=== PATIENT | female | born 1940 | race Caucasian/White ===

== ENCOUNTER → 2016-07-20 14:18 | Outpatient (CLI) | payer MEDICARE, OTHER ==
[2016-06-19 12:40] VITALS: BMI 34.1
[~2016-07-20 14:18] MED LIST: CARDIZEM CD360 MG PO; COUMADIN5 MG PO; CYMBALTA60 MG PO; EFFIENT10 MG PO; HCTZ25 MG PO; LEVAQUIN750 MG PO; METOPROLOL TART50 MG PO; SINGULAIR10 MG PO; ULTRACET TABLET1 TAB PO; ZETIA10 MG PO
[2016-07-20 14:53] LABS: BASOPHILS 0.3 % (0.0-2.0); EOSINOPHILS 5.3 % (0-7); HEMATOCRIT 40.5 % (36.0-48.0); HEMOGLOBIN 13.2 g/dL (12-16); IMMATURE GRANULOCYTES 0.4 % (0-5); LYMPHOCYTES 14.6 % (15-50); MCH 30.1 pg (26.0-34.0); MCHC 32.6 g/dL (31.0-37.0); MCV 92.5 fL (80.0-100.0); MEAN PLATELET VOLUME 9.7 fL (7.4-10.4); MONOCYTES 6.7 % (2-11); NEUTROPHILS 72.7 % (40-80); PLATELET COUNT 240 10x3/uL (130-400); RBC 4.38 10x6/uL (4.00-5.40); RDW 14.4 % (11.5-14.5); WBC 11.5 10x3/uL (4.8-10.8)
[2016-07-20 15:19] LABS: C-REACTIVE PROTEIN 0.8 mg/dL (0.0-0.9); CREATININE - SERUM 1.1 mg/dL (0.6-1.3)
[2016-07-20 15:56] LABS: ERYTHROCYTE SEDIMENTATION RATE 74 mm/hr (0-30)
== END | disposition home or self-care (01) ==
LOC: D.LABREF 14:18
PROVIDERS: Student in an Organized Health Care Education/Training Program
DX: I70.25 Atherosclerosis of native arteries of other extremities with ulceration (principal)

== ENCOUNTER → 2016-07-27 17:12 | Outpatient (CLI) | payer MEDICARE, OTHER ==
[2016-06-19 12:40] VITALS: BMI 34.1
[2016-07-27 17:59] LABS: CREATININE - SERUM 1.5 mg/dL (0.6-1.3)
[2016-07-27 18:10] LABS: BASOPHILS 0.3 % (0.0-2.0); EOSINOPHILS 3.2 % (0-7); HEMOGLOBIN 11.9 g/dL (12-16); IMMATURE GRANULOCYTES 0.4 % (0-5); LYMPHOCYTES 18.8 % (15-50); MCH 29.8 pg (26.0-34.0); MCHC 32.2 g/dL (31.0-37.0); MCV 92.7 fL (80.0-100.0); MEAN PLATELET VOLUME 10.1 fL (7.4-10.4); MONOCYTES 7.6 % (2-11); NEUTROPHILS 69.7 % (40-80); PLATELET COUNT 270 10x3/uL (130-400); RBC 3.99 10x6/uL (4.00-5.40); RDW 14.7 % (11.5-14.5); WBC 11.8 10x3/uL (4.8-10.8)
[2016-07-27 19:03] LABS: ERYTHROCYTE SEDIMENTATION RATE 55 mm/hr (0-30)
== END | disposition home or self-care (01) ==
LOC: D.LABREF 17:12
PROVIDERS: Family Medicine
DX: I70.25 Atherosclerosis of native arteries of other extremities with ulceration (principal); A49.02 Methicillin resistant Staphylococcus aureus infection, unspecified site; L97.519 Non-pressure chronic ulcer of other part of right foot with unspecified severity

== ENCOUNTER → 2016-10-13 08:03 | Outpatient (CLI) | payer MEDICARE, OTHER ==
[2016-06-19 12:40] VITALS: BMI 34.1
== END ==
LOC: D.MRI 08:00
DX: M47.896 Other spondylosis, lumbar region (principal)

== ENCOUNTER → 2016-12-21 13:53 | Outpatient (CLI) | payer MEDICARE, OTHER ==
[2016-06-19 12:40] VITALS: BMI 34.1
== END | disposition home or self-care (01) ==
LOC: D.US 13:53
DX: I65.23 Occlusion and stenosis of bilateral carotid arteries (principal)

== ENCOUNTER 2017-01-11 10:25 | Day surgery (SDC) | payer MEDICARE, OTHER ==
[~2017-01-11] VITALS: Ht 160 cm; Wt 86.2 kg
--- NOTE | ~2017-01-11 | HP ---
PATIENT: MIRANDA FOWLER [place] MEDICAL RECORD: [id number] ACCOUNT: [id number] LOCATION:[facility] : 42 ADMISSION DATE: 01/11/17 HISTORY AND PHYSICAL EXAMINATION HISTORY OF PRESENT ILLNESS: Miranda is 76 years old. She has a large mass completely occluding her right ear canal and biopsy showed benign adnexal tumor. She is being admitted for wide local excision of the mass occluding her ear canal with possible flap or skin graft closure. PAST SURGICAL HISTORY: Includes melanoma and hypertension. ALLERGIES: NIACIN. CURRENT MEDICATIONS: Include diltiazem, ondansetron, Advair, tramadol, Singulair, Zetia, duloxetine, metoprolol, hydrochlorothiazide and Effient. PHYSICAL EXAMINATION: GENERAL: She is healthy-appearing. FACE: Normal, symmetric, no lesions. EYES: Sclerae and conjunctivae are normal. EARS: Left ear is normal. 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 ORAL CAVITY AND OROPHARYNX: Normal palate. Tongue protrudes in midline. NECK: No masses, adenopathy. CHEST: Clear. CARDIOVASCULAR: Regular rate and rhythm, no murmur. EXTREMITIES: Normal. IMPRESSION: Mass including the right ear canal. PLAN: Excision of the mass and a flap or skin graft closure. TRANSINT:[id number] Voice Confirmation ID: [id number] DOCUMENT ID: [id number] MARISABEL BAIRES MD CC: [id number] DICTATION DATE: 01/08/17 1451 INFORMATICS PHYSICIAN LIAISON: 01/08/17 1725 PRE [facility] [address] [id number]
--- NOTE | ~2017-01-11 | OP ---
PATIENT NAME: MIRANDA FOWLER MEDICAL RECORD: [id number] :42 LOCATION:[facility] ADMISSION DATE: SURGEON: PETER SOSA MD DATE OF OPERATION: 01/11/2017 PREOPERATIVE DIAGNOSIS: Tumor in the right ear canal. POSTOPERATIVE DIAGNOSIS: Tumor in the right ear canal. PROCEDURE: Wide local excision, right ear canal and conchal bowl with pedicle flap reconstruction. SURGEON: Peter Sosa MD ANESTHESIA: General LMA. BLOOD LOSS: Less than 5 cc. SPECIMENS: Excision of right ear canal and conchal bowl excision with lesion. COMPLICATIONS: None. DISPOSITION: Recovery stable. DESCRIPTION OF PROCEDURE: She was brought to the operating room and placed in supine position, sedated and intubated by anesthesia. The eyes were taped. The head was turned to the left. She was positioned, prepped and draped for surgery on the right ear. The conchal bowl, ear canal, postauricular area were injected with a total of less than 1 cc of 1% lidocaine with 1:100,000 epinephrine. A 15 blade was used to make an incision through normal skin leaving a several millimeters margin normal tissue circumferentially around the lesion. Initially, the ear canal deep margin could not be visualized at all because the mass was filling the entire ear canal, but once all the incisions were made out laterally in the conchal bowl pretty much all the way to the helix, this incision was taken down all the way through the cartilage both to assist with reconstruction and make sure all the margins were negative. Once that was lifted up then with retraction, the deeper margins could be visualized and were taken down with small scissors. The mass was completely excised. The edges, however, trimmed up, some more cartilage edges were removed to create a nice smooth wound to reconstruct. The ear canal was cleaned out and debrided as it was totally impacted. The postauricular area was then addressed. Basically, a semicircular incision was made on the postauricular area skin behind the lesion. This was taken through and through to rotate that skin flap into the ear canal. This was then sutured and placed in the ear canal and the medial portion of the conchal bowl. Then, an incision was made just through the skin in the postauricular area to remove that skin up and so to the helix and the lateral conchal bowl leaving a pedicled island flap. The rest of the circumference of the skin flaps were sutured into place with 5-0 Vicryl and then the postauricular incision was just closed directly with interrupted subcutaneous 5-0 Vicryl diminishing the postauricular crease somewhat. Once that was accomplished, the flap looked really good, nice contour, doing well vascularly. Then, the mupirocin ointment was applied and the ear canal was packed with mupirocin soaked cotton ball. She was awakened, extubated, and transported to recovery in good condition. No complications. OPERATIVE REPORT [id number] MIRANDA FOWLER TRANSINT:[id number] Voice Confirmation ID: [id number] DOCUMENT ID: [id number] PETER SOSA MD CC: [id number] DICTATION DATE: 01/11/171746 [facility] EXCHANGE SERVICE ADVISOR: 01/12/17 0046 [facility] 01/11/17 [facility] [address] [place] [address]
[~2017-01-11 10:25] MED LIST changes: +TRAMADOL HCL E100 M1 PO; -ULTRACET TABLET1 TAB PO
[2017-01-11 11:02] LABS: HEMATOCRIT 46.7 % (36.0-48.0); HEMOGLOBIN 15.4 g/dL (12-16); MCH 30.4 pg (26.0-34.0); MCV 92.1 fL (80.0-100.0); MEAN PLATELET VOLUME 10.3 fL (7.4-10.4); RBC 5.07 10x6/uL (4.00-5.40)
[2017-01-11 11:34] LABS: ANION GAP 12.7 mmol/L (8-16); CARBON DIOXIDE 30.4 mmol/L (21.0-32.0); CREATININE - SERUM 1.2 mg/dL (0.6-1.3); POTASSIUM - SERUM 3.1 mmol/L (3.5-5.1)
[2017-01-11] MEDS ORDERED: CELEBREX200 MG PO (12:09)
[2017-01-11 12:22] VITALS: BP 131/71; Ht 160 cm; Wt 86.2 kg
[2017-01-11] MEDS ORDERED: KEFLEX500 MG PO (17:53)
--- NOTE | 2017-01-11 18:25 | NUR ---
ASSISTED PATIENT TO WALK TO BATHROOM AND VOID LARGE AMOUNT IN TOILET. RIGHT FOREARM PIV DC'D WITH TIP INTACT. PATIENT DRESSING IN PERSONAL CLOTHING WITH DAUGHTER'S ASSISTANCE
--- NOTE | 2017-01-11 18:45 | NUR ---
DISCHARGE INSTRUCTIONS REVIEWED WITH PATIENT AND DAUGHTER. DISCHARGED HOME VIA WHEELCHAIR TO PRIVATE VEHICLE WITH DAUGHTER AND BROTHER
== END 2017-01-11 18:45 | disposition home or self-care (01) ==
LOC: D.OPS 10:25 → D.PAN 12:45 → D.OPS 13:00 → D.PAN 13:00 → D.OPS 18:45
PROVIDERS: Anesthesiology
DX: D23.21 Other benign neoplasm of skin of right ear and external auricular canal (principal); J45.909 Unspecified asthma, uncomplicated; I10 Essential (primary) hypertension; K21.9 Gastro-esophageal reflux disease without esophagitis; Z01.812 Encounter for preprocedural laboratory examination

== ENCOUNTER → 2017-01-15 08:25 | Outpatient (CLI) | payer MEDICARE, OTHER ==
[2017-01-11 12:22] VITALS: BMI 33.7
[~2017-01-15 08:25] MED LIST changes: +CELEBREX200 MG PO; +KEFLEX500 MG PO
== END | disposition home or self-care (01) ==
LOC: D.RAD 01-11 09:00 → D.CT 08:00
DX: M48.06 Spinal stenosis, lumbar region (principal)

== ENCOUNTER 2017-02-03 05:15 | Inpatient (IN) | payer MEDICARE, OTHER ==
[2017-02-02 16:25] LABS: BASOPHILS 0.2 % (0-2); EOSINOPHILS 1.3 % (0-7); HEMATOCRIT 44.8 % (36.0-48.0); HEMOGLOBIN 14.8 g/dL (12-16); IMMATURE GRANULOCYTES 0.3 % (0-5); MCH 30.9 pg (26.0-34.0); MCV 93.5 fL (80.0-100.0); MEAN PLATELET VOLUME 10.1 fL (7.4-10.4); MONOCYTES 7.9 % (2-11); NEUTROPHILS 73.3 % (40-80); PLATELET COUNT 242 10x3/uL (130-400); RBC 4.79 10x6/uL (4.00-5.40); RDW 13.2 % (11.5-14.5); WBC 13.4 10x3/uL (4.8-10.8)
[2017-02-02 16:34] LABS: INR 0.99 (0.85-1.17); PROTIME 12.9 SECONDS (11.6-15.0)
[2017-02-02 16:38] LABS: ANION GAP 14.8 mmol/L (8-16); CALCIUM 9.3 mg/dL (8.5-10.1); CARBON DIOXIDE 26.8 mmol/L (21.0-32.0); CREATININE - SERUM 0.8 mg/dL (0.6-1.3); POTASSIUM - SERUM 3.6 mmol/L (3.5-5.1)
[2017-02-02 16:43] LABS: APPEARANCE CLEAR (CLEAR); BILIRUBIN NEGATIVE (NEGATIVE); COLOR YELLOW (YELLOW); GLUCOSE NEGATIVE (NEGATIVE); KETONE NEGATIVE (NEGATIVE); LEUKOCYTE ESTERASE NEGATIVE (NEGATIVE); NITRITE NEGATIVE (NEGATIVE); PROTEIN TRACE mg/dL (NEGATIVE); SPECIFIC GRAVITY 1.025 (1.005-1.020); UROBILINOGEN NORMAL (NORMAL)
[~2017-02-03] VITALS: Ht 160 cm; Wt 81.8 kg
--- NOTE | ~2017-02-03 | OP ---
PATIENT NAME: MIRANDA FOWLER MEDICAL RECORD: [id number] :42 LOCATION:[facility] [id number] ADMISSION DATE:02/03/17 SURGEON: JUAN BENAVIDES MD OPERATION DATE: 02/03/17 PREOPERATIVE DIAGNOSES: 1. Right L5 radiculopathy. 2. Severe degenerative disc space disease at L4-5 and L5-S1. 3. Grade 1 spondylolisthesis at L4-5. POSTOPERATIVE DIAGNOSES: 1. Right L5 radiculopathy. 2. Severe degenerative disc space disease at L4-5 and L5-S1. 3. Grade 1 spondylolisthesis at L4-5. PROCEDURE PERFORMED: 1. Application of intravertebral biomechanical device via right sided approach at L4-5. 2. Posterior interbody arthrodesis at L4-5 with endplate preparation with curettes using autograft. 3. Posterolateral arthrodesis on the right side at L5-S1 facet complex. 4. Posterior pedicle screw instrumentation via percutaneous approach from L4 to S1 bilaterally. 5. L4-5 discectomy and medial facetectomy with no overt decompression. IMPLANTS: 1. NuVasive MAS-PLIF cage 8 x 9 x 23 millimeter 12 degree lordosis at L4-5. 2. Screws, 5.5 x 15 millimeter, bilaterally at L4, 6.5 x 50 millimeter screws bilaterally at L5, and 7.5 x 45 millimeter screws bilaterally at S1. ESTIMATED BLOOD LOSS: 150 milliliters. COMPLICATIONS: None. FINDINGS: Durotomy noted during decompression; continuous electromyography monitoring did not reveal any nerve root responses at greater than 40 milliamps during screw placement or during final stimulation. HISTORY: The patient is a pleasant 76-year-old female who presented as an outpatient with severe and progressive right lower extremity pain consistent with L5 radiculopathy as well as severe low back pain, imaging consistent with right L5 foraminal stenosis, and severe degenerative changes from L4 to S1 including L4-5 spondylolisthesis. I had an extensive discussion with her regarding her imaging, her presentation, and risk, benefits, and options of continued conservative therapy versus operative intervention in the form of L4-S1 fixation. She ultimately chose to undergo the operative intervention, and the risks and benefits were discussed with her in detail preoperatively. PROCEDURE IN DETAIL: The patient with identified by the anesthesia team, transported to the operative theater where general endotracheal anesthesia commenced, and all appropriate lines and tubes were placed. She was gently transferred over into the prone position on the operative bed with her arms placed in a Superman position. All of her pressure points were padded, and eyes were accounted for by the anesthesia team. The area was prepped and draped in the usual sterile fashion in the lumbar spine. Timeout was performed and agreed to by those OPERATIVE REPORT [id number] MIRANDA FOWLER present prior to start of the procedure. The patient did receive IV antibiotics prior to the start of the procedure. Using biplanar fluoroscopy, planned entries for L4, L5, and S1 pedicle screws bilaterally were identified and marked. Two paramedial longitudinal incisions were ultimately marked and infiltrated with 1% Lidocaine with epinephrine. A 10-blade was used to make the initial skin incisions, and Bovie electrocautery was used to perform dissection through the subcutaneous fat. Pérez elevators were used to sweep away the subcutaneous fat and expose the lumbodorsal fascia. Bovie electrocautery was used to make a longitudinal incision in the fascia. This was repeated for the other side as well. Starting with the right side, K-wires were placed. Using Jamshidi needles under continuous electromyography neurostimulation and again biplanar fluoroscopy ultimately at L4-5 and L5-S1 bilaterally. The 5.5 millimeter x 15 millimeter screw with the blade attachment was inserted to the appropriate depth. The 6.5 x 50 millimeter screw at the right side at L5 was then inserted to the appropriate depth, and the retractor system was engaged. A small amount of muscle soft tissue was removed over the right L4 lamina and L4-5 facet junction. Using a combination of high speed and matchstick drill, osteotomes and Kerrison rongeurs, a right L4 laminotomy and medial facetectomy was performed. The bone was harvested for autograft. During the decompression, small durotomy on the dorsolateral aspect of the thecal sac on the right side at L4-5 was noted. There was no extrusion of nerve roots from the durotomy defect. Small coco was used to cover the durotomy site. The thecal sac was gently retracted medially uncovering the L4-5 disc. Judicious bipolar electrocautery was used to achieve hemostasis of the epidural veins in this location. A 15-blade was used to make the square cut in the disc space, and a combination of pituitary rongeurs, sebastien, endplate rasps, and ringed curettes were used to perform the discectomy and endplate preparation. An 8 millimeter height shaver was found to be appropriate size, and the 8 millimeter cage as loaded and packed with autograft. The bone funnel was also loaded with autograft, and autograft was delivered into the L4-5 disc space for arthrodesis. The cage was then inserted under lateral fluoroscopy to the appropriate depth and removed without difficulty. Copious irrigation was then used, and a small amount of Surgiflo hemostatic matrix was then applied to the discectomy site to achieve hemostasis. There was no significant hemorrhage thereafter. The small coco overlying the durotomy was then removed. Copious amount of irrigation was then used, and DuraSeal dural sealant was then placed over the durotomy site without difficulty. The right S1 screw measuring 7.5 x 45 millimeters was inserted with the blade attachment, and the retractor system was then engaged. The right L5-S1 facet joint was identified, decorticated with a high speed matchstick drill, and the synovial tissue was curetted away with small angled curette. Combination of autograft and DBX allograft was then packed into this posterolateral facet joint for arthrodesis. The retractor blade was removed on the right side, and the screw towers were then placed. All screw heads were found to be locked on and tight with manual interrogation when applied. The left L4 screw was placed 5.5 x 50 millimeter screws under lateral fluoroscopy over the K-wire. Process repeated at L5 and S1. Again, all these screw placements occurred under continuous electromyography stimulation. The rods were measured with a gordo measuring caliper admitted ultimately passed. The set screws were delivered and final tightened without incident on both sides. The screw towers were removed, and final x-rays were taken. Copious amount of irrigation was used on both incisions. A total of 1 gram of vancomycin powder was sprinkled between the subfascial spaces and suprafascial spaces on both incisions. The right lumbodorsal fascial closure was achieved with interrupted 0-Vicryl sutures in a watertight fashion. The lidocaine side was closed with interrupted Vicryl sutures as well. subdermal region was closed with inverted interrupted 2-0 Vicryl sutures, and the skin was closed with eladio. There were no apparent complications. She tolerated the procedure well. All sponge and needle counts were correct times two at the end OPERATIVE REPORT [id number] MIRANDA FOWLER of the case. I updated the family immediately postoperative regarding the course of the procedure including the durotomy. JUAN BENAVIDES MD CC: [id number] DICTATION DATE: 02/03/17 1600 DIABETES TERRITORY MANAGER: DM 02/05/17 1543 [id number] [place] [address]
[2017-02-03 06:14] VITALS: BP 136/70; BMI 31.9
[2017-02-03 12:05] VITALS: BP 131/62
[2017-02-03 12:17] VITALS: BP 140/75
--- NOTE | 2017-02-03 12:20 | NUR ---
RECIEVED PT TO THE FLOOR AT THIS TIME FROM RECOVERY. REPORT RECIEVED. POST-O[ VITALS STARTED AT THIS TIME. ASSESSMENT DONE PER FLOWSHEET. BED IN LOW POSITION AND CALL LIGHT WITHIN REACH. WILL CONTINUE TO MONITOR.
[2017-02-03 14:17] VITALS: BP 131/62; Ht 160 cm; Wt 81.8 kg
[2017-02-03 16:14] VITALS: BP 146/89
--- NOTE | 2017-02-03 19:28 | NUR ---
PT LYING IN BED WITH EYES CLOSED, EVEN RISE AND FALL OF CHEST, NO SIGNS OF DISTRESS. BED IN LOW POSITION, CALL LIGHT WITHIN REACH
[2017-02-03 20:00] VITALS: BP 146/89; BP 158/86
--- NOTE | 2017-02-03 20:19 | NUR ---
PT AWAKE, LYING IN BED, HAD TENNIS CENTRE MANAGER MICHELLE ASSIST IN MOVING PT UP IN BED, MOVED BEDISDE TABLE WITH PT DINNER IN FRONT OF HER SO SHE CAN EAT. NO OTHER NEEDS AT THIS TIME
--- NOTE | 2017-02-03 20:50 | NUR ---
PT DAUGHTER CAME AND FOUND ME , VERBALIZED PT IS IN SEVERE PAIN WITH NO ASSISTANCE. ASSESSED PT PAIN LEVEL, 10/10 ON SCALE OF 0-10. PT HAS NETWORK OPERATIONS ANALYST ORDERED WELL HYDROCODONE. ADMINISTERED HYDROCODONE UNTIL PT PAIN STABELIZED AND NETWORK OPERATIONS ANALYST SET UP
--- NOTE | 2017-02-03 21:45 | NUR ---
PT VISITING W/ DAUGHTER, VERBALIZED PAIN IS NOW AT A 7, BED IN LOW POSITION, CALL LIGHT IN REACH NO OTHER NEEDS AT THIS MOMENT. CONTINUE W/ PLAN OF CARE
[2017-02-04] VITALS: BP 144/72; BP 158/86
[2017-02-04 04:00] VITALS: BP 168/82
[2017-02-04 07:55] LABS: ANION GAP 12.7 mmol/L (8-16); CALCIUM 9.2 mg/dL (8.5-10.1); CARBON DIOXIDE 27.4 mmol/L (21.0-32.0); CREATININE - SERUM 0.9 mg/dL (0.6-1.3); POTASSIUM - SERUM 4.1 mmol/L (3.5-5.1)
[2017-02-04 08:15] VITALS: BP 136/72
[2017-02-04 08:17] LABS: HEMATOCRIT 41.1 % (36.0-48.0); HEMOGLOBIN 13.7 g/dL (12-16); MCH 30.8 pg (26.0-34.0); MCHC 33.3 g/dL (31.0-37.0); MCV 92.4 fL (80.0-100.0); MEAN PLATELET VOLUME 11.9 fL (7.4-10.4); PLATELET COUNT 227 10x3/uL (130-400); RBC 4.45 10x6/uL (4.00-5.40); RDW 13.4 % (11.5-14.5); WBC 20.4 10x3/uL (4.8-10.8)
--- NOTE | 2017-02-04 08:40 | NUR ---
SCHEDULED MEDICATIONS ADMINISTERED AT THIS TIME. PROFESSOR OF FOOD BIOCHEMISTRY IN USE FOR PAIN CONTROL. DRESSING TO LOWER BACK CHANGED DUE TO SATURATION AT THIS TIME. ASSESSMENT PERFORMED PER FLOWSHEET. CALL LIGHT IN REACH, PROFESSOR OF FOOD BIOCHEMISTRY ADJUSTED PER ORDER. TRISHA ALARM ON AND IN WORKING ORDER. WILL CONTINUE WITH PLAN OF CARE.
[2017-02-04 08:55] LABS: LYMPHOCYTES 8 % (15-50); MONOCYTES 4 % (2-11); NEUTROPHILS 86 % (40-80); PLATELET ESTIMATE NORMAL
--- NOTE | 2017-02-04 10:23 | NUR ---
PRN TYLENOL ADMINISTERED AT THIS TIME FOR HEADACHE. UP IN CHAIR WITH TRISHA MAT ALARM IN USE. CALL LIGHT IN REACH, WILL CONTINUE WITH PLAN OF CARE.
--- NOTE | 2017-02-04 11:19 | NUR ---
LEE CATHETER D/C WITH CATH TIP INTACT. PT TOLERATED WITHOUT COMPLAINTS.
[2017-02-04 11:41] VITALS: BP 141/87
[2017-02-04 16:00] VITALS: BP 140/79
--- NOTE | 2017-02-04 16:00 | NUR ---
SLEEPING AT THIS TIME WITH RESPIRATIONS EVEN AND NON LABORED. CALL LIGHT IN REACH. WILL CONTINUE WITH PLAN OF CARE.
--- NOTE | 2017-02-04 16:53 | NUR ---
ASSISTED PT TO BATHROOM WHERE SHE VOIDED 300 ML OF CLEAR, YELLOW URINE WITHOUT DIFFICULTY.
[2017-02-04 20:00] VITALS: BP 140/70
--- NOTE | 2017-02-04 20:30 | NUR ---
AWAKE,ALERT,ORIENTED..IV INFUSING TO LEFT HAND WIHTOUT REDNESS OR EDEMA NOTED. DRSG TO LUMBAR AREA DRY/INTACT. GUZMAN. NO DEFICIETS NOTED. REHAB THERAPY MANAGER NORPHINE IN USE FOR PAIN CONTRO. CL IN REACH.
[2017-02-05 04:00] VITALS: BP 122/66
--- NOTE | 2017-02-05 04:59 | NUR ---
PT HAS BEEN INCONT SEVERAL TIMES DURING THE NIGHT AND WE ARE CLEANING HER UP AT THIS TIME. SHE HAS O2 AT 2 LITERS AND EASY RESPIRATIONS BUT IS COMPLAINING OV BACK PAIN.
--- NOTE | 2017-02-05 05:37 | NUR ---
NO CHANGE IN ASSESSMENT. CL IN REACH.
[2017-02-05 06:21] LABS: BASOPHILS 0.1 % (0-2); EOSINOPHILS 0.3 % (0-7); HEMATOCRIT 39.6 % (36.0-48.0); HEMOGLOBIN 13.2 g/dL (12-16); IMMATURE GRANULOCYTES 0.4 % (0-5); LYMPHOCYTES 7.9 % (15-50); MCH 30.8 pg (26.0-34.0); MCHC 33.3 g/dL (31.0-37.0); MCV 92.3 fL (80.0-100.0); MEAN PLATELET VOLUME 11.1 fL (7.4-10.4); MONOCYTES 9.1 % (2-11); NEUTROPHILS 82.2 % (40-80); PLATELET COUNT 214 10x3/uL (130-400); RBC 4.29 10x6/uL (4.00-5.40); RDW 13.1 % (11.5-14.5); WBC 18.8 10x3/uL (4.8-10.8)
[2017-02-05 06:35] LABS: CALCIUM 8.5 mg/dL (8.5-10.1); CARBON DIOXIDE 30.9 mmol/L (21.0-32.0); CHLORIDE - SERUM 97 mmol/L (98-107); GLUCOSE 148 mg/dL (74-106); SODIUM 136 mmol/L (136-145)
[2017-02-05 06:36] LABS: CALC OSMOLALITY 273 mosm/kg (275-300); CREATININE - SERUM 0.6 mg/dL (0.6-1.3); UREA NITROGEN 11 mg/dL (7-18); eGFR NON AFRICAN AMERICAN > 90 mL/min (90-120)
--- NOTE | 2017-02-05 07:00 | NUR ---
REPORT RECIEVED, ASSUMED CARE. PATIENT IN BED WITH IV INTACT. NO COMPLAINTS AT THIS TIME. CALL LIGHT WITHIN REACH. PATIENT EYES CLOSED RESTING QUIETLY WITH NO DISTRESS.
[2017-02-05 08:55] VITALS: BP 196/91
--- NOTE | 2017-02-05 09:30 | NUR ---
PATIENT UP TO CHAIR PER PT. IV INTACT. STATED SHE DIDNT FEEL LIKE EATING AT THIS TIME. ZOFRAN GIVEN FOR NAUSEA. FAMILY AT BEDSIDE. CALL LIGHT WITHIN REACH.
--- NOTE | 2017-02-05 12:00 | NUR ---
Patient Name: MIRANDA FOWLER Admission Status: Elective Accout number: [id number] Admission Date: 02-03-2017 : 1940 Admission Diagnosis:INTERVERTEBRAL DISC DISORDERS W RADICULOPATHY, LUMBAR R Attending: VÍCTOR Current LOS: 2 Anticipated DC Date: 02-08-2017 Planned Disposition: Home Primary Insurance: MEDICARE A & B Discharge Planning Comments: CM MET WITH PATIENT REGARDING D/C NEEDS AND PLANS. PATIENT STATED SHE LIVES WITH HER DAUGHTER (CORINNE) AND SHE WILL DRIVE HER HOME AT DISCHARGE. PATIENT STATED THERE ARE 2 STEPS W/RAILS TO ENTER HOME AND 1 STAIRCASE IN HOME (DOES NOT USE THE STAIRCASE). PATIENT STATED SHE IS INDEPENDENT WITH HER CARE AND HAS A WALKER, BS COMMODE, AND SHOWER CHAIR AT HOME. PATIENTS PCP IS DR. TORRES AND PHARMACY IS [facility]. PATIENT WILL DISCUSS HOME HEALTH WITH HER DAUGTHER AND DOCTOR BEFORE CHOOSING ONE. CM WILL CONTINUE TO FOLLOW PATIENT WITH D/C NEEDS AND PLANS. PCP DR. [facility]IS[facility]- [phone] CORINNE (DAUGHTER) [phone] Front Office Agent: Florinda Gonzales Is the patient Alert and Oriented? Yes 0 * How many steps to enter\exit or inside your home? 2 w/rails 0 * PCP DR. TORRES 0 * Pharmacy [facility] 0 * Preadmission Environment Home with Family 0 * ADLs Independent 0 * Equipment Bedside Commode Shower Chair Walker 0 * List name and contact numbers for known caregivers / representatives who currently or will assist patient after discharge: CORINNE (DAUGHTER) [phone] * Community resources currently utilized None 0 * Additional services required to return to the preadmission environment? Yes 0 * Can the patient safely return to the preadmission environment? Yes 0 * Has this patient been hospitalized within the prior 30 days at any hospital? No 0 Grand Total: 0
[2017-02-05 13:07] VITALS: BP 152/71
--- NOTE | 2017-02-05 13:20 | NUR ---
PATIENT TRIPE FINISHER DC ORDERED. PATIENT HAS NO COMPLAINTS OF PAIN. IV INTACT. CALL LIGHT WITHIN REACH. DRESSING TO BACK CHANGED. INCISIONS X 2 CLD WITH DIANA. SMALL AMOUNT OF PINK DRAINAGE ON OLD DRESSING. PATIENT TOLERATED WITH NO PAIN.
[2017-02-05 14:56] LABS: BASOPHILS 0.1 % (0-2); EOSINOPHILS 0.3 % (0-7); HEMATOCRIT 39.4 % (36.0-48.0); HEMOGLOBIN 13.1 g/dL (12-16); IMMATURE GRANULOCYTES 0.7 % (0-5); LYMPHOCYTES 7.9 % (15-50); MCH 30.2 pg (26.0-34.0); MCHC 33.2 g/dL (31.0-37.0); MCV 90.8 fL (80.0-100.0); MEAN PLATELET VOLUME 10.8 fL (7.4-10.4); MONOCYTES 8.9 % (2-11); NEUTROPHILS 82.1 % (40-80); PLATELET COUNT 207 10x3/uL (130-400); RBC 4.34 10x6/uL (4.00-5.40); RDW 12.9 % (11.5-14.5); WBC 20.9 10x3/uL (4.8-10.8)
--- NOTE | 2017-02-05 15:09 | NUR ---
Rehab Note- Acute Rehab Prescreen order received. Visited with the patient, she is interested in [facility] Rehab when ready for discharge from the acute hospital. Thank you for this referral! Jacqueline De Anda RN Clinical Liaison, [facility] Rehab
[2017-02-05 16:18] VITALS: BP 163/71
[2017-02-05] MEDS ORDERED: LOVENOX40 MG/0.4 SC (17:27)
[2017-02-05] MEDS ORDERED: HYDROCODON-ACE1 EAC7 PO (17:30)
[2017-02-05] MEDS ORDERED: VALIUM 2 MG TAB2 MG PO (17:30)
[2017-02-05] MEDS ORDERED: ZOFRAN ODT4 MG/UDTAB PO (17:31)
--- NOTE | 2017-02-05 18:00 | NUR ---
SPOKE WITH PATIENT FAMILY. EXPLAINED PATIENT GOING TO REHAB. VERBALIZED UNDERSTANDING. NO QUESTIONS AT THIS TIME.
--- NOTE | 2017-02-05 18:50 | NUR ---
REPORT GIVEN TO EM BUCHANAN. PATIENT IN BED WITH NO COMPLAINTS. IV INTACT. CALL LIGHT WITHIN REACH.
--- NOTE | 2017-02-05 20:20 | NUR ---
PT DISCHARGED TO REHAB AT THIS TIME.
== END 2017-02-05 20:21 | disposition home or self-care (01) | DRG 460 ==
LOC: D.OPS 05:15 → D.PAN 07:30 → D.OPS 07:30 → D.MS 11:42 → D.OPS 14:29 → D.MS 14:31
PROVIDERS: ADMIT Neurological Surgery
PROC: 0SG30AJ Fusion of Lumbosacral Joint with Interbody Fusion Device, Posterior Approach, Anterior Column, Open Approach (ICD-10-PCS; 2017-02-03)
PROC: 00QT0ZZ Repair Spinal Meninges, Open Approach (ICD-10-PCS; 2017-02-03)
PROC: 0SG00AJ Fusion of Lumbar Vertebral Joint with Interbody Fusion Device, Posterior Approach, Anterior Column, Open Approach (ICD-10-PCS; principal; 2017-02-03 07:30)
DX: M51.16 Intervertebral disc disorders with radiculopathy, lumbar region (principal); G97.41 Accidental puncture or laceration of dura during a procedure; M51.17 Intervertebral disc disorders with radiculopathy, lumbosacral region

== ENCOUNTER 2017-02-05 19:44 | Inpatient (IN) | payer MEDICARE, OTHER ==
[~2017-02-05] VITALS: Ht 160 cm; Wt 72.6 kg
[~2017-02-05 19:44] MED LIST changes: +HYDROCODON-ACE1 EAC7 PO; +LOVENOX40 MG/0.4 SC; +VALIUM 2 MG TAB2 MG PO; +ZOFRAN ODT4 MG/UDTAB PO
--- NOTE | 2017-02-05 20:10 | NUR ---
RECEIVED PATIENT TO UNIT VIA W/C @ 2009 HRS. PROVIDED PATIENT WITH FRESH ICE WATER. VERIFIED SHE HAS NO NEEDS AT THIS TIME. HOB UP 30 DEGREES WITH FOB ELEVATED FOR COMFORT. LUMBAR INCISIONS ARE CLEAN AND DRY.
--- NOTE | 2017-02-05 22:15 | NUR ---
PATIENT WAS CLEANSED AND CHANGED WELL WERE ALL BED LINENS, BY ART ANDRADE DUE TO VERY LARGE URINARY INCONTINENCE. NURSE SUAREZ ALSO CHANGED BORDERED GAUZE DRESSING TO LUMBAR INCISIONS PRIOR DRESSING HAD ROLLED UP DUE TO PATIENT MOVEMENT IN BED.
[2017-02-05 22:35] VITALS: BP 150/75; BMI 28.4
--- NOTE | 2017-02-05 23:55 | NUR ---
PATIENT WAS GIVEN NORCO 5/325 X2 TABS PO @ 9262 BY ART ANDRADE FOR EXPRESSED PAIN LEVEL OF 8/10 IN LOW BACK. PATIENT REPORTS NO PAIN AT THIS TIME AT REST. NURSE SUAREZ COMPLETED ADMISSION ASSESSMENT AROUND 2310 HRS ADMISSION HISTORY IS NOW COMPLETE AND PATIENT HAS SIGNED ALL ADMISSION DOCUMENTS. DURING THE COURSE OF COMPLETING HER ADMISSION HISTORY, REGARDING A LIVING WILL, PATIENT DECLINED TO OBTAIN MORE INFORMATION BUT STATES THAT, (1) HER DAUGHTER, WITH WHOM SHE LIVES KNOWS HER WISHES, AND (2) IN THE CASE THAT HER LIFE IS UNSUSTAINABLE BY OTHER THAN ARTIFICIAL MEANS, SHE WANTS NO HEROIC MEASURES, INTUBATION/VENTILATION, ETC. SHE CONFIRMS HER WISH TO BE DNR SHE WAS IN ACUTE CARE UNIT.
--- NOTE | 2017-02-06 02:00 | NUR ---
RESTING IN BED, EYES CLOSED.
--- NOTE | 2017-02-06 04:45 | NUR ---
IN BED, EYES CLOSED. RESPIRATIONS ARE QUIET AND UNLABORED.
--- NOTE | 2017-02-06 06:45 | NUR ---
GAVE PATIENT SCHEDULED MEDS. C/O PAIN LEVEL OF 6/10 IN LEFT KNEE AND LOW BACK. GAVE HER NORCO 5/325 X2 TABS PO.
--- NOTE | 2017-02-06 07:20 | NUR ---
RESTING QUIETLY IN BED. EYES CLOSED. CALL LIGHT IN REACH.
[2017-02-06 07:22] LABS: BASOPHILS 0.1 % (0-2); EOSINOPHILS 0.7 % (0-7); HEMATOCRIT 41.2 % (36.0-48.0); HEMOGLOBIN 13.7 g/dL (12-16); IMMATURE GRANULOCYTES 0.6 % (0-5); LYMPHOCYTES 8.3 % (15-50); MCH 30.1 pg (26.0-34.0); MCHC 33.3 g/dL (31.0-37.0); MCV 90.5 fL (80.0-100.0); MEAN PLATELET VOLUME 10.6 fL (7.4-10.4); MONOCYTES 9.8 % (2-11); NEUTROPHILS 80.5 % (40-80); PLATELET COUNT 190 10x3/uL (130-400); RBC 4.55 10x6/uL (4.00-5.40); WBC 16.2 10x3/uL (4.8-10.8)
[2017-02-06 07:28] LABS: CALC OSMOLALITY 260 mosm/kg (275-300); CARBON DIOXIDE 35.3 mmol/L (21.0-32.0); CHLORIDE - SERUM 94 mmol/L (98-107); CREATININE - SERUM 0.6 mg/dL (0.6-1.3); GLUCOSE 134 mg/dL (74-106); SODIUM 129 mmol/L (136-145); UREA NITROGEN 12 mg/dL (7-18); eGFR NON AFRICAN AMERICAN > 90 mL/min (90-120)
[2017-02-06 07:29] LABS: POTASSIUM - SERUM 2.7 mmol/L (3.5-5.1)
--- NOTE | 2017-02-06 08:00 | NUR ---
PATIENT IS ALERT/ORIENT X4. HOB UP TO EAT BREAKFAST. CALL LIGHT WITHIN REACH. SALINE LOCK TO LEFT HAND INTACT. NO OXYGEN. PO 93% RA. VOICES NO NEEDS AT THIS TIME.
[2017-02-06 09:25] VITALS: BP 145/81
--- NOTE | 2017-02-06 09:52 | NUR ---
DR. Maile TOBAR IN TO SEE PATIENT. NEW ORDERS RECEIVED. PATIENT IS A DNR.
--- NOTE | 2017-02-06 12:35 | NUR ---
OCCUPATIONAL THERAPIST IN PATIENTS ROOM ET CALLED THIS NURSE INTO ROOM. PATIENT VERY PALE, CLAMMY, SLOW RESPONSE. THIS NURSE AND OCCUPATIONAL THERAPIST GOT PATIENT BACK INTO BED. PATIENT C/O OF A LOT OF PAIN. V/S PO 85, P78, B/P 114/50. R 20. OXYMIZER PUT ON AT 3L. HEAD OF BED DOWN AND FEET UP IN BED. PO WENT UP TO 96%, B/P 128/72. P76, R 16. PRN NORCO GIVEN. WILL CONTINUE TO MONITOR
[2017-02-06 13:15] VITALS: Ht 160 cm; Wt 72.6 kg
--- NOTE | 2017-02-06 13:45 | NUR ---
PATIENT RESTING WELL. STATES RELIEF FROM PRN PAIN MEDICATION. DENIES ANY NAUSEA AT THIS TIME. SKIN DRY/WARM.
--- NOTE | 2017-02-06 14:19 | NUR ---
SALINE LOCK WOULD NOT FLUSHED. REMOVED. PATIENT DOES NOT HAVE ANY IV MEDICATIONS
--- NOTE | 2017-02-06 18:45 | NUR ---
AWOKE PATIENT AND SET HER TO FINISHING HER DINNER. HAD FALLEN ASLEEP WHILE EATING, BUT SAID SHE WANTED TO FINISH HER MEAL. DENIES CURRENT NEEDS.
[2017-02-06 20:27] VITALS: BP 121/57
--- NOTE | 2017-02-06 21:25 | NUR ---
ASSESSMENT AND HS MEDS COMPLETE. GAVE PATIENT NORCO 5/325 X2 TABS PO FOR LEFT KNEE AND LOW BACK PAIN OF LEVEL 6/10.
--- NOTE | 2017-02-06 22:00 | NUR ---
RESTING QUIETLY IN BED, EYES CLOSED.
--- NOTE | 2017-02-06 23:50 | NUR ---
RESTING QUEITLY IN BED, EYES CLOSED. NO DISTRESS NOTED.
--- NOTE | 2017-02-07 02:15 | NUR ---
PATIENT RESTING QUEITLY IN BED, EYES CLOSED. PATIENT WAS CLEANSED AND CHANGED BY PAD MACHINE OFFBEARER IN THE 0100 TIME FRAME.
--- NOTE | 2017-02-07 04:45 | NUR ---
RESTING IN BED, RESPIRING QUIETLY.
--- NOTE | 2017-02-07 06:15 | NUR ---
GAVE PATIENT SCHEDULED MEDS. DENIES NEEDS.
--- NOTE | 2017-02-07 07:02 | NUR ---
RESTING QUIETLY IN BED. NO S/S DISTRESS OR NEEDS. CALL LIGHT IN REACH.
[2017-02-07 08:00] VITALS: BP 155/86
--- NOTE | 2017-02-07 08:19 | NUR ---
PATIENT IS ALERT/ORIENT X4. CALL LIGHT WITHIN REACH. VOICES NO NEEDS AT THIS TIME. OXIMIZER ON AT 3L. PO 97%. SITTING UP IN BED TO EAT BREAKFAST
--- NOTE | 2017-02-07 10:37 | NUR ---
PATIENT HELPED WITH SHOWER BY THIS NURSE. MOD TO MAX ASST. PATIENT ONLY ABLE TO WASH AND DRY FRONT OF TORSO. THIS NURSE DID THE REST. MOD ASST FROM WHEELCHAIR ONTO SHOWER CHAIR.
--- NOTE | 2017-02-07 12:30 | NUR ---
PATIENT HAS A POOR APPETITE. ONLY ATE 10% OF LUNCH. REFUSED SUPPLIMENT.
--- NOTE | 2017-02-07 17:18 | NUR ---
DAUGTHER IN VISITING WITH PATIENT
[2017-02-07 19:20] VITALS: BP 152/73
--- NOTE | 2017-02-07 19:20 | NUR ---
ASSESMENT PER FLOW SHEET, VS OBTAINED, PT REPORTS FLATUS AND BM TODAY, PT INST ON AND VERBALIZES UNDERSTANDING OF USING CALL LIGHT WHEN NEEDING TO VOID, PT RATES "ALL OVER PAIN" 01/25, INFORMED PT THAT I WILL CHECK TO SEE WHEN PAIN MED IS DUE AND BRING IT IN WITH OTHER MEDS, PT VERBALIZES UNDERSTANDING, PT DENIES NEEDS AT THIS TIME
--- NOTE | 2017-02-07 20:10 | NUR ---
PT RESTING WITH EYES CLOSED, RESP QUIET, NO DISTRESS NOTED, LEFT UNDISTURBED AT THIS TIME
--- NOTE | 2017-02-07 21:06 | NUR ---
PT RESTING WITH EYES CLOSED, AROUSES TO SOFT VERBAL STIMULATION, ADM 2100 MEDS AND PAIN MED PO PER MD ORDERS, SEE EMAR, WITH FRESH H20, PT DENIES FURTHER NEEDS, BED IN LOW POSITION, SIDE RAILS X 2, CALL LIGHT IN REACH, BED ALARM ON AND WORKING PROPERLY
--- NOTE | 2017-02-07 22:05 | NUR ---
PT RESTING WITH EYES CLOSED, RESP QUIET, NO DISTRESS NOTED, LEFT UNDISTURBED AT THIS TIME
--- NOTE | 2017-02-08 00:30 | NUR ---
PT AWAKE WATCHING TV, DENIES NEEDS OR PAIN AT THIS TIME
--- NOTE | 2017-02-08 01:00 | NUR ---
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
--- NOTE | 2017-02-08 02:40 | NUR ---
PT RESTING WITH EYES CLOSED, RESP QUIET, NO DISTRESS NOTED, LEFT UNDISTURBED AT THIS TIME
--- NOTE | 2017-02-08 04:15 | NUR ---
PT RESTING WITH EYES CLOSED, RESP QUIET, NO DISTRESS NOTED, LEFT UNDISTURBED AT THIS TIME
--- NOTE | 2017-02-08 06:28 | NUR ---
PT AWAKE, ADM 0600 MED PER MD ORDERS, SEE EMAR, PT DENIES NEEDS OR PAIN
[2017-02-08 06:43] LABS: BASOPHILS 0.1 % (0-2); EOSINOPHILS 1.8 % (0-7); HEMATOCRIT 36.8 % (36.0-48.0); HEMOGLOBIN 12.1 g/dL (12-16); IMMATURE GRANULOCYTES 0.9 % (0-5); LYMPHOCYTES 14.7 % (15-50); MCH 30.4 pg (26.0-34.0); MCHC 32.9 g/dL (31.0-37.0); MEAN PLATELET VOLUME 10.3 fL (7.4-10.4); MONOCYTES 8.8 % (2-11); NEUTROPHILS 73.7 % (40-80); RBC 3.98 10x6/uL (4.00-5.40); RDW 13.3 % (11.5-14.5); WBC 13.6 10x3/uL (4.8-10.8)
[2017-02-08 06:45] LABS: MCV 92.5 fL (80.0-100.0); PLATELET COUNT 273 10x3/uL (130-400)
--- NOTE | 2017-02-08 06:45 | NUR ---
SHIFT REPORT TO DAY SHIFT
[2017-02-08 06:46] LABS: CALCIUM 9.3 mg/dL (8.5-10.1); CARBON DIOXIDE 36.5 mmol/L (21.0-32.0)
[2017-02-08 06:50] LABS: ANION GAP 9.5 mmol/L (8-16); CREATININE - SERUM 0.8 mg/dL (0.6-1.3)
[2017-02-08 07:31] VITALS: BP 157/74
--- NOTE | 2017-02-08 09:10 | NUR ---
PT AM MEDS ADMNISTERED. PT DENIES NEEDS. WCTM.
--- NOTE | 2017-02-08 12:42 | NUR ---
PT EATING LUNCH, DENIES NEEDS. WCTM.
[2017-02-08 18:48] VITALS: BP 150/77
--- NOTE | 2017-02-08 19:20 | NUR ---
PT IN BED WITH HOB UP FOR COMFORT. WATCHING TV. PT'S CODE STATUS IS DNR. ALERT & ORIENTED. OXIMIZER @ 3L. NO IV. BED IN LOWEST POSITION AND CALL LIGHT WITHIN REACH.
--- NOTE | 2017-02-08 19:30 | NUR ---
LEFT MENU IN ROOM, PT HAS EYES CLOSED, LYING IN SUPINE POSITION, APPEARS TO BE ASLEEP. PT RESPIRATIONS REGULAR AND UNLABORED. NO S/S OF ACUTE DISTRESS.
--- NOTE | 2017-02-08 23:20 | NUR ---
PT IN BED WITH HOB UP FOR COMFORT. WATCHING TV. BED IN LOWEST POSITION AND CALL LIGHT WITHIN REACH.
--- NOTE | 2017-02-09 04:19 | NUR ---
PT IN BED WITH HOB UP FOR COMFORT. WATCHING TV. BED IN LOWEST POSITION AND CALL LIGHT WITHIN REACH.
[2017-02-09 07:40] VITALS: BP 121/58
--- NOTE | 2017-02-09 08:10 | NUR ---
PT HAD EPISODE OF INCONTINENT BOWEL AND BLADDER. PT CLEANED, BED LINENS AND GOWN CHANGED. PT NOW EATING BREAKFAST. WCTM.
--- NOTE | 2017-02-09 12:04 | NUR ---
PATIENT ADMITTED TO REHAB FROM ACUTE FLOOR. DR. TORRES IS HER PCP AND [facility] IS HER PHARMACY. DME AT HOME: [facility], [employer] [facility]AIR AND BSC. SHE PLANS ON RETURNING HOME WITH HER DAUGHTER AT DISCHARGE. WILL CONTINUE TO FOLLOW WITH PATIENT.
--- NOTE | 2017-02-09 15:31 | NUR ---
PT HAS HAD TWO LOOSE BM'S TODAY. PT CURRENTLY IN THERAPY. TOLERATING WELL. WCTM.
--- NOTE | 2017-02-09 17:55 | NUR ---
PT SITTING UP EATING DINNER, FAMILY AT BEDSIDE. WCTM.
[2017-02-09 19:00] VITALS: BP 124/62
--- NOTE | 2017-02-09 19:15 | NUR ---
PATIENT WAS ASSISTED UP TO BR AND BACK TO BED BY UNA RN. PATIENT DENIES FURTHER NEEDS.
--- NOTE | 2017-02-09 21:30 | NUR ---
IN BED, AWAKE. WATCHING TV. DENIES NEEDS.
--- NOTE | 2017-02-09 22:35 | NUR ---
ASSESSMENT AND HS MEDS COMPLETE. GAVE PATIENT NORCO 5/325 X1 TAB PO FOR PAIN LEVEL OF 4/10 IN LOW BACK.
--- NOTE | 2017-02-10 00:40 | NUR ---
ADDED EXTENSION TO PATIENT'S OXYGEN LINE. ASSISTED HER UP TO BR. TRANSFERRED MIN ASSIST TO W/C AND COMMODE. TRANSFERRED MOD ASSIST FROM W/C BACK TO BED.
--- NOTE | 2017-02-10 02:45 | NUR ---
PATIENT AWAKE. REQUESTED A BLANKET. APPLIED A WARMED BLANKET TO HER COVERS.
[2017-02-10 05:00] VITALS: BP 145/83
--- NOTE | 2017-02-10 05:00 | NUR ---
I WAS REPOSITIONING PATIENT'S W/C BEHIND HER TO RETURN HER TO BED, WHILE AT THE SAME TIME PATIENT WAS ADJUSTING HER FRESH PULL-UP WITH ONE HAND AND THE OTHER ON THE BEDRAIL, PATIENT BECAME DISTRACTED, LET GO OF THE HANDRAIL, LOST HER BALANCE AND FELL TO THE FLOOR. OBTAINED ASSIST FROM DETENTION CHARGE NURSE AND AFTER CHECKING HER FOR INJURIES, STOOD PATIENT UP AND RETURNED HER TO BED VIA W/C. OBTAINED VS. CHAECKED PATIENT THOROUGHTLY FOR HEADBUMPS, SCRAPES OR HEMATOMAS AND FOUND NONE. SAYS HER BACK FEELS THE SAME, BUT HER RIGHT HAND AND RIGHT KNEE ARE SORE. OBTAINED ICE PACK FOR HER RIGHT HAND. DOES NOT APPEAR TO BE SWELLING AT THIS TIME. TIME OF FALL WAS 0450.
--- NOTE | 2017-02-10 05:05 | NUR ---
PLACED CALL TO DR. TOBAR WHICH WENT STRAIGHT TO VOICEMAIL. LEFT MESSAGE FOR HIM TO CALL ME BACK.
--- NOTE | 2017-02-10 05:10 | NUR ---
CALLED PATIENT DAUGHTER CORINNE FOWLER AND REPORTED PATIENT FALL, AND THAT A CALL HAD ALREADY BEEN CALLED TO DR. TOBAR. INFORMED HER THAT MRS. FOWLER DOES NOT COMPLAIN OF MUCH DISCOMFORT FROM THE EVENT AND THAT WE WILL MONITOR HER CAREFULLY.
--- NOTE | 2017-02-10 05:21 | NUR ---
GAVE PATIENT NORCO 5/325 X2 TABS PO FOR PAIN LEVEL OF 5-6/10, MOSTLY IN HER LOW BACK, BUT TO A MUCH LESSER EXTENT IN HER RIGHT KNEE AND RIGHT HAND. PATIENT REMAINS ORIENTED.
--- NOTE | 2017-02-10 06:15 | NUR ---
PATIENT HAS BEEN DOZING SINCE RECEIVING NORCO AT 0521. CURRENTLY DENIES PAIN. LOVENOX GIVEN SC IN LUQ ABDOMEN.
[2017-02-10 06:34] LABS: BASOPHILS 0.4 % (0-2); HEMATOCRIT 40.7 % (36.0-48.0); HEMOGLOBIN 13.4 g/dL (12-16); IMMATURE GRANULOCYTES 1.7 % (0-5); LYMPHOCYTES 20.4 % (15-50); MCH 30.3 pg (26.0-34.0); MCHC 32.9 g/dL (31.0-37.0); MCV 92.1 fL (80.0-100.0); MEAN PLATELET VOLUME 10.4 fL (7.4-10.4); MONOCYTES 8.5 % (2-11); PLATELET COUNT 337 10x3/uL (130-400); RBC 4.42 10x6/uL (4.00-5.40); RDW 13.3 % (11.5-14.5); WBC 15.1 10x3/uL (4.8-10.8)
[2017-02-10 07:03] LABS: CALCIUM 9.3 mg/dL (8.5-10.1); CARBON DIOXIDE 31.5 mmol/L (21.0-32.0); CHLORIDE - SERUM 95 mmol/L (98-107); CREATININE - SERUM 0.7 mg/dL (0.6-1.3); GLUCOSE 101 mg/dL (74-106); SODIUM 139 mmol/L (136-145); eGFR NON AFRICAN AMERICAN 87 mL/min (90-120)
[2017-02-10 07:09] LABS: CALC OSMOLALITY 278 mosm/kg (275-300); POTASSIUM - SERUM 3.9 mmol/L (3.5-5.1); UREA NITROGEN 15 mg/dL (7-18)
--- NOTE | 2017-02-10 07:30 | NUR ---
RESTING QUIETLY IN BED. EYES CLOSED. NO S/S DISTRESS OR NEEDS. CALL LIGHT IN REACH.
[2017-02-10 07:54] VITALS: BP 128/70
--- NOTE | 2017-02-10 09:49 | NUR ---
Wound care consult: There is a wound on the medial right foot. It measures 0.5cm x 0.5cm x 0.7cm. It is calloused on edges and has soft scab in center. Foot drop is noted and toes are drawn under (pt states she basically walks on her toenails). This is a chronic wound she has had "for a long time". There is no odor or redness, occasional drainage (as reported by pt) and tenderness. She states she uses an antibiotic ointment daily and covers with a bandaid or a corn pad. Will recommend continuing with abx ointment and cover for protection. Wound care will continue monitoring.
--- NOTE | 2017-02-10 10:01 | NUR ---
PATIENT ALERT/ORIENT X4 THIS AM. CALL LIGHT WITHIN REACH. BACK IN ROOM AFTER X-RAY TAKEN ON RIGHT HAND AND KNEE. OXYMIZER AT 3L. NO RESPITORY DISTRESS NOTED. VOICES NO NEEDS AT THIS TIME
--- NOTE | 2017-02-10 10:51 | NUR ---
Nutrition Follow Up: Pt reported that her appetite is improving. She said that she likes the food and is eating well. She refused any supplements at this time. Pt is eating 52% meal avg on a regular soft diet. Wt stable. +BM 02/09/17. Meds and labs reviewed. Rec continue current diet. RD following.
--- NOTE | 2017-02-10 14:42 | NUR ---
CARE TEAM MEETING: PATIENT TOLERATING THERAPY. TENATIVE DISCHARGE DATE IS 02/26/17. DISCHARGE PLANS ARE FOR PATIENT TO RETURN HOME. WILL CONTINUE TO FOLLOW WITH PATIENT.
--- NOTE | 2017-02-10 17:18 | NUR ---
DAUGHTER IN VISITING WITH PATIENT. TALKED WITH Xu JOHN IN REGARDS TO CARE PLAN MEETING AND PLANS FOR DISCHARGE.
[2017-02-10 19:00] VITALS: BP 132/76
--- NOTE | 2017-02-10 19:30 | NUR ---
PATIENT IN BED, HOB UP 30 DEGREES. FOUND HER WITH HE OXYMIZER LYING ON BED. HAD HER REEMPLACE IT IN HER NARES. DENIES NEEDS.
--- NOTE | 2017-02-10 21:15 | NUR ---
ASSESSMENT AND HS MEDS COMPLETE. GAVE PATIENT NORCO 5/325 X1 TAB PO FOR PAIN LEVEL OF 5/10 IN LOW BACK. ASSISTED PATIENT UP TO BR COMMODE TO URINATE AND THEN BACK TO BED.
--- NOTE | 2017-02-10 22:05 | NUR ---
RESTING QUIETLY IN BED, EYES CLOSED.
--- NOTE | 2017-02-11 00:30 | NUR ---
RESTING QUIETLY IN BED, EYES CLOSED.
--- NOTE | 2017-02-11 02:00 | NUR ---
SET OFF BED ALARM ATTEMPTING TO PULL UP BLANKET FROM FOOT OF BED. RESET BED ALARM. ASSISTED PATIENT WITH HER BLANKET. READJUSTED HER THERMOSTAT TO 70 DEGREES SHE SAID SHE WAS COOL.
--- NOTE | 2017-02-11 04:20 | NUR ---
PATIENT AWAKE TALKING ON TELEPHONE TO DAUGHTER. DENIES NEEDS.
--- NOTE | 2017-02-11 07:30 | NUR ---
PT RESTING IN BED, AROUSES EASILY TO VOICE. PT REPOSITIONED FOR BREAKFAST. PT WEARING O2 AT 3LPM ON OXYMIZER. PT DENIES NEEDS. WCTM.
[2017-02-11 08:00] VITALS: BP 162/103
--- NOTE | 2017-02-11 08:25 | NUR ---
PT AM MEDS ADMINISTERED. PT DENIES NEEDS. WCTM.
--- NOTE | 2017-02-11 10:35 | NUR ---
PT IN THERAPY, TOLERATING WELL. PT DENIES NEEDS. WCTM.
--- NOTE | 2017-02-11 13:03 | NUR ---
PT SITTING UP IN WC EATING LUNCH, DENIES NEEDS. WCTM.
--- NOTE | 2017-02-11 14:59 | NUR ---
PT RESTING, EYES CLOSED. RR EVEN AND UNLABORED. BED LOW. CL IN REACH. WCTM.
--- NOTE | 2017-02-11 19:10 | NUR ---
PATIENT IN BED, HOB UP 40 DEGREES. DENIES NEEDS. REMOVED HER DINNER TRAY SHE HAD FINISHED EATING.
[2017-02-11 19:20] VITALS: BP 125/57; BP 141/80
--- NOTE | 2017-02-11 21:55 | NUR ---
AWAKE. DENIES NEEDS.
--- NOTE | 2017-02-11 22:20 | NUR ---
ASSESSMENT AND HS MEDS COMPLETE. GAVE HER NORCO 5/325 X2 TABS PO FOR PAIN LEVEL OF 6/10 IN LOW BACK.
--- NOTE | 2017-02-12 | NUR ---
ASSISTED PATIENT UP TO BR COMMODE AND THEN BACK TO BED. PROVIDED HER WITH A TUBE OF MOUTH MOISTURIZER. DENIES FURTHER NEEDS.
--- NOTE | 2017-02-12 02:20 | NUR ---
C/O PAIN LEVEL OF 7/10 IN LOW BACK. GAVE PATIENT NORCO X2 TABS PO.
--- NOTE | 2017-02-12 04:45 | NUR ---
IN BED, EYES CLOSED. RESPIRATIONS ARE QUIET AND UNLABORED.
--- NOTE | 2017-02-12 06:35 | NUR ---
GAVE PATIENT SCHEDULED DOSE OF 30 MG LOVENOX SC IN LUQ ABDOMEN. DENIES NEEDS.
[2017-02-12 07:04] LABS: BASOPHILS 0.4 % (0-2); EOSINOPHILS 3.1 % (0-7); HEMATOCRIT 36.3 % (36.0-48.0); HEMOGLOBIN 11.8 g/dL (12-16); IMMATURE GRANULOCYTES 2.5 % (0-5); MCH 29.8 pg (26.0-34.0); MCHC 32.5 g/dL (31.0-37.0); MCV 91.7 fL (80.0-100.0); MEAN PLATELET VOLUME 9.6 fL (7.4-10.4); PLATELET COUNT 379 10x3/uL (130-400); RBC 3.96 10x6/uL (4.00-5.40); RDW 13.2 % (11.5-14.5)
[2017-02-12 07:09] LABS: CALC OSMOLALITY 280 mosm/kg (275-300); CARBON DIOXIDE 32.7 mmol/L (21.0-32.0); CHLORIDE - SERUM 101 mmol/L (98-107); CREATININE - SERUM 0.7 mg/dL (0.6-1.3); GLUCOSE 89 mg/dL (74-106); POTASSIUM - SERUM 4.1 mmol/L (3.5-5.1); SODIUM 141 mmol/L (136-145); UREA NITROGEN 14 mg/dL (7-18); eGFR NON AFRICAN AMERICAN 87 mL/min (90-120)
--- NOTE | 2017-02-12 07:30 | NUR ---
PT RESTING IN BED, WAITING FOR BREAKFAST, DENIES NEEDS. WCTM.
[2017-02-12 08:00] VITALS: BP 139/76
--- NOTE | 2017-02-12 08:45 | NUR ---
PT AM MEDS ADMINISTERED. PT DENIES NEEDS, CURRENTLY IN THERAPY AND TOLERATING WELL. WCTM.
--- NOTE | 2017-02-12 11:51 | NUR ---
PT IN THERAPY GYM, TOLERATING WELL. DENIES NEEDS. WCTM.
--- NOTE | 2017-02-12 13:43 | NUR ---
PT RESTING IN BED WATCHING TV, DENIES NEEDS. WCTM.
--- NOTE | 2017-02-12 16:33 | NUR ---
PT LEFT THE FLOOR WITH DAUGHTER VIA WHEELCHAIR TO GO TO LOBBY.
--- NOTE | 2017-02-12 18:43 | NUR ---
PT ASSISTED TO BR. PT HAD MED SIZED BM. PT BACK IN BED AND DENIES NEEDS. WCTM.
[2017-02-12 19:50] VITALS: BP 128/68
--- NOTE | 2017-02-12 21:30 | NUR ---
ASSESSMENT AND HS MEDS COMPLETE. CHANGED DRESSING TO RIGHT FOOT. SEE DRESSING CHANGE P/I. GAVE PATIENT NORCO 5/325 X1 TAB PO FOR PAIN LEVEL OF 4/10 IN LOW BACK.
--- NOTE | 2017-02-12 22:10 | NUR ---
REMAINS AWAKE. DENIES CURRENT NEEDS.
--- NOTE | 2017-02-13 | NUR ---
IN BED, EYES CLOSED. RESTING QUIETLY.
--- NOTE | 2017-02-13 01:35 | NUR ---
PATIENT C/O PAIN LEVEL OF 8/10 IN LOW BACK. REPOSITIONED PATIENT AND GAVE HER NORCO 5/325 X2 TABS PO.
--- NOTE | 2017-02-13 02:15 | NUR ---
RESTING QUIETLY IN BED, EYES CLOSED.
--- NOTE | 2017-02-13 04:30 | NUR ---
IN BED, EYES CLOSED. RESPIRING QUIETLY.
--- NOTE | 2017-02-13 05:50 | NUR ---
REMAINS IN BED, EYES CLOSED. RESTING QUIETLY.
[2017-02-13 08:00] VITALS: BP 137/84
--- NOTE | 2017-02-13 08:00 | NUR ---
SHIFT ASSMT COMPLETED.DENIES NEEDS.BREAKFAST TRAY GIVEN.CL IN REACH.
--- NOTE | 2017-02-13 12:00 | NUR ---
EATING LUNCH.CL IN REACH.
--- NOTE | 2017-02-13 16:00 | NUR ---
RESTING QUIETLY.CL IN REACH.
[2017-02-13 20:00] VITALS: BP 134/62
--- NOTE | 2017-02-13 20:00 | NUR ---
PT IN BED WITH HOB UP FOR COMFORT. WATCHING TV. PT'S CODE STATUS IS DNR. OXIMIZER @ 3L. NO IV. ISLAND DRESSING TO LOWER BACK C/D/I. BED IN LOWEST POSITION AND CALL LIGHT WITHIN REACH.
--- NOTE | 2017-02-13 22:55 | NUR ---
PT. IN BED WITH HOB SLIGHTLY ELEVATED AND SHE IS WEARING HER NASAL OXIMIZER AND LOOKING AT HER MENU FOR TOMORROW. NO VOICED NEEDS AT THIS TIME AND HER CALL LIGHT IS WITHIN REACH.
--- NOTE | 2017-02-14 02:20 | NUR ---
PT LYING IN BED WITH HOB UP FOR COMFORT. EYES CLOSED. RESP. EVEN. BED IN POSITION AND CALL LIGHT WITHIN REACH.
--- NOTE | 2017-02-14 04:19 | NUR ---
PT LYING ING BED. EYES CLOSED. CHEST RISING AND FALLING. BED IN LOWEST POSITION AND CALL LIGHT WITHIN REACH.
[2017-02-14 08:00] VITALS: BP 136/63
--- NOTE | 2017-02-14 08:00 | NUR ---
o2 off .pulse ox checked.97% sat ra.o2 dc'd.up oob to wc for breakfast.
--- NOTE | 2017-02-14 12:00 | NUR ---
EATING LUNCH.PULSE OX 97% SAT.
--- NOTE | 2017-02-14 16:00 | NUR ---
VISITING WITH FAMILY.
[2017-02-14 20:00] VITALS: BP 138/77
--- NOTE | 2017-02-14 20:14 | NUR ---
RESTING IN BED WITH EYES OPEN. PLEASANT AND TALKATIVE. DENIES ANY PAIN AT THIS TIME.
--- NOTE | 2017-02-15 00:26 | NUR ---
RESTING IN BED WITH EYES CLOSED, NO S/S OF DISTRESS OBSERVED. CALL LIGHT AND OVERBED TABLE IN REACH.
--- NOTE | 2017-02-15 02:11 | NUR ---
RESTING IN BED WITH EYES CLOSED. NO S/S OF DISTRESS OBSERVED. CALL LIGHT AND OVERBED TABLE IN REACH.
[2017-02-15 07:24] LABS: CALCIUM 9.6 mg/dL (8.5-10.1); CARBON DIOXIDE 31.3 mmol/L (21.0-32.0); CREATININE - SERUM 0.8 mg/dL (0.6-1.3); POTASSIUM - SERUM 5.3 mmol/L (3.5-5.1)
[2017-02-15 07:38] LABS: BASOPHILS 0.2 % (0-2); EOSINOPHILS 1.9 % (0-7); HEMATOCRIT 37.7 % (36.0-48.0); HEMOGLOBIN 12.3 g/dL (12-16); IMMATURE GRANULOCYTES 0.9 % (0-5); LYMPHOCYTES 15.2 % (15-50); MCH 29.9 pg (26.0-34.0); MCHC 32.6 g/dL (31.0-37.0); MCV 91.7 fL (80.0-100.0); MEAN PLATELET VOLUME 9.8 fL (7.4-10.4); MONOCYTES 6.6 % (2-11); NEUTROPHILS 75.2 % (40-80); PLATELET COUNT 401 10x3/uL (130-400); RBC 4.11 10x6/uL (4.00-5.40); RDW 13.2 % (11.5-14.5); WBC 16.7 10x3/uL (4.8-10.8)
--- NOTE | 2017-02-15 08:00 | NUR ---
PT AM MEDS ADMINISTERED. PT DENIES FURTHUR NEEDS AT THIS TIME. BED LOW. CLIN REACH.
[2017-02-15 08:26] VITALS: BP 153/89
--- NOTE | 2017-02-15 11:53 | NUR ---
PT SITTING UP TALKING WITH FAMILY, DENIES NEEDS. WCTM.
--- NOTE | 2017-02-15 14:15 | NUR ---
PT RESTING, DENIES NEEDS. WCTM.
--- NOTE | 2017-02-15 16:45 | NUR ---
PT HAD INCONTINENT EPISODE. BED LINENS AND CLOTHING CHANGED. WCTM.
--- NOTE | 2017-02-15 19:27 | NUR ---
LAYING IN BED WITH HOB ELEVATED. DAUGHTER AT BEDSIDE. PLEASANT AND TALKATIVE. DENIES ANY PAIN.
--- NOTE | 2017-02-15 23:42 | NUR ---
RESTING IN BED WITH EYES CLOSED. NO S/S OF DISTRESS OBSERVED. CALL LIGHT AND OVERBED TABLE IN REACH.
[2017-02-16 02:36] VITALS: BP 141/72
[2017-02-16 05:36] LABS: BASOPHILS 0.2 % (0-2); EOSINOPHILS 1.1 % (0-7); HEMATOCRIT 40.2 % (36.0-48.0); HEMOGLOBIN 13.4 g/dL (12-16); IMMATURE GRANULOCYTES 0.8 % (0-5); LYMPHOCYTES 10.1 % (15-50); MCH 30.3 pg (26.0-34.0); MCHC 33.3 g/dL (31.0-37.0); MEAN PLATELET VOLUME 9.3 fL (7.4-10.4); MONOCYTES 4.7 % (2-11); NEUTROPHILS 83.1 % (40-80); PLATELET COUNT 469 10x3/uL (130-400); RBC 4.42 10x6/uL (4.00-5.40); RDW 13.2 % (11.5-14.5); WBC 18.3 10x3/uL (4.8-10.8)
[2017-02-16 06:03] LABS: ANION GAP 14.4 mmol/L (8-16); CALCIUM 9.4 mg/dL (8.5-10.1); CARBON DIOXIDE 29.1 mmol/L (21.0-32.0); CREATININE - SERUM 0.8 mg/dL (0.6-1.3); POTASSIUM - SERUM 3.5 mmol/L (3.5-5.1)
--- NOTE | 2017-02-16 06:18 | NUR ---
UPON ENTERING ROOM THIS AM NOTICED PT ONLY HAD A SHEET ON AND LINENS WERE THROWN IN THE BATHROOM FLOOR. WHEN QUESTIONED SHE STATED HER STUFF GOT WET AND SHE DID'NT KNOW HOW. OBTAINED LINENS, BRIEF AND CLEAN CLOTHES. REMADE BED AND ASSISTED WITH DRESSING.
--- NOTE | 2017-02-16 07:20 | NUR ---
PT IS RESTING IN BED WITH EYES OPEN. ALERT AND ORIENTED X 3. PT ASSISTED TO THE BATHROOM WITH CGA USING A CANE. VOIDED WITHOUT DIFFICULTY. NO FURTHER NEEDS VOICED. TRAY SET UP FOR BREAKFAST. PT FEEDING SELF WITHOUT DIFFICULTY. CLIPS TO LOW BACK INCISION ARE CDI. NO DRAINAGE NOTED. SR'S ARE UP X 3 IN BED. CALL LIGHT AND BEDSIDE TABLE ARE WITHIN EASY REACH.
[2017-02-16 08:12] VITALS: BP 160/89
--- NOTE | 2017-02-16 09:07 | NUR ---
PT IS PARTICIPATING IN THERAPY AT THIS TIME.
--- NOTE | 2017-02-16 11:29 | NUR ---
PT IS PARTICIPATING IN THERAPY AT THIS TIME.
--- NOTE | 2017-02-16 13:16 | NUR ---
PT IS PARTICIPATING IN THERAPY AT THIS TIME.
--- NOTE | 2017-02-16 13:32 | NUR ---
NUTRITION MONITORING & EVAL CHART REVIEWED. PT IN THERAPY. INTAKE RECORDS INDICATE GOOD PO INTAKE MEALS. WILL CONTINUE TO PROVIDE DIET, MONITOR PO INTAKE. RD FOLLOWING
--- NOTE | 2017-02-16 15:34 | NUR ---
PT IS RESTING IN BED WITH EYES OPEN. NO NEED VOICED. ASSISTED TO THE BATHROOM PRN.
--- NOTE | 2017-02-16 17:57 | NUR ---
PT IS RESTING IN BED AFTER SUPPER VISITING WITH HER DAUGHTER. NO COMPLIANT VOICED. FILLING OUT MENU FOR TOMORROW.
--- NOTE | 2017-02-16 18:46 | NUR ---
RESTING QUIETLY IN BED. DENIES NEEDS OR C/O. CALL LIGHT IN REACH
[2017-02-16 19:34] VITALS: BP 145/65
--- NOTE | 2017-02-16 19:34 | NUR ---
ASSESSMENT PER FLOW SHEET, VS OBTAINED, PT ALERT AND ORIENTED PT REPORTS FLATUS, BM TODAY AND VOIDING WITH NO DIFFICULTY, PT REPORTS GETTING UP AT TIMES BY HERSELF, INST PT TO USE CALL LIGHT WHEN NEEDING TO GET UP, PT VERBALIZES UNDERSTANDING, RATES BACK PAIN AND LEFT KNEE PAIN /, INFORMED PT THAT I WILL CHECK TO SEE WHEN NEXT PAIN MED IS DUE, PT VERBALIZES UNDERSTANDING, DENIES NEEDS AT THIS TIME
--- NOTE | 2017-02-16 20:42 | NUR ---
PT AWAKE, ADM 2100 MEDS PER MD ORDERS, SEE EMAR, WITH FRESH H20, PT DENIES NEEDS OR PAIN AT THIS TIME
--- NOTE | 2017-02-16 21:30 | NUR ---
PT RESTING WITH EYES CLOSED, RESP QUIET, NO DISTRESS NOTED, LEFT UNDISTURBED AT THIS TIME, BED IN LOW POSITION, SIDE RAILS X 2, CALL LIGHT IN REACH, BED ALARM ON AND WORKING PROPERLY
--- NOTE | 2017-02-16 22:22 | NUR ---
PT MOTORS AND CONTROLS TESTER LIGHT, PT UP TO BR VIA WC, PT VOIDED AND HAD BM, PT BACK TO WC, TO SINK, WASHES HANDS, BACK TO BED, PT POSITIONS SELF, PT DENIES FURTHER NEEDS, BED IN LOW POSITION, SIDE RAILS X 2, CALL LIGHT IN REACH
--- NOTE | 2017-02-17 00:10 | NUR ---
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
--- NOTE | 2017-02-17 02:30 | NUR ---
PT RESTING WITH EYES CLOSED, RESP QUIET, NO DISTRESS NOTED, LEFT UNDISTURBED AT THIS TIME
--- NOTE | 2017-02-17 04:20 | NUR ---
PT RESTING WITH EYES CLOSED, RESP QUIET, NO DISTRESS NOTED, LEFT UNDISTURBED AT THIS TIME
--- NOTE | 2017-02-17 05:52 | NUR ---
PT RESTING WITH EYES CLOSED, AROUSES TO SOFT VERBAL STIMUALTION, ADM 0600 MED PER MD ORDERS, SEE EMAR, PT DENIES NEEDS OR PAIN AT THIS TIME
--- NOTE | 2017-02-17 07:00 | NUR ---
SHIFT REPORT TO DAY SHIFT
--- NOTE | 2017-02-17 07:30 | NUR ---
PT IS UP IN THE BATHROOM. LARGE FORMED BM NOTED. NO OTHER NEEDS VOICED. PT ASSISTED BACK TO BED. FEEDING SELF BREAKFAST WITHOUT DIFFICULTY. CLIPS TO BACK ARE CDI. NO DRAINAGE NOTED. SR'S ARE UP X 3 IN BED. CALL LIGHT AND BEDSIDE TABLE ARE WITHIN EASY REACH.
[2017-02-17 08:23] VITALS: BP 159/87
--- NOTE | 2017-02-17 09:28 | NUR ---
PT IS PARTICIPATING IN THERAPY AT THIS TIME.
--- NOTE | 2017-02-17 11:03 | NUR ---
PT IS IN THE GYM WITH THERAPY. NO ACUTE DISTRESS NOTED.
--- NOTE | 2017-02-17 14:00 | NUR ---
PT IS PARTICIPATING IN THERAPY AT THIS TIME.
--- NOTE | 2017-02-17 15:55 | NUR ---
PT IS RESTING QUIETLY IN BED WITH EYES CLOSED. NO DISTRESS NOTED.
--- NOTE | 2017-02-17 15:58 | NUR ---
CARE TEAM MEETING: DAUGHTER ATTENDED MEETING, QUESTIONS AND CONCERNS ADDRESSED. TENATIVE DISCHARGE DATE IS 02/26/17. PLANS ARE FOR PATIENT TO RETURN HOME WITH DAUGHTER. WILL CONTINUE TO FOLLOW WITH PATIENT AND WILL ASSIST WITH DISCHARGE NEEDS.
--- NOTE | 2017-02-17 18:15 | NUR ---
PT UP IN BATHROOM WITH SBA. NO COMPLAINT VOICED AT THIS TIME.
--- NOTE | 2017-02-17 19:15 | NUR ---
SITTING UP ON BEDSIDE, CONVERSING WITH ROOMMATE. DENIES NEEDS.
--- NOTE | 2017-02-17 20:20 | NUR ---
IN BED, LYING ON LEFT SIDE CONVERSING WITH ROOMMATE.
[2017-02-17 22:40] VITALS: BP 152/82
--- NOTE | 2017-02-17 22:40 | NUR ---
REPOSITIONED PATIENT HIGHER UP IN BED. ASSESSMENT AND HS MEDS COMPLETE. GAVE HER NORCO 5/325 X2 TABS PO FOR PAIN LEVEL OF 6/10 IN LOW BACK.
--- NOTE | 2017-02-18 00:20 | NUR ---
RESTING IN BED, EYES CLOSED. SNORING SOFTLY.
--- NOTE | 2017-02-18 02:30 | NUR ---
PATIENT AWAKE. DENIES NEEDS.
--- NOTE | 2017-02-18 03:50 | NUR ---
RESTING IN BED ON BACK, EYES CLOSED. RESPIRING QUIETLY.
--- NOTE | 2017-02-18 06:00 | NUR ---
RESTING IN BED, EYES CLOSED.
--- NOTE | 2017-02-18 07:29 | NUR ---
PT IS SITTING ON THE SIDE OF HER BED FEEDING HERSELF BREAKFAST. NO SWALLOWING PROBLEMS NOTED. PT IS ALERT AND ORIENTED X 3. DENIES ACUTE DISCOMFORT AT THIS TIME. CLIPS TO LOW BACK INCISIONS ARE CDI. NO DRAINAGE NOTED. SR'S ARE UP X 2 IN BED. CALL LIGHT AND BEDSIDE TABLE ARE WITHIN EASY REACH.
--- NOTE | 2017-02-18 07:56 | NUR ---
SITTING UP IN BED.FINISHED EATING BREAKFAST.CL IN REACH.
[2017-02-18 09:42] VITALS: BP 144/78
--- NOTE | 2017-02-18 10:39 | NUR ---
PT IS PARTCIPATING IN THERAPY AT THIS TIME.
--- NOTE | 2017-02-18 12:30 | NUR ---
PT IS FEEDING SELF LUNCH IN HER ROOM. NO NEEDS VOICED.
--- NOTE | 2017-02-18 17:05 | NUR ---
PT EATING SUPPER IN HER ROOM. VOICED COMPLAINT OF BACK PAIN LEVEL OF 8. MEDICATED PER SEP.
--- NOTE | 2017-02-18 19:10 | NUR ---
IN BED, AWAKE. DENIES NEEDS.
[2017-02-18 21:20] VITALS: BP 158/77
--- NOTE | 2017-02-18 21:20 | NUR ---
ASSESSMENT AND HS MEDS COMPLETE. DENIES CURRENT NEEDS.
--- NOTE | 2017-02-18 22:00 | NUR ---
RESTING QUIETLY IN BED, EYES CLOSED.
--- NOTE | 2017-02-18 23:50 | NUR ---
PATIENT AWAKE AFTER RECENT ASSIST UP TO BR AND BACK TO BED.
--- NOTE | 2017-02-19 01:50 | NUR ---
RESTING IN BED ON LEFT SIDE. APPEARS COMFORTABLE.
--- NOTE | 2017-02-19 04:30 | NUR ---
IN BED, EYES CLOSED. RESPIRING QUIETLY.
--- NOTE | 2017-02-19 08:05 | NUR ---
PT AM MEDS ADMINISTERED. PT DENIES NEEDS AT THIS TIME. BED LOW. CL IN REACH.
[2017-02-19 08:30] VITALS: BP 134/101
--- NOTE | 2017-02-19 15:12 | NUR ---
PT RESTING, EYES CLOSED. BED LOW. CLIN REACH
--- NOTE | 2017-02-19 15:37 | NUR ---
Wound care reassessment: No changes in wound measurements (0.5cm x 0.5cm x 0.7cm). Edges are calloused and dry. No drainage, redness, odor noted. Recommend continuing current daily treatment with NENA. Wound care will continue monitoring.
--- NOTE | 2017-02-19 19:00 | NUR ---
IN BED, AWAKE. DENIES NEEDS.
[2017-02-19 20:20] VITALS: BP 139/82
--- NOTE | 2017-02-19 20:20 | NUR ---
ASSESSMENT AND HS MEDS COMPLETE. CHANGED DRESSING TO RIGHT FOOT. SEE WOUND CARE P/I.
--- NOTE | 2017-02-19 22:39 | NUR ---
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
--- NOTE | 2017-02-20 02:05 | NUR ---
RESTING ON LEFT SIDE, HOB UP 10 DEGREES. NO DISTRESS EVIDENT.
--- NOTE | 2017-02-20 04:40 | NUR ---
IN BED, EYES CLOSED. RESPIRATIONS ARE QUIET AND UNLABORED.
--- NOTE | 2017-02-20 05:35 | NUR ---
RESTING QUIETLY, EYES CLOSED.
--- NOTE | 2017-02-20 08:15 | NUR ---
PT RESTING IN BED WITH EYES OPEN CALL LIGHT IN REACH WILL MONITER
[2017-02-20 09:11] VITALS: BP 131/75
--- NOTE | 2017-02-20 13:42 | NUR ---
PT RESTING IN BED WITH EYES OPEN CALL LIGHT IN REACH NO PROBLEMS WILL MONITER
--- NOTE | 2017-02-20 18:05 | NUR ---
RESTING QUIETLY IN BED. NO S/S DISTRESS. CALL LIGHT IN REACH.
[2017-02-20 19:34] VITALS: BP 150/76
--- NOTE | 2017-02-20 20:00 | NUR ---
set up for shower, linen changed, pt supervision with shower. pt conversive, respirations regular and unlabored, no s/s of acute distress.
--- NOTE | 2017-02-21 00:10 | NUR ---
pt resting quietly supine position, respirations regular and unlabored, no s/s of acute distress.
--- NOTE | 2017-02-21 03:21 | NUR ---
assisted pt up to bathroom, pt denies any other needs.
--- NOTE | 2017-02-21 06:55 | NUR ---
RESTING QUIETLY IN BED. NO S/S DISTRESS. CALL LIGHT IN REACH
[2017-02-21 08:08] VITALS: BP 146/65
--- NOTE | 2017-02-21 08:40 | NUR ---
PT RESTING IN BED WITH EYES OPEN CALL LIGHT IN REACH WILL MONITER
--- NOTE | 2017-02-21 18:49 | NUR ---
PT RESTING IN BED WITH EYES OPEN CALL LIGHT IN REACH NO PROBLEMS WILL MONITER
--- NOTE | 2017-02-21 19:00 | NUR ---
IN BED, AWAKE. DELIVERED HER MENU TO COMPLETE.
[2017-02-21 21:15] VITALS: BP 168/73
--- NOTE | 2017-02-21 21:15 | NUR ---
ASSESSMENT AND HS MEDS COMPLETE. GAVE PATIENT NORCO 5/325 X1 TAB PO FOR PAIN LEVEL OF 5/10 IN LOW BACK.
--- NOTE | 2017-02-21 22:20 | NUR ---
RESTING QUIETLY, EYES CLOSED.
--- NOTE | 2017-02-22 00:35 | NUR ---
PATIENT AWAKE. SAYS HER LEGS ARE RESTLESS AND ACHY. TOO SOON FOR FURTHER NORCO. SAYS SHE UNDERSTANDS.
--- NOTE | 2017-02-22 02:45 | NUR ---
RESTING ON LEFT SIDE AFTER RECENTLY RETURNING FROM ASSIST TO BR AND BACK TO BED. EYES CLOSED.
--- NOTE | 2017-02-22 04:30 | NUR ---
RESTING IN BED, EYES CLOSED.
[2017-02-22 05:34] LABS: BASOPHILS 0.3 % (0-2); EOSINOPHILS 1.8 % (0-7); HEMATOCRIT 39.7 % (36.0-48.0); HEMOGLOBIN 12.9 g/dL (12-16); IMMATURE GRANULOCYTES 0.5 % (0-5); LYMPHOCYTES 16.8 % (15-50); MCHC 32.5 g/dL (31.0-37.0); MCV 92.3 fL (80.0-100.0); MEAN PLATELET VOLUME 9.7 fL (7.4-10.4); MONOCYTES 7.3 % (2-11); NEUTROPHILS 73.3 % (40-80); PLATELET COUNT 464 10x3/uL (130-400); RDW 13.6 % (11.5-14.5)
[2017-02-22 05:43] LABS: CALC OSMOLALITY 279 mosm/kg (275-300); CALCIUM 9.4 mg/dL (8.5-10.1); CARBON DIOXIDE 33.6 mmol/L (21.0-32.0); CHLORIDE - SERUM 100 mmol/L (98-107); CREATININE - SERUM 0.7 mg/dL (0.6-1.3); GLUCOSE 102 mg/dL (74-106); POTASSIUM - SERUM 3.7 mmol/L (3.5-5.1); SODIUM 140 mmol/L (136-145); UREA NITROGEN 15 mg/dL (7-18); eGFR NON AFRICAN AMERICAN 87 mL/min (90-120)
--- NOTE | 2017-02-22 05:55 | NUR ---
ASSISTED PATIENT UP TO BR AND BACK TO BED. GAVE HER LOVENOX 30MG SC IN RUQ ABDOMEN.
--- NOTE | 2017-02-22 07:15 | NUR ---
RESTING QUIETLY IN BED. NO S/S DISTRESS. CALL LIGHT IN REACH
--- NOTE | 2017-02-22 07:31 | NUR ---
PT RESTING IN BED WITH EYES OPEN CALL LIGHT IN REACH WILL MONITER
--- NOTE | 2017-02-22 16:26 | NUR ---
PT RESTING IN BED WITH EYES OPEN CALL LIGHT IN REACH NO PROBLEMS WILL MONITER
--- NOTE | 2017-02-22 18:02 | NUR ---
DCD 32 DIANA FROM PT LOWER BACK INCISION WELL APPROXIMATED PT TOLERATED WELL
--- NOTE | 2017-02-22 19:00 | NUR ---
IN BED, AWAKE. DENIES NEEDS.
[2017-02-22 21:30] VITALS: BP 173/75
--- NOTE | 2017-02-22 22:30 | NUR ---
ASSESSMENT AND HS MEDS COMPLETE. GAVE PATIENT NORCO 5/325 X1 TAB PO FPR PAIN LEVEL OF 5/10 IN LOW BACK. SAYS OVERALL COMFORT IS IMPROVED SINCE HER INCISIONAL CLIPS WERE D/C'D EARLIER TODAY.
--- NOTE | 2017-02-23 | NUR ---
RESTING IN BED ON LEFT SIDE WITH HOB UP 02 DEGREES.
--- NOTE | 2017-02-23 01:55 | NUR ---
PATIENT WAS ASSISTED UP TO BR TO URINATE, AND THEN BACK TO BED. DENIES FURTHER NEEDS.
--- NOTE | 2017-02-23 04:20 | NUR ---
ASSISTED PATIENT UP TO BR COMMODE AND BACK TO BED.
--- NOTE | 2017-02-23 05:45 | NUR ---
REMAINS IN BED. GAVE PATIENT SCHEDULED LOVENOX 30MG SC IN LUQ ABDOMEN.
--- NOTE | 2017-02-23 08:00 | NUR ---
RESTING QUIETLY.CL IN REACH.
--- NOTE | 2017-02-23 15:16 | NUR ---
NUTRITION MONITORING & EVAL CHART REVIEWED. PT TOLERATING REG DIET, 75 TO 100% INTAKE MEALS. WILL CONTINUE TO PROVIDE CURRENT DIET, MONITOR PO INTAKE. RD FOLLOWING
--- NOTE | 2017-02-23 16:28 | NUR ---
PT RESTING IN BED WITH EYES OPEN CALL LIGHT IN REACH NO PROBLEMS WILL MONITER
--- NOTE | 2017-02-23 19:20 | NUR ---
IN BED DROWSY. LYING ON LEFT SIDE. DENIES NEEDS.
[2017-02-23 19:30] VITALS: BP 139/53
--- NOTE | 2017-02-23 21:50 | NUR ---
ASSESSMENT AND HS MEDS COMPLETE. CHANGED DRESSING TO RIGHT FOOT (SEE WOUND CARE P/I).
--- NOTE | 2017-02-24 00:25 | NUR ---
RESTING IN BED ON LEFT SIDE, EYES CLOSED. NO EVIDENT DISTRESS.
--- NOTE | 2017-02-24 02:00 | NUR ---
REMAINS ON LEFT SIDE, RESTING QUIETLY.
--- NOTE | 2017-02-24 04:45 | NUR ---
IN BED, EYES CLOSED. RESPIRATIONS ARE UNLABORED.
[2017-02-24 05:55] LABS: BASOPHILS 0.3 % (0-2); EOSINOPHILS 1.3 % (0-7); HEMATOCRIT 41.5 % (36.0-48.0); HEMOGLOBIN 13.6 g/dL (12-16); IMMATURE GRANULOCYTES 0.4 % (0-5); MCHC 32.8 g/dL (31.0-37.0); MCV 91.4 fL (80.0-100.0); MEAN PLATELET VOLUME 9.7 fL (7.4-10.4); MONOCYTES 6.3 % (2-11); NEUTROPHILS 77.7 % (40-80); PLATELET COUNT 427 10x3/uL (130-400); RBC 4.54 10x6/uL (4.00-5.40); RDW 13.6 % (11.5-14.5); WBC 14.1 10x3/uL (4.8-10.8)
[2017-02-24 06:21] LABS: CALC OSMOLALITY 280 mosm/kg (275-300); CALCIUM 9.4 mg/dL (8.5-10.1); CARBON DIOXIDE 31.1 mmol/L (21.0-32.0); CHLORIDE - SERUM 100 mmol/L (98-107); CREATININE - SERUM 0.7 mg/dL (0.6-1.3); GLUCOSE 120 mg/dL (74-106); POTASSIUM - SERUM 3.6 mmol/L (3.5-5.1); SODIUM 139 mmol/L (136-145); UREA NITROGEN 17 mg/dL (7-18); eGFR NON AFRICAN AMERICAN 87 mL/min (90-120)
--- NOTE | 2017-02-24 06:30 | NUR ---
RESTING IN BED AFTER EARLIER ASSIST UP TO BR.
[2017-02-24 08:13] VITALS: BP 158/93
--- NOTE | 2017-02-24 08:29 | NUR ---
PT IS RECEIVED THIS AM SITTING UP ON SIDE OF BED. SHE OFFERS NO COMPLAINTS. SHE STATES THAT SHE IS NOT HAVING ANY PAIN AT THIS TIME. STATES THAT HER SURGERY REALLY HELPED HER ALOT. PT STATES THAT SHE HAD A BM THIS AM. BED ALARM IS ON. GEN- AWAKE AND ALERT. LUNGS- CLEAR. HEART- IRREGULAR RHYTHM. ABD- SOFT NT, BS+. EXT- NO EDEMA NOTED. BED IS LOW, SIDE RAILS UP X 2 AND CALL LIGHT IN REACH.
--- NOTE | 2017-02-24 10:00 | NUR ---
PT WAS TAKNE TO THERAPY BY WHEELCHAIR.
--- NOTE | 2017-02-24 11:00 | NUR ---
PT HAS VISITORS AT BEDSIDE. STATES SHE IS ENJOYING HERSELF.
--- NOTE | 2017-02-24 11:44 | NUR ---
PT IS AMBULATING IN HALLWAY WITH WALKER AND PHYSICAL THERAPIST. SHE IS TOLERATING WELL.
--- NOTE | 2017-02-24 12:35 | NUR ---
PT IS EATING LUNCH. SHE OFFERS NO COMPLAINTS.
--- NOTE | 2017-02-24 13:56 | NUR ---
PT IS LYING IN BED RESTING. TOOK HER MORE ICE WATER. SHE OFFERS NO COMPLAINTS. BED IS LOW, SIDE RAILS UP X 2 AND CALL LIGHT IS IN REACH.
--- NOTE | 2017-02-24 15:00 | NUR ---
PT IS UP IN CHAIR VISITING WITH FRIEND. PT OFFERS NO COMPLAINTS
--- NOTE | 2017-02-24 19:10 | NUR ---
SEATED AT BEDSIDE IN W/C. DENIES NEEDS.
[2017-02-24 21:45] VITALS: BP 118/84
--- NOTE | 2017-02-24 21:45 | NUR ---
ASSESSMENT AND HS MEDS COMPLETE. DENIES NEEDS. CHANGED RIGHT FOOT DRESSING. SEE WOUND CARE P/I.
--- NOTE | 2017-02-25 00:05 | NUR ---
REMAINS IN BED, RESTING ON LEFT SIDE. EYES ARE CLOSED. NO APPARENT DISCOMFORT.
--- NOTE | 2017-02-25 02:00 | NUR ---
CONTINUES IN BED, EYES CLOSED.
--- NOTE | 2017-02-25 04:40 | NUR ---
IN BED, EYES CLOSED. RESPIRATIONS UNLABORED.
--- NOTE | 2017-02-25 06:15 | NUR ---
GAVE PATIENT SCHEDULED LOVENOX 30MG SC IN LUQ ABDOMEN. ASSISTED HER UP TO BR TO URINATE.
--- NOTE | 2017-02-25 06:20 | NUR ---
JUST ASSISTED PATIENT UP TO BR TO URINATE AND BACK TO BED. PATIENT CHANGED CLOTHING WHILE IN BR. GAVE PATIENT SCHEDULED MEDS. DENIES NEEDS.
--- NOTE | 2017-02-25 07:53 | NUR ---
PT IS RECEIVED LYING IN BED, SLEEPING. AWAKES EASILY. SHE STATES THAT SHE IS NOT IN ANY PAIN AT THIS TIME. VSS. GEN- AWAKE AND ALERT. LUNGS- CLEAR. HEART- IRREGULAR RHYTHM. ABD- SOFT, NT, BS+ EXT- NO EDEMA NOTED. BED ALARM IS ON. BED IS LOW, SIDE RAILS UP X 2 AND CALL LIGHT IN REACH. PT IS VOIDING WITHOUT DIFFICULTY. SHE HAD BM YESTERDAY AM.
--- NOTE | 2017-02-25 08:10 | NUR ---
BREAKFAST SERVED. PT SITTING ON SIDE OF BED TO EAT.
[2017-02-25 08:15] VITALS: BP 173/75
--- NOTE | 2017-02-25 08:30 | NUR ---
PT ASSISTED UP TO BATHROOM. TOLERATED WELL.
--- NOTE | 2017-02-25 11:19 | NUR ---
MRS FOWLER IS SITTING UP IN HER WHEELCHAIR TALKING TO HER ROOMMATE. SHE OFFERS NO COMPLAINTS. SHE WAS REMINDED TO CALL US WHEN SHE NEEDS TO TRANSFER.
--- NOTE | 2017-02-25 12:12 | NUR ---
PT IS UP IN WHEELCHAIR EATING LUNCH. CALL LIGHT IN REACH.
--- NOTE | 2017-02-25 18:00 | NUR ---
PT'S DRESSING ON R FOOT ARCH. WASHED WOUND WITH HIBICLENS, DRYED AND BACTROBAN APPLIED AND DRESSING.
--- NOTE | 2017-02-25 19:40 | NUR ---
PT. IN BED WITH HOB UP FOR COMFORT AND IS WATCHING TV. ASSESSMENT COMPLETED. ASSISTED TO/FROM BR TO URINATE. POSITIONED BACK IN BED TO COMFORT. DRESSING TO RIGHT INNER FOOT INTACT DAY NURSE CHANGED IT AT 1800. NO VOICED NEEDS AT THIS TIME AND HER CALL LIGHT IS WITHIN REACH.
--- NOTE | 2017-02-25 23:12 | NUR ---
PT. IN BED WITH HOB UP FOR COMFORT WITH EYES CLOSED AND RESP. EVEN. CALL LIGHT WITHIN REACH.
[2017-02-25 23:54] VITALS: BP 143/71
--- NOTE | 2017-02-26 03:04 | NUR ---
PT. IN BED WITH HOB UP FOR COMFORT. EYES CLOSED AND RESP. DEEP AND EVEN. CALL LIGHT WITHIN REACH.
[2017-02-26 05:49] LABS: BASOPHILS 0.2 % (0-2); EOSINOPHILS 1.5 % (0-7); HEMATOCRIT 40.5 % (36.0-48.0); HEMOGLOBIN 13.2 g/dL (12-16); IMMATURE GRANULOCYTES 0.3 % (0-5); LYMPHOCYTES 21.2 % (15-50); MCH 30.1 pg (26.0-34.0); MCHC 32.6 g/dL (31.0-37.0); MCV 92.3 fL (80.0-100.0); MEAN PLATELET VOLUME 9.8 fL (7.4-10.4); NEUTROPHILS 69.8 % (40-80); PLATELET COUNT 342 10x3/uL (130-400); RBC 4.39 10x6/uL (4.00-5.40); RDW 13.6 % (11.5-14.5); WBC 12.9 10x3/uL (4.8-10.8)
--- NOTE | 2017-02-26 07:11 | NUR ---
RESTING QUIETLY IN BED. EYES CLOSED. NO S/S DISTRESS OR NEEDS. CALL LIGHT IN REACH.
[2017-02-26 08:01] VITALS: BP 144/89
--- NOTE | 2017-02-26 08:15 | NUR ---
PT RESTING IN BED WITH EYES OPEN CALL LIGHT IN REACH NO PROBLEMS WILL MONITER
[2017-02-26] MEDS ORDERED: EFFIENT10 MG PO (08:21)
[2017-02-26] MEDS ORDERED: HYDROCODON-ACE1 EAC7 PO (08:23)
--- NOTE | 2017-02-26 11:00 | NUR ---
PATIENT DISCHARGING HOME WITH FAMILY. [facility] WILL FOLLOW WITH PATIENT AT HOME, PATIENT HAS ALL DME NEEDED AT HOME. PATIENT CHOICE FORM FOR HOME HEALTH AND [facility] FORM SIGNED, EXPLAINED AND FILED IN CHART. DR. TORRES 03/08/17 @ 11:50, DR. BENAVIDES 03/05/17 @ 9:15. ORDERS HAVE BEEN FAXED WITH CONFORMATION RECIVED.
--- NOTE | 2017-02-26 12:30 | NUR ---
PT DISCHARGED TO HOME VIA WHEELCHAIR WITH DAUGHTER MEDS CALLED TO [facility] DISCHARGE SUMMARY AND MEDS REVIEWED WITH PT AND DAUGHTER NO QUESTIONS
--- NOTE | 2017-02-26 12:30 | NUR ---
PT RESTING IN BED WITH EYES OPEN CALL LIGHT IN REACH WILL MONITER
== END 2017-02-26 15:12 | disposition home health service (06) | DRG 552 ==
LOC: D.REHAB 19:44
PROVIDERS: Family Medicine; ADMIT Emergency Medicine
DX: M51.37 Other intervertebral disc degeneration, lumbosacral region (principal); I10 Essential (primary) hypertension; Z95.5 Presence of coronary angioplasty implant and graft; Z98.890 Other specified postprocedural states; I48.91 Unspecified atrial fibrillation; J44.9 Chronic obstructive pulmonary disease, unspecified; M19.90 Unspecified osteoarthritis, unspecified site; Z66 Do not resuscitate

== ENCOUNTER → 2017-08-26 10:29 | Outpatient (CLI) | payer MEDICARE, OTHER ==
[2017-02-06 13:15] VITALS: BMI 28.3
== END | disposition home or self-care (01) ==
LOC: D.LABREF 10:29
DX: M19.011 Primary osteoarthritis, right shoulder (principal); Z11.8 Encounter for screening for other infectious and parasitic diseases

== ENCOUNTER 2017-09-13 05:44 | Inpatient (IN) | payer MEDICARE, OTHER ==
[2017-09-10 11:36] LABS: HEMATOCRIT 47.3 % (36.0-48.0); HEMOGLOBIN 15.3 g/dL (12-16); MCH 30.8 pg (26.0-34.0); MCHC 32.3 g/dL (31.0-37.0); MCV 95.2 fL (80.0-100.0); MEAN PLATELET VOLUME 10.4 fL (7.4-10.4); RBC 4.97 10x6/uL (4.00-5.40); RDW 13.4 % (11.5-14.5); WBC 12.4 10x3/uL (4.8-10.8)
[2017-09-10 11:42] LABS: INR 0.96 (0.85-1.17); PROTIME 12.4 SECONDS (11.6-15.0)
[2017-09-10 11:54] LABS: ANION GAP 14.1 mmol/L (8-16); CARBON DIOXIDE 27.5 mmol/L (21.0-32.0); CREATININE - SERUM 0.8 mg/dL (0.6-1.3); POTASSIUM - SERUM 4.6 mmol/L (3.5-5.1)
[2017-09-10 12:31] LABS: APTT 44.4 SECONDS (22.8-39.4)
--- NOTE | ~2017-09-13 | OP ---
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 POSTOPERATIVE DIAGNOSIS: Severe degenerative arthritis of the right shoulder. PROCEDURE: Right total shoulder arthroplasty. SURGEON: Jorge Youssef MD ANESTHESIA: General. INTRAOPERATIVE COMPLICATIONS: None. SUMMARY OF PATHOLOGIC FINDINGS: The patient has severe arthritis of the right shoulder obviating the need for total shoulder arthroplasty. IMPLANTS USED: Arthrex Albion total shoulder arthroplasty with VaultLock size 7 Univers Albion humeral stem, size medium Arthrex VaultLock glenoid, and a size 50 x 19 humeral head. OPERATIVE SUMMARY IN DETAIL: After obtaining the appropriate preoperative orthopedic surgery consent as well as anesthetic consultation, evaluation, and clearance, the patient was brought to the operating room and placed on the operating table in supine position. After general laryngeal mask was administered, the patient was placed in the beach chair position. All pressure points were well padded to include down leg peroneal pad as well as axillary roll. The patient was held firmly to the operating table using the vacuum pack suction system. The patient's right upper extremity and shoulder were then prepped and draped in a routine sterile fashion. The arm was held in the Arthrex Trimano device. Incision was made from deltopectoral approach. Saphenous vein was identified and protected throughout the case. The brown retractor was used to retract the deltoid. The conjoined tendon was gently retracted medially. Subscapularis was taken down and the pathology was noted. The humeral head was dislocated into the incision, inferior and anterior osteophytes were taken down to identify the true joint line. Humeral head cut was made using the humeral head cutting guide. Serial and sequential reaming and broaching were done for a size 7 stem. The size 7 stem with the cut protector guide was put into place while the glenoid was approached. Under direct full visualization, full labrectomy was then followed by central reaming and final preparations for the VaultLock glenoid component were made. This was completely irrigated and dried and the VaultLock glenoid was cemented into place. This was held into place and all excess cement was removed. It was held firmly into place until cement was allowed to harden. Attention was then returned to the proximal humerus where the final size 7 stem was put into place along with the humeral head tamped into place with Holcomb taper for the most appropriate coverage. Shoulder was reduced and found to be in good position with the appropriate posterior subluxation. The subscapularis was reapproximated transosseously to the lesser tuberosity followed by [id number] repair of the subscap to the supraspinatus tendon. Having completed this, the wound was copiously irrigated again and closed with #1 Vicryl followed by 2-0 Vicryl and skin eladio. Sterile dressings were applied. The patient was OPERATIVE REPORT [id number] MIRANDA FOWLER awakened and taken to recovery room in stable condition. All final needle and sponge counts were correct. TRANSINT:[id number] Voice Confirmation ID: [id number] DOCUMENT ID: [id number] DOMONIQUE ALLEN, JORGE BARRERA at 0826 CC: [id number] DICTATION DATE: 09/19/17 1202 SOCKET PULLER: 09/19/17 1553 DIS IN 09/14/17 [place] [id number] [place] [id number]
[~2017-09-13 05:44] MED LIST changes: +MECLIZINE HCL12.5 MG PO
[2017-09-13 09:58] VITALS: BP 141/79; BMI 31.0
[2017-09-13 13:09] VITALS: BP 125/70
[2017-09-13 15:50] VITALS: BP 126/73; BMI 30.8
[2017-09-13 21:14] VITALS: BP 122/57
[2017-09-14 01:38] VITALS: BP 122/54
[2017-09-14 04:25] LABS: HEMATOCRIT 40.2 % (36.0-48.0); MCH 30.6 pg (26.0-34.0); MCHC 32.3 g/dL (31.0-37.0); MCV 94.6 fL (80.0-100.0); MEAN PLATELET VOLUME 10.1 fL (7.4-10.4); RBC 4.25 10x6/uL (4.00-5.40); RDW 13.4 % (11.5-14.5)
[2017-09-14 05:55] VITALS: BP 134/78
[2017-09-14] MEDS ORDERED: PERCOCET 10/3251 TA1 PO (08:22)
[2017-09-14 09:18] VITALS: BP 151/84
== END 2017-09-14 12:40 | disposition home or self-care (01) | DRG 483 ==
LOC: D.SDCHOLD 05:44 → D.MS 12:43 → D.SDCHOLD 12:45 → D.MS 09-14 12:40
PROVIDERS: Anesthesiology; Orthopaedic Surgery
PROC: 0RRJ0JZ Replacement of Right Shoulder Joint with Synthetic Substitute, Open Approach (ICD-10-PCS; principal; 2017-09-13 11:00)
DX: M19.011 Primary osteoarthritis, right shoulder (principal); I10 Essential (primary) hypertension; Z79.01 Long term (current) use of anticoagulants; Z66 Do not resuscitate; I48.91 Unspecified atrial fibrillation

== ENCOUNTER 2017-09-29 09:15 | Inpatient (IN) | payer MEDICARE, OTHER ==
[~2017-09-29] VITALS: Ht 160 cm; Wt 78.9 kg
--- NOTE | ~2017-09-29 | OP ---
PATIENT NAME: MIRANDA FOWLER MEDICAL RECORD: [id number] :42 LOCATION:D.[facility] ADMISSION DATE:09/29/17 SURGEON: JORGE YOUSSEF MD DATE OF OPERATION: 09/29/2017 PREOPERATIVE DIAGNOSIS: Right periprosthetic humerus fracture. POSTOPERATIVE DIAGNOSIS: Right periprosthetic humerus fracture. PROCEDURE: Open reduction and internal fixation of right humerus. SURGEON: Jorge Youssef MD ANESTHESIA: General. INTRAOPERATIVE COMPLICATIONS: None. SUMMARY OF PATHOLOGIC FINDINGS: The patient did have a periprosthetic humeral fracture. She had had a total shoulder placed approximately 3 weeks prior and shortly after she had her eladio removed, she lost her balance, fell and broke her humerus and a spiral fracture. OPERATIVE SUMMARY IN DETAIL: After obtaining the appropriate preoperative orthopedic surgery consent as well as anesthetic consultation, evaluation and clearance, the patient was brought to the operating room and placed on the operating table in supine position. After general laryngeal mask airway was administered, the patient was placed in a left lateral decubitus position. All pressure points were padded and she was held firmly to the operating table with the vacuum pack suction system. The right arm was then brought over the arm holding board in a very sterile manner. Fluoroscopy was then brought in to again evaluate the fracture. A posterior incision was made, taken down to the level of the triceps fascia, which was split in line with the triceps fascia. The dissection was carried down to the radial nerve, which was tagged, marked and identified with a red vessel loop and gently protected through remainder of the case. Fracture was reduced and held in reduction using fracture forceps as well as Davon bone holders and then a 7-hole AxSOS 3 plate was placed. Serial and sequential drill and fill was done using a combination of both locking screws and compression screws. Radiographs were taken in AP and lateral planes and submitted to radiology for final review. Wound was copiously irrigated. Triceps was closed with #1 Vicryl. This was followed by #1 Vicryl, 2-0 Vicryl and skin eladio for final closure. Sterile dressings were applied. The patient was awakened and taken to recovery room in stable condition. All final needle and sponge counts were correct. TRANSINT:[id number] Voice Confirmation ID: [id number] DOCUMENT ID: [id number] JORGE YOUSSEF MD at 1341 CC: [id number] DICTATION DATE: 11/01/17 2254 STEAM LOCOMOTIVE FIRER/FIREMAN: 11/02/17 0906 DIS IN 10/04/17 [place] [id number] [place] [address]
--- NOTE | ~2017-09-29 | OP ---
PATIENT NAME: MIRANDA FOWLER MEDICAL RECORD: [id number] :42 LOCATION:D[facility] ADMISSION DATE:09/29/17 SURGEON: JORGE YOUSSEF MD DATE OF OPERATION: 09/29/2017 PREOPERATIVE DIAGNOSIS: Fracture of the right humerus midshaft. POSTOPERATIVE DIAGNOSIS: Fracture of the right humerus midshaft. PROCEDURE: Open reduction internal fixation of right humerus midshaft. SURGEON: Jorge Youssef MD ANESTHESIA: General. COMPLICATIONS: None. SUMMARY OF PATHOLOGIC FINDINGS: The patient was indeed found to have a fracture below the recently placed total shoulder arthroplasty of the right shoulder, spiral in nature consistent with her fall. Preoperatively, she had a mild amount of radial nerve weakness. OPERATIVE SUMMARY IN DETAIL: After obtaining the appropriate preoperative orthopedic surgery consent as well as anesthetic consultation, evaluation and clearance, the patient was brought to the operating room and placed on the operating table in supine position. After general laryngeal mask was administered, the patient was placed in a left lateral decubitus position. All pressure points were well padded to include down leg peroneal pad as well as axillary roll. The patient was held firmly to the operating table using the vacuum pack suction system: The humerus fracture bone was utilized. The right upper extremity was prepped and draped in routine sterile fashion. Incision was made posteriorly, taken down the level of the triceps surae fascia. This was divided and a radial nerve neurovascular bundle was identified. Red vessel loop was used to protect it throughout the entire case. Dissection was then carried down to periosteum. Subperiosteal dissection was achieved. The fracture was reduced and held in place with reduction forceps. An AxSOS 3 7-hole narrow large frag plate was utilized for this very small bone. Serial and sequential drill and fill was done with both compression screws as well as locking screws. This was done under fluoroscopic guidance resulting in anatomic mormon of the humeral shaft. It is of note that the plate is as close to the bottom of the shoulder prosthesis as it could be placed. This is adequate spanning across the fracture in my opinion. Having completed this, wound was copiously irrigated. Radiographs were taken for final radiologist's review and submitted. Triceps area was closed with #1 Vicryl. This was followed by #1 Vicryl for skin closure, 2-0 Vicryl and skin eladio. Sterile dressings were applied. The patient was awakened and taken to recovery room in stable condition. All final needle and sponge counts were correct. TRANSINT:[id number] Voice Confirmation ID: [id number] DOCUMENT ID: [id number] OPERATIVE REPORT [id number] MIRANDA FOWLER MD, JORGE BARRERA at 1601 CC: [id number] DICTATION DATE: 09/29/171913 [employer] HISTORY TEACHER: 09/30/17 0224 ADM IN [place] [id number] [place] [address]
[~2017-09-29 09:15] MED LIST changes: +PERCOCET 10/3251 TA1 PO
[2017-09-29 11:13] LABS: ALBUMIN 3.1 g/dL (3.4-5.0); ANION GAP 14.8 mmol/L (8-16); BILIRUBIN - TOTAL 0.39 mg/dL (0.2-1.3); CALCIUM 9.5 mg/dL (8.5-10.1); CARBON DIOXIDE 24.3 mmol/L (21.0-32.0); CREATININE - SERUM 0.9 mg/dL (0.6-1.3); POTASSIUM - SERUM 4.1 mmol/L (3.5-5.1); PROTEIN - SERUM 7.8 g/dL (6.4-8.2)
[2017-09-29 11:37] LABS: BASOPHILS 0.2 % (0-2); EOSINOPHILS 0.5 % (0-7); HEMATOCRIT 45.6 % (36.0-48.0); HEMOGLOBIN 15.1 g/dL (12-16); IMMATURE GRANULOCYTES 0.4 % (0-5); LYMPHOCYTES 7.3 % (15-50); MCH 30.8 pg (26.0-34.0); MCHC 33.1 g/dL (31.0-37.0); MCV 93.1 fL (80.0-100.0); MEAN PLATELET VOLUME 9.8 fL (7.4-10.4); MONOCYTES 4.9 % (2-11); NEUTROPHILS 86.7 % (40-80); PLATELET COUNT 387 10x3/uL (130-400); RDW 13.4 % (11.5-14.5); WBC 21.6 10x3/uL (4.8-10.8)
[2017-09-29 20:13] VITALS: BP 135/80
[2017-09-30] VITALS (7 sets, daily range): BP systolic 97–152; BP diastolic 61–93; Ht 160 cm; Wt 78.9 kg
[2017-09-30 05:43] LABS: HEMATOCRIT 43.3 % (36.0-48.0); HEMOGLOBIN 13.9 g/dL (12-16)
[2017-10-01] VITALS: BP 94/57
[2017-10-01 04:00] VITALS: BP 159/79
[2017-10-01 05:01] LABS: BASOPHILS 0.1 % (0-2); EOSINOPHILS 0.1 % (0-7); HEMATOCRIT 42.2 % (36.0-48.0); HEMOGLOBIN 13.8 g/dL (12-16); IMMATURE GRANULOCYTES 0.6 % (0-5); LYMPHOCYTES 6.4 % (15-50); MCH 30.8 pg (26.0-34.0); MCHC 32.7 g/dL (31.0-37.0); MCV 94.2 fL (80.0-100.0); MONOCYTES 10.1 % (2-11); NEUTROPHILS 82.7 % (40-80); PLATELET COUNT 357 10x3/uL (130-400); RBC 4.48 10x6/uL (4.00-5.40); RDW 13.8 % (11.5-14.5); WBC 17.8 10x3/uL (4.8-10.8)
[2017-10-01 05:11] LABS: CALCIUM 9.4 mg/dL (8.5-10.1); CREATININE - SERUM 0.8 mg/dL (0.6-1.3)
[2017-10-01 05:13] LABS: ANION GAP 10.9 mmol/L (8-16); CARBON DIOXIDE 31.3 mmol/L (21.0-32.0); POTASSIUM - SERUM 3.2 mmol/L (3.5-5.1)
[2017-10-01 08:08] VITALS: BP 181/83
[2017-10-01 12:57] VITALS: BP 148/78
[2017-10-01 16:37] VITALS: BP 147/73
[2017-10-01 18:04] LABS: APPEARANCE HAZY (CLEAR); BILIRUBIN NEGATIVE (NEGATIVE); COLOR DK YELLOW (YELLOW); GLUCOSE NEGATIVE (NEGATIVE); KETONE NEGATIVE (NEGATIVE); NITRITE NEGATIVE (NEGATIVE); PROTEIN TRACE mg/dL (NEGATIVE); SPECIFIC GRAVITY 1.025 (1.005-1.020); UROBILINOGEN NORMAL (NORMAL)
[2017-10-01 18:09] LABS: BACTERIA MODERATE /hpf (NONE SEEN); RED CELLS - URINE OCC /hpf (0-5)
[2017-10-01 22:00] VITALS: BP 148/67
[2017-10-02 00:32] VITALS: BP 144/60
[2017-10-02 04:00] VITALS: BP 155/80
[2017-10-02 06:52] LABS: BASOPHILS 0.2 % (0-2); EOSINOPHILS 0.9 % (0-7); HEMATOCRIT 37.2 % (36.0-48.0); HEMOGLOBIN 12.4 g/dL (12-16); IMMATURE GRANULOCYTES 0.7 % (0-5); LYMPHOCYTES 12.2 % (15-50); MCH 31.2 pg (26.0-34.0); MCHC 33.3 g/dL (31.0-37.0); MCV 93.5 fL (80.0-100.0); MEAN PLATELET VOLUME 9.8 fL (7.4-10.4); MONOCYTES 11.9 % (2-11); NEUTROPHILS 74.1 % (40-80); PLATELET COUNT 298 10x3/uL (130-400); RBC 3.98 10x6/uL (4.00-5.40); RDW 13.7 % (11.5-14.5); WBC 16.6 10x3/uL (4.8-10.8)
[2017-10-02 07:01] LABS: CALC OSMOLALITY 267 mosm/kg (275-300); CALCIUM 9.2 mg/dL (8.5-10.1); CARBON DIOXIDE 30.2 mmol/L (21.0-32.0); CHLORIDE - SERUM 95 mmol/L (98-107); CREATININE - SERUM 0.6 mg/dL (0.6-1.3); GLUCOSE 104 mg/dL (74-106); POTASSIUM - SERUM 3.2 mmol/L (3.5-5.1); SODIUM 134 mmol/L (136-145); UREA NITROGEN 13 mg/dL (7-18); eGFR NON AFRICAN AMERICAN > 90 mL/min (90-120)
[2017-10-02 08:03] VITALS: BP 139/73
[2017-10-02 12:16] VITALS: BP 157/77
[2017-10-02 16:14] VITALS: BP 142/71
[2017-10-02 20:00] VITALS: BP 173/74
[2017-10-03] VITALS: BP 146/85
[2017-10-03 04:00] VITALS: BP 152/75
[2017-10-03 04:11] LABS: BASOPHILS 0.1 % (0-2); EOSINOPHILS 1.5 % (0-7); HEMATOCRIT 34.6 % (36.0-48.0); HEMOGLOBIN 11.5 g/dL (12-16); IMMATURE GRANULOCYTES 0.5 % (0-5); LYMPHOCYTES 12.9 % (15-50); MCH 30.7 pg (26.0-34.0); MCHC 33.2 g/dL (31.0-37.0); MCV 92.5 fL (80.0-100.0); MEAN PLATELET VOLUME 9.7 fL (7.4-10.4); PLATELET COUNT 293 10x3/uL (130-400); RBC 3.74 10x6/uL (4.00-5.40); RDW 13.5 % (11.5-14.5); WBC 13.7 10x3/uL (4.8-10.8)
[2017-10-03 04:32] LABS: CALC OSMOLALITY 267 mosm/kg (275-300); CALCIUM 9.1 mg/dL (8.5-10.1); CARBON DIOXIDE 29.8 mmol/L (21.0-32.0); CHLORIDE - SERUM 97 mmol/L (98-107); CREATININE - SERUM 0.7 mg/dL (0.6-1.3); GLUCOSE 109 mg/dL (74-106); POTASSIUM - SERUM 3.2 mmol/L (3.5-5.1); SODIUM 134 mmol/L (136-145); UREA NITROGEN 11 mg/dL (7-18); eGFR NON AFRICAN AMERICAN 86 mL/min (90-120)
[2017-10-03 08:06] VITALS: BP 142/70
[2017-10-03 12:12] VITALS: BP 126/69
[2017-10-03 16:27] VITALS: BP 138/71
[2017-10-03 20:00] VITALS: BP 145/61
[2017-10-04 06:00] VITALS: BP 156/81
[2017-10-04 08:45] VITALS: BP 122/77
[2017-10-04 13:11] VITALS: BP 117/70
== END 2017-10-04 17:23 | DRG 494 ==
LOC: D.ER 09:15 → D.MS 10:05 → D.EDHOLD 10:05 → D.MS 17:30
PROVIDERS: Emergency Medicine; Family Medicine; Orthopaedic Surgery
PROC: 0PSF04Z Reposition Right Humeral Shaft with Internal Fixation Device, Open Approach (ICD-10-PCS; principal; 2017-09-29 14:45)
DX: S42.301A Unspecified fracture of shaft of humerus, right arm, initial encounter for closed fracture (principal); W19.XXXA Unspecified fall, initial encounter; R42 Dizziness and giddiness; I10 Essential (primary) hypertension; I48.2 Chronic atrial fibrillation; Z87.891 Personal history of nicotine dependence

== ENCOUNTER → 2018-01-04 14:36 | Outpatient (CLI) | payer MEDICARE, OTHER ==
[2017-09-30 10:17] VITALS: BMI 30.8
== END | disposition home or self-care (01) ==
LOC: D.US 14:30
DX: I65.23 Occlusion and stenosis of bilateral carotid arteries (principal)

== ENCOUNTER → 2018-03-10 10:06 | Outpatient (CLI) | payer MEDICARE, OTHER ==
[2017-09-30 10:17] VITALS: BMI 30.8
== END | disposition home or self-care (01) ==
LOC: D.MRI 10:06
DX: G31.84 Mild cognitive impairment of uncertain or unknown etiology (principal)

== ENCOUNTER → 2018-08-23 12:11 | Outpatient (CLI) | payer MEDICARE, OTHER ==
[2017-09-30 10:17] VITALS: BMI 30.8
--- NOTE | 2018-08-15 09:27 | NUR ---
PT IS ON 2 BLOOD THINNERS SO MYELOGRAM WILL HAVE TO BE RESCHEDULED 1 WEEK BEING OFF BLOOD THINNERS
== END | disposition home or self-care (01) ==
LOC: D.RAD 08-15 07:35
DX: M54.16 Radiculopathy, lumbar region (principal)

== ENCOUNTER → 2018-10-06 11:35 | Outpatient (CLI) | payer MEDICARE, OTHER ==
[2017-09-30 10:17] VITALS: BMI 30.8
--- NOTE | ~2018-10-06 | EC ---
PATIENT:MIRANDA FOWLER DATE OF SERVICE: 10/06/18 SEX: F MEDICAL RECORD: [id number] DATE OF : 44 [facility] AGE OF PATIENT: 78 ADMISSION DATE: 10/06/18 REFERRING PHYSICIAN: INTERPRETING PHYSICIAN: RUBI MERCADO MD ECHOCARDIOGRAM REPORT ECHO CHARGES 4 ECHO COMPLETE Date: 10/06/18 CLINICAL DIAGNOSIS: ATRIAL FIB ECHOCARDIOGRAPHIC MEASUREMENTS (adult normal given) AC root (d.<3.7cm) 3.2 cm LV Septum d (<1.2 cm> 1.4 cm Valve Excursion 1.8 cm LV Septum (systole) 1.6 cm Left Atria (s.<4.0cm> 4.1 cm LVPW d(<1.2cm) 1.4 cm RV (d.<2.3cm) 3.3 cm LVPW (sytole) 1.9 cm LV diastole(<5.6CM) 4.6 cm MV E-F(>70mm/sec) cm LV systole 2.6 cm LVOT Diameter 1.7 cm MV exc.(>10mm) 1.1 cm Est.ejection fraction (50-75%) % DOPPLER: LVIT cm/sec A 53.0 cm/sec E 128 cm/sec LA cm/sec RVSP 37 mmHg LVOT 113 cm/sec AOP1/2T m/s Asc. Ao 154 cm/sec RVOT 68 cm/sec RA cm/sec PA 98 cm/sec AV Gradient Peak 9.49 mmHg AV Mean 5.52 mmHg AV Area 1.9 cm MV Gradient Peak 9.11 mmHg MV Mean 2.59 mmHg MV Area cm COMMENTS: Manager Integrity: Christiana BASS Paraprofessional Aide Teacher: 1 Dr. Mercado TAPE# PACS Pericardial Effusion N DATE OF SERVICE: 10/06/2018 PROCEDURE: Echocardiogram. FINDINGS: 1. Left ventricular chamber size is within normal limits. Left ventricular systolic function is normal. Overall ejection fraction estimated at 60%. 2. Left atrium is mildly dilated at 4.1 cm. Right atrium and right ventricular chamber sizes are as well mildly dilated. 3. Valvular structures have normal structure and motion. ECHOCARDIOGRAM REPORT [id number] MIRANDA FOWLER 4. Doppler interrogation reveals mild mitral regurgitation, mild tricuspid regurgitation, no other valvular insufficiency or stenosis. Pulmonary systolic pressure is normal estimated 37 mmHg. 5. No evidence of pericardial effusion or left ventricular thrombus. TRANSINT:[id number] Voice Confirmation ID: [id number] DOCUMENT ID: [id number] RUBI MERCADO MD CC: [id number] DICTATION DATE: 10/10/18 1028 LATH TIER: 10/10/18 1137 DEP CLI 10/06/18 [place] [address] [place] [address]
== END | disposition home or self-care (01) ==
LOC: D.HCCARDIO 11:00
PROVIDERS: ATTEND Internal Medicine Interventional Cardiology
DX: I48.91 Unspecified atrial fibrillation (principal)

== ENCOUNTER → 2018-12-22 09:24 | Outpatient (CLI) | payer MEDICARE, OTHER ==
[2017-09-30 10:17] VITALS: BMI 30.8
== END | disposition home or self-care (01) ==
LOC: D.US 09:24
PROVIDERS: ATTEND Internal Medicine Cardiovascular Disease
DX: I65.23 Occlusion and stenosis of bilateral carotid arteries (principal)

== ENCOUNTER 2019-02-21 00:27 | Inpatient (IN) | payer MEDICARE, OTHER ==
[~2019-02-21] VITALS: Ht 160 cm; Wt 77.1 kg
--- NOTE | ~2019-02-21 | HEMODYNAMI ---
PATIENT:MIRANDA FOWLER MEDICAL RECORD: [id number] : 44 LOCATION:D.[facility] ADMISSION DATE: 02/21/19 Generatedon:02/22/201911:47 Patient name: MIRANDA FOWLER Patient #: [id number] SSN: DO B: 1940 Date of study: 02/22/2019 Page: Of Hemodynamic Procedure Report Patient Data Patient Demographics Procedure consent was obtained First Name: MIRANDA Gender: Female Last Name: JANETH : 1940 [facility] Initial: KNIPPA Age: 78 year(s) Patient #: [id number] Race: Unknown Additional ID: [id number] Contact details Address: [address] [place] [address] State: [place] City: [place] Zip code: [address] Past Medical History Allergies Allergen Reaction Date Comments Reported Other allergy 02/22/2019 [facility] Admission Admission Data Admission Date: 02/21/2019 Admission Time: 1:59 Room #: D.2232 Procedure Procedure Types Cath Procedure Peripheral Cath Diagnostic Procedure Miscellaneous Aspiration/Injection (Joint) Procedure Description Procedure Date Procedure Date: 02/22/2019 Procedure Start Time: 11:35 Procedure Staff Name Function Grady Silva MD Performing Physician JOSE CABRERA RT Monitor Lauren Yuen RN Nurse Chiquita Abernathy RN Nurse Yoni Egan RT Scrub Procedure Data Cath Procedure Contrast Material Contrast Material Type Amount (ml) Isovue 370 15 Hemodynamics Rest Pre Cath Intra NCS Post Cath Procedure Log Time Note 11:22:54 Lauren Yuen RN sent for patient. Start room use. 11:22:56 Time tracking: Regular hours (M-F 7:00 - 5:00) 11:23:07 Patient received from Med/Surg to IR Alert and oriented. Tansferred to table in Supine position. 11:23:17 Signed procedure consent form obtained from patient. 11:23:19 Correct patient and procedure confirmed by team. 11:23:21 - 11:24:06 Patient allergic to Other allergy Niacin 11:24:23 Is the patient allergic to Iodine/contrast media? No. 11:24:56 Is patient on blood thinner?Yes. Effient last dose x1 week ago 11:25:36 - 11:25:52 Right Shoulder was prepped with betadine and draped in sterile fashion. 11:27:25 SAFE-T PLUS MYELOGRAM TRAY opened to sterile field. 11:32:36 Physician arrived 11:34:28 --------ALL STOP TIME OUT------ 11:34:36 Final Timeout: patient, procedure, and site verified with staff and physician. All members of the team are in agreement. 11:35:22 Right Shoulder site verified by team. 11:35:47 Procedure started. 11:35:48 Full Disclosure recording started 11:44:06 Procedure ended.(Physican Out) 11:44:18 Contrast amount: Isovue 200M 15ml. 11:45:15 Post Right Shoulder:stable, clean and dry 11:45:19 Post procedure instruction explained to patient.Patient verbalizes understanding. 11:45:26 Procedure and supply charges have been captured, reviewed, submitted an d are correct. 11:45:53 Patient transfered to Med/Surg with Bed. 11:45:57 End room use (Document Last) Device Usage Item Name Manufacture Quantity Catalog Hospital Part Current Minimal Lot# / Number Charge Number Stock Stock Serial# Code SAFE-T CareFusion 1 [id number] PLUS MYELOGRAM TRAY Signature Audit [place] Stage Time Signature Unsigned Intra-Procedure 02/22/2019 JOSE CABRERA RT 11:47:00 AM (R) Signatures Monitor : JOSE CABRERA RT Signature : Date : Time : [address] [place] [address]
--- NOTE | 2019-02-21 00:45 | NUR ---
RADIOLOGY COMPLETE AND FAMILY AT BEDSIDE.
--- NOTE | 2019-02-21 01:30 | NUR ---
PT ASSISTED WITH BEDPAN.
--- NOTE | 2019-02-21 01:54 | NUR ---
PLAN OF CARE DISCUSSED WITH PT AND FAMILY.
--- NOTE | 2019-02-21 02:10 | NUR ---
PT LEFT ED VIA STRETCHER FOR CT.
[2019-02-21 02:15] LABS: BASOPHILS 0.2 % (0-2); EOSINOPHILS 0.4 % (0-7); HEMATOCRIT 44.3 % (36.0-48.0); HEMOGLOBIN 15.1 g/dL (12-16); IMMATURE GRANULOCYTES 0.4 % (0-5); LYMPHOCYTES 9.2 % (15-50); MCH 30.6 pg (26.0-34.0); MCHC 34.1 g/dL (31.0-37.0); MCV 89.9 fL (80.0-100.0); MEAN PLATELET VOLUME 10.1 fL (7.4-10.4); MONOCYTES 4.9 % (2-11); NEUTROPHILS 84.9 % (40-80); PLATELET COUNT 292 10x3/uL (130-400); RBC 4.93 10x6/uL (4.00-5.40); RDW 13.5 % (11.5-14.5); WBC 14.6 10x3/uL (4.8-10.8)
[2019-02-21 02:21] LABS: INR 1.07 (0.85-1.17); PROTIME 13.4 SECONDS (11.6-15.0)
[2019-02-21 02:26] LABS: ALBUMIN 3.2 g/dL (3.4-5.0); ANION GAP 11.7 mmol/L (8-16); BILIRUBIN - TOTAL 0.47 mg/dL (0.2-1.3); CALCIUM 9.3 mg/dL (8.5-10.1); CARBON DIOXIDE 31.4 mmol/L (21.0-32.0); CREATININE - SERUM 1.5 mg/dL (0.6-1.3); POTASSIUM - SERUM 3.1 mmol/L (3.5-5.1)
--- NOTE | 2019-02-21 02:28 | NUR ---
PT RETURNED FROM CT VIA STRETCHER.
[2019-02-21 03:07] VITALS: BP 151/82; BMI 30.1
--- NOTE | 2019-02-21 07:17 | NUR ---
REPORT RECIEVED. PT LYING SEMI FOWLERS. ALERT AND ORIENTED. DISCUSSED WITH PT ABOUT NPO STATUS. SHE HAS NO FURTHER NEEDS AT THIS TIME. BED IN LOWEST POSITION AND LOCKED. SIDE RAILS UP X2. WILL CTM
[2019-02-21 08:14] VITALS: BP 151/85
[2019-02-21 12:13] VITALS: BP 131/81
[2019-02-21 12:35] LABS: ERYTHROCYTE SEDIMENTATION RATE 56 mm/hr (0-30)
--- NOTE | 2019-02-21 15:05 | NUR ---
TAKEN OFF NPO DIET AT THIS TIME. PT GIVEN SNACKS AT THIS TIME.
[2019-02-21 16:55] VITALS: BP 138/72
--- NOTE | 2019-02-21 18:22 | NUR ---
I have reviewed this patient and I concur with the Shift Assessment completed by the Licensed Practical Nurse today this shift.
--- NOTE | 2019-02-21 19:50 | NUR ---
PT LYING IN BED RESTING WITH EYES CLOSED. WAKES TO VERBAL STIMULI. ALERT AND ORIENTED. STATES PAIN IN RIGHT SHOULDER 09/25. IV LEFT HAND SL, FLUSHES EASILY. SCDS ON. DENIES NEEDS AT THIS TIME. CL IN REACH, WILL CTM
[2019-02-21 20:51] VITALS: BP 150/73
[2019-02-22 01:25] VITALS: BP 149/72
[2019-02-22 04:48] VITALS: BP 124/55
[2019-02-22 06:28] LABS: BASOPHILS 0.1 % (0-2); EOSINOPHILS 0.5 % (0-7); HEMOGLOBIN 14.3 g/dL (12-16); IMMATURE GRANULOCYTES 0.4 % (0-5); LYMPHOCYTES 6.5 % (15-50); MCH 30.4 pg (26.0-34.0); MCV 89.4 fL (80.0-100.0); MONOCYTES 7.4 % (2-11); NEUTROPHILS 85.1 % (40-80); PLATELET COUNT 259 10x3/uL (130-400); RDW 13.5 % (11.5-14.5); WBC 14.6 10x3/uL (4.8-10.8)
[2019-02-22 06:41] LABS: ANION GAP 10.6 mmol/L (8-16); CALCIUM 9.3 mg/dL (8.5-10.1); CARBON DIOXIDE 31.3 mmol/L (21.0-32.0)
[2019-02-22 06:48] LABS: CREATININE - SERUM 0.8 mg/dL (0.6-1.3); POTASSIUM - SERUM 2.9 mmol/L (3.5-5.1)
--- NOTE | 2019-02-22 08:00 | NUR ---
LYING IN BED,RESTING. PT IS WITHOUT DISTRESS.
[2019-02-22 08:45] VITALS: BP 169/97
[2019-02-22 13:10] VITALS: Ht 160 cm; Wt 77.1 kg
[2019-02-22 13:13] LABS: MACROPHAGES BF 34 %; NEUT - BF 63 %
[2019-02-22 18:20] VITALS: BP 140/65
--- NOTE | 2019-02-22 19:42 | NUR ---
PT RESTING QUIETLY. CL IN REACH. NO DISTRESS NOTED. BED IN LOW SIDE RAILS X2. A/O X4. RESP EVEN AND UNLABORED. WCTM
[2019-02-22 22:18] VITALS: BP 150/77
--- NOTE | 2019-02-23 00:08 | NUR ---
PT RESTING QUIETLY. CL IN REACH. NO DISTRESS NOTED. CPOC
[2019-02-23 01:59] VITALS: BP 164/80
--- NOTE | 2019-02-23 04:03 | NUR ---
I have reviewed this patient and I concur with the Shift Assessment completed by the Licensed Practical Nurse today this shift.
--- NOTE | 2019-02-23 04:58 | NUR ---
PT HAD INCONT IN BED. LINEN CHANGED. DENIES FURTHER NEEDS. WCTM CL IN REACH
[2019-02-23 05:46] VITALS: BP 175/89
[2019-02-23 07:13] LABS: BASOPHILS 0.1 % (0-2); EOSINOPHILS 0.5 % (0-7); HEMATOCRIT 42.1 % (36.0-48.0); HEMOGLOBIN 14.4 g/dL (12-16); IMMATURE GRANULOCYTES 0.5 % (0-5); LYMPHOCYTES 9.4 % (15-50); MCH 30.3 pg (26.0-34.0); MCHC 34.2 g/dL (31.0-37.0); MCV 88.4 fL (80.0-100.0); MEAN PLATELET VOLUME 10.3 fL (7.4-10.4); NEUTROPHILS 79.5 % (40-80); PLATELET COUNT 267 10x3/uL (130-400); RBC 4.76 10x6/uL (4.00-5.40); RDW 13.9 % (11.5-14.5); WBC 15.2 10x3/uL (4.8-10.8)
[2019-02-23 07:16] LABS: CALC OSMOLALITY 272 mosm/kg (275-300); CALCIUM 9.4 mg/dL (8.5-10.1); CARBON DIOXIDE 31.6 mmol/L (21.0-32.0); CHLORIDE - SERUM 96 mmol/L (98-107); CREATININE - SERUM 0.7 mg/dL (0.6-1.3); GLUCOSE 114 mg/dL (74-106); POTASSIUM - SERUM 3.1 mmol/L (3.5-5.1); SODIUM 136 mmol/L (136-145); UREA NITROGEN 13 mg/dL (7-18); eGFR NON AFRICAN AMERICAN 86 mL/min (90-120)
--- NOTE | 2019-02-23 07:45 | NUR ---
PATIENT IN BED WITH IV INTACT. NO COMPLAINTS OR SIGNS OF DISTRESS. CALL LIGHTW ITHIN REACH.
--- NOTE | 2019-02-23 08:30 | NUR ---
I&O CATH COMPLETE AND SENT TO LAB.
[2019-02-23 10:52] VITALS: BP 150/88
[2019-02-23 11:08] LABS: APPEARANCE CLOUDY (CLEAR); BACTERIA FEW /hpf (NONE SEEN); BILIRUBIN NEGATIVE (NEGATIVE); COLOR YELLOW (YELLOW); GLUCOSE NEGATIVE (NEGATIVE); KETONE MODERATE mg/dL (NEGATIVE); NITRITE NEGATIVE (NEGATIVE); PROTEIN 2+ mg/dL (NEGATIVE); SPECIFIC GRAVITY 1.015 (1.005-1.020); WHITE CELLS - URINE 25-50 /hpf (0-5)
[2019-02-23 11:09] LABS: EPITHELIAL CELLS OCC /hpf (0-5); MUCUS <1+ /lpf (NONE SEEN)
[2019-02-23 13:33] VITALS: BP 140/86
--- NOTE | 2019-02-23 16:01 | NUR ---
Pt has a chronic wound on plantar surface of the right foot. She states it has improved considerablely and goes to a wound doctor for treatment. The current tx is painting with betadine and covering for protection. The wound itself measures 1cm x 0.5cm x 0.2cm. There is no odor, drainage or redness noted. Cleansed, painted and dressed with 4x4s and kerlix. Wound care will continue monitoring.
[2019-02-23 17:23] VITALS: BP 149/64
--- NOTE | 2019-02-23 18:45 | NUR ---
PATIENT IN BED WITH IV INTACT. NO COMPLAINTS OR SIGNS OF DISTRESS. CALL LIGHTW ITHIN REACH.
--- NOTE | 2019-02-23 19:25 | NUR ---
PT ALERT AND ORIENTED WHEN ENTERING THE ROOM. CURRENTLY IN SUPINE POSITION WITH BED ELEVATED TO 15 DEGREE ANGLE. PILLOWS TUCKED TO HELP POSITION PATIENT TO THE LEFT SIDE. PATIENT RIGHT SHOULDER WITH MINIMAL REDNESS AND SWELLING. WEARING SLING ORDERED. ABLE TO MOVE FINGERS MINIMALLY AND WARM TO TOUCH WITH LESS THAN 3 SECOND CAPILLARY REFILL. SORE TO LOWER EXTREMETY THAT IS CLEAN DRY AND INTACT. PATIENT STATES "THE PIPE SMOKING MACHINE OPERATOR CAME AND CHECKED IT OUT TODAY." DENIES PAIN TO THAT AREA. REQUESTS THAT MORPHINE BE GIVEN WITH HS MEDICATIONS. LEFT HAND IV THAT IS PATENT AND INFUSING NS AT KVO. WEARING SCD'S BILATERALLY. CALL LIGHT IN REACH OF PATIENT. BED LOCKED AND LOWERED. CLOSE TO NURSES STATION FOR CONTINUAL MONITORING.
[2019-02-23 20:00] VITALS: BP 135/68
[2019-02-24] VITALS: BP 158/69
--- NOTE | 2019-02-24 02:23 | NUR ---
PT RESTING. APPLIED ICE PACK. NO DISTRESS NOTED AT THIS TIME.
--- NOTE | 2019-02-24 03:00 | NUR ---
I have reviewed this patient and I concur with the Shift Assessment completed by the Licensed Practical Nurse today this shift.
[2019-02-24 04:00] VITALS: BP 150/89
[2019-02-24 05:08] LABS: CALC OSMOLALITY 277 mosm/kg (275-300); CALCIUM 8.5 mg/dL (8.5-10.1); CARBON DIOXIDE 30.2 mmol/L (21.0-32.0); CHLORIDE - SERUM 97 mmol/L (98-107); CREATININE - SERUM 0.6 mg/dL (0.6-1.3); GLUCOSE 109 mg/dL (74-106); POTASSIUM - SERUM 3.2 mmol/L (3.5-5.1); SODIUM 138 mmol/L (136-145); UREA NITROGEN 14 mg/dL (7-18); eGFR NON AFRICAN AMERICAN > 90 mL/min (90-120)
[2019-02-24 05:24] LABS: BASOPHILS 0.1 % (0-2); EOSINOPHILS 0.7 % (0-7); HEMATOCRIT 41.7 % (36.0-48.0); HEMOGLOBIN 14.1 g/dL (12-16); IMMATURE GRANULOCYTES 0.5 % (0-5); LYMPHOCYTES 10.4 % (15-50); MCHC 33.8 g/dL (31.0-37.0); MCV 88.7 fL (80.0-100.0); MEAN PLATELET VOLUME 10.7 fL (7.4-10.4); MONOCYTES 8.9 % (2-11); NEUTROPHILS 79.4 % (40-80); PLATELET COUNT 243 10x3/uL (130-400); RDW 13.8 % (11.5-14.5); WBC 14.6 10x3/uL (4.8-10.8)
--- NOTE | 2019-02-24 06:00 | NUR ---
PAIN MEDICINE ADMINISTERED PER ORDER. POTASSIUM TREATED AND REDRAW ORDERED.
--- NOTE | 2019-02-24 08:15 | NUR ---
PATIENT IN BED WITH EYES CLOSED RESTING QUIETLY. IV INTACT. NO COMPLAINTS OR SIGNS OF DISTRESS. CALL LIGHT WITHIN REACH.
[2019-02-24 08:55] VITALS: BP 157/77
[2019-02-24 09:56] LABS: ERYTHROCYTE SEDIMENTATION RATE 94 mm/hr (0-30)
[2019-02-24 12:00] VITALS: BP 138/81
--- NOTE | 2019-02-24 12:00 | NUR ---
PATIENT SITTING UP IN CHAIR AT THIS TIME. NO COMPLAINTS OR SIGNS OF DISTRESS. CALL LIGHT WITHIN REACH. FAMILY AT BEDSIDE.
--- NOTE | 2019-02-24 13:43 | NUR ---
Nutrition follow-up: Diet: Low sodium PO Intake ~25% of meals Labs reviewed Wt: 170# +BM PO Intake poor at this time Recommend changing diet order to regular to encourage increased po intake RDN following.
[2019-02-24 16:47] VITALS: BP 147/89
--- NOTE | 2019-02-24 17:24 | NUR ---
Rehab Note- Acute Inpatient Rehab prescreen order received. The patient is an appropriate acute inpatient rehab candidiate- will monitor & follow for progress with therapy to tolerate the required 3hrs/day of therapy in an acute inpatient rehab. Thank you for this referral! Jacqueline De Anda RN Clinical Liaison, [facility] Rehab
--- NOTE | 2019-02-24 18:55 | NUR ---
PATIENT IN BED WITH EYES CLOSED RESTING QUIETLY. IV INTACT. CALL LIGHT WITHIN REACH.
--- NOTE | 2019-02-24 19:15 | NUR ---
RECEIVED CARE FROM DAY NURSE. SITTING UP IN BED WATCHING TV. REPORTS NO NEEDS AT THIS TIME. CALL LIGHT AT SIDE. IV SL TO LEFT HAND.
[2019-02-24 20:00] VITALS: BP 147/73
[2019-02-25] VITALS: BP 154/83
[2019-02-25 04:00] VITALS: BP 131/72
--- NOTE | 2019-02-25 06:36 | NUR ---
I have reviewed this patient and I concur with the Shift Assessment completed by the Licensed Practical Nurse today this shift.
[2019-02-25 08:02] LABS: BASOPHILS 0.1 % (0-2); EOSINOPHILS 0.3 % (0-7); HEMATOCRIT 40.9 % (36.0-48.0); HEMOGLOBIN 14.2 g/dL (12-16); IMMATURE GRANULOCYTES 0.8 % (0-5); LYMPHOCYTES 10.8 % (15-50); MCH 30.7 pg (26.0-34.0); MCHC 34.7 g/dL (31.0-37.0); MCV 88.3 fL (80.0-100.0); MEAN PLATELET VOLUME 10.6 fL (7.4-10.4); MONOCYTES 10.9 % (2-11); NEUTROPHILS 77.1 % (40-80); PLATELET COUNT 275 10x3/uL (130-400); RBC 4.63 10x6/uL (4.00-5.40); RDW 14.1 % (11.5-14.5); WBC 15.7 10x3/uL (4.8-10.8)
[2019-02-25 08:14] LABS: ANION GAP 11.4 mmol/L (8-16); CALCIUM 9.4 mg/dL (8.5-10.1); CARBON DIOXIDE 31.8 mmol/L (21.0-32.0)
[2019-02-25 08:16] LABS: CREATININE - SERUM 0.9 mg/dL (0.6-1.3); POTASSIUM - SERUM 3.2 mmol/L (3.5-5.1)
[2019-02-25 08:37] VITALS: BP 150/61
--- NOTE | 2019-02-25 09:00 | NUR ---
ALERT AND ORIENTED WITH SLING INTACT TO RT. SHOULDER. IV INTACT TO LT. HAND. SCD'S INTACT WITH MORPHINE GIVEN PRN FOR PAIN MANAGEMENT AND EFFECTIVE. ENCOURAGED TO USE CALL LIGHT FOR ASIST.
[2019-02-25 13:37] VITALS: BP 137/67
[2019-02-25 16:57] VITALS: BP 163/79
--- NOTE | 2019-02-25 19:15 | NUR ---
RECEIVED CARE FROM DAY NURSE. LYING IN BED WITH EYES CLOSED. RESP EVEN AND UNALBORED. CALL LIGHT AT SIDE. IV SL TO LEFT HAND. NO DISTRESS NOTED.
[2019-02-25 20:00] VITALS: BP 144/64
[2019-02-26] VITALS: BP 120/66
--- NOTE | 2019-02-26 03:11 | NUR ---
I have reviewed this patient and I concur with the Shift Assessment completed by the Licensed Practical Nurse today this shift.
[2019-02-26 04:00] VITALS: BP 130/89
[2019-02-26 08:32] VITALS: BP 152/87
--- NOTE | 2019-02-26 09:00 | NUR ---
ALERT AND ORIENTED X4 WITH IMPROVED HAND GRASP AND DECREASED EDEMA TO RT. HAND AND CAP REFILL <3 SEC. SLING INTACT TO RLE WITH LIMITED ROM NOTED. MS GIVEN FOR SHOULDER PAIN / AND EFFECTIVE. ENCOURAGED TO USE CALL LIGHT FOR ASSIST.
[2019-02-26 13:28] VITALS: BP 158/88
--- NOTE | 2019-02-26 15:05 | MORECARE ---
CASE MANAGEMENT DISCHARGE SUMMARY PATIENT: MIRANDA FOWLER [place] UN[place]: [id number] ADM DATE: 02/21/19 AGE: 78 : 42 SEX: F ROOM/BED: D.[facility] AUTHOR: CADY QUEVEDO PHYSICIAN: REFERRING PHYSICIAN: MARCIA SAENZ MD DATE OF SERVICE: 02/26/19 Discharge Plan Patient Name: MIRANDA FOWLER Facility: [facility]:Jay Em : 1940 Planned Disposition: Inpatient Rehab Anticipated Discharge Date: Discharge Date: Expected LOS: Initial Reviewer: [email or web address] Initial Review Date: 02/21/2019 Generated: 02/26/19 4:05 pm Patient Name: MIRANDA FOWLER Page [id number] at 1505 All edits/amendments must be made on the electronic document DICTATION DATE: 02/26/19 1505 LEATHER SPRAYER: ANGUS 02/26/19 1505 RPT#: [id number] DC DATE: STATUS: ADM IN [facility] [address] [place] [address] END OF REPORT
--- NOTE | 2019-02-26 15:12 | MORECARE ---
CASE MANAGEMENT DISCHARGE SUMMARY PATIENT: MIRANDA FOWLER [place] UNIT: [id number] ADM DATE: 02/21/19 AGE: 78 : 42 SEX: F ROOM/BED: D.[facility] AUTHOR: CADY QUEVEDO PHYSICIAN: REFERRING PHYSICIAN: MARCIA SAENZ MD DATE OF SERVICE: 02/26/19 Discharge Plan Patient Name: MIRANDA FOWLER Facility: [facility]:[place] : 1940 Planned Disposition: Inpatient Rehab Anticipated Discharge Date: Discharge Date: Expected LOS: Initial Reviewer: [id number] Initial Review Date: 02/21/2019 Generated: 02/26/19 4:11 pm Comments DCP- Discharge Planning Updated by [id number]: Sherley Cordoba on 02/26/19 2:[address] PLAN FOR INPATIENT REHAB. CM SPOKE W/ REHAB YORDYERDEL, SHE WAS FOLLOWING THE PATIENT'S PROGRESS OVER THE WEEKEND. SHE HAD HOPED FOR DISCHARGE TO REHAB BUT THE PATIENT HAS NOT PARTICIPATED WITH PHYSICAL THERAPY WELL THIS WEEKEND. OT EVAL STILL PENDING. PATIENT IS RECEIVING MSO4 4 MGM IV FOR PAIN. SHE HAS BEEN MEDICATED X4 WITHIN THE LAST 24 HRS. CM SPOKE W/ PRIMARY NURSE, TRICE. PERHAPS AN ORAL ANALGESIC TO BE OFFERED FIRST WOULD BE HELPFUL. STAFF TO ENCOURAGE PATIENT TO PARTICIPATE W/ THERAPIES. REHAB WILL FOLLOW UP ON WEDNESDAY W/ PATIENT'S PROGRESS. Last DP export: 02/26/19 2:05 p Patient Name: MIRANDA FOWLER Page [phone] at 1512 All edits/amendments must be made on the electronic document DICTATION DATE: 02/26/191510 SUPERVISOR LANDSCAPE: ANGUS 02/26/191510 RPT#: [id number] DC DATE: STATUS: ADM IN [facility] [address] [place] [address] END OF REPORT
[2019-02-26 16:56] VITALS: BP 131/68
[2019-02-26 20:00] VITALS: BP 157/73
[2019-02-27] VITALS: BP 132/77
--- NOTE | 2019-02-27 00:38 | NUR ---
PT INCONTINENT OF URINE. HAD MEDIUM SOFT BM IN BEDPAN. CHANGED BED LINENS. WILL CONTINUE TO MONITOR.
[2019-02-27 04:00] VITALS: BP 171/78
--- NOTE | 2019-02-27 07:50 | NUR ---
REC'D CALL PT SISTER ON THIS AM INQURING ABOUT HOW THE PT FAIRED OVER THE WEEKEND. THIS NURSE EXPLAINED TO FAMILY MEMBER THAT PT WAS DOING WELL AND THAT SHE WAS RESTING WELL AT THIS TIME. THE FAMILY MEMBER THEN WENT ON TO ASK HOW MUCH PAIN MEDICATION HAD SHE HAD THIS NURSE THEN INFORMED THE FAMILY MEMBER THAT SHE HAS ONLY HAD APAP ON LAST NIGHT AND NO MORPHINE. THEN THE FAMILY MEMBER WAS LIKE SHE HAD MORPHINE ON WEDNESDAY AND I WAS LIKE YES BUT NOT ON LAST NIGHT. SHE THEN INQUIRED ABOUT THE PT HAVING AN UTI AND WHAT MEDICATION WAS SHE BEEN GIVEN FOR THAT THIS NURSE TOLD FAMILY MEMBER WHICH MEDICATION PT WAS GIVEN. THEN PT FAMILY MEMBER HOW DO WE KNOW IF THAT ANTIBOTIC IS WORKING. THE NURSE EXPLAINED TO THE FAMILY MEMEBER THAT THE DO A C&S WHICH IS AN CULTURE AND SENSITIVITY TEST TO DETERMINE WHICH MEDCIATION WILL BE EFFECTIVE. AND THAT WE DONT RE-DO ANOTHER UA SINCE THE PT IS CURRENTLY TAKING ABOUT. PT STATED THAT I NEED TO SPEAK WITH THEN DOCTOR THEN AND GAVE PHONE NUMBER [phone]
[2019-02-27 08:41] VITALS: BP 168/106
--- NOTE | 2019-02-27 09:30 | NUR ---
RC'D CALL FROM DR. TORRES NURSE STATING THAT A FAMILY HAD CALL AND STATED THAT THE PT INDEX FINGER WAS BLACK. THIS NURSE INFORMED DR. MELISSA NUÑEZ THAT THE PT FINGER WAS NOT BLACK AND THAT THIS NURSE HAD BEEN IN PT ROOM AND HAD ADMINISTERED MEDICATION AND ALSO ASSISTED HER ON TO THE BED PAIN. THIS NURSE ALSO HAD ANOTHER NURSE CHECK PT FINGER WELL. C/L IN REACH AT BEDSIDE.
[2019-02-27 14:01] VITALS: BP 140/66
[2019-02-27] MEDS ORDERED: BACLOFEN10 MG PO (15:24)
[2019-02-27] MEDS ORDERED: HYDROCODON-ACE1 EAC7 PO (15:25)
[2019-02-27] MEDS ORDERED: MIRALAX17 GM PO (15:26)
--- NOTE | 2019-02-27 15:28 | NUR ---
I have reviewed this patient and I concur with the Shift Assessment completed by the Licensed Practical Nurse today this shift.
[2019-02-27 17:15] VITALS: BP 144/75
--- NOTE | 2019-02-27 18:43 | NUR ---
DC DOWN TO IN HOUSE REHAB AT THIS TIME WITH ALL PERSONAL BELONGINGS ACCOMPAINED BY GROOVER AND TURNER. NO DISTRESS UPON DEPARTURE.
--- NOTE | 2019-03-01 08:33 | MORECARE ---
CASE MANAGEMENT DISCHARGE SUMMARY PATIENT: MIRANDA FOWLER [place] UNIT: [id number] ADM DATE: 02/21/19 AGE: 78 : 42 SEX: F ROOM/BED: D.[facility] AUTHOR: CADY QUEVEDO PHYSICIAN: REFERRING PHYSICIAN: MARCIA SAENZ MD DATE OF SERVICE: 03/01/19 Discharge Plan Patient Name: MIRANDA FOWLER Facility: [facility]:[place] : 1940 Planned Disposition: Inpatient Rehab Anticipated Discharge Date: Discharge Date: 02/27/2019 Expected LOS: Initial Reviewer: [email or web address] Initial Review Date: 02/21/2019 Generated: 03/01/19 9:32 am Comments DCP- Discharge Planning Updated by [id number]: Sherley Crodoba on 02/26/19 2:[address] PLAN FOR INPATIENT REHAB. CM SPOKE W/ REHAB SCREENERDEL, SHE WAS FOLLOWING THE PATIENT'S PROGRESS OVER THE WEEKEND. SHE HAD HOPED FOR DISCHARGE TO REHAB BUT THE PATIENT HAS NOT PARTICIPATED WITH PHYSICAL THERAPY WELL THIS WEEKEND. OT EVAL STILL PENDING. PATIENT IS RECEIVING MSO4 4 MGM IV FOR PAIN. SHE HAS BEEN MEDICATED X4 WITHIN THE LAST 24 HRS. CM SPOKE W/ PRIMARY NURSE, TRICE. PERHAPS AN ORAL ANALGESIC TO BE OFFERED FIRST WOULD BE HELPFUL. STAFF TO ENCOURAGE PATIENT TO PARTICIPATE W/ THERAPIES. REHAB WILL FOLLOW UP ON WEDNESDAY W/ PATIENT'S PROGRESS. Coverage Notice Reviewer: [id number] Sal Escobar Notice Issued Date-Time: 02/27/2019 15:43 Notice Type: IM Discharge Notice Notice Delivered To: Patient Relationship to Patient: Medical Insurance Coding Specialist Name: Delivery Method: HAND - Hand Delivered Leatha Days: Prior Verbal Notification: Recipient Understood Notice: Yes Recipient Signature: Yes Med Rec Note Co-signed by Attending: Coverage Notice Comment: Last DP export: 02/26/19 2:12 p Patient Name: MIRANDA FOWLER Page [phone] at 0833 All edits/amendments must be made on the electronic document DICTATION DATE: 03/01/19831 JOB SERVICE CONSULTANT: ANGUS 03/01/19831 RPT#: [id number] DC DATE:02/27/19 STATUS: DIS IN [facility] [address] [facility] [place] [address] END OF REPORT
== END 2019-02-27 18:44 | DRG 560 ==
LOC: D.ER 00:27 → D.MS 01:59
PROVIDERS: Family Medicine; General Practice; Orthopaedic Surgery; ADMIT Family Medicine; ATTEND Family Medicine
PROC: 0R9J3ZX Drainage of Right Shoulder Joint, Percutaneous Approach, Diagnostic (ICD-10-PCS; principal; 2019-02-22 11:13)
DX: T84.84XA Pain due to internal orthopedic prosthetic devices, implants and grafts, initial encounter (principal); N39.0 Urinary tract infection, site not specified; M25.511 Pain in right shoulder; I10 Essential (primary) hypertension; I48.91 Unspecified atrial fibrillation; I25.10 Atherosclerotic heart disease of native coronary artery without angina pectoris; J45.909 Unspecified asthma, uncomplicated; M21.371 Foot drop, right foot; L98.499 Non-pressure chronic ulcer of skin of other sites with unspecified severity

== ENCOUNTER 2019-02-27 18:15 | Inpatient (IN) | payer MEDICARE, OTHER ==
[~2019-02-27] VITALS: Ht 160 cm; Wt 76.2 kg
[~2019-02-27 18:15] MED LIST changes: +BACLOFEN10 MG PO; +MIRALAX17 GM PO
--- NOTE | 2019-02-27 21:00 | NUR ---
PT ARRIVED VIA BED, ACCOMPANIED BY HOSPITAL STAFF, A&O, PLEASANT, WATER GIVEN, ORIENTED TO TV/CALL LIGHT, TO ROOM, TO UNIT, INTRODUCED TO STAFF, UNABLE TO ACQUIRE PAPER WORK AT THIS TIME, FLUIDS AND CALL LIGHT WITHIN REACH, NO OTHER NEEDS NOTED AT THIS TIME
[2019-02-28 00:27] VITALS: BP 199/95; BMI 29.8
--- NOTE | 2019-02-28 02:29 | NUR ---
PT IN BED LOWEST POSITION, EYES CLOSED AROUSES EASILY TO VOICE, RESPIRATIONS EVEN AND UNLABORED, NO NEEDS NOTED AT THIS TIME, FLUIDS AND CALL LIGHT WITHIN REACH
--- NOTE | 2019-02-28 08:30 | NUR ---
PT RESTING IN BED WITH EYES OPEN CALL LIGHT IN REACH WILL MONITER
--- NOTE | 2019-02-28 09:27 | NUR ---
PATIENT ADMITTED TO REHAB FROM ACUTE FLOOR. DR. TORRES IS HER PCP. HER DISCHARGE PLANS ARE TO RETURN HOME. WILL CONTINUE TO FOLLOW WITH PATIENT AND WILL ASSIST WITH DISHCARGE NEEDS.
[2019-02-28 15:02] VITALS: Ht 160 cm; Wt 76.2 kg
[2019-02-28 19:53] VITALS: BP 116/65
--- NOTE | 2019-02-28 20:04 | NUR ---
AWAKE AND ALERT. RESTING IN BED WITH RESPIRATIONS UNLABORED. NO DISTRESS NOTED. DRESSING TO RIGHT FOOT INTACT. CALL LIGHT IN REACH.
--- NOTE | 2019-03-01 06:02 | NUR ---
QUIET HOURS. RESTING IN BED WITH RESPIRATIONS UNLABORED. NO ACUTE CHANGES IN CONDITION THIS SHIFT. NO DISTRESS NOTED. CALL LIGHT IN REACH.
[2019-03-01 07:40] LABS: BASOPHILS 0.3 % (0-2); EOSINOPHILS 1.6 % (0-7); HEMATOCRIT 39.5 % (36.0-48.0); HEMOGLOBIN 13.7 g/dL (12-16); IMMATURE GRANULOCYTES 1.3 % (0-5); LYMPHOCYTES 10.9 % (15-50); MCH 30.9 pg (26.0-34.0); MCHC 34.7 g/dL (31.0-37.0); MEAN PLATELET VOLUME 9.9 fL (7.4-10.4); MONOCYTES 8.1 % (2-11); NEUTROPHILS 77.8 % (40-80); RBC 4.44 10x6/uL (4.00-5.40); RDW 13.8 % (11.5-14.5); WBC 17.3 10x3/uL (4.8-10.8)
[2019-03-01 07:42] VITALS: BP 148/91
[2019-03-01 07:46] LABS: PLATELET COUNT 429 10x3/uL (130-400)
--- NOTE | 2019-03-01 08:00 | NUR ---
SHIFT ASSMT COMPLETED.BREAKFAST GIVEN.DENIES NEEDS.
[2019-03-01 08:24] LABS: CALC OSMOLALITY 286 mosm/kg (275-300); CALCIUM 10.1 mg/dL (8.5-10.1); CARBON DIOXIDE 30.9 mmol/L (21.0-32.0); CHLORIDE - SERUM 100 mmol/L (98-107); CREATININE - SERUM 0.7 mg/dL (0.6-1.3); GLUCOSE 110 mg/dL (74-106); POTASSIUM - SERUM 3.1 mmol/L (3.5-5.1); SODIUM 142 mmol/L (136-145); THYROID STIMULATING HORMONE 1.76 uIU/mL (0.36-3.74); UREA NITROGEN 22 mg/dL (7-18); eGFR NON AFRICAN AMERICAN 86 mL/min (90-120)
--- NOTE | 2019-03-01 12:00 | NUR ---
EATING LUNCH.CL IN REACH.
[2019-03-01] MEDS ORDERED: EXELON1 PATCH .1 TRANSDERM (13:44)
--- NOTE | 2019-03-01 15:05 | RHP ---
PATIENT: MIRANDA FOWLER MEDICAL RECORD: [id number] ACCOUNT: [id number] [facility] : [birth year] ADMISSION DATE: 02/27/19 REHABILITATION HISTORY AND PHYSICAL EXAMINATION POST ADMISSION PHYSICIAN EXAMINATION DATE OF ADMISSION: 02/27/2019. ADMITTING DIAGNOSES: Debility secondary to muscular wasting and disuse atrophy. HISTORY OF PRESENT ILLNESS: The patient is a 78-year-old female patient with past medical history of peripheral arterial disease, coronary artery disease, and arthritis involving multiple joints, who presented to the ED with severe right shoulder pain. She was unable to bear weight with inability to get up and out of her chair. She was admitted to the acute hospital and had orthopedic surgery consult and they followed her throughout her acute hospital stay. She continued to decline physically during her stay, was also found to have a UTI. She is currently having acute pain, having pain control and medication issues. She has been on IV antibiotic therapy for UTI, leukocytosis, and electrolyte abnormalities. She is deconditioned, debility, impaired mobility, gait disturbance. She is a high risk for falls and self-care deficits. These are all barriers to her discharge home. She lives at home alone with moderately independent with use of rolling walker for mobility and independent with her ADLs, currently set up for max assist for ADLs and max assist to total assist for mobility. She plans to be able to return home at her prior level of functioning, after acute rehab stay. COMORBIDITIES: Include right shoulder pain, history of shoulder replacement, chronic AFib, acute pain, UTI, deconditioning, debility, impaired mobility, self-care deficits, and weakness. PAST MEDICAL HISTORY: Significant for vertigo, cataracts, hypertension, atrial fibrillation, bradycardia. She has had peripheral vascular disease, blood clots, asthma, pneumonia, skin cancers, arthritis, osteoporosis, degenerative disc disease, fibromyalgia, shingles. She has had skin problems, depression, and anxiety. PAST SURGICAL HISTORY: Includes gallbladder surgery, hysterectomy, right nephrectomy, right knee replacement, deviated septum, carpal tunnel, skin tumors removed, fasciotomy with melanoma, right foot surgery. She has had an ORIF of her right humerus and she has had a total vaginal hysterectomy as noted above, a bilateral salpingo-oophorectomy. ALLERGIES: NIACIN. CURRENT MEDICATIONS: Include diltiazem 360 mg daily, Effient 10 mg daily. She is on MiraLax 17 g in 8 ounces of water daily, Singulair 10 mg daily, hydrochlorothiazide 25 mg daily, Cymbalta 60 mg daily, Antivert 12.5 mg t.i.d. p.r.n., Lopressor 50 mg b.i.d., Zetia 10 mg q.h.s., baclofen 10 mg q.h.s., and Piedmont 5/325 one tab q.6 hours p.r.n. HABITS: No alcohol or tobacco use. FAMILY HISTORY: Noncontributory. HISTORY AND PHYSICAL [id number] MIRANDA FOWLERH SOCIAL HISTORY: The patient hopes to return back home to her prior level of functioning. REVIEW OF SYSTEMS: GENERAL: Does complain of weakness and fatigue. HEENT: Denies cold, cough, or congestion. CARDIOVASCULAR: Denies any chest pain. PHYSICAL EXAMINATION: VITAL SIGNS: Her vital signs are stable. GENERAL: She is alert and oriented. HEENT: Normocephalic and atraumatic. Mucosa moist. NECK: Supple. LUNGS: Clear. HEART: Regular rate and rhythm. ABDOMEN: Benign. EXTREMITIES: No clubbing, cyanosis or edema. NEUROLOGIC: She does have noted proximal muscle weakness. LABORATORY DATA: Her labs are pending at this time. ASSESSMENT: This is a 78-year-old female patient admitted to the rehab with a working diagnosis of debility secondary to protein-calorie malnutrition. The patient has potential to make improvement. We instituted the following multidisciplinary therapies including, but not limited to physical, occupational, respiratory, speech, nutritional services, prosthetics and orthotics. Given her complex medical condition and risk for more complications, rehabilitation services cannot be provided at a low level of care such as skilled nurse facility. PLAN: 1. Admit to [facility] for intensive inpatient therapy to include the following disciplines: A. Physical therapy to improve gait, all transfer skills and bed mobility to a modified independent level. B. Occupational to improve activities of daily living to a modified independent level. C. Case management to assist with discharge planning and placement options. D. Nutrition to assist with nutritional needs. E. Rehabilitation nursing to assist in monitoring the patient's underlying medical conditions and to assist with any type of bowel or bladder management. 2. The patient's current medication and medical care will be continued. 3. The patient will be placed on standard fall precautions. 4. The patient's estimated length of stay is approximately 7-10 days. 5. We will discuss this patient during care team staff meeting this week. We will go ahead and check lab values in the morning including vitamin D levels and thyroid. 6. I am going to follow up in the a.m. TRANSINT:[id number] Voice Confirmation ID: [id number] DOCUMENT ID: [id number] LADY notes whether there has been none or any medical/functional change since admission: - No change since pre-admission screen. HISTORY AND PHYSICAL [id number] MIRANDA FOWLER attests patient continues to be appropriate for IRF: - Continues to be appropriate. HEENA TOBAR MD at 1505 CC: [id number] DICTATION DATE: 02/28/19 1102 SUPERVISOR FINISHING: 02/28/19 1126 ADM IN [place] [id number] [place] [address]
--- NOTE | 2019-03-01 16:00 | NUR ---
IN BED RESTING.DENIES NEEDS.
[2019-03-01 19:52] VITALS: BP 117/63
--- NOTE | 2019-03-01 19:56 | NUR ---
AWAKE AND ALERT. RESTING IN BED WITH RESPIRATIONS UNLABORED. TALKING WITH DAUGHTER, CHEEFUL AND COOPERATIVE. STATES "I DON'T HAVE TO WEAR THAT SLING ANYMORE." MIDDLE FINGER OF RIGHT HAND NOTED SWOLLEN. ABLE TO WIGGLE FINGERS ON COMMAND. NO ACUTE DISTRESS NOTED. CALL LIGHT IN REACH.
--- NOTE | 2019-03-02 05:17 | NUR ---
RESTIING IN BED WITH RESPIRTIONS UNLABORED. SLEPT IN MODERATE INTERVALS THIS SHIFT. NO ACUTE CHANGES IN CONDITION. NO DISTRESS NOTED. CALL LIGHT IN REACH.
[2019-03-02 07:27] VITALS: BP 141/73
--- NOTE | 2019-03-02 15:04 | NUR ---
NUTRITION F/U PT TOLERATING REG AHA DIET WITH 75% AVERAGE INTAKE RECENT MEALS. +BM CHARTED 03/01. WILL CONTINUE TO PROVIDE DIET, MONITOR PT PROGRESS. RD FOLLOWING
--- NOTE | 2019-03-02 20:00 | NUR ---
PATIENT RECEIVED SITTING UP IN BED WATCHING TV. VITAL SIGNS & ASSESSMENT DONE. NO C/O PAIN OR DISTRESS. BED LOW. BEDSIDE TABLE & CALL LIGHT WITHIN REACH. WILL CONTINUE TO MONITOR.
[2019-03-02 20:13] VITALS: BP 142/65
--- NOTE | 2019-03-02 23:15 | NUR ---
PATIENT USED CALL LIGHT FOR ASSIST. THIS NURSE CHANGED BLUE PADS WET WITH URINE. BED LOW. CALL LIGHT WITHIN REACH. WILL CONTINUE TO MONITOR.
--- NOTE | 2019-03-02 23:45 | NUR ---
PATIENT USED CALL LIGHT FOR ASSIST. PATIENT ASSIST OUT OF BED INTO WHEELCHAIR & ONTO COMMODE. PATIENT HAD VOID ONLY. PATIENT RETURNED TO BED. BED LOW. CALLL LIGHT WITHIN REACH. WILL CONTINUE TO MONITOR.
--- NOTE | 2019-03-03 01:25 | NUR ---
I have reviewed this patient and I concur with the Shift Assessment completed by the Licensed Practical Nurse today this shift.
[2019-03-03 07:52] LABS: CALC OSMOLALITY 281 mosm/kg (275-300); CALCIUM 9.5 mg/dL (8.5-10.1); CARBON DIOXIDE 31.9 mmol/L (21.0-32.0); CHLORIDE - SERUM 99 mmol/L (98-107); CREATININE - SERUM 0.7 mg/dL (0.6-1.3); GLUCOSE 105 mg/dL (74-106); POTASSIUM - SERUM 3.2 mmol/L (3.5-5.1); SODIUM 140 mmol/L (136-145); UREA NITROGEN 20 mg/dL (7-18); eGFR NON AFRICAN AMERICAN 86 mL/min (90-120)
[2019-03-03 07:56] LABS: BASOPHILS 0.3 % (0-2); EOSINOPHILS 1.4 % (0-7); HEMATOCRIT 38.7 % (36.0-48.0); HEMOGLOBIN 13.2 g/dL (12-16); IMMATURE GRANULOCYTES 1.3 % (0-5); LYMPHOCYTES 15.7 % (15-50); MCH 30.4 pg (26.0-34.0); MCHC 34.1 g/dL (31.0-37.0); MCV 89.2 fL (80.0-100.0); MEAN PLATELET VOLUME 9.4 fL (7.4-10.4); MONOCYTES 7.5 % (2-11); NEUTROPHILS 73.8 % (40-80); PLATELET COUNT 456 10x3/uL (130-400); RBC 4.34 10x6/uL (4.00-5.40); RDW 13.5 % (11.5-14.5)
--- NOTE | 2019-03-03 08:00 | NUR ---
PATIENT IS ALERT/ORIENT. CALL LIGHT WITHIN REACH. VOICES NO NEEDS AT THIS TIME. WILL CONTINUE WITH PLAN OF CARE
[2019-03-03 08:06] VITALS: BP 138/68
--- NOTE | 2019-03-03 09:27 | NUR ---
PATIENT IN REHAB ROOM. WORKING WITH PHYSICAL THERAPIST. DENIES ANY PAIN/DISC AT THIS TIME.
--- NOTE | 2019-03-03 19:25 | NUR ---
PT IS SITTING IN A WC IN HER ROOM WATCHING TV. ALERT AND ORIENTED X 3. DENIES ACUTE DISCOMFORT AT THIS TIME. NO NEEDS VOICED. DRESSING TO LEFT FOOT IS CDI. NO DRAINAGE NOTED. CALL LIGHT AND BEDSIDE TABLE ARE WITHIN EASY REACH.
[2019-03-03 20:59] VITALS: BP 132/76
--- NOTE | 2019-03-03 21:07 | NUR ---
PT CONTINUES TO SIT AND WATCH TV. NO NEEDS VOICED.
[2019-03-03 21:19] VITALS: BP 132/76
--- NOTE | 2019-03-03 23:40 | NUR ---
RESTING IN BED WITH EYES CLOSED.
--- NOTE | 2019-03-03 23:42 | NUR ---
I have reviewed this patient and I concur with the Shift Assessment completed by the Licensed Practical Nurse today this shift.
--- NOTE | 2019-03-04 04:01 | NUR ---
RESTING IN BED WITH EYES CLOSED.
--- NOTE | 2019-03-04 12:59 | NUR ---
THE PATIENT WAS LYING IN BED WHEN STAFF ENTERED HER ROOM. BED IS IN THE LOW POSITION WITH SIDERAILS X3 AND CALL LIGHT WITHIN REACH. THE PATIENT WAS EDUCATED ON THE USE OF A CALL LIGHT AND DEMONSTRATES UNDERSTANDING VIA TEACHBACK METHOD. THE PATIENT APPEARS COMFORTABLE WITH NO QUESTIONS OR COCNERNS AT THIS TIME.
--- NOTE | 2019-03-04 19:49 | NUR ---
PT SITTING IN A WC IN HER ROOM. ALERT AND ORIENTED X 3. DENIES ACUTE PAIN OR DISCOMFORT AT THIS TIME. PT STATED: "I HOPE TONIGHT IS BETTER THAN LAST NIGHT. I SLEPT WET ALL NIGHT LONG." I ASKED HER WHY SHE DIDNT CALL THE NURSE, AND SHE SAID, "I THOUGHT I DID." I TOLD HER SHE HAD CALLED ONCE ABOUT 3AM, AND WE CHANGED HER THEN, AND SHE SAID YOU WERE NOT HERE, AND NO THEY DIDNT. I INFORMED HER THAT I WAS HERE, AND I WAS HER NURSE LAST NIGHT. SHE COULD NOT REMEMBER THIS. I EDUCATED PT TO PUSH HER CALL LIGHT ANYTIME SHE NEEDED TO USE THE BATHROOM, AND WE WOULD ALWAYS BE WILLING TO HELP. SHE STATED: "OH, I THOUGHT EVERYONE WAS MAD AT ME BECAUSE OF MY SISTERS BEHAVIOR. I INFORMED HER THAT WE DIDNT TREAT PEOPLE THAT WAY, AND EVERYONE IS EQUAL. SHE STATED SHE WOULD CALL ANYTIME SHE NEEDED ASSISTANCE TONIGHT.
[2019-03-04 20:00] VITALS: BP 122/70
--- NOTE | 2019-03-04 21:15 | NUR ---
PT SITTING IN WC WATCHING TV. NO NEEDS VOICED.
--- NOTE | 2019-03-05 00:52 | NUR ---
I have reviewed this patient and I concur with the Shift Assessment completed by the Licensed Practical Nurse today this shift.
[2019-03-05 10:48] VITALS: BP 198/63
--- NOTE | 2019-03-05 10:58 | NUR ---
THE PATIENT WAS LYING IN BED AND WATCHING TELEVISION WHEN STAFF ENTERED HER ROOM. BED IS IN THE LOW POSITION WITH SIDERAILS X2 AND CALL LIGHT WITHIN REACH. THE PATIENT WAS EDUCATED ON THE NEED TO CALL FOR STAFF WHENEVER SHE NEEDS TO GET OUT OF BED AND DEMONSTRATES UNDERSTANDING VIA TEACHBACK METHOD. THE PATIENT APPEARS COMFORTABLE WITH NO QUESTIONS OR COCNERNS AT THIS TIME.
--- NOTE | 2019-03-05 19:33 | NUR ---
PT SITTING IN WC IN HER ROOM VISITING WITH A FAMILY MEMBER. NO NEEDS VOICED.
[2019-03-05 20:15] VITALS: BP 131/74
--- NOTE | 2019-03-05 21:59 | NUR ---
PT ASSISTED INTO BED FOR THE NIGHT. NO ACUTE DISTRESS NOTED.
--- NOTE | 2019-03-06 00:58 | NUR ---
I have reviewed this patient and I concur with the Shift Assessment completed by the Licensed Practical Nurse today this shift.
--- NOTE | 2019-03-06 04:08 | NUR ---
RESTING IN BED WITH EYES CLOSED.
[2019-03-06 07:01] LABS: BASOPHILS 0.3 % (0-2); EOSINOPHILS 1.3 % (0-7); HEMATOCRIT 39.6 % (36.0-48.0); HEMOGLOBIN 13.5 g/dL (12-16); IMMATURE GRANULOCYTES 1.3 % (0-5); LYMPHOCYTES 15.1 % (15-50); MCH 30.6 pg (26.0-34.0); MCHC 34.1 g/dL (31.0-37.0); MCV 89.8 fL (80.0-100.0); MEAN PLATELET VOLUME 9.6 fL (7.4-10.4); MONOCYTES 6.2 % (2-11); NEUTROPHILS 75.8 % (40-80); PLATELET COUNT 519 10x3/uL (130-400); RBC 4.41 10x6/uL (4.00-5.40); RDW 13.8 % (11.5-14.5); WBC 17.1 10x3/uL (4.8-10.8)
--- NOTE | 2019-03-06 08:00 | NUR ---
PATIENT IS ALERT/ORIENT. SITTING UP IN WHEELCHAIR TO EAT BREAKFAST. CALL LIGHT WITHIN REACH. VOICES NO NEEDS. WILL CONTINUE WITH PLAN OF CARE
[2019-03-06 08:23] VITALS: BP 149/72
[2019-03-06 09:07] LABS: ANION GAP 14.7 mmol/L (8-16); CALCIUM 9.4 mg/dL (8.5-10.1); CARBON DIOXIDE 27.7 mmol/L (21.0-32.0); CREATININE - SERUM 0.9 mg/dL (0.6-1.3); POTASSIUM - SERUM 3.4 mmol/L (3.5-5.1)
--- NOTE | 2019-03-06 10:10 | NUR ---
PATIENT IN REHAB ROOM. WORKING WITH PHYSICAL THERAPIST. DENIES ANY PAIN/DISC AT THIS TIME.
--- NOTE | 2019-03-06 15:17 | NUR ---
PATIENT IS A MODERATE ASST FROM WHEELCHAIR TO TOILET. INCONT OF URINE. NEEDED HELP CHANGING BRIEFS.
--- NOTE | 2019-03-06 20:00 | NUR ---
PT IS RESTING IN BED WITH EYES OPEN. ALERT AND ORIENTED X 3. DENIES ACUTE PAIN OR DISCOMFORT AT THIS TIME. ASSISTED TO THE BATHROOM WITH SBA. NO FURTHER NEEDS VOICED. DRESSING TO LEFT FOOT IS CDI. SR'S ARE UP X 2 IN BED. CALL LIGHT AND BEDSIDE TABLE ARE WITHIN EASY REACH.
--- NOTE | 2019-03-06 22:21 | NUR ---
RESTING IN BED WITH EYES OPEN. NO ACUTE DISTRESS NOTED.
--- NOTE | 2019-03-07 02:26 | NUR ---
PT ASSISTED TO THE BATHROOM WITH MIN ASSIST.
--- NOTE | 2019-03-07 03:59 | NUR ---
I have reviewed this patient and I concur with the Shift Assessment completed by the Licensed Practical Nurse today this shift.
--- NOTE | 2019-03-07 08:00 | NUR ---
SHIFT ASSMT COMPLETED.
[2019-03-07 08:22] VITALS: BP 138/86
--- NOTE | 2019-03-07 12:00 | NUR ---
SITTING UP EATING LUNCH.
[2019-03-07 19:48] VITALS: BP 129/59
--- NOTE | 2019-03-07 20:00 | NUR ---
PATIENT RECEIVED SITTING UP IN BED WATCHING TV. ASSESSMENT & VITAL SIGNS DONE. NO C/O PAIN OR DISTRESS. BED LOW. CALL LIGHT & BEDSIDE TABLE WITHIN REACH. WILL CONTINUE TO MONITOR.
[2019-03-08 06:46] LABS: BASOPHILS 0.4 % (0-2); EOSINOPHILS 1.7 % (0-7); HEMATOCRIT 38.7 % (36.0-48.0); IMMATURE GRANULOCYTES 0.8 % (0-5); LYMPHOCYTES 16.5 % (15-50); MCHC 33.6 g/dL (31.0-37.0); MCV 89.2 fL (80.0-100.0); MEAN PLATELET VOLUME 9.3 fL (7.4-10.4); MONOCYTES 6.2 % (2-11); NEUTROPHILS 74.4 % (40-80); PLATELET COUNT 500 10x3/uL (130-400); RBC 4.34 10x6/uL (4.00-5.40); RDW 13.7 % (11.5-14.5); WBC 13.8 10x3/uL (4.8-10.8)
[2019-03-08 07:09] LABS: CALC OSMOLALITY 285 mosm/kg (275-300); CALCIUM 9.5 mg/dL (8.5-10.1); CARBON DIOXIDE 31.9 mmol/L (21.0-32.0); CHLORIDE - SERUM 101 mmol/L (98-107); CREATININE - SERUM 0.7 mg/dL (0.6-1.3); POTASSIUM - SERUM 3.1 mmol/L (3.5-5.1); SODIUM 141 mmol/L (136-145); UREA NITROGEN 23 mg/dL (7-18); eGFR NON AFRICAN AMERICAN 86 mL/min (90-120)
[2019-03-08 07:12] LABS: GLUCOSE 112 mg/dL (74-106)
--- NOTE | 2019-03-08 08:00 | NUR ---
SHIFT ASSMT COMPLETED.
[2019-03-08 08:02] VITALS: BP 141/59
--- NOTE | 2019-03-08 13:05 | NUR ---
Nutrition Follow-up: Diet: Regular + Ensure with meals PO intake: 79% x 9 meals, reports good appetite states she is drinking Ensure. +BM Wt: 168# (02/28/19) Labs and meds reviewed RD Following
[2019-03-08 20:11] VITALS: BP 139/67
--- NOTE | 2019-03-08 20:24 | NUR ---
AWAKE AND ALERT. SITTING IN WHEELCHAIR. ASSISTED TO BATHROOM AND TO BED. RESPIRATIONS UNLABORED. NO DISTRESS NOTED. CALL LIGHT IN REACH.
--- NOTE | 2019-03-09 01:45 | NUR ---
CONTINUES RESTING IN BED WITH RESPIRATIONS UNLABORED. NO DISTRESS NOTED. CALL LIGHT IN REACH.
--- NOTE | 2019-03-09 05:10 | NUR ---
QUIET HOURS. NO ACUTE CHANGES IN CONDITION THIS SHIFT. NO DISTRESS NOTED. CALL LIGHT IN REACH.
[2019-03-09 08:14] VITALS: BP 163/80
--- NOTE | 2019-03-09 14:43 | NUR ---
THE PATIENT WAS SITTING IN HER WHEELCHAIR AND WATCHING TELEVISION WHEN STAFF ENTERED HER ROOM. THE PATIENT WAS EDUCATED ON THE NEED TO CALL FOR STAFF FOR ANY ASSISTANCE THAT SHE NEEDS. THE PATIENT DEMONSTRATES UNDERSTANDING VIA TEACHBACK METHOD. THE PATIENT APPEARS COMFORTABLE WITH NO QUESTIONS OR COCNERNS AT THIS TIME.
--- NOTE | 2019-03-09 19:20 | NUR ---
BEDSIDE REPORT COMPLETE. SITTING UP IN BED ALERT AND ORIENTED X4. DENIES ANY NEEDS OR PAIN. NO SIGNS OF DISTRESS NOTED. CALL LIGHT AND WATER WITHIN REACH, FALL PRECAUTIONS IN PLACE. WILL CONTINUE TO MONITOR
[2019-03-09 20:00] VITALS: BP 128/59
--- NOTE | 2019-03-10 01:25 | NUR ---
QUIET HOURS. LYING IN BED ON RIGHT SIDE EYES CLOSED RESTING. RR EVEN AND UNLABORED. WILL CONTINUE TO MONITOR
--- NOTE | 2019-03-10 04:41 | NUR ---
PERFORMED INCONTINENCE CARE LARGE URINE INCONTINENCE. CHANGED BRIEF AND UNDERPADS. WILL CONTINUE TO MONITOR
--- NOTE | 2019-03-10 06:30 | NUR ---
LYING IN BED ON LEFT SIDE EYES OPEN ALERT. DENIES ANY NEEDS. C/O 5/10 ACHING PAIN RIGHT FOOT AND SHOULDER, PAIN MEDICATION GIVEN AT 0600. WILL CONTINUE TO MONITOR
[2019-03-10 07:48] LABS: CARBON DIOXIDE 34.7 mmol/L (21.0-32.0); CREATININE - SERUM 0.9 mg/dL (0.6-1.3); POTASSIUM - SERUM 4.7 mmol/L (3.5-5.1)
[2019-03-10 07:56] LABS: BASOPHILS 0.2 % (0-2); EOSINOPHILS 1.2 % (0-7); HEMATOCRIT 39.7 % (36.0-48.0); HEMOGLOBIN 13.2 g/dL (12-16); IMMATURE GRANULOCYTES 0.6 % (0-5); MCH 30.1 pg (26.0-34.0); MCHC 33.2 g/dL (31.0-37.0); MCV 90.6 fL (80.0-100.0); MEAN PLATELET VOLUME 9.2 fL (7.4-10.4); MONOCYTES 6.8 % (2-11); NEUTROPHILS 77.2 % (40-80); PLATELET COUNT 495 10x3/uL (130-400); RBC 4.38 10x6/uL (4.00-5.40); RDW 14.2 % (11.5-14.5)
[2019-03-10 08:42] VITALS: BP 130/94
--- NOTE | 2019-03-10 10:17 | NUR ---
THE PATIENT APPEARED TO BE SLEEPING BUT EASILY AWOKE WHEN STAFF ENTERED HER ROOM. BED IS IN THE LOW POSITION WITH SIDERAILS X3 AND CALL LIGHT WITHIN REACH. THE PATIENT WAS EDUCATED ON THE NEED TO CALL FOR STAFF BEFORE SHE GETS OUT OF BED. THE PATIENT DEMONSTRATES UNDERSTANDING VIA TEACHABCK METHOD. THE PATIENT APPEARS COMFORTABLE WITH NO QUESTIONS OR COCNERNS AT THIS TIME.
--- NOTE | 2019-03-10 19:26 | NUR ---
BEDSIDE SHIFT REPORT COMPLETE. PT SITTING UP IN W/C VISITING WITH ROOM MATE. ALERT AND ORIENTED X4. NO COMPLAINTS VOICED. DENIES ANY PAIN AT THIS TIME. NO SIGNS OF DISTRESS NOTED. CALL LIGHT AND WATER WITHIN REACH, FALL PRECAUTIONS IN PLACE. WILL CONTINUE TO MONITOR
[2019-03-10 19:30] VITALS: BP 159/77
--- NOTE | 2019-03-10 22:53 | NUR ---
QUIET HOURS. LYING IN BED ON LEFT SIDE EYES CLOSED RESTING. RR EVEN AND UNLABORED. WILL CONTINUE TO MONITOR
--- NOTE | 2019-03-11 03:06 | NUR ---
LYING IN BED ON LEFT SIDE EYES CLOSED RESTING. NO SIGNS OF DISTRESS NOTED.
--- NOTE | 2019-03-11 05:34 | NUR ---
LYING IN BED ON RIGHT SIDE EYES CLOSED RESTING. RR EVEN AND UNLABORED. WILL CONTINUE TO MONITOR
[2019-03-11 08:00] VITALS: BP 168/85
--- NOTE | 2019-03-11 08:00 | NUR ---
AWAKE.BREAKFAST TRAY GIVEN.CONTAINERS OPENED.CL IN REACH.
--- NOTE | 2019-03-11 12:00 | NUR ---
SITTING UP IN CHAIR EATING LUNCH.
--- NOTE | 2019-03-11 16:00 | NUR ---
RESTING QUIETLY IN BED
[2019-03-11 19:40] VITALS: BP 130/68
--- NOTE | 2019-03-11 19:55 | NUR ---
AWAKE AND ALERT. RESTING IN BED WITH RESPIRATIONS UNLABORED. HAS NOTED RIGHT FOOT DROP. SMALL WOUND WITH BANDAID TO RIGHT OUTER FOOT. NO ACUTE DISTRESS NOTED. CALL LIGHT IN REACH.
--- NOTE | 2019-03-12 00:50 | NUR ---
RESTING IN BED WITH RESPIRATIONS UNLABORED. NO DISTRESS NOTED. CALL LIGHT IN REACH.
--- NOTE | 2019-03-12 06:17 | NUR ---
QUIET HOURS. NO ACUTE CHANGES IN CONDITION THIS SHIFT. NO DISTRESS NOTED.
--- NOTE | 2019-03-12 08:00 | NUR ---
SHIFT ASSMT COMPLETED.BREAKFAST GIVEN.
[2019-03-12 08:52] VITALS: BP 142/52
--- NOTE | 2019-03-12 12:00 | NUR ---
EATING LUNCH UP IN WC.
--- NOTE | 2019-03-12 16:00 | NUR ---
REMAINS UP IN WC.
[2019-03-12 19:34] VITALS: BP 145/79
--- NOTE | 2019-03-12 19:44 | NUR ---
AWAKE AND ALERT. ASSISTED TO BATHROOM AND THEN TO BED. MOVEMENTS SLOW BUT PURPOSEFUL. 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 DRESSING TO RIGHT OUTER FOOT DRY AND INTACT. NO DISTRESS NOTED. CALL LIGHT IN REACH.
--- NOTE | 2019-03-13 03:25 | NUR ---
RESTING IN BED WITH EYES CLOSED AND RESPIRATIONS UNLABORED. NO DISTRESS NOTED.
--- NOTE | 2019-03-13 06:31 | NUR ---
QUIET HOURS. NO ACUTE CHANGES IN CONDITION THIS SHIFT. RESTING IN BED WITH NO DISTRESS NOTED.
--- NOTE | 2019-03-13 08:05 | NUR ---
ALERT AND ORIENTED. NO DISTRESS NOTED. RESP EVEN AND UNLABORED. CL IN REACH.
[2019-03-13 09:00] VITALS: BP 179/71
[2019-03-13 10:19] LABS: BASOPHILS 0.2 % (0-2); EOSINOPHILS 0.4 % (0-7); HEMATOCRIT 37.2 % (36.0-48.0); HEMOGLOBIN 12.5 g/dL (12-16); IMMATURE GRANULOCYTES 0.4 % (0-5); LYMPHOCYTES 9.5 % (15-50); MCHC 33.6 g/dL (31.0-37.0); MCV 89.2 fL (80.0-100.0); MEAN PLATELET VOLUME 9.5 fL (7.4-10.4); MONOCYTES 4.7 % (2-11); NEUTROPHILS 84.8 % (40-80); PLATELET COUNT 425 10x3/uL (130-400); RBC 4.17 10x6/uL (4.00-5.40); RDW 14.1 % (11.5-14.5); WBC 16.1 10x3/uL (4.8-10.8)
[2019-03-13 10:31] LABS: ANION GAP 13.9 mmol/L (8-16); CALCIUM 9.5 mg/dL (8.5-10.1); CARBON DIOXIDE 28.8 mmol/L (21.0-32.0); POTASSIUM - SERUM 3.7 mmol/L (3.5-5.1)
--- NOTE | 2019-03-13 13:31 | NUR ---
SITTING IN WC FROM LUNCH.
--- NOTE | 2019-03-13 18:33 | NUR ---
NO CHANGE IN ASSESSMENT. PAIN MED GIVEN.
--- NOTE | 2019-03-13 19:10 | NUR ---
BEDSIDE REPORT COMPLETE. SITTING UP IN W/C WATCHING TV. ALERT AND ORIENTED X4. DENIES ANY NEEDS OR PAIN. NO SIGNS OF DISTRESS NOTED. ASSISTED TO RESTROOM WITH MIN ASSIST. WILL CONTINUE TO MONITOR
[2019-03-13 20:00] VITALS: BP 123/58
--- NOTE | 2019-03-13 23:36 | NUR ---
QUIET HOURS. LYING IN BED ON RIGHT SIDE EYES CLOSED RESTING. NO SIGNS OF DISTRESS NOTED. WILL CONTINUE TO MONITOR
--- NOTE | 2019-03-14 02:13 | NUR ---
LYING IN BED ON LEFT SIDE EYES CLOSED RESTING. RR EVEN AND UNLABORED. WILL CONTINUE TO MONITOR
--- NOTE | 2019-03-14 05:47 | NUR ---
RIGHT FOOT DRESSING CHANGED PERFORMED. CLEANSED SITE, PAINTED WITH BETADINE COVERED WITH BANDAIDS X2. NO DRAINAGE, REDNESS OR SWELLING AT SITE NOTED.
--- NOTE | 2019-03-14 07:13 | NUR ---
ALERT AND ORIENTED. NO DISTRESS NOTED. CL IN REACH.
[2019-03-14 08:10] VITALS: BP 150/93
--- NOTE | 2019-03-14 09:37 | NUR ---
WILL DC HOME TODAY WITH HH. MED CALLED TO [facility] [address]. DC INSTRUCTIONS GIVEN. VERBALIZES UNDERSTANDING. DAUGHTER TO PICK PATIENT UP AFTER LUNCH. WILL BE ASSISTED TO CAR IN WC PER STAFF FOR DC HOME WITH DAUGHTER.
--- NOTE | 2019-03-14 12:30 | NUR ---
PATIENT HAS DISCHARGED HOME WITH FAMILY. [facility] WILL PROVIDE THERAPY AT HOME. NO NEW DME NEEDED AT THIS TIME. DR. TORRES 03/22/19 @ 11:40, DR. YOUSSEF 03/23/19 @ 10:15. PATIENT CHOICE FORM AND IMFM FORMS SIGNED, COPY GIVEN TO PATIENT AND FILED IN CHART. DISCHARGE INSTRUCTIONS WITH [facility] [employer] FAXED TO PCP, HOME HEALTH AND REVIEWED WITH PATIENT AND FAMILY.
== END 2019-03-14 12:24 | disposition home health service (06) | DRG 948 ==
LOC: D.REHAB 18:15
PROVIDERS: ADMIT Emergency Medicine; ATTEND Emergency Medicine
DX: R53.81 Other malaise (principal); N39.0 Urinary tract infection, site not specified; M62.50 Muscle wasting and atrophy, not elsewhere classified, unspecified site; I48.2 Chronic atrial fibrillation; R53.1 Weakness; M25.511 Pain in right shoulder

== ENCOUNTER 2019-04-03 09:58 | Day surgery (SDC) | payer MEDICARE, OTHER ==
[~2019-04-03] VITALS: Ht 160 cm; Wt 78.6 kg
[~2019-04-03 09:58] MED LIST changes: +EXELON1 PATCH .1 TRANSDERM
[2019-04-03 10:29] LABS: ANION GAP 14.2 mmol/L (8-16); CALCIUM 9.3 mg/dL (8.5-10.1); CARBON DIOXIDE 30.9 mmol/L (21.0-32.0); POTASSIUM - SERUM 3.1 mmol/L (3.5-5.1)
[2019-04-03 10:31] LABS: HEMATOCRIT 39.9 % (36.0-48.0); HEMOGLOBIN 13.5 g/dL (12-16); MCH 30.1 pg (26.0-34.0); MCHC 33.8 g/dL (31.0-37.0); MCV 89.1 fL (80.0-100.0); MEAN PLATELET VOLUME 9.5 fL (7.4-10.4); RBC 4.48 10x6/uL (4.00-5.40); RDW 14.1 % (11.5-14.5); WBC 14.9 10x3/uL (4.8-10.8)
[2019-04-03 10:51] VITALS: BP 118/60; Ht 160 cm; Wt 78.6 kg
--- NOTE | 2019-04-03 12:56 | OP ---
PATIENT NAME: MIRANDA FOWLER MEDICAL RECORD: [id number] :44 LOCATION:[facility] ADMISSION DATE: SURGEON: YESI JO DO DATE OF OPERATION: 04/03/2019 PROCEDURE: Colonoscopy with polypectomy. INDICATIONS FOR PROCEDURE: Screening for colorectal cancer with a history of colon polyps. SCOPE: [employer] Integration video pediatric colonoscope. MEDICATIONS: Propofol 150 mg IV per anesthesia. WITHDRAWAL TIME: 9 minutes. ESTIMATED BLOOD LOSS: Minimal. COMPLICATIONS: None. FINDINGS: Informed consent was given. The patient was made comfortable with the above medication. After reaching an adequate level of sedation by slow IV push, the patient was placed on her left side. A digital rectal examination was performed and was normal. The endoscope was then advanced under direct visualization through the rectum to the cecum, confirmed by the presence of the appendiceal orifice and ileocecal valve. The endoscope was slowly withdrawn and the mucosa was carefully examined. The prep quality was fair. There was 1 polyp visualized on today's examination. It was a benign appearing sessile polyp, which measured approximately 9 mm in diameter. It was located in the sigmoid colon. It was removed using a hot snare in 1 piece and completely retrieved. There was evidence of moderate diverticulosis involving the entire colon. There was no evidence of diverticulitis. Retroflexion was performed in the rectum with a normal appearing rectal wall. The endoscope was withdrawn from the patient. The patient tolerated the procedure well and there were no complications. IMPRESSION: 1. A single benign-appearing sessile polyp was removed from the sigmoid colon using a hot snare. 2. Moderate diverticulosis of the entire colon. PLAN AND RECOMMENDATIONS: 1. Discharge home when recovery parameters are met. 2. Follow up biopsy specimen results. 3. High fiber diet. 4. Continue current medication. 5. No further recall is necessary based on the patient's age, unless symptoms warrant evaluation. TRANSINT:[id number] Voice Confirmation ID: [id number] DOCUMENT ID: [id number] OPERATIVE REPORT [id number] MIRANDA FOWLER YESI JO DO at 1256 CC: [id number] DICTATION DATE: 04/03/19 1232 SALESPERSON BOOKS: 04/03/19 1241 [place] [address]
--- NOTE | 2019-04-03 12:58 | NUR ---
1255 DR. DEYSI WARE FL DIET SERVED.
--- NOTE | 2019-04-03 13:39 | NUR ---
KHARI LIQUIDS WELL PIV REMOVED WITH CATHETER TIP INTACT. PT WAITING ON FAMILY TO COME BACK TO DRIVE HER HOME
--- NOTE | 2019-04-03 13:52 | NUR ---
DC TEACHING COMPLETE PT V/U
== END 2019-04-03 14:30 | disposition home or self-care (01) ==
LOC: D.OPS 09:58
PROVIDERS: Anesthesiology; ATTEND Internal Medicine Gastroenterology
DX: K63.5 Polyp of colon (principal); Z12.11 Encounter for screening for malignant neoplasm of colon; Z86.010 Personal history of colon polyps; K57.90 Diverticulosis of intestine, part unspecified, without perforation or abscess without bleeding

== ENCOUNTER 2019-04-12 17:32 | Emergency (ER) | payer MEDICARE, OTHER ==
[~2019-04-12] VITALS: Ht 160 cm; Wt 79.1 kg
[2019-04-12 17:41] VITALS: Ht 160 cm; Wt 79.1 kg
[2019-04-12 20:40] VITALS: BP 167/85
== END 2019-04-12 20:40 | disposition home or self-care (01) ==
LOC: D.ER 17:32
DX: M17.12 Unilateral primary osteoarthritis, left knee (principal); I10 Essential (primary) hypertension

== ENCOUNTER 2019-06-01 14:16 | Inpatient (IN) | payer MEDICARE, OTHER ==
[2019-06-01] VITALS (8 sets, daily range): BP systolic 118–190; BP diastolic 9–102; BMI 28.9
[~2019-06-01] VITALS: Ht 160 cm; Wt 73.0 kg
--- NOTE | ~2019-06-01 | HEMODYNAMI ---
PATIENT:MIRANDA FOWLER MEDICAL RECORD: [id number] : 44 LOCATION:[facility] D.2309 ADMISSION DATE: 06/01/19 Generatedon:06/02/201914:11 Patient name: MIRANDA FOWLER Patient #: [id number] SSN: DO B: 1940 Date of study: 06/02/2019 Page: Of Hemodynamic Procedure Report Patient Data Patient Demographics Procedure consent was obtained First Name: MIRANDA Gender: Female Last Name: JANETH : 1940 [facility] Initial: EL DORADO Age: 78 year(s) Patient #: [id number] Race: Unknown Additional ID: [id number] Contact details [address]: [address] [place] [address] State: [place] City: [place] Zip code: [address] Past Medical History Allergies Allergen Reaction Date Comments Reported Other allergy 02/22/2019 niacin Other allergy 06/02/2019 niacin Admission Admission Data Admission Date: 06/01/2019 Admission Time: 16:01 Room #: D.2309 Height (in.): 63 BSA: 1.77 (m2) Height (cm.): 160.02 BMI: 28.7 (kg/m2) Weight (lbs.): 162 Weight (kg.): 73.48 Procedure Procedure Types Cath Procedure Peripheral Cath Diagnostic Procedure Channel Marketing Specialist Peripheral Procedures Abd/Extremity Extremities Left Lower Ext Arterio Procedure Description Procedure Date Procedure Date: 06/02/2019 Procedure Start Time: 13:28 Procedure Staff Name Function Davis Duke MD Performing Physician April Spivey RT Wafer Fabrication Technician Lauren Yuen RN Nurse JOSE CABRERA RT Scrub Procedure Data Cath Procedure Fluoroscopy Diagnostic fluoroscopy Total fluoroscopy Time: 4.6 time: 4.6 min min Diagnostic fluoroscopy Total fluoroscopy dose: 102 dose: 102 mGy mGy Contrast Material Contrast Material Type Amount (ml) Isovue 300 45 Entry Location Entry Primary Successful Side Size Upsize Upsize Entry Closure Succes sful Closure Location (Fr) 1 (Fr) 2 (Fr) Remarks Device Remarks Femoral Right 5 Fr artery Femoral Mynx artery Silk Soaker 6Fr/7Fr Procedure Medications Medication Administration Route Dosage Versed I.V. 1 mg Fentanyl I.V. 50 mcg Heparin Flush Bag added to field 3 bags (1000units/500ml NS) Lidocaine 1% added to field 20 Heparin Bolus 3000 units Fentanyl I.V. 50 mcg Versed I.V. 1 mg Hemodynamics Rest BSA: 1.77 (m2) O2 Consumption: Estimated: 169.21 (ml/min) O2 Consumption indexed : Estimated:95.6 (ml/min/m) Heart Rate: 83 (bpm) Snapshots Pre Cath Intra NCS Post Cath Vital Signs Time Heart Resp SPO2 etCO2 NIBP (mmHg) Rhythm Pain Sedation Rate (ipm) (%) (mmHg) Status Level (bpm) 13:14:12 92 24 99 30.3 159/86(130) NSR 0 (11) 10(A) , No pain 13:18:32 88 9 99 24.3 142/85(123) NSR 0 (11) 10(A) , No pain 13:22:44 73 23 98 23.5 162/97(126) NSR 0 (11) 10(A) , No pain 13:27:04 81 15 98 1.5 141/76(117) NSR 0 (11) 8(A) , No pain 13:31:20 81 15 94 12.1 143/82(115) NSR 0 (11) 8(A) , No pain 13:35:36 81 16 98 13.6 143/82(123) NSR 0 (11) 8(A) , No pain 13:39:56 82 15 99 31.1 146/74(104) NSR 0 (11) 8(A) , No pain 13:44:12 68 14 95 22.7 134/69(98) NSR 0 (11) 8(A) , No pain 13:48:28 85 12 98 14.4 145/73(109) NSR 0 (11) 8(A) , No pain 13:52:46 81 18 98 14.4 141/81(112) NSR 0 (11) 8(A) , No pain 13:57:00 89 16 98 21.2 132/76(106) NSR 0 (11) 8(A) , No pain 14:01:55 84 14 99 18.9 147/78(114) NSR 0 (11) 8(A) , No pain 14:06:13 77 14 98 12.8 138/82(112) NSR 0 (11) 8(A) , No pain 14:10:29 86 13 99 26.5 139/81(117) NSR 0 (11) 8(A) , No pain Medications Time Medication Route Dose Verified Delivered Reason Notes Effectiveness by by 13:25:25 Versed I.V. 1 mg Davis Lauren for sedation Srikanth Yuen RN, MD 13:25:36 Fentanyl I.V. 50 Davis Lauren for sedation [facility] [place] Srikanth Yuen RN, MD 13:26:04 Heparin Flush added 3 Davis Lauren used for Bag to bags Srikanth Yuen RN procedure (1000units/500ml field ALLEN NS) 13:26:33 Lidocaine 1% added 20ml Davis Lauren for sedation to vial Srikanth adame MD 13:38:09 Heparin Bolus 3000 Davis Mcdonaldi for units Srikanth Yuen RN anticoagulation 13:40:15 Fentanyl I.V. 50 Davis Lauren for sedation [facility] [place] Srikanth Yuen RN, MD 13:40:23 Versed I.V. 1 mg Davis Lauren for sedation Srikanth Yuen RN, MD Procedure Log Time Note 12:44:38 Patient Height : 63 inches 12:44:44 Patient Weight : 162 lbs 12:44:49 Use device set IR Diagnostic 12:44:50 Tegaderm 4 x 4 (1626W) opened to sterile field. 12:44:51 Sterile Angiographic Pack opened to sterile field. 12:44:52 Bag Decanter (2002S) opened to sterile field. 12:44:52 ACIST Manifold (32545) opened to sterile field. 12:44:53 ACIST Hand Control (38606) opened to sterile field. 12:44:54 ACIST Syringe (48401) opened to sterile field. 12:45:06 BENTSON 145cm wire (D00211) opened to sterile field. 12:45:15 Micropuncture VSI 4FR kit opened to sterile field. 12:45:24 SHEATH 5FR Mosier (YIB053) opened to sterile field. 12:52:02 Time tracking: Regular hours (M-F 7:00 - 5:00) 12:55:53 Plan of Care:Hemodynamics will remain stable., Cardiac rhythm will remain stable., Comfort level will be maintained., Respiratory function will remain adequate., Patient/ family verbilizes understanding of procedure., Procedure tolerated without complication., Recovers from procedure without complications.. 12:56:05 Patient received from ICU to IR Alert and oriented. Tansferred to table in Supine position. 12:56:11 Signed procedure consent form obtained from patient. 12:56:20 H&P Date Dictated: 06/02/2019 Within 30 days and on chart.. 12:56:22 Pre-procedure instructions explained to patient. 12:56:23 Pre-op teaching completed and patient verbalized understanding. 12:56:27 Family unavailable. 12:56:31 Patient NPO since Midnight. 12:57:09 Patient allergic to Other allergyniacin 12:57:13 Is the patient allergic to Iodine/contrast media? No. 12:57:17 Is patient on blood thinner?Yes 12:57:21 Patient diabetic? No. 12:57:22 - 12:57:24 ----Pre-sedation anethsthesia assessment.---- 12:57:27 Previous problem with sedation/anesthesia? No ? 12:57:30 Snore? Yes 12:57:32 Sleep apnea? No 12:57:35 Deviated septum? Yes 12:57:38 Opens mouth fully? Yes 12:57:41 Sticks out tongue? Yes 12:57:44 Airway obstruction? No ? 12:57:47 Dentures? No ? 12:57:49 - 13:12:56 Correct patient and procedure confirmed by team. 13:12:57 ECG and BP/O2 sat monitors applied to patient. 13:12:59 Vital chart was started 13:13:00 Baseline sample Acquired. 13:13:02 Full Disclosure recording started 13:13:03 - 13:15:14 TUBING Contrast Injection High Pressure (GFV201C) opened to sterile field. 13:25:25 Versed 1 mg I.V. was administered by Lauren Yuen RN; for sedation; Verbal order read back and verified. 13:25:36 Fentanyl 50 mcg I.V. was administered by Lauren Yuen RN; for sedation; Verbal order read back and verified. 13:25:38 Physician arrived 13:25:38 --------ALL STOP TIME OUT------ 13::39 Final Timeout: patient, procedure, and site verified with staff and physician. All members of the team are in agreement. 13:26:04 Heparin Flush Bag (1000units/500ml NS) 3 bags added to field was administered by Lauren Yuen RN; used for procedure; Verbal order read back and verified. 13:26:12 Fire Safety Assessment: A--An alcohol-based skin anteseptic being used preoperatively., C--Open oxygen or nitrous oxide is being used. 13:26:19 3a) 45-59 Moderately reduced kidney function. 13:26:33 Lidocaine 1% 20ml vial added to field was administered by Lauren Yuen RN; for sedation; Verbal order read back and verified. 13:26:44 Maximum allowable contrast dose (3.7 X eGFR X 0.75)158.175 ml. 13:26:51 Procedure started. 13:28:12 Local anesthetic to right femoral artery with Lidocaine 1% by Davis Duke MD.INITIAL ACCESS ONLY 13:28:14 Arterial access obtained using ultrasound guidance. 13:28:32 A 5 Fr sheath was inserted into the Right Femoral artery 13:36:11 SHEATH 6FR Destination (RSR01) opened to sterile field. 13:36:26 ROADRUNNER .035 260 glide wire (V72794) opened to sterile field. 13:36:33 MARTINI 260 wire (K97432) opened to sterile field. 13:38:09 Heparin Bolus 3000 units was administered by Lauren Yuen RN; for anticoagulation; Verbal order read back and verified. 13:40:15 Fentanyl 50 mcg I.V. was administered by Lauren Yuen RN; for sedation; Verbal order read back and verified. 13:40:22 CHOICE PT Extra Support J 300cm guide wire ([id number]) opened to steril e field. 13:40:23 Versed 1 mg I.V. was administered by Lauren Yuen RN; for sedation; Verbal order read back and verified. 13:40:44 [place] 1 Small Atherectomy catheter (H1S) opened to sterile field. 13:43:28 INFLATOR BasixTOUCH (MA6280) opened to sterile field. 13:51:28 Inflate balloon Inflation number: 1 A IN.PACT Admiral 4 x 80 x 130 DCB Balloon ([id number]) was prepped and advanced across the Undefined1 , then inflated . 14:05:52 MYNX CYBER SECURITY SYSTEMS ENGINEER 6FR/7FR (FE8935) opened to sterile field. 14:06:22 A sheath was inserted into the Femoral artery 14:06:22 Sheath removed intact; hemostasis achieved with Mynx Silk Soaker 6Fr/7Fr to th e Femoral artery. 14:06:27 Procedure ended.(Physican Out) 14:06:56 Fluoroscopy time 04.60 minutes. 14:07:00 Fluoroscopy dose: 102 mGy 14:07:00 Flurop Dose total: 102 14:07:06 Contrast amount:Isovue 300 45ml. 14:07:08 Procedure and supply charges have been captured, reviewed, submitted an d are correct. 14:10:34 Report given to ICU. 14:10:39 Post Procedure Pulses reassessed and unchanged 14:11:26 Vital chart was stopped Intervention Summary Intervention Notes Time ActionType Lesion and Equipment Used Action# Pressure Duration Attributes 13:51:28 Inflate Undefined1 IN.PACT 1 0 00:00 balloon Admiral 4 x 80 x 130 DCB Balloon ([id number]) Device Usage Item Name Manufacture Quantity Catalog Number Hospital Part Current M inimal Lot# / Charge Number Stock Stock Serial# Code Tegaderm 4 x 4 3M 1 [id number] [id number] 5 (1626W) Sterile Cardinal 1 [id number] 859120 775006 5 Angiographic Health Pack Bag Decanter Microtek 1 064272 08195 764023 5 (2001S) Medical Inc. ACIST Manifold Acist 1 06101 761325 495704 542890 5 (47978) Medical Systems Inc ACIST Hand Acist 1 43536 883892 243298 140432 5 Control Medical (79983) Systems Inc ACIST Syringe Acist 1 67028 301606 266217 091043 2 0 (69766) Medical Systems Inc BENTSON 145cm Cook Medical 1 Y56243 167975 909453 5 wire (Y19867) Micropuncture VSI VASCULAR 1 7266V 014566 233388 5 VSI 4FR kit SOLUTIONS SHEATH 5FR Terumo 1 LIN103 289742 262221 701643 5 Mosier (MQF898) TUBING Merit 1 [id number] 139278 993360 476142 5 Contrast Medical Injection High Pressure (UHG260W) SHEATH 6FR Terumo 1 RSR01 033894 43532 428575 5 Destination (RSR01) ROADRUNNER Cook Medical 1 S65122 622461 176606 993747 5 .035 260 glide wire (L03505) MARTINI 260 wire Cook Medical 1 R45136 136967 53480 609470 5 (F62135) CHOICE PT [place] 1 [id number] 618062 365650 108167 5 Extra Support Scientific J 300cm guide wire ([id number]) [place] 1 Medtronic 1 H1-S 134629 6948844 891292 5 Small Atherectomy catheter (H1S) INFLATOR Merit 1 SX5057 500263 027115 802567 5 BasixTOContentWatch Medical (AC4090) IN.PACT Medtronic 1 [id number] 164160 347879 812280 5 Admiral 4 x 80 x 130 DCB Balloon ([id number]) MYNX CYBER SECURITY SYSTEMS ENGINEER Access 1 EF2031 278336 653350 5 [id number] 6FR/7FR Closure (FL7738) Signature Audit [place] Stage Time Signature Unsigned Intra-Procedure 06/02/2019 April Spivey 2:11:23 PM RT(R) [facility] [address] [facility] [place] [address]
--- NOTE | 2019-06-01 16:22 | NUR ---
PT ARRIVED VIA WHEELCHAIR WITH FAMILY AT SIDE. ALERT AND ORIENTED. ANSWERS ALL QUESTIONS.
--- NOTE | 2019-06-01 17:45 | NUR ---
HERE AND ORDER GIVEN TO START HYDRALAZINE PRN FOR SYSTOLIC>180
[2019-06-01 17:46] LABS: HEMATOCRIT 42.3 % (36.0-48.0); HEMOGLOBIN 13.4 g/dL (12-16); MCH 29.3 pg (26.0-34.0); MCHC 31.7 g/dL (31.0-37.0); MCV 92.4 fL (80.0-100.0); MEAN PLATELET VOLUME 9.1 fL (7.4-10.4); RBC 4.58 10x6/uL (4.00-5.40); WBC 13.8 10x3/uL (4.8-10.8)
--- NOTE | 2019-06-01 17:53 | NUR ---
INITIATED HEPARIN GTT AT 1300U/HR ORDERED.
[2019-06-01 18:30] LABS: APTT 24.9 SECONDS (22.8-39.4); INR 1.04 (0.85-1.17); PROTIME 13.1 SECONDS (11.6-15.0)
--- NOTE | 2019-06-01 19:00 | NUR ---
REPORT RECEIVED, PT AAOX4. PIV IN LT AC INFUSING, SEE IV FLOWSHEET. PT ON ROOM AIR, NO ACUTE DISTRESS NOTED AT THIS TIME. ASSESSMENT COMPLETED, SEE FLOWSHEET.
--- NOTE | 2019-06-01 21:00 | NUR ---
PM MEDS GIVEN WITHOUT DIFFICULTY, PT SITTING UP IN BED, AAOX4. NO ACUTE DISTRESS NOTED.
--- NOTE | 2019-06-01 23:00 | NUR ---
PT'S LEFT FOOT WARMER THAN PREVIOUS ASSESSMENT. DOPPLERED PULSES ON BOTH LOWER EXTREMITIES, TOES ON LEFT FOOT IMPROVING IN COLOR. CAP REFILL ON TOES 3> SECONDS. WILL CONTINUE TO MONITOR.
[2019-06-02] VITALS (30 sets, daily range): BP systolic 97–157; BP diastolic 50–105; Ht 160 cm; Wt 73.0 kg
--- NOTE | 2019-06-02 01:00 | NUR ---
PT STATED INTERMITTENT PAIN IN RIGHT KNEE, REPOSITIONED TO LEFT SIDE. WILL CONTINUE TO MONITOR.
[2019-06-02 01:02] LABS: HEMATOCRIT 41.4 % (36.0-48.0); HEMOGLOBIN 13.4 g/dL (12-16); MCH 30.1 pg (26.0-34.0); MCHC 32.4 g/dL (31.0-37.0); MEAN PLATELET VOLUME 9.3 fL (7.4-10.4); RBC 4.45 10x6/uL (4.00-5.40); RDW 15.3 % (11.5-14.5); WBC 14.1 10x3/uL (4.8-10.8)
--- NOTE | 2019-06-02 03:00 | NUR ---
PT RESTING IN BED, AAOX4. PULSES DOPPLERED, LEFT LEG WARM TO TOUCH, PT DENIES PAIN AT THIS TIME. WILL CONTINUE TO MONITOR.
[2019-06-02 03:59] LABS: BASOPHILS 0.3 % (0-2); EOSINOPHILS 0.8 % (0-7); HEMATOCRIT 39.4 % (36.0-48.0); HEMOGLOBIN 12.6 g/dL (12-16); IMMATURE GRANULOCYTES 0.5 % (0-5); MCH 29.6 pg (26.0-34.0); MCV 92.5 fL (80.0-100.0); MEAN PLATELET VOLUME 9.3 fL (7.4-10.4); MONOCYTES 6.1 % (2-11); NEUTROPHILS 71.3 % (40-80); PLATELET COUNT 255 10x3/uL (130-400); RBC 4.26 10x6/uL (4.00-5.40); RDW 15.3 % (11.5-14.5); WBC 11.8 10x3/uL (4.8-10.8)
[2019-06-02 04:07] LABS: INR 1.11 (0.85-1.17); PROTIME 13.8 SECONDS (11.6-15.0)
[2019-06-02 04:11] LABS: APTT 81.9 SECONDS (22.8-39.4)
[2019-06-02 04:24] LABS: ALBUMIN 2.4 g/dL (3.4-5.0); ANION GAP 9.9 mmol/L (8-16); BILIRUBIN - TOTAL 0.53 mg/dL (0.2-1.3); CALCIUM 8.8 mg/dL (8.5-10.1); POTASSIUM - SERUM 3.9 mmol/L (3.5-5.1); PROTEIN - SERUM 6.6 g/dL (6.4-8.2)
--- NOTE | 2019-06-02 05:00 | NUR ---
PT RESTING IN BED, LAYING ON SIDE. NO ACUTE DISTRESS NOTED. WILL CONTINUE TO MONITOR.
--- NOTE | 2019-06-02 07:15 | NUR ---
PT RESTING IN BED, VSS AND WNL. CALL LIGHT WITHIN REACH, DENIES ANY NEEDS AT THIS TIME. WILL CONT TO FOLLOW POC
--- NOTE | 2019-06-02 09:27 | NUR ---
PT RESTING IN BED, VSS AND WNL. DENIES ANY NEEDS AT THIS TIME, CALL LIGHT WITHIN REACH, WILL CONT TO FOLLOW POC
--- NOTE | 2019-06-02 11:00 | NUR ---
PT RESTING IN BED, VSS AND WNL. CALL LIGHT WITHIN REACH. DENIES ANY NEEDS AT THIS TIME, WILL CONT TO FOLLOW POC
--- NOTE | 2019-06-02 12:00 | NUR ---
PT APTT IS 38.2, PER PROTOCOL THERE IS NO CHANGE TO GTT AND NEXT PTT IS DUE IN THE AM.
--- NOTE | 2019-06-02 12:51 | NUR ---
PT LEFT WITH IVR
--- NOTE | 2019-06-02 14:35 | NUR ---
PT RETURNED BACK TO ICU FROM IVR. VSS AND WNL. FULL LINEN CHANGE AND NAVIN CARE PROVIDED. DRESSING TO RIGHT GROIN C/D/I. PUSLSES HEARD TO BLE WITH DOPPLER. DENIES ANY NEEDS AT THIS TIME, WILL CONT TO FOLLOW POC
--- NOTE | 2019-06-02 14:35 | NUR ---
PT RETURNED BACK TO ICU FROM IVR. VSS AND WNL. FULL LINEN CHANGE AND NAVIN CARE PROVIDED. DRESSING TO LEFT GROIN C/D/I. PUSLSES HEARD TO BLE WITH DOPPLER. DENIES ANY NEEDS AT THIS TIME, WILL CONT TO FOLLOW POC
--- NOTE | 2019-06-02 14:50 | NUR ---
PT RESTING IN BED, VSS AND WNL. DRESSING TO RIGHT GROIN C/D/I. NO SIGNS OF HEMATOMA FORMATION NOTED AT THIS TIME, DISTAL PULSES PRESENT WITH DOPPLER. DENIES ANY NEEDS AT THIS TIME, WILL CONT TO FOLLOW POC
--- NOTE | 2019-06-02 14:50 | NUR ---
PT RESTING IN BED, VSS AND WNL. DRESSING TO LEFT GROIN C/D/I. NO SIGNS OF HEMATOMA FORMATION NOTED AT THIS TIME, DISTAL PULSES PRESENT WITH DOPPLER. DENIES ANY NEEDS AT THIS TIME, WILL CONT TO FOLLOW POC
--- NOTE | 2019-06-02 15:05 | NUR ---
PT RESTING IN BED, VSS AND WNL. DISTAL PULSES PRESENT WITH DOPPLER. DRESSING TO RIGHT GROIN C/D/I. NO SIGN OF HEMATOMA FORMATION NOTED AT THIS TIME, WILL CONT TO FOLLOW POC
--- NOTE | 2019-06-02 15:05 | NUR ---
PT RESTING IN BED, VSS AND WNL. DISTAL PULSES PRESENT WITH DOPPLER. DRESSING TO LEFT GROIN C/D/I. NO SIGN OF HEMATOMA FORMATION NOTED AT THIS TIME, WILL CONT TO FOLLOW POC
--- NOTE | 2019-06-02 15:15 | NUR ---
PT RESTING IN BED, CALL LIGHT WITHIN REACH. VSS AND WNL. DRESSING TO RIGHT GROIN C/D/I. DENIES ANY NEEDS AT THIS TIME, WILL CONT TO FOLLOW POC
--- NOTE | 2019-06-02 16:25 | NUR ---
PT BP ELEVATED. PRN HYDRALAZINE GIVEN ORDERED. FAMILY AT BEDSIDE. DENIES ANY NEEDS AT THIS TIME, WILL CONT TO FOLLOW POC
--- NOTE | 2019-06-02 19:00 | NUR ---
REPORT RECEIVED. INITIAL ASSESSMENT COMPLETE. PT ALERT AND ORIENTED. RESP EVEN NONLABORED ON ROOM AIR O2 SAT 100%. BREATH SOUNDS CLEAR. CM READING CONTROLLED AFIB/FLUTTER ALARMS ON AND AUDIBLE. RIGHT GROIN DRESSING CDI NO S/S OF BLEEDING PEDAL PULSES PER DOPPLER PT HAS MULTIPLE SCARS TO BLE AND GENERALIZED BRUISES. HEPARIN GTT INFUSING. PT DENIES PAIN OR NEEDS AT THIS TIME. BED IN LOW POSITION SIDE RAILS UP TIMES 3 CL IN REACH WILL CONTINUE TO MONITOR
--- NOTE | 2019-06-02 21:00 | NUR ---
PT RESTING QUIETLY VSS CL IN REACH
--- NOTE | 2019-06-02 23:00 | NUR ---
REASSESSMENT NO CHANGES PEDAL PULSES BY DOPPLER PT DENIES NEEDS AT THIS TIME CPOC
[2019-06-03] VITALS (13 sets, daily range): BP systolic 112–138; BP diastolic 65–90
--- NOTE | 2019-06-03 01:00 | NUR ---
PEDAL PULSES BY DOPPLER VSS DENIES PAIN CPOC
--- NOTE | 2019-06-03 03:00 | NUR ---
REASSESSMENT MADE NO CHANGES PT DENIES PAIN VSS CPOC BILATERAL PEDAL PULSES PER DOPPLER
[2019-06-03 03:42] LABS: BASOPHILS 0.2 % (0-2); HEMATOCRIT 39.5 % (36.0-48.0); HEMOGLOBIN 12.8 g/dL (12-16); IMMATURE GRANULOCYTES 0.3 % (0-5); LYMPHOCYTES 15.6 % (15-50); MCHC 32.4 g/dL (31.0-37.0); MCV 92.5 fL (80.0-100.0); MEAN PLATELET VOLUME 9.2 fL (7.4-10.4); MONOCYTES 6.5 % (2-11); NEUTROPHILS 76.4 % (40-80); PLATELET COUNT 265 10x3/uL (130-400); RBC 4.27 10x6/uL (4.00-5.40); RDW 15.5 % (11.5-14.5)
[2019-06-03 04:00] LABS: ALBUMIN 2.3 g/dL (3.4-5.0); ANION GAP 11.5 mmol/L (8-16); BILIRUBIN - TOTAL 0.62 mg/dL (0.2-1.3); CALCIUM 8.9 mg/dL (8.5-10.1); CARBON DIOXIDE 29.3 mmol/L (21.0-32.0); CREATININE - SERUM 0.8 mg/dL (0.6-1.3); POTASSIUM - SERUM 3.8 mmol/L (3.5-5.1); PROTEIN - SERUM 6.4 g/dL (6.4-8.2)
--- NOTE | 2019-06-03 04:30 | NUR ---
PER PROTOCOL FOR PTT RESULT OF 59.3 PROTOCOL STATES INCREASE DRIP BY 100 UNITS AND RECHECK PTT IN 6 HOURS HEPARIN RATE INCREASED FROM 1300 TO 1400 AND PTT ORDER PLACED TO BE DRAWN AT 1030
--- NOTE | 2019-06-03 05:55 | NUR ---
ANSWERED PTS CALL LIGHT SHE STATES NEEDS LINEN CHANGED SHE WAS INCONTINENT OF URINE. COMPLETE LINEN CHANGE PARTIAL CHG BATH NEW GOWN
--- NOTE | 2019-06-03 06:55 | NUR ---
REPORT RECEIVED. SHE IS AWAKE AND ALERT. RESP EVEN WITHOUT LABOR. RIGHT GROIN DRESSING C/D/I. NO HEMATOMA BLEEDING OR BRUISING NOTED. HER THIGH AND SITE IS SOFT. LEFT FOOT AND RIGHT FOOT WITH PULSES PALPABLE USING DOPPLER. STRONGER IN RIGHT THAN LEFT. FOOT AND TOES PINK IN COLOR. SHE STATES HER PAIN IN THAT LEFT LEG IS MUCH BETTER SO FAR. BED IN LOWEST POSITION AND LOCKED. CAREPLAN REVIEW DONE WITH SAFETY PRECAUTIONS IN PLACE. CL IN REACH. HEPARIN DRIP INFUSING AT 1400U/HR OR 14 CC/HR SITE IS CLEAR.
--- NOTE | 2019-06-03 09:00 | NUR ---
SHE OFFERS NO C/O NO CHANGE IN LEFT FOOT COLOR. DENIES ANY PAIN. SHE HAS A FLUID FILLED BLISTER ON HER RIGHT FOOT, AND A OLD BLISTER AREA ON HER LEFT LOWER LEG. DRESSINGS APPLIED. CL IN REACH
--- NOTE | 2019-06-03 09:30 | NUR ---
DR TORRES HERE MAKING ROUNDS STATED TO STOP HEPARIN DRIP, FIND OUT IF STILL HAVING BACK INJECTION OR NOT. IF SHE IS NOT MAY RESTART HER EFFIENT. STATED IT WAS OK TO DISCHARGE HER THIS EVENING BASED ON IR SAYING IT IS FINE.
[2019-06-03] MEDS ORDERED: EFFIENT10 MG PO (09:35)
--- NOTE | 2019-06-03 09:40 | NUR ---
DR TORRES MAKING ROUNDS STATES TO D/C HEPARIN DRIP, IF HER BACK PROCEDURE IS CANCELLED THEN RESTART EFFIENT IF NOT THEN KEEP IT HELD, SHE CAN BE DISCHARGED THIS EVENING.
--- NOTE | 2019-06-03 11:00 | NUR ---
HER DAUGHTER CORINNE CALLED AND I ASKED HER ABOUT BACK INJECTION SHOT WITH DR JONES AND SHE STATED THAT WILL BE CANCELLED AND WE WILL TRY TO DO THAT AGAIN IN JUNE. SHE WANTS HER TO RESTART HER EFFIENT. SHE IS AWARE OF DISCHARGE ORDERS AND WILL BE HERE AROUND 2 PM TO PICK HER UP
--- NOTE | 2019-06-03 11:15 | NUR ---
DOPPLER PULSES AND THEY ARE ALL HEARD. COLOR REMAINS UNCHANGED IN HER LEFT FOOT. SHE OFFERS NO C/O
--- NOTE | 2019-06-03 12:30 | NUR ---
ASSISTED ON TO BEDPAN WITH SMALL SOFT BM NOTED. SHE THEN PROCEEDED TO EAT HER LUNCH CONTINE CPOC AND MONITOR VSS
--- NOTE | 2019-06-03 14:30 | NUR ---
DISCHARGE INSTRUCTIONS EXPLAINED IN DETAIL TO PT AND FAMILY. FOLLOW UP APPOINTMENT WITH [facility] AND THEY ARE TO MAKE A ONE WEEK FOLLOW UP WITH DR TORRES EXPLAINED. SHE WILL RESTART HER EFFIENT AND IS AWARE OF THIS. SALINE LOCK X2 D/C WITH CATH TIP INTACT. MINIMAL BLEEDING NOTED. STABLE CONDITION. PEDAL PULSE DOPPLER USED ON BOTH FEET. COLOR OF FEET IS PINK. TRANSPORTED VIA W/C TO PRIVATE AUT[facility]
--- NOTE | 2019-06-03 16:39 | MORECARE ---
CASE MANAGEMENT DISCHARGE SUMMARY PATIENT: MIRANDA FOWLER [place] UNIT: [id number] ADM DATE: 06/01/19 AGE: 78 : 42 SEX: F ROOM/BED: D.2309 AUTHOR: CADY QUEVEDO PHYSICIAN: REFERRING PHYSICIAN: JORGE WILCOX MD DATE OF SERVICE: 06/03/19 Discharge Plan Patient Name: MIRANDA FOWLER Facility: [facility]:[place] : 1940 Planned Disposition: Home with Home Health Anticipated Discharge Date: 06/03/19 Discharge Date: 06/03/2019 Expected LOS: 2 Initial Reviewer: [email or web address] Initial Review Date: 06/01/2019 Generated: 06/03/19 5:39 pm DCPIA - Discharge Planning Initial Assessment Updated by [email or web address]: Sherley Cordoba on 06/03/19 4:37 pm * Is the patient Alert and Oriented? Yes * How many steps to enter\exit or inside your home? ramp * PCP DR Love * Pharmacy [facility] by Diane Snider * Preadmission Environment Home with Family * ADLs Partial Dependent * Partial ADLs (Assistance needed) Ambulation * Equipment Rolling Walker Wheelchair * List name and contact numbers for known caregivers / representatives who currently or will assist patient after discharge: CORINNE FOWLER- DAUGHTER- [phone] * Verbal permission to speak to the caregivers and representatives has been obtained from the patient. Yes * Community resources currently utilized Home Health * Please name any agencies selected above. [facility] * Additional services required to return to the preadmission environment? No * Can the patient safely return to the preadmission environment? Yes * Has this patient been hospitalized within the prior 30 days at any hospital? No Patient Name: MIRANDA FOWLER Page [id number] at 1639 All edits/amendments must be made on the electronic document DICTATION DATE: 06/03/198 MANAGER MEDICAID: ANGUS 06/03/19 1638 RPT#: [id number] DC DATE:06/03/19 STATUS: DIS IN [facility] [address] [place] [address] END OF REPORT
--- NOTE | 2019-06-03 16:54 | MORECARE ---
CASE MANAGEMENT DISCHARGE SUMMARY PATIENT: MIRANDA FOWLER [place] UNIT: [id number] ADM DATE: 06/01/19 AGE: 78 : 42 SEX: F ROOM/BED: D.2309 AUTHOR: SAE,DOC PHYSICIAN: REFERRING PHYSICIAN: JORGE WILCOX MD DATE OF SERVICE: 06/03/19 Discharge Plan Patient Name: MIRANDA FOWLER Facility: [facility]:[place] : 1940 Planned Disposition: Home with Home Health Anticipated Discharge Date: 06/03/19 Discharge Date: 06/03/2019 Expected LOS: 2 Initial Reviewer: [email or web address] Initial Review Date: 06/01/2019 Generated: 06/03/19 5:53 pm Comments DCP- Discharge Planning Updated by [email or web address]: Sherley Cordoba on 06/03/19 3:[address] LATE ENTRY 1345 CM MET WITH THE PATIENT AT THE BEDSIDE. SHE IS PREPARING FOR DISCHARGE. HER DAUGHTER, CORINNE, WILL BE PROVIDING TRANSPORTATION. SHE IS PRESENTLY ON SERVICE WITH [email or web address] [facility]. SHE STATES HER DAUGHTER HAS SPOKEN WITH THEM. CM EXPLAINED MY ROLE AND RECEIVED PERMISSION TO PROCEED WITH THE ASSESSMENT. PCP- DR T[facility]RES [facility]- [facility] THE PATIENT LIVES WITH HER BROTHER AND HER DAUGHTER. SHE HAS A RAMP TO ENTER HER HOME. SHE HAS A WHEELCHAIR AND A NEW WALKER, ONE WEEK OLD, WITH FOUR LARGE WHEELS. SHE DENIES ANY ADDITIONAL DME NEEDS. CM DISCUSSED DISCHARGE IMM. PATIENT UNDERSTOOD AND HAD NO QUESTIONS OR CONCERNS. D/C IMM SERVED. SIGNED COPY TO THE PATIENT. SIGNED COPY TO THE CHART. PATIENT DENIES ANY ADDITIONAL NEEDS. TC TO [facility] [employer] [facility]. THEY ARE COGNIZANT OF HER ADMISSION AND DISCHARGE. CM FAXED CLINICAL INFORMATION WITH D/C MED LIST AND D/C INSTRUCTIONS TO [phone]. PATIENT WILL BE SEEN ON WEDNESDAY. DCPIA - Discharge Planning Initial Assessment Updated by [email or web address]: Sherley Cordoba on 06/03/19 4:37 pm * Is the patient Alert and Oriented? Yes * How many steps to enter\exit or inside your home? ramp * PCP DR Torres * Pharmacy [facility] [address] * Preadmission Environment Home with Family * ADLs Partial Dependent * Partial ADLs (Assistance needed) Ambulation * Equipment Rolling Walker Wheelchair * List name and contact numbers for known caregivers / representatives who currently or will assist patient after discharge: CORINNE FOWLER- DAUGHTER- [phone] * Verbal permission to speak to the caregivers and representatives has been obtained from the patient. Yes * Community resources currently utilized Home Health * Please name any agencies selected above. [facility] * Additional services required to return to the preadmission environment? No * Can the patient safely return to the preadmission environment? Yes * Has this patient been hospitalized within the prior 30 days at any hospital? No Coverage Notice Reviewer: [email or web address] Sal Cordoba Notice Issued Date-Time: 06/03/2019 13:50 Notice Type: IM Discharge Notice Notice Delivered To: Patient Relationship to Patient: Self Area Representative Name: Delivery Method: HAND - Hand Delivered Leatha Days: Prior Verbal Notification: Recipient Understood Notice: Yes Recipient Signature: Yes Med Rec Note Co-signed by Attending: Coverage Notice Comment: DISCHARGE IMM EXPLAINED AND SERVED. COPY TO THE PATIENT AND COPY TO THE HARD COVER CHART Last DP export: 06/03/19 3:39 Patient Name: MIRANDA FOWLER Page [id number] at 1654 All edits/amendments must be made on the electronic document DICTATION DATE: 06/03/191652 FAMILY MEDICINE CHAIR: ANGUS 06/03/191652 RPT#: [id number] DC DATE:06/03/19 STATUS: DIS IN [facility] [address] [place] [address] END OF REPORT
--- NOTE | 2019-06-05 08:45 | MORECARE ---
CASE MANAGEMENT DISCHARGE SUMMARY PATIENT: MIRANDA FOWLER [place] UNIT: [id number] ADM DATE: 06/01/19 AGE: 78 : 42 SEX: F ROOM/BED: D.2309 AUTHOR: SAE,DOC PHYSICIAN: REFERRING PHYSICIAN: JORGE WILCOX MD DATE OF SERVICE: 06/05/19 Discharge Plan Patient Name: MIRANDA FOWLER Facility: [facility]:[place] : 1940 Planned Disposition: Home with Home Health Anticipated Discharge Date: 06/03/19 Discharge Date: 06/03/2019 Expected LOS: 2 Initial Reviewer: [email or web address] Initial Review Date: 06/01/2019 Generated: 06/05/19 9:45 am Comments DCP- Discharge Planning Updated by [email or web address]: Sherley Cordoba on 06/03/19 3:[address] LATE ENTRY 1345 CM MET WITH THE PATIENT AT THE BEDSIDE. SHE IS PREPARING FOR DISCHARGE. HER DAUGHTER, CORINNE, WILL BE PROVIDING TRANSPORTATION. SHE IS PRESENTLY ON SERVICE WITH [employer] [facility]. SHE STATES HER DAUGHTER HAS SPOKEN WITH THEM. CM EXPLAINED MY ROLE AND RECEIVED PERMISSION TO PROCEED WITH THE ASSESSMENT. PCP- DR TORRES [facility]- [facility] BY [facility] THE PATIENT LIVES WITH HER BROTHER AND HER DAUGHTER. SHE HAS A RAMP TO ENTER HER HOME. SHE HAS A WHEELCHAIR AND A NEW WALKER, ONE WEEK OLD, WITH FOUR LARGE WHEELS. SHE DENIES ANY ADDITIONAL DME NEEDS. CM DISCUSSED DISCHARGE IMM. PATIENT UNDERSTOOD AND HAD NO QUESTIONS OR CONCERNS. D/C IMM SERVED. SIGNED COPY TO THE PATIENT. SIGNED COPY TO THE CHART. PATIENT DENIES ANY ADDITIONAL NEEDS. TC TO [facility] [employer] [facility]. THEY ARE COGNIZANT OF HER ADMISSION AND DISCHARGE. CM FAXED CLINICAL INFORMATION WITH D/C MED LIST AND D/C INSTRUCTIONS TO [phone]. PATIENT WILL BE SEEN ON WEDNESDAY. DCPIA - Discharge Planning Initial Assessment Updated by [email or web address]: Sherley Cordoba on 06/03/19 4:37 pm * Is the patient Alert and Oriented? Yes * How many steps to enter\exit or inside your home? ramp * PCP DR Torres * Pharmacy [facility] * Preadmission Environment Home with Family * ADLs Partial Dependent * Partial ADLs (Assistance needed) Ambulation * Equipment Rolling Walker Wheelchair * List name and contact numbers for known caregivers / representatives who currently or will assist patient after discharge: CORINNE FOWLER- DAUGHTER- [phone] * Verbal permission to speak to the caregivers and representatives has been obtained from the patient. Yes * Community resources currently utilized Home Health * Please name any agencies selected above. [facility] * Additional services required to return to the preadmission environment? No * Can the patient safely return to the preadmission environment? Yes * Has this patient been hospitalized within the prior 30 days at any hospital? No Coverage Notice Reviewer: [id number] Sal Cordoba Notice Issued Date-Time: 06/03/2019 13:50 Notice Type: IM Discharge Notice Notice Delivered To: Patient Relationship to Patient: Self Ambulance Driver Paramedic Name: Delivery Method: HAND - Hand Delivered Leatha Days: Prior Verbal Notification: Recipient Understood Notice: Yes Recipient Signature: Yes Med Rec Note Co-signed by Attending: Coverage Notice Comment: DISCHARGE IMM EXPLAINED AND SERVED. COPY TO THE PATIENT AND COPY TO THE HARD COVER CHART Last DP export: 06/03/19 3:54 Patient Name: MIRANDA FOWLER Page [phone] at 0845 All edits/amendments must be made on the electronic document DICTATION DATE: 06/05/1945 INVESTMENT ASSOCIATE: ANGUS 06/05/19844 RPT#: [id number] DC DATE:06/03/19 STATUS: DIS IN [facility] [address] [place] [address] END OF REPORT
== END 2019-06-03 14:30 | disposition home or self-care (01) | DRG 271 ==
LOC: D.CT 14:16 → D.ICU 16:01
PROVIDERS: ADMIT Radiology Diagnostic Radiology; ATTEND Radiology Diagnostic Radiology
PROC: 04CN3ZZ Extirpation of Matter from Left Popliteal Artery, Percutaneous Approach (ICD-10-PCS; principal; 2019-06-02 14:08)
DX: I77.9 Disorder of arteries and arterioles, unspecified (principal); I48.20 Chronic atrial fibrillation, unspecified; I10 Essential (primary) hypertension; M79.605 Pain in left leg; S91.301A Unspecified open wound, right foot, initial encounter; X58.XXXA Exposure to other specified factors, initial encounter

== ENCOUNTER 2019-06-09 00:40 | Inpatient (IN) | payer MEDICARE, OTHER ==
[~2019-06-09] VITALS: Ht 160 cm; Wt 78.6 kg
[2019-06-09] VITALS (24 sets, daily range): BP systolic 117–165; BP diastolic 65–95; BMI 37.9
--- NOTE | ~2019-06-09 | HEMODYNAMI ---
PATIENT:MIRANDA FOWLER MEDICAL RECORD: [id number] : 44 LOCATION[facility] D.2309 ADMISSION DATE: 06/09/19 Generatedon:06/10/201910:40 Patient name: MIRANDA FOWLER Patient #: [id number] SSN: DO B: 1940 Date of study: 06/10/2019 Page: Of Hemodynamic Procedure Report Patient Data Patient Demographics Procedure consent was obtained First Name: MIRANDA Gender: Female Last Name: JANETH : 1940 [facility] Initial: HAMER Age: 78 year(s) Patient #: [id number] Race: Unknown Additional ID: [id number] Contact details [address]: [address] [place] [address] State: [place] City: [place] Zip code: [address] Past Medical History Allergies Allergen Reaction Date Comments Reported Other allergy 02/22/2019 niacin Other allergy 06/02/2019 niacin Other allergy 06/09/2019 niacin Other allergy 06/09/2019 niacin Other allergy 06/10/2019 niacin Admission Admission Data Admission Date: 06/09/2019 Admission Time: 3:59 Room #: D.2309 Height (in.): 63 BSA: 1.99 (m2) Height (cm.): 160.02 BMI: 37.91 (kg/m2) Weight (lbs.): 214 Weight (kg.): 97.07 Procedure Procedure Types Cath Procedure Peripheral Cath Diagnostic Procedure Abd/Extremity Extremities Left Lower Ext Arterio Procedure Description Procedure Date Procedure Date: 06/10/2019 Procedure Start Time: 10:00 Procedure End Time: 10:40 Procedure Staff Name Function Davis Duke MD Performing Physician JOSE CABRERA RT Monitor Yoni Egan RT Scrub Chiquita Abernathy RN Nurse Procedure Data Cath Procedure Fluoroscopy Diagnostic fluoroscopy Total fluoroscopy Time: 9.7 time: 9.7 min min Diagnostic fluoroscopy Total fluoroscopy dose: 65 dose: 65 mGy mGy Contrast Material Contrast Material Type Amount (ml) Isovue 300 55 Entry Location Entry Primary Successful Side Size Upsize Upsize Entry Closure Succes sful Closure Location (Fr) 1 (Fr) 2 (Fr) Remarks Device Remarks Femoral Right 6 Fr Mynx artery Short Clean Rice Broker 6Fr/7Fr Procedure Medications Medication Administration Route Dosage Heparin Flush Bag added to field 2 bags (1000units/500ml NS) Lidocaine 1% added to field 20 Heparin Bolus I.V. 5000 units Ancef (1Gm/50ml NS) I.V.P.B 1 g Hemodynamics Rest BSA: 1.99 (m2) O2 Consumption: Estimated: 217.69 (ml/min) O2 Consumption indexed : Estimated:109.39 (ml/min/m) Heart Rate: 119 (bpm) Snapshots Pre Cath Intra NCS Post Cath Vital Signs Time Heart Resp SPO2 etCO2 NIBP (mmHg) Rhythm Pain Sedation Rate (ipm) (%) (mmHg) Status Level (bpm) 9:32:08 96 20 97 12.7 Measuring NSR 0 (11) 10(A) , No pain 9:33:30 95 8 99 21.7 Time NSR 0 (11) 9(A) Exceeded , No pain 9:36:46 109 14 99 15.7 173/101(154) NSR 0 (11) 9(A) , No pain 9:41:45 105 24 98 18 Measuring NSR 0 (11) 9(A) , No pain 9:43:10 88 15 99 33 Time NSR 0 (11) 9(A) Exceeded , No pain 9:47:07 102 13 98 18 165/95(124) NSR 0 (11) 9(A) , No pain 9:51:23 110 15 98 11.2 160/92(133) NSR 0 (11) 9(A) , No pain 9:55:43 122 16 98 25.5 156/93(148) NSR 0 (11) 9(A) , No pain 10:00:42 114 12 98 27.7 Measuring NSR 0 (11) 9(A) , No pain 10:01:05 97 13 98 27.8 170/91(122) NSR 0 (11) 9(A) , No pain 10:05:29 100 16 98 15 180/99(131) NSR 0 (11) 9(A) , No pain 10:09:57 101 15 99 14.2 170/108(127) NSR 0 (11) 9(A) , No pain 10:14:18 114 15 99 21.7 166/101(107) NSR 0 (11) 9(A) , No pain 10:18:33 111 17 98 9.7 170/105(141) NSR 0 (11) 9(A) , No pain 10:23:32 97 19 98 35.3 Measuring NSR 0 (11) 9(A) , No pain 10:24:01 116 13 99 13.5 150/89(126) NSR 0 (11) 9(A) , No pain 10:28:17 91 14 98 21.8 158/105(143) NSR 0 (11) 9(A) , No pain 10:32:37 113 9 98 10.5 163/109(122) NSR 0 (11) 9(A) , No pain 10:37:36 79 17 96 15.7 Measuring NSR 0 (11) 9(A) , No pain 10:38:01 69 11 97 13.5 148/111(119) NSR 0 (11) 9(A) , No pain Medications Time Medication Route Dose Verified Delivered Reason Notes Effe ctiveness by by 9:32:50 Heparin Flush added 2 Davis Cannon used for Bag to bags Srikanth Duke procedure (1000units/500ml field MD ALLEN NS) 9:34:29 Lidocaine 1% added 20ml Davis Cannon for local to vial Srikanth Duek anesthetic field MD ALLEN 9:49:47 Heparin Bolus I.V. 5000 Davis Porras Per units Srikanth Abernathy RN physician 9:58:24 Ancef (1Gm/50ml I.V.P.B 1 g Davis Chiquita Per NS) Srikanth Abernathy RN physician Procedure Log Time Note 9:01:34 Patient Height : 63 inches 9:01:34 Patient Weight : 214 lbs 9:03:39 Use device set IR Diagnostic 9:03:40 Bag Decanter (2002S) opened to sterile field. 9:03:41 Sterile Angiographic Pack opened to sterile field. 9:03:41 Tegaderm 4 x 4 (1626W) opened to sterile field. 9:24:02 Yoni Egan RT (R) (CV) sent for patient. Start room use. 9:24:03 Time tracking: Regular hours (M-F 7:00 - 5:00) 9:24:08 Plan of Care:Hemodynamics will remain stable., Cardiac rhythm will remain stable., Comfort level will be maintained., Respiratory function will remain adequate., Patient/ family verbilizes understanding of procedure., Procedure tolerated without complication., Recovers from procedure without complications.. 9:24:13 Patient received from ICU to IR Alert and oriented. Tansferred to table in Supine position. 9:24:27 Signed procedure consent form obtained from patient. 9:24:29 Warm blankets applied, and lit hugger turned on for patient comfort. 9:24:30 Correct patient and procedure confirmed by team. 9:24:33 - 9:24:34 - 9:24:47 H&P Date Dictated: 06/10/2019 Within 30 days and on chart.. 9:24:54 Pre-procedure instructions explained to patient. 9:24:55 Pre-op teaching completed and patient verbalized understanding. 9:25:02 Patient NPO since Midnight. 9:25:15 Patient allergic to Other allergyniacin 9:25:18 Is the patient allergic to Iodine/contrast media? No. 9:26:43 Is patient on blood thinner?Yes 9:27:14 Patient diabetic? No. 9:27:27 - 9:27:28 ----Pre-sedation anethsthesia assessment.---- 9:27:33 Previous problem with sedation/anesthesia? No ? 9:27:34 Snore? Yes 9:27:36 Sleep apnea? No 9:27:37 Deviated septum? No 9:27:38 Opens mouth fully? Yes 9:27:39 Sticks out tongue? Yes 9:27:41 Airway obstruction? No ? 9:27:54 Dentures? Yes in secure 9::57 - 9:29:18 Pre procedure: right dorsailis pedis pulse Doppler 9:29:21 Pre procedure: left dorsailis pedis pulse Doppler 9:29:39 Pre procedure: right posterior tibial pulse Doppler 9:29:42 Pre procedure: left posterior tibial pulse Doppler 9:30:05 IV patent on arrival in right wrist with 0.45%NaCl at KVO. 9:30:14 - :30:18 ECG and BP/O2 sat monitors applied to patient. :30:18 Vital chart was started 9:30:19 Baseline sample Acquired. :30:21 Full Disclosure recording started 9::28 - 9:30:41 Right groin area was prepped with betadine and draped in sterile fashio n 9:30:43 Alarms reviewed by R. N. 9:30:43 Sharps counted by scrub and verified by Marissa 9:30:45 - 9:30:50 Fire Safety Assessment: A--An alcohol-based skin anteseptic being used preoperatively., C--Open oxygen or nitrous oxide is being used. 9:31:01 1) 90+ Normal kidney functon but urine findings or structural abnormalities or genetic trait point to kidney disease. 9:32:50 Heparin Flush Bag (1000units/500ml NS) 2 bags added to field was administered by Davis Duke MD; used for procedure; Verbal order read back and verified. 9:34:29 Lidocaine 1% 20ml vial added to field was administered by Davis spain MD; for local anesthetic; Verbal order read back and verified. 9:42:13 - 9:42:15 Physician arrived 9:43:39 --------ALL STOP TIME OUT------ 9:43:41 Final Timeout: patient, procedure, and site verified with staff and physician. All members of the team are in agreement. 9:44:29 Procedure started. 9:47:34 CXI SUPPORT .035 135 CM STR catheter ([id number]) opened to sterile field. 9:47:35 ROADRUNNER .035 260 glide wire ([id number]) opened to sterile field. 9:49:26 ROADRUNNER wire advanced through existing sheath 9:49:47 Heparin Bolus 5000 units I.V. was administered by Chiquita Abernathy RN; Per physician; Verbal order read back and verified. 9:53:30 CHOICE PT Extra Support J 300cm guide wire ([id number]) opened to steril e field. 9:58:24 Ancef (1Gm/50ml NS) 1 g I.V.P.B was administered by Chiquita Abernathy RN; Per physician; Verbal order read back and verified. 10:00:12 Local anesthetic to right femoral artery with Lidocaine 1% by Davis Duke MD.INITIAL ACCESS ONLY 10:05:30 Indigo System Aspiration Catheter 6 opened to sterile field. 10:05:31 Indigo System Pump suction opened to sterile field. 10:09:05 Inflate balloon Inflation number: 1 A NANOCROSS ELITE 2MM X 120 X 150 ([id number]) was prepped and advanced across the Undefined1 , then inflated . 10:10:59 COPILOT Valve Control ([id number]) opened to sterile field. 10:10:59 INFLATOR BasixTOUCH (DO5033) opened to sterile field. 10:22:11 SHEATH 6FR Providence (QNO506) opened to sterile field. 10:22:42 A 6 Fr Short sheath was inserted into the Right Femoral artery 10:24:42 Sheath removed intact; hemostasis achieved with Mynx Clean Rice Broker 6Fr/7Fr to th e Right Femoral artery. 10:27:01 Contrast amount:Isovue 300 55ml. 10:28:05 Fluoroscopy time 09.70 minutes. 10:28:13 Fluoroscopy dose: 65 mGy 10:28:13 Flurop Dose total: 65 10:29:07 Procedure ended.(Physican Out) 10:33:53 Insertion/operative site no bleeding no hematoma. 10:33:58 Post-op/insertion site Right Femoral artery dressed using a 4 x 4 and Tegaderm. 10:34:04 Procedure and supply charges have been captured, reviewed, submitted an d are correct. 10:40:08 Vital chart was stopped 10:40:13 See physician's report for complete and final results. 10:40:16 Procedure ended. 10:40:16 Full Disclosure recording stopped 10:40:20 End room use (Document Last) Intervention Summary Intervention Notes Time ActionType Lesion and Equipment Used Action# Pressure Duration Attributes 10:09:05 Inflate Undefined1 NANOCROSS ELITE 1 0 00:00 balloon 2MM X 80 X 150 ([id number]) Device Usage Item Name Manufacture Quantity Catalog Number Hospital Part Current Minimal Lot# / Charge Number Stock Stock Serial# Code Bag Decanter Microtek 1 [id number] [id number] 5 () Medical Inc. Sterile Cardinal 1 [id number] 747311 545192 5 Angiographic Health Pack Tegaderm 4 x 4 3M 1 1626W 307348 035744 157156 5 (1626W) CXI SUPPORT .035 Cook Medical 1 [id number] 254505 646085 313718 5 [id number] 135 CM STR catheter (H60963) ROADRUNNER .035 Cook Medical 1 [id number] 412212 565582 467734 5 [id number] 260 glide wire (W12677) CHOICE PT Extra Manley 1 [id number] 782893 20190117 650131 5 [id number] Support J 300cm Scientific guide wire ([id number]) Indigo System Penumbra 1 CAT6 731776 464117 647729 1 D00357 Aspiration Catheter 6 Indigo System Penumbra 1 IAPS2 120265 03827 1663672 1 Pump suction NANOCROSS ELITE Medtronic 1 [id number] 937830 429311 1 2MM X 80 X 150 ([id number]) COPILOT Valve Zhou 1 1083589 693616 975046 969753 5 Control Vascular (1972460) INFLATOR Merit 1 TM4470 728502 320662 606939 5 divorce360 Medical (ZP9763) SHEATH 6FR Terumo 1 UXZ055 906421 745752 071228 40 Providence (MBQ153) Signature Audit [place] Stage Time Signature Unsigned Intra-Procedure 06/10/2019 JOSE CABRERA RT 10:40:38 AM (R) [facility] [address] [place] [address]
--- NOTE | ~2019-06-09 | HEMODYNAMI ---
PATIENT:MIRANDA FOWLER MEDICAL RECORD: [id number] : 44 LOCATION:[facility] D.2309 ADMISSION DATE: 06/09/19 Generatedon:06/09/201916:54 Patient name: MIRANDA FOWLER Patient #: [id number] SSN: DO B: 1940 Date of study: 06/09/2019 Page: Of Hemodynamic Procedure Report Patient Data Patient Demographics Procedure consent was obtained First Name: MIRANDA Gender: Female Last Name: JANETH : 1940 [facility] Initial: INDEPENDENCE Age: 78 year(s) Patient #: [id number] Race: Unknown Additional ID: [id number] Contact details Address: [address] [place] [address] State: [place] City: [place] Zip code: [address] Past Medical History Allergies Allergen Reaction Date Comments Reported Other allergy 02/22/2019 niacin Other allergy 06/02/2019 niacin Other allergy 06/09/2019 niacin Other allergy 06/09/2019 niacin Admission Admission Data Admission Date: 06/09/2019 Admission Time: 3:59 Room #: D.2309 Height (in.): 63 BSA: 1.99 (m2) Height (cm.): 160.02 BMI: 37.91 (kg/m2) Weight (lbs.): 214 Weight (kg.): 97.07 Procedure Procedure Types Cath Procedure Peripheral Cath Diagnostic Procedure 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 Peripheral Procedures Abd/Extremity Follow Up Arteriogram Procedure Description Procedure Date Procedure Date: 06/09/2019 Procedure Start Time: 16:44 Procedure Staff Name Function Derrick Monroy MD Performing Physician April Spivey RT Manager Hi Chiquita Abernathy RN Nurse Yoni Egan RT Scrub Procedure Data Cath Procedure Fluoroscopy Diagnostic fluoroscopy Total fluoroscopy Time: 0.5 time: 0.5 min min Diagnostic fluoroscopy Total fluoroscopy dose: 32 dose: 32 mGy mGy Contrast Material Contrast Material Type Amount (ml) Isovue 300 30 Procedure Medications Medication Administration Route Dosage Heparin Flush Bag added to field 2 bags (1000units/500ml NS) Hemodynamics Rest BSA: 1.99 (m2) O2 Consumption: Estimated: 204.93 (ml/min) O2 Consumption indexed : Estimated:102.98 (ml/min/m) Heart Rate: 102 (bpm) Snapshots Pre Cath Intra NCS Post Cath Vital Signs Time Heart Resp etCO2 NIBP (mmHg) Rhythm Pain Sedation Rate (ipm) (mmHg) Status Level (bpm) 16:33:45 92 12 0 171/104(140) NSR 0 (11) 10(A) , No pain 16:38:04 92 12 0 168/108(133) NSR 0 (11) 10(A) , No pain 16:42:22 100 12 0 175/101(133) NSR 0 (11) 10(A) , No pain 16:46:42 97 13 17.2 174/98(136) NSR 0 (11) 10(A) , No pain 16:51:41 105 17 0 Measuring NSR 0 (11) 10(A) , No pain 16:51:59 90 13 0 177/104(129) NSR 0 (11) 10(A) , No pain Medications Time Medication Route Dose Verified Delivered Reason Notes Effec tiveness by by 16:45:06 Heparin Flush added 2 Derrick Derrick used for Bag to bags Monroy Monroy procedure (1000units/500ml field MD ALLEN NS) Procedure Log Time Note 15:57:06 Patient Height : 63 inches 15:57:06 Patient Weight : 214 lbs 15:57:12 Use device set IR Diagnostic 15:57:14 Tegaderm 4 x 4 (1626W) opened to sterile field. 15:57:15 Sterile Angiographic Pack opened to sterile field. 15:57:16 Bag Decanter (2002S) opened to sterile field. 16:06:04 Time tracking: Regular hours (M-F 7:00 - 5:00) 16:06:37 Plan of Care:Hemodynamics will remain stable., Cardiac rhythm will remain stable., Comfort level will be maintained., Respiratory function will remain adequate., Patient/ family verbilizes understanding of procedure., Procedure tolerated without complication., Recovers from procedure without complications.. 16:06:45 Patient received from ICU to IR Alert and oriented. Tansferred to table in Supine position. 16:06:59 Signed procedure consent form obtained from patient. 16:07:11 H&P Date Dictated: 06/09/2019 Within 30 days and on chart.. 16:07:16 Pre-procedure instructions explained to patient. 16:07:16 Pre-op teaching completed and patient verbalized understanding. 16:07:29 Patient NPO since Midnight. 16:07:47 Patient allergic to Other allergyniacin 16:07:52 - 16:07:52 ----Pre-sedation anethsthesia assessment.---- 16:08:01 Previous problem with sedation/anesthesia? No ? 16:08:04 Snore? Yes 16:08:06 Sleep apnea? No 16:08:09 Deviated septum? No 16:08:11 Opens mouth fully? Yes 16:08:14 Sticks out tongue? Yes 16:08:27 Airway obstruction? No but has heart stents 16:08:31 Dentures? No ? 16:08:39 Pre procedure: right dorsailis pedis pulse Doppler 16:08:52 Pre procedure: right posterior tibial pulse 0-Absent 16:09:01 Pre procedure: left dorsailis pedis pulse Doppler 16:09:06 Pre procedure: left posterior tibial pulse 0-Absent 16:10:58 Right groin area was prepped with betadine and draped in sterile fashio n 16:32:33 ECG and BP/O2 sat monitors applied to patient. 16:32:35 Vital chart was started 16:32:39 Baseline sample Acquired. 16:32:40 Full Disclosure recording started 16:32:41 - 16:43:23 Physician arrived 16:43:23 --------ALL STOP TIME OUT------ 16:43:24 Final Timeout: patient, procedure, and site verified with staff and physician. All members of the team are in agreement. 16:43:52 Fire Safety Assessment: A--An alcohol-based skin anteseptic being used preoperatively., C--Open oxygen or nitrous oxide is being used. 16:43:58 Right groin site verified by team. 16:44:08 Procedure started. 16:44:13 Angiography was performed. 16:45:06 Heparin Flush Bag (1000units/500ml NS) 2 bags added to field was administered by Derrick Monroy MD; used for procedure; Verbal order read back and verified. 16:48:28 Procedure ended.(Physican Out) 16:48:37 Fluoroscopy time 00.50 minutes. 16:48:42 Fluoroscopy dose: 32 mGy 16:48:42 Flurop Dose total: 32 16:49:19 Contrast amount:Isovue 300 30ml. 16:49:33 Procedure and supply charges have been captured, reviewed, submitted an d are correct. 16:50:30 Report given to ICU. 16:54:24 Vital chart was stopped Device Usage Item Name Manufacture Quantity Catalog Hospital Part Current Minimal Lot# / Number Charge Number Stock Stock Serial# Code Tegaderm 4 x 3M 1 1626W [id number] [id number] 5 4 (1626W) Sterile Cardinal 1 [id number] 5 Angiographic Health Pack Bag Decanter Microtek 1 2001S [id number] 47541 024962 5 () garbs. Signature Audit [place] Stage Time Signature Unsigned Intra-Procedure 06/09/2019 April Spivey 4:54:22 PM RT(R) [facility] [id number] [place] [address]
--- NOTE | ~2019-06-09 | HEMODYNAMI ---
PATIENT:MIRANDA FOWLER MEDICAL RECORD: [id number] : 44 LOCATION:[facility] D.2309 ADMISSION DATE: 06/09/19 Generatedon:06/09/20197:18 Patient name: MIRANDA FOWLER Patient #: [id number] SSN: [id number] B: 1940 Date of study: 06/09/2019 Page: Of Hemodynamic Procedure Report Patient Data Patient Demographics Procedure consent was obtained First Name: MIRANDA Gender: Female Last Name: JANETH : 1940 [facility] Initial: [place] Age: 78 year(s) Patient #: [id number] Race: Unknown Additional ID: [id number] Contact details [address]: [address] [place] [address] State: [place] City: [place] Zip code: [address] Past Medical History Allergies Allergen Reaction Date Comments Reported Other allergy 02/22/2019 niacin Other allergy 06/02/2019 niacin Other allergy 06/09/2019 niacin Admission Admission Data Admission Date: 06/09/2019 Admission Time: 3:59 Room #: D.2309 Height (in.): 63 BSA: 1.99 (m2) Height (cm.): 160.02 BMI: 37.91 (kg/m2) Weight (lbs.): 214 Weight (kg.): 97.07 Procedure Procedure Types Cath Procedure Peripheral Cath Diagnostic Procedure Print Line Tailer Peripheral Procedures Abd/Extremity Extremities Bilat Lower Extremity Procedure Description Procedure Date Procedure Date: 06/09/2019 Procedure Start Time: 4:59 Procedure Staff Name Function Grady Silva MD Performing Physician April Spivey RT Market Risk Manager Chiquita Abernathy RN Nurse Yoni Egan RT Scrub Procedure Data Cath Procedure Fluoroscopy Diagnostic fluoroscopy Total fluoroscopy Time: time: 17.6 min 17.6 min Diagnostic fluoroscopy Total fluoroscopy dose: 461 dose: 461 mGy mGy Contrast Material Contrast Material Type Amount (ml) Isovue 300 155 Procedure Medications Medication Administration Route Dosage Heparin Flush Bag added to field 3 bags (1000units/500ml NS) Lidocaine 1% added to field 20 Versed I.V. 1 mg Fentanyl I.V. 50 mcg Versed I.V. 1 mg Fentanyl I.V. 50 mcg Fentanyl I.V. 50 mcg Versed I.V. 1 mg unlisted medication 10 Heparin Bolus I.V. 5000 units Nitroglycerin IC/IA I.A. 200 mcg Versed I.V. 1 mg Fentanyl I.V. 50 mcg Nitroglycerin IC/IA I.A. 200 mcg TPA 0.5 Heparin Drip 600 units/hr (99568zuwkq/250 D5W) Hemodynamics Rest BSA: 1.99 (m2) O2 Consumption: Estimated: 215.51 (ml/min) O2 Consumption indexed : Estimated:108.3 (ml/min/m) Heart Rate: 116 (bpm) Snapshots Pre Cath Intra NCS Post Cath Vital Signs Time Heart Resp SPO2 etCO2 NIBP (mmHg) Rhythm Pain Sedation Rate (ipm) (%) (mmHg) Status Level (bpm) 4:49:10 91 15 93 13.5 156/96(120) NSR 0 (11) 10(A) , No pain 4:53:28 101 14 31.5 154/86(115) NSR 0 (11) 10(A) , No pain 4:58:27 93 16 100 25.5 Measuring NSR 0 (11) 10(A) , No pain 4:58:33 107 16 100 19.5 158/81(117) NSR 0 (11) 10(A) , No pain 5:02:51 98 16 100 24 154/81(126) NSR 0 (11) 10(A) , No pain 5:07:11 98 22 94 0 148/66(107) NSR 0 (11) 9(A) , No pain 5:11:34 91 15 100 28.5 131/63(83) NSR 0 (11) 9(A) , No pain 5:15:48 100 16 100 17.2 128/66(101) NSR 0 (11) 9(A) , No pain 5:20:47 102 17 100 24.7 Measuring NSR 0 (11) 9(A) , No pain 5:21:40 102 16 100 16.5 137/73(108) NSR 0 (11) 9(A) , No pain 5:25:56 94 18 100 0 139/71(104) NSR 0 (11) 8(A) , No pain 5:30:10 87 15 100 28.5 138/75(96) NSR 0 (11) 8(A) , No pain 5:34:28 95 17 100 14.2 133/64(84) NSR 0 (11) 8(A) , No pain 5:38:42 94 17 99 24.7 124/69(79) NSR 0 (11) 8(A) , No pain 5:42:54 81 15 97 24 130/67(84) NSR 0 (11) 8(A) , No pain 5:47:10 80 15 99 23.2 120/60(83) NSR 0 (11) 8(A) , No pain 5:51:22 90 15 98 29.2 118/60(105) NSR 0 (11) 8(A) , No pain 5:55:30 80 19 98 27.7 131/69(101) NSR 0 (11) 8(A) , No pain 5:59:44 79 17 99 0 125/69(100) NSR 0 (11) 8(A) , No pain 6:03:56 82 17 98 28.5 137/64(113) NSR 0 (11) 8(A) , No pain 6:08:10 69 17 16.5 144/70(107) NSR 0 (11) 8(A) , No pain 6:12:28 79 16 97 28.5 128/65(93) NSR 0 (11) 8(A) , No pain 6:16:42 96 15 98 24.7 142/59(93) NSR 0 (11) 8(A) , No pain 6:21:02 84 16 98 24 120/57(82) NSR 0 (11) 8(A) , No pain 6:25:10 90 18 98 23.2 131/70(100) NSR 0 (11) 8(A) , No pain 6:29:22 85 16 98 32.3 96/73(85) NSR 0 (11) 8(A) , No pain 6:33:23 97 13 100 27 115/67(107) NSR 0 (11) 8(A) , No pain 6:37:31 86 14 99 24.7 117/69(88) NSR 0 (11) 8(A) , No pain 6:41:39 84 15 94 29.2 121/54(86) NSR 0 (11) 8(A) , No pain 6:45:49 84 23 92 29.2 110/64(92) NSR 0 (11) 8(A) , No pain 6:49:55 78 11 93 12.7 119/69(99) NSR 0 (11) 8(A) , No pain 6:53:48 77 13 79 30.8 119/89(114) NSR 0 (11) 8(A) , No pain 6:57:54 99 16 98 10.5 141/79(119) NSR 0 (11) 8(A) , No pain 7:02:10 92 19 98 23.2 150/69(113) NSR 0 (11) 8(A) , No pain 7:07:09 80 17 98 27.7 Measuring NSR 0 (11) 8(A) , No pain 7:07:27 86 14 98 24.7 132/69(94) NSR 0 (11) 8(A) , No pain 7:11:39 92 17 98 26.3 113/78(92) NSR 0 (11) 8(A) , No pain 7:16:38 78 15 98 18 Measuring NSR 0 (11) 8(A) , No pain 7:17:36 96 15 98 21 157/82(98) NSR 0 (11) 8(A) , No pain Medications Time Medication Route Dose Verified Delivered Reason Notes Ef fectiveness by by 5:03:12 Heparin Flush added 3 bags Grady Rasmussen used for Bag to Ricardo Silva MD procedure (1000units/500ml field ALLEN NS) 5:03:23 Lidocaine 1% added 20ml Grady Rasmussen for local to vial Ricardo Silva MD anesthetic field ALLEN 5:03:36 Versed I.V. 1 mg Grady Porras for Josemanuel Silva RN sedation 5:03:48 Fentanyl I.V. 50 mcg Grady Porras for Josemanuel Silva RN sedation 5:22:16 Versed I.V. 1 mg Grady Porras for Josemanuel Silva RN sedation 5:22:26 Fentanyl I.V. 50 mcg Grady Porras for Josemanuel Silva RN sedation 5:43:29 Fentanyl I.V. 50 mcg Grady Porras for Josemanuel Silva RN sedation 5:43:35 Versed I.V. 1 mg Grady Porras for Josemanuel Silva RN sedation 5:45:19 CATHFLO IA 10MG Ricardo Troncoso MD MD 6:17:18 Heparin Bolus I.V. 5000 Grady Porras Per units Josemanuel Silva RN physician 6:27:34 Nitroglycerin I.A. 200 mcg Grady Rasmussen IC/IA Ricardo Silva MD MD 6:28:01 Versed I.V. 1 mg Grady Porras for Josemanuel Silva RN sedation 6:28:10 Fentanyl I.V. 50 mcg Grady Porras for Josemanuel Silva RN sedation 6:39:47 Nitroglycerin I.A. 200 mcg Grady Rasmussen IC/IA Ricardo Silva MD MD 7:16:32 TPA IA 0.5MG/HR Ricardo Troncoso MD MD 7:16:50 Heparin Drip IA 600 Grady Rasmussen (00727malmf/250 units/hr Ricardo Silva MD D5W) Procedure Log Time Note 4:18:16 Use device set IR Diagnostic 4:32:12 Patient Height : 63 inches 4:32:18 Patient Weight : 214 lbs 4:47:29 Micropuncture VSI 4FR kit opened to sterile field. 4:47:30 DOC .035 wire (E87997) opened to sterile field. 4:47:31 TUBING Contrast Injection High Pressure (MXL982W) opened to sterile field. 4:47:31 SHEATH 5FR [place] (PEZ482) opened to sterile field. 4:47:32 Tegaderm 4 x 4 (1626W) opened to sterile field. 4:47:33 Sterile Angiographic Pack opened to sterile field. 4:47:33 Bag Decanter (2001S) opened to sterile field. 4:47:34 ACIST Manifold (40037) opened to sterile field. 4:47:35 ACIST Hand Control (67478) opened to sterile field. 4:47:36 ACIST Syringe (72345) opened to sterile field. 4:47:41 4:47:45 Time tracking: Call back (After hours or weekends) 4:47:49 Patient arrives emergently. 4:47:53 Signed procedure consent form obtained from patient. 4:47:58 ECG and BP/O2 sat monitors applied to patient. 4:47:59 Vital chart was started 4:48:01 Baseline sample Acquired. 4:48:02 Full Disclosure recording started 4:48:03 4:48:12 H&P Date Dictated: 04/09/2019 Emergent; H&P N/A. 4:48:14 Pre-procedure instructions explained to patient. 4:48:15 Pre-op teaching completed and patient verbalized understanding. 4:48:18 Family unavailable. 4:48:21 Patient NPO since Midnight. 4:48:53 Patient allergic to Other allergyniacin 4:49:02 Is the patient allergic to Iodine/contrast media? No. 4:49:05 Is patient on blood thinner?Yes 4:49:10 ACC The patient was administered the following blood thiners within the last 24 hours: ACCHeparin 4:50:19 Patient diabetic? No. 4:50:25 ----Pre-sedation anethsthesia assessment.---- 4:50:28 Previous problem with sedation/anesthesia? No ? 4:50:31 Snore? Yes 4:50:35 Sleep apnea? No 4:50:37 Deviated septum? No 4:50:40 Opens mouth fully? Yes 4:50:42 Sticks out tongue? Yes 4:50:45 Airway obstruction? No ? 4:50:53 Dentures? Yes in secure 4:51:03 Pre procedure: right dorsailis pedis pulse Doppler 4:51:07 Pre procedure: left dorsailis pedis pulse Doppler 4:51:13 Pre procedure: right posterior tibial pulse 0-Absent 4:51:20 Pre procedure: left posterior tibial pulse 0-Absent 4:51:40 IV patent on arrival in left wrist with D5/.45%NaCl at KVO. 4:51:49 Right groin area was prepped with chlora-prep and draped in sterile fashion 4:51:51 4:52:00 Fire Safety Assessment: A--An alcohol-based skin anteseptic being used preoperatively., C--Open oxygen or nitrous oxide is being used. 4:52:24 Angiodynamics Omniflush 5Fr 65cm ([id number]) opened to sterile field. 4:52:43 MARTINI 260 wire (E72051) opened to sterile field. 4:58:29 Physician arrived 4:58:30 --------ALL STOP TIME OUT------ 4:58:31 Final Timeout: patient, procedure, and site verified with staff and physician. All members of the team are in agreement. 4:59:07 Procedure started. 4:59:11 Local anesthetic to right femoral artery with Lidocaine 1% by Grady Silva MD.INITIAL ACCESS ONLY 5:01:29 Baseline sample Acquired. 5:01:35 Baseline sample Acquired. 5:03:12 Heparin Flush Bag (1000units/500ml NS) 3 bags added to field was administered by Grady Silva MD; used for procedure; Verbal order read back and verified. 5:03:23 Lidocaine 1% 20ml vial added to field was administered by Grady Silva MD; for local anesthetic; Verbal order read back and verified. 5:03:36 Versed 1 mg I.V. was administered by Chiquita Abernathy RN; for sedation; Verbal order read back and verified. 5:03:48 Fentanyl 50 mcg I.V. was administered by Chiquita Abernathy RN; for sedation; Verbal order read back and verified. 5:07:47 GLIDE WIRE ANGLE 180cm (EW6558) opened to sterile field. 5:08:15 GLIDE CATHETER 5FR ANGLED 65cm (CG507) opened to sterile field. 5:15:35 SHEATH 6FR Destination (RSR01) opened to sterile field. 5:22:16 Versed 1 mg I.V. was administered by Chiquita Abernathy RN; for sedation; Verbal order read back and verified. 5:22:26 Fentanyl 50 mcg I.V. was administered by Chiquita bAernathy RN; for sedation; Verbal order read back and verified. 5:23:48 Indigo System Aspiration Catheter 6 opened to sterile field. 5:23:49 Indigo System Pump suction opened to sterile field. 5:25:16 CHOICE PT Extra Support J 300cm guide wire ([id number]) opened to sterile field. 5:28:13 Indigo System Separator 6 opened to sterile field. 5:28:25 COPILOT Valve Control (5991593) opened to sterile field. 5:43:29 Fentanyl 50 mcg I.V. was administered by Chiquita Abernathy RN; for sedation; Verbal order read back and verified. 5:43:35 Versed 1 mg I.V. was administered by Chiquita Abernathy RN; for sedation; Verbal order read back and verified. 5:45:19 CATHFLO 10MG IA was administered by Grady Silva MD; ; Verbal order read back and verified. 5:56:38 SPIDER EMBOLIC PROTECTION DEVICE 5MM ([id number]) opened to sterile field. 5:56:39 CXI Catheter 90cm (J15046) opened to sterile field. 5:56:40 GLIDE WIRE ANGLE 260cm (PD9248) opened to sterile field. 5:56:51 Angiojet Solent Omni 6Fr Catheter opened to sterile field. 6:11:23 SHEATH 6FR Destination (RSR01) opened to sterile field. 6:17:18 Heparin Bolus 5000 units I.V. was administered by Chiquita Abernathy RN; Per physician; Verbal order read back and verified. 6:19:54 INFLATOR BasixTOUCH (GU7396) opened to sterile field. 6:20:41 Inflate balloon Inflation number: 1 A Evercross 3 x 8 x 135 Balloon ([id number]) was prepped and advanced across the Undefined1 , then inflated . 6:27:34 Nitroglycerin IC/IA 200 mcg I.A. was administered by Grady Silva MD; ; Verbal order read back and verified. 6:28:01 Versed 1 mg I.V. was administered by Chiquita Abernathy RN; for sedation; Verbal order read back and verified. 6:28:10 Fentanyl 50 mcg I.V. was administered by Chiquita Abernathy RN; for sedation; Verbal order read back and verified. 6:31:46 Trailblazer 0.035 90cm catheter (ASC-035-090) opened to sterile field. 6:39:47 Nitroglycerin IC/IA 200 mcg I.A. was administered by Grady Silva MD; ; Verbal order read back and verified. 6:42:41 INFUSION CATHETER 10cm [facility] (3421112) opened to sterile field. 6:45:16 Inflate balloon Inflation number: 2 A NANOCROSS ELITE 2.5 X 120X 150 ([id number]) was prepped and advanced across the Undefined1 , then inflated . 7:15:49 Procedure ended.(Physican Out) 7:16:27 Fluoroscopy time 17.60 minutes. 7:16:31 Fluoroscopy dose: 461 mGy 7:16:31 Flurop Dose total: 461 7:16:32 TPA 0.5MG/HR IA was administered by Grady Silva MD; ; Verbal order read back and verified. 7:16:50 Heparin Drip (87226gohip/250 D5W) 600 units/hr IA was administered by Grady Silva MD; ; Verbal order read back and verified. 7:17:15 Contrast amount:Isovue 300 155ml. 7:17:19 Procedure and supply charges have been captured, reviewed, submitted and are correct. 7:17:44 Report given to ICU. 7:18:08 Vital chart was stopped Intervention Summary Intervention Notes Time ActionType Lesion and Equipment Used Action# Pressure Duration Attributes 6:20:41 Inflate Undefined1 Evercross 3 x 8 1 0 00:00 balloon x 135 Balloon ([id number]) 6:45:16 Inflate Undefined1 NANOCROSS ELITE 2 0 00:00 balloon 2.5 X 150X 150 ([id number]) Device Usage Item Name Manufacture Quantity Catalog Number Hospital Part Curr ent Minimal Lot# / Charge Number Stock Stock Serial# Code Micropuncture VSI VASCULAR 1 [id number] 667224 7535 33 5 VSI 4FR kit SOLUTIONS DOC .035 wire Cook Medical 1 [id number] 280572 9326 24 5 (T42479) TUBING Contrast [facility] Medical 1 [id number] 284294 406751 0541 81 5 Injection High Pressure (JEQ198K) SHEATH 5FR Terumo 1 HOU307 437011 602051 8846 18 5 [place] (UOI435) Tegaderm 4 x 4 3M 1 1626W 331481 799751 3592 69 5 (1626W) Sterile Cardinal 1 [id number] 469650 6113 43 5 Angiographic Health Pack Bag Decanter Microtek 1 778032 70644 9856 08 5 () Medical Inc. ACIST Manifold Acist Medical 1 87772 868975 830322 5688 76 5 (15428) Systems Inc ACIST Hand Acist Medical 1 15976 895553 324310 7829 60 5 Control (23383) Systems Inc ACIST Syringe Acist Medical 1 53309 462972 721300 1378 28 20 (40214) Systems Inc Angiodynamics Angiodynamics 1 11285913 376748 339062 9130 20 5 Omniflush 5Fr 65cm (61592252) MARTINI 260 wire Cook [employer] 1 B72289 771495 73143 9995 06 5 (O53772) GLIDE WIRE ANGLE Terumo 1 BC8471 007227 970121 6762 56 5 180cm (GE7966) GLIDE CATHETER Terumo 1 CG507 451737 1644 59 5 5FR ANGLED 65cm (CG507) SHEATH 6FR Terumo 2 RSR01 786125 30429 9995 77 5 Destination (RSR01) Indigo System Penumbra 1 CAT6 456313 791064 1235 89 1 Aspiration Catheter 6 Indigo System Penumbra 1 IAPS2 969150 33670 9999 986 1 Pump suction CHOICE PT Extra [place] 1 [id number] 429334 263477 9989 03 5 Support J 300cm Scientific guide wire (8233384Y7) Indigo System Penumbra 1 SEP6 498862 923440 7923 91 1 Separator 6 COPILOT Valve Zhou 1 0990827 065157 428348 3199 61 5 Control Vascular (7064818) SPIDER EMBOLIC Medtronic 1 [id number] 333096 1983 70 5 PROTECTION DEVICE 5MM ([id number]) CXI Catheter [facility] 1 Z53288 072295 289089 0470 93 5 6759215 90cm (J71170) GLIDE WIRE ANGLE Terumo 1 NA8318 802464 913555 6782 35 5 260cm (MV1917) Angiojet Solent [place] 1 545816-646 686988 955999 1829 84 1 Omni 6Fr Scientific Catheter INFLATOR Adjug 1 AK0670 915374 400124 9383 01 5 BasixTOUCH (TL1514) Evercross 3 x 8 Medtronic 1 [id number] 990831 033395 2298 94 5 x 135 Balloon ([id number]) Trailblazer Medtronic 1 ASC-035-090 665132 4092092 0500 85 5 0.035 90cm catheter (ASC-035-090) INFUSION Medtronic 1 24256-88 676794 8439 70 5 CATHETER 10cm Desiree-Rocío (7209464) NANOCROSS ELITE Medtronic 1 [id number] 810286 29267 9999 97 1 2.5 X 150X 150 ([id number]) Signature Audit [place] Stage Time Signature Unsigned Intra-Procedure 06/09/2019 April Spivey 7:18:03 AM RT(R) [address] [place] [address]
[2019-06-09 01:10] LABS: BASOPHILS 0.3 % (0-2); EOSINOPHILS 2.3 % (0-7); HEMATOCRIT 40.4 % (36.0-48.0); IMMATURE GRANULOCYTES 1.4 % (0-5); LYMPHOCYTES 14.5 % (15-50); MCH 29.7 pg (26.0-34.0); MCHC 32.2 g/dL (31.0-37.0); MCV 92.4 fL (80.0-100.0); MEAN PLATELET VOLUME 9.3 fL (7.4-10.4); MONOCYTES 8.3 % (2-11); NEUTROPHILS 73.2 % (40-80); RBC 4.37 10x6/uL (4.00-5.40); RDW 14.8 % (11.5-14.5); WBC 11.5 10x3/uL (4.8-10.8)
[2019-06-09 01:11] LABS: PLATELET COUNT 385 10x3/uL (130-400)
[2019-06-09 01:22] LABS: CALC OSMOLALITY 284 mosm/kg (275-300); CALCIUM 9.5 mg/dL (8.5-10.1); CARBON DIOXIDE 29.6 mmol/L (21.0-32.0); CHLORIDE - SERUM 104 mmol/L (98-107); CREATININE - SERUM 0.9 mg/dL (0.6-1.3); GLUCOSE 116 mg/dL (74-106); POTASSIUM - SERUM 3.8 mmol/L (3.5-5.1); SODIUM 141 mmol/L (136-145); UREA NITROGEN 21 mg/dL (7-18); eGFR NON AFRICAN AMERICAN 64 mL/min (90-120)
[2019-06-09 01:23] LABS: APTT 25.2 SECONDS (22.8-39.4); INR 1.06 (0.85-1.17); PROTIME 13.3 SECONDS (11.6-15.0)
--- NOTE | 2019-06-09 01:32 | NUR ---
PT TO RADIOLOGY
[2019-06-09 01:37] LABS: ALBUMIN 2.7 g/dL (3.4-5.0); ALKALINE PHOSPHATASE 84 U/L (46-116); ALT (SGPT) 16 U/L (10-68); BILIRUBIN - TOTAL 0.29 mg/dL (0.2-1.3); CKMB 0.4 U/L (0.0-3.6); CREATINE KINASE 40 UL (21-215); PROTEIN - SERUM 7.7 g/dL (6.4-8.2); TROPONIN-I < 0.017 ng/mL (0.000-0.060)
--- NOTE | 2019-06-09 02:10 | NUR ---
PT RETURNED FROM RADIOLOGY.
--- NOTE | 2019-06-09 03:22 | NUR ---
PT GIVEN BLANKETS, DENIES ANY FURTHER NEEDS AT THIS TIME. WILL CONTINUE TO MONITOR.
[2019-06-09] MEDS ORDERED: ULTRAM50 MG PO (04:04)
[2019-06-09] MEDS ORDERED: ANTIVERT12.5 MG PO (04:06)
[2019-06-09] MEDS ORDERED: BAYER CHEWABLE81 MG PO (04:06)
[2019-06-09] MEDS ORDERED: PROTONIX40 MG PO (04:07)
--- NOTE | 2019-06-09 07:30 | NUR ---
REC'D PATIENT FROM IR STAFF, AWAKE AND ORIENTED, CONNECTED TO ICU MONITORS, VSS, DENIES PAIN, O2 PLACED AT 2L NC, O2 SAT 92%, LEFT FA PIV WITH NS INFUSING AT 50 CC/HR, HEPARIN INFUSING THROUGH RIGHT GRION SHEATH AT 6 UNITS /HR AND TPA INFUSING AT 0.5MG/HR, RIGHT GROIN AREA NO HEMATOMA OR SWELLING NOTED, RT LOWR EXTREMETY WITH SKELETAL DEFORMITY, WARM WITH PALPABLE PEDAL PULSES, LEFT EXTREMTIY WITH COOL, DOPPLERED, NO PEDAL PULSE, BUT PT PULSE PRESENT, ASSESSMENT COMPLETED PER FLOWSHEET, WILL CONTINUE TO MONITOR
[2019-06-09 09:11] LABS: INR 1.13 (0.85-1.17)
[2019-06-09 09:17] LABS: APTT 69.9 SECONDS (22.8-39.4)
--- NOTE | 2019-06-09 09:35 | NUR ---
RECHECK OF LEFT PEDAL PULSE NEGATIVE, FOOT MORE MOTTLED, IR NOTIFIED
--- NOTE | 2019-06-09 10:00 | NUR ---
KULDEEP FROM IR AT BEDSIDE, DOPPLERED PEDAL PULSE, NEAGTIVE RESULT, RATE CHANGED ON TPA TO 1MH/HR PER ORDER
--- NOTE | 2019-06-09 11:00 | NUR ---
RESTING WITH NO SIGNS OF DISTRESS, VSS, DENIES PAIN, AWAITING RETRUN TO IR, CALL LIGHT IN REACH, NO NEEDS AT THIS TIME, NO ACUTE CHANGE FROM PREVIOUS ASSESSMENT
[2019-06-09 12:53] LABS: INR 1.13 (0.85-1.17)
[2019-06-09 12:54] LABS: BASOPHILS 0.3 % (0-2); EOSINOPHILS 2.2 % (0-7); HEMATOCRIT 37.9 % (36.0-48.0); HEMOGLOBIN 11.9 g/dL (12-16); IMMATURE GRANULOCYTES 1.2 % (0-5); LYMPHOCYTES 19.1 % (15-50); MCH 29.8 pg (26.0-34.0); MCHC 31.4 g/dL (31.0-37.0); MONOCYTES 8.9 % (2-11); NEUTROPHILS 68.3 % (40-80); PLATELET COUNT 341 10x3/uL (130-400); WBC 10.3 10x3/uL (4.8-10.8)
[2019-06-09 13:01] LABS: APTT 46.2 SECONDS (22.8-39.4); MCV 94.8 fL (80.0-100.0)
--- NOTE | 2019-06-09 15:00 | NUR ---
DAUGHTER AT BEDSIDE, STATUS UPDATED, AWAITING FOR PATIENT RETURN TO IR, PASSWORD ESTABLISHED, CORRY WITH A K! N ACUTE CHANGE FROM PREVIOUS
--- NOTE | 2019-06-09 16:00 | NUR ---
I AND O'S COMPLETED, BACK TO IR VIA BED WITH PERSONNEL X2, AWAKE AND OREINTED
--- NOTE | 2019-06-09 17:15 | NUR ---
BACK TO ROOM FROM IR, CONTINUES TO HAVE SHEATH IN RIGHT LEG, ONLY TPA IN FUSING, HEPARIN INFUSING THROUGH PIV, LEE IN PLACE TO GRAVITY, DRAINING CLEAR YELLOW TO BAG, REPOSITIONED FOR COMFORT, BLISTER TO RIGHT HEEL NOTED THAT HAS BURST, LEG IS ELEVATED AND HAS PALPABLE PULSES, NO LT PEDAL PULSE FOUND. WILL CONTINUE TO MONITOR
--- NOTE | 2019-06-09 17:38 | MORECARE ---
CASE MANAGEMENT DISCHARGE SUMMARY PATIENT: MIRANDA NATH [place] UNIT: [id number] ADM DATE: 06/09/19 AGE: 78 : 42 SEX: F ROOM/BED: D.2309 AUTHOR: CADY QUEVEDO PHYSICIAN: REFERRING PHYSICIAN: MOE TORRES MD DATE OF SERVICE: 06/09/19 Discharge Plan Patient Name: MIRANDA NATH [facility] [facility] 1940 Planned Disposition: Home Anticipated Discharge Date: Discharge Date: Expected LOS: Initial Reviewer: [email or web address] Initial Review Date: 06/09/2019 Generated: 06/09/19 6:38 pm DCPIA - Discharge Planning Initial Assessment Updated by [id number]: Maria Galarza on 06/09/19 5:34 pm * Is the patient Alert and Oriented? Yes * How many steps to enter\exit or inside your home? ramp * PCP Kate * [facility]acy [facility] * Preadmission Environment Home with Family * ADLs Independent * Other Equipment bsc, wheelchair, walker * List name and contact numbers for known caregivers / representatives who currently or will assist patient after discharge: Marily Nath daughter [phone] * Verbal permission to speak to the caregivers and representatives has been obtained from the patient. Yes * Community resources currently utilized Home Health * Please name any agencies selected above. [facility] * Additional services required to return to the preadmission environment? No * Can the patient safely return to the preadmission environment? Yes * Has this patient been hospitalized within the prior 30 days at any hospital? Yes Patient Name: MIRANDA NATH Page [phone] at 1738 All edits/amendments must be made on the electronic document DICTATION DATE: 06/09/191737 MONITOR TECHNICIAN: ANGUS 06/09/191737 RPT#: [id number] DC DATE: STATUS: ADM IN [facility] [address] [place] [address] END OF REPORT
--- NOTE | 2019-06-09 17:54 | MORECARE ---
CASE MANAGEMENT DISCHARGE SUMMARY PATIENT: MIRANDA NATH [place] UNIT: [id number] ADM DATE: 06/09/19 AGE: 78 : 42 SEX: F ROOM/BED: D.2309 AUTHOR: SAE,DOC PHYSICIAN: REFERRING PHYSICIAN: MOE TORRES MD DATE OF SERVICE: 06/09/19 Discharge Plan Patient Name: MIRANDA NATH Facility: [facility]:[place] : 1940 Planned Disposition: Home Anticipated Discharge Date: Discharge Date: Expected LOS: Initial Reviewer: [email or web address] Initial Review Date: 06/09/2019 Generated: 06/09/19 6:53 pm Comments DCP- Discharge Planning Updated by [email or web address]: Maria Galarza on 06/09/19 4:[address] Patient Name: MIRANDA NATH Admission Status: ER Accout number: [id number] Admission Date: 06-09-2019 : 1940 Admission Diagnosis: Attending: MOE TORRES Current LOS: 1 Anticipated DC Date: Planned Disposition: Home Primary Insurance: MEDICARE A & B Discharge Planning Comments: CM met with patient to complete initial dc planning assessment. CM educated patient on the CM role and verbal consent given by patient to complete assessment. Patient lives at home with her brother and daughter where she is independent with her care. At discharge patient plans to return home and feels this is a safe discharge. CM discussed availability of home health, rehab services, and medical equipment. Her daughter will be her bobcat driver/labor home. Patient states she has [facility] and plans to resume care with them. KONSTANTIN signed. Patient denied known discharge needs at this time. CM will continue to follow and will assist as needed with dc plans/needs. Guide Changer: Maria Galarza DCPIA - Discharge Planning Initial Assessment Updated by [email or web address]: Maria Galarza on 06/09/19 5:34 pm * Is the patient Alert and Oriented? Yes * How many steps to enter\exit or inside your home? ramp * PCP Kate * Pharmacy [facility] * Preadmission Environment Home with Family * ADLs Independent * Other Equipment bsc, wheelchair, walker * List name and contact numbers for known caregivers / representatives who currently or will assist patient after discharge: Marily Nath daughter [phone] * Verbal permission to speak to the caregivers and representatives has been obtained from the patient. Yes * Community resources currently utilized Home Health * Please name any agencies selected above. [facility] * Additional services required to return to the preadmission environment? No * Can the patient safely return to the preadmission environment? Yes * Has this patient been hospitalized within the prior 30 days at any hospital? Yes Last DP export: 06/09/19 4:38 Patient Name: MIRANDA NATH Page [phone] at 1754 All edits/amendments must be made on the electronic document DICTATION DATE: 06/09/191752 REGIONAL SALES CONSULTANT: ANGUS 06/09/191752 RPT#: [id number] DC DATE: STATUS: ADM IN [facility] [address] [place] [address] END OF REPORT
--- NOTE | 2019-06-09 18:48 | NUR ---
DR WILCOX CALLED TO CLARIFY HEPARIN ORDER. HE WANTS THE HEPARIN TO RUN AT 500 UNITS/HR CONTINUOUSLY IV.
--- NOTE | 2019-06-09 19:45 | NUR ---
BEDSIDE SHIFT REPORT COMPLETED, DR HER AT BEDSIDE NEW ORDERS RECEIVED
--- NOTE | 2019-06-09 20:10 | NUR ---
SHIFT ASSESSMENT COMPLETED SEE FLOWSHEET, PT DENIES PAIN, RESTING COMFORTABLY. ASLEEP BUT EASILY ROUSED BY VOICE. AAO X4 - CALL LIGHT WITHIN REACH, BED AT LOWEST POSITON. X2 SIDERAILS AND BED ALARM ON AND WORKING. VSS CPOC
--- NOTE | 2019-06-09 22:37 | NUR ---
REASSESSMENT COMPLETED, PATIENT DENIES PAIN, LLE DORSALIS PEDIS PRESENT WITH DOPPLER. NO NEEDS AT THIS TIME VSS CPOC
[2019-06-10] VITALS (25 sets, daily range): BP systolic 108–167; BP diastolic 67–111
[2019-06-10 04:04] LABS: BASOPHILS 0.1 % (0-2); EOSINOPHILS 0.1 % (0-7); HEMATOCRIT 39.5 % (36.0-48.0); IMMATURE GRANULOCYTES 1.4 % (0-5); LYMPHOCYTES 5.5 % (15-50); MCH 29.2 pg (26.0-34.0); MCHC 30.4 g/dL (31.0-37.0); MCV 96.1 fL (80.0-100.0); MEAN PLATELET VOLUME 9.7 fL (7.4-10.4); MONOCYTES 6.4 % (2-11); NEUTROPHILS 86.5 % (40-80); PLATELET COUNT 346 10x3/uL (130-400); RBC 4.11 10x6/uL (4.00-5.40); RDW 15.1 % (11.5-14.5)
[2019-06-10 04:11] LABS: CALCIUM 9.2 mg/dL (8.5-10.1); CARBON DIOXIDE 27.6 mmol/L (21.0-32.0); CHLORIDE - SERUM 105 mmol/L (98-107); GLUCOSE 137 mg/dL (74-106); MAGNESIUM - SERUM 1.8 mg/dL (1.8-2.4); PHOSPHOROUS 3.9 mg/dL (2.5-4.9); SODIUM 141 mmol/L (136-145)
[2019-06-10 04:13] LABS: CALC OSMOLALITY 281 mosm/kg (275-300); CREATININE - SERUM 0.6 mg/dL (0.6-1.3); POTASSIUM - SERUM 4.9 mmol/L (3.5-5.1); UREA NITROGEN 11 mg/dL (7-18); WBC 13.4 10x3/uL (4.8-10.8); eGFR NON AFRICAN AMERICAN > 90 mL/min (90-120)
--- NOTE | 2019-06-10 05:55 | NUR ---
PATIENT RECEIVED WARM BLANKET PER REQUEST
--- NOTE | 2019-06-10 06:37 | NUR ---
ASSIST PATIENT ON BEDPAN AT THIS TIME
--- NOTE | 2019-06-10 07:00 | NUR ---
REPORT RECEVIED FROM THE OFF GOING RN. SEE ASSESSMENT IN THE PTS FLOW SHEET. PT LYING ON HER BACK WITH HER LEGS STRAIGHT. AFIB RATE 110-120 NOTED. BP STABLE. R GROIN SHEET C/D/I. RLE PULSES DOPPERABLE WITH NO ISSUES. LLE DP PULSE FAINT BUT DOPPERABLE. PT PULSE DOPPERABLE WITH NO ISSUES. FC NOTED WITH YELLOW URINE. CALL LIGHT IN REACH. WILL CONT POC.
--- NOTE | 2019-06-10 08:43 | NUR ---
RESUME DIET PER DR TORRES
--- NOTE | 2019-06-10 09:34 | NUR ---
PT LEFT WITH IR TEAM IN A STABLE CONDITION.
--- NOTE | 2019-06-10 11:07 | NUR ---
PT ARRIVED BACK INTO THE UNIT. PULSE TO THE LLE PALPABLE. RLE REMAINS THE SAME. FINGER TIPS TO THE R HAND CYNOTIC. RADIAL PULSE PALPABLE. WILL CONT POC.
--- NOTE | 2019-06-10 12:03 | NUR ---
DR GARCIA AT THE PTS BEDSIDE. RIGHT HAND STILL SOMEWHAT CYONOTIC BUT CAP REFILL IS BETTER AND HAND IS BECOMING MORE PINK. PO MEDS GIVEN WITH NO ISSUES. IF HEART RATE REMAINS > 100 AFTER PO MEDS, CONSULT CARDIOLOGY.
--- NOTE | 2019-06-10 17:07 | NUR ---
DINNER TRAY PROVIDED FOR THE PT. NO CHANGES IN BLE PULSES. R GROIN SOFT TO PALP AND NO BRUISING NOTED. R HAND PINK WITH <3 SECOND CAP REFILL. WILL CONT POC.
--- NOTE | 2019-06-10 19:30 | NUR ---
SHIFT ASSESSMENT COMPLETED SEE FLOWSHEET
--- NOTE | 2019-06-10 23:30 | NUR ---
REASSESSMENT COMPLETED SEE FLOWSHEET
[2019-06-11] VITALS (11 sets, daily range): BP systolic 113–161; BP diastolic 76–96
--- NOTE | 2019-06-11 01:15 | NUR ---
LFOREARM IV INFILTRATED - DC WITH CATH INTACT
--- NOTE | 2019-06-11 03:24 | NUR ---
REASSESMENT COMPLETED NO CHANGES
--- NOTE | 2019-06-11 03:28 | NUR ---
RLE PULSE DOPPLER X2 - LLE PALP X2
--- NOTE | 2019-06-11 07:00 | NUR ---
BEDSIDE REPORT RECEIVED. SHIFT ASSESSMENT COMPLETED PER FLOWSHEET, SEE FLOWSHEET FOR INFORMATION. PT RECEIVING BREATHING TREATMENT FROM RT. PT DENIES ANY ACUTE NEEDS OR DISTRESS AT THIS TIME. VSS. WILL CONT TO MONITOR.
--- NOTE | 2019-06-11 09:00 | NUR ---
PT RESTING IN BED WITH EYES CLOSED. PUT PT ON BEDPAN. WILL CONT TO MONITOR.
--- NOTE | 2019-06-11 11:00 | NUR ---
REASSESSMENT COMPLETED PER FLOWSHEET, SEE FLOWSHEET FOR INFORMATION. PT DENIES ANY ACUTE NEEDS OR DISTRESS AT THIS TIME. VSS. WILL CONT TO MONITOR.
--- NOTE | 2019-06-11 13:00 | NUR ---
PT PUT ON BEDPAN. PARTIAL LINEN CHANGE COMPLETED. NO ACUTE NEEDS OR DISTRESS NOTED AT THIS TIME. WILL CONT TO MONITOR.
--- NOTE | 2019-06-11 15:00 | NUR ---
REASSESSMENT COMPLETED PER FLOWSHEET, SEE FLOWSHEET FOR INFORMATION. NO ACUTE NEEDS OR DISTRESS NOTED AT THIS TIME. WILL CONT TO MONITOR.
--- NOTE | 2019-06-11 16:35 | NUR ---
PER DR TORRES NOTE, TRANSFER PT TO FLOOR IF OKAY PER PULMONOLOGY. PER DR HER, OKAY TO TRANSFER TO FLOOR. WILL PLACE ORDERS.
--- NOTE | 2019-06-11 17:56 | NUR ---
REPORT CALLED TO TERRI IN MED SURG, PT TRASNFERING TO ROOM 2138. WILL CONT TO MONITOR.
--- NOTE | 2019-06-11 18:43 | NUR ---
PT TRANSFERRED TO ROOM 2138 AT THIS TIME VIA BED ACCOMPANIED BY HOSTPIAL STAFF WITH ALL PERSONAL ITEMS. VSS. NO ACUTE DISTRESS NOTED. NO FURTHER ACTIONS.
--- NOTE | 2019-06-11 20:52 | NUR ---
HS MEDS GIVEN WITH FRESH ICE WATER. PT DENIES PAIN OR NEEDS, BED LOW, CL IN REACH.
[2019-06-12] VITALS: BP 168/82
--- NOTE | 2019-06-12 02:52 | NUR ---
I have reviewed this patient and I concur with the Shift Assessment completed by the Licensed Practical Nurse today this shift.
--- NOTE | 2019-06-12 03:44 | NUR ---
RESTING WITH EYES CLOSED, RESPERATIONS EVEN, NO S/S DISTRESS NOTED.
[2019-06-12 06:13] LABS: CALC OSMOLALITY 281 mosm/kg (275-300); CALCIUM 8.9 mg/dL (8.5-10.1); CARBON DIOXIDE 27.3 mmol/L (21.0-32.0); CHLORIDE - SERUM 104 mmol/L (98-107); CREATININE - SERUM 0.6 mg/dL (0.6-1.3); GLUCOSE 138 mg/dL (74-106); POTASSIUM - SERUM 4.6 mmol/L (3.5-5.1); SODIUM 139 mmol/L (136-145); UREA NITROGEN 17 mg/dL (7-18); eGFR NON AFRICAN AMERICAN > 90 mL/min (90-120)
[2019-06-12 06:14] LABS: BASOPHILS 0.1 % (0-2); EOSINOPHILS 0 % (0-7); HEMOGLOBIN 10.8 g/dL (12-16); IMMATURE GRANULOCYTES 2.1 % (0-5); LYMPHOCYTES 6.7 % (15-50); MCH 29.4 pg (26.0-34.0); MCHC 31.8 g/dL (31.0-37.0); MCV 92.6 fL (80.0-100.0); MEAN PLATELET VOLUME 9.8 fL (7.4-10.4); NEUTROPHILS 88.1 % (40-80); PLATELET COUNT 409 10x3/uL (130-400); RBC 3.67 10x6/uL (4.00-5.40); WBC 15.9 10x3/uL (4.8-10.8)
--- NOTE | 2019-06-12 08:07 | NUR ---
ALERT AND ORIENTED. TELEMERTY SHOWS CAF 82. RIGHT HAND SL. LEE CATH TO BEDSIDE LENNY . STAGE 2 TO BUTTOCKS WITH MEPILEX DRSG AND SHE HAS A BLISTER TO RIGHT HEEL. SHE HAS A ISCHEMIC LEG. NO NEEDS VOICED. SR UP WITH CALL LIGHT IN REACH
--- NOTE | 2019-06-12 08:12 | NUR ---
ALERT AND ORIENTED. O2 AT 3 L/M PER HIGH FLOW NC. PT IS BEDFAST. RIGHT SIDE ABOVE WAIST IS HARD AND HAS CELLUITIS.YEAST IN SKIN FOLDS. PT IS ON AIR BED. WILL MONITOR
--- NOTE | 2019-06-12 14:05 | NUR ---
Nutrition Follow-up: Pt reports good appetite/PO intake. Ate ~75% of breakfast this AM and drank an Ensure. Diet: Cardiac Wt: 180# Last BM: 06/12 Labs noted: Glu 138 Meds noted: Solumedrol -Continue current diet as tolerated. -+Ensure with meals per pt request. -RD following.
--- NOTE | 2019-06-12 19:20 | NUR ---
SUPINE IN BED, A&O X 4. 2+ SWELLING NOTED TO BILAT LOWER EXTREMETIES. SKIN WARM TO TOUCH, CAPILLARY REFIL < 3 SECONDS. DRESSING TO RIGHT HEEL C/D/I. DENIES PAIN AT THIS TIME. WILL CONTINUE TO MONITOR.
[2019-06-12 20:00] VITALS: BP 138/73
[2019-06-13] VITALS: BP 147/75
--- NOTE | 2019-06-13 03:52 | NUR ---
I have reviewed this patient and I concur with the Shift Assessment completed by the Licensed Practical Nurse today this shift.
[2019-06-13 04:00] VITALS: BP 168/86
[2019-06-13 05:50] LABS: ANION GAP 13.6 mmol/L (8-16); CALCIUM 9.1 mg/dL (8.5-10.1); POTASSIUM - SERUM 4.6 mmol/L (3.5-5.1)
[2019-06-13 05:55] LABS: HEMATOCRIT 35.7 % (36.0-48.0); HEMOGLOBIN 11.4 g/dL (12-16); MCH 29.2 pg (26.0-34.0); MCHC 31.9 g/dL (31.0-37.0); MCV 91.5 fL (80.0-100.0); MEAN PLATELET VOLUME 9.7 fL (7.4-10.4); PLATELET COUNT 412 10x3/uL (130-400); RDW 14.8 % (11.5-14.5); WBC 23.3 10x3/uL (4.8-10.8)
--- NOTE | 2019-06-13 07:00 | NUR ---
RECEIVED BEDSIDE SHIFT REPORT. ASSUMED CARE OF PATIENT. PATIENT RESTING IN BED WITH EYES OPEN. DRESSING TO RIGHT LOWER EXT. LEFT LOWER EXT SLIGHT REDNESS NOTED. RESP EVEN AND UNLABORED. CALL LIGHT WITHIN REACH. NO DISTRESS.
--- NOTE | 2019-06-13 08:32 | NUR ---
SPOKE WITH REGARDING HIS NOTE STATING "PICC LINE" IN PLAN BUT THERE WAS NOT AN ORDER PLACED. IF WE ARE ABLE TO MAINTAIN AND GET A PERIPHERAL, HOLD OFF ON THE PICC BUT IF WE CANNOT GET A PERIPHERAL IV, ORDER A PICC FOR IV ABX. THANKED FOR CLARIFICATION.
[2019-06-13 09:01] VITALS: BP 163/106
[2019-06-13 10:13] LABS: HYPOCHROMASIA OCC; LYMPHOCYTES 14 % (15-50); MONOCYTES 8 % (2-11); NEUTROPHILS 74 % (40-80); PLATELET ESTIMATE INCREASED; ROULEAUX OCC
--- NOTE | 2019-06-13 11:26 | NUR ---
OOB TO CHAIR AT BEDSIDE. NO DISTRESS. CALL LIGHT WITHIN REACH.
[2019-06-13 13:25] VITALS: BP 167/96
--- NOTE | 2019-06-13 16:02 | NUR ---
PATIENT IN BED, RESTING PEACEFULLY. NO DISTRESS. CALL LIGHT WITHIN REACH. NO DISTRESS.
--- NOTE | 2019-06-13 17:12 | MORECARE ---
CASE MANAGEMENT DISCHARGE SUMMARY PATIENT: MIRANDA NATH [place] UNIT: [id number] ADM DATE: 06/09/19 AGE: 78 : 42 SEX: F ROOM/BED: D.2138 AUTHOR: SAE,DOC PHYSICIAN: REFERRING PHYSICIAN: MOE TORRES MD DATE OF SERVICE: 06/13/19 Discharge Plan Patient Name: [facility]IRANDA NATH [facility] [facility] 1940 Planned Disposition: Inpatient Rehab Anticipated Discharge Date: Discharge Date: Expected LOS: Initial Reviewer: [id number] Initial Review Date: 06/09/2019 Generated: 06/13/19 6:12 pm Comments DCP- Discharge Planning Updated by [email or web address]: Rafa Dean on 06/13/19 4:[address] Patient Name: MIRANDA NATH Encounter No: [id number] : 1940 Primary Insurance: MEDICARE A & B Anticipated DC Date: Planned Disposition: Inpatient Rehab External Planned Provider: [facility] INPATIENT REHAB DCP follow-up note: LIZZ REVIEWED CHART, NOTES THAT PT WILL NEED REHAB WHEN STABLE PRIOR TO RETURN HOME. LIZZ SPOKE TO DEL OF INPATIENT REHAB AT [facility] WHO INFORMED CM THAT PT HAS BEEN THERE BEFORE AND WOULD BE [facility] CANDIDATE IF SHE WOULD LIKE TO COME. LIZZ SPOKE TO PT IN ROOM, DISCUSSED INPATIENT REHAB PROVIDERS, LOCATIONS AND SERVICES. PT REPORTS SHE RECEIVED [facility] AND WOULD LIKE TO DISCHARGE TO THERE WHEN STABLE. IMPORTANT MESSAGE FROM MEDICARE PROVIDED AND EXPLAINED. PT WOULD LIKE INPATIENT REHAB AT [facility] WHEN STABLE. INPATIENT REHAB AT [facility] WILL SCREEN FOR ADMISSION WHEN ORDER FOR INPATIENT REHAB PRESCREEN IS RECEIVED. SOO Lynn DCP- Discharge Planning Updated by [email or web address]: Maria Galarza on 06/09/19 4:[address] Patient Name: MIRANDA NATH Admission Status: ER Accout number: [id number] Admission Date: 06-09-2019 : 1940 Admission Diagnosis: Attending: MOE TORRES Current LOS: 1 Anticipated DC Date: Planned Disposition: Home Primary Insurance: MEDICARE A & B Discharge Planning Comments: CM met with patient to complete initial dc planning assessment. CM educated patient on the CM role and verbal consent given by patient to complete assessment. Patient lives at home with her brother and daughter where she is independent with her care. At discharge patient plans to return home and feels this is a safe discharge. CM discussed availability of home health, rehab services, and medical equipment. Her daughter will be her local hazmat driver home. Patient states she has [facility] and plans to resume care with them. KONSTANTIN signed. Patient denied known discharge needs at this time. CM will continue to follow and will assist as needed with dc plans/needs. Graduate School Dean: Maria Galarza DCPIA - Discharge Planning Initial Assessment Updated by [email or web address]: Maria Galarza on 06/09/19 5:34 pm * Is the patient Alert and Oriented? Yes * How many steps to enter\exit or inside your home? ramp * PCP Kate * Pharmacy [facility] * Preadmission Environment Home with Family * ADLs Independent * Other Equipment bsc, wheelchair, walker * List name and contact numbers for known caregivers / representatives who currently or will assist patient after discharge: Marily Nath daughter [phone] * Verbal permission to speak to the caregivers and representatives has been obtained from the patient. Yes * Community resources currently utilized Home Health * Please name any agencies selected above. [facility] * Additional services required to return to the preadmission environment? No * Can the patient safely return to the preadmission environment? Yes * Has this patient been hospitalized within the prior 30 days at any hospital? Yes Coverage Notice Reviewer: [id number] Sal Dean Notice Issued Date-Time: 06/13/2019 17:00 Notice Type: IM Discharge Notice Notice Delivered To: Patient Relationship to Patient: Assistant Shift Supervisor Name: Delivery Method: HAND - Hand Delivered Leatha Days: Prior Verbal Notification: Recipient Understood Notice: Yes Recipient Signature: Yes Med Rec Note Co-signed by Attending: Coverage Notice Comment: Last DP export: 06/09/19 4:54 Patient Name: MIRANDA NATH Page [id number] at 1712 All edits/amendments must be made on the electronic document DICTATION DATE: 06/13/191711 SERVICE ADMINISTRATOR: ANGUS 06/13/191711 RPT#: [id number] DC DATE: STATUS: ADM IN [facility] [address] [place] [place] [address] END OF REPORT
[2019-06-13 17:15] VITALS: BP 157/99
--- NOTE | 2019-06-13 19:00 | NUR ---
EVENING ROUNDS COMPLETE. PT SITTING UP IN BED, AAOX4, NO SIGNS OF DISTRESS. PT DENIES ANY NEEDS AT THIS TIME. CL IN REACH, BED IN LOWEST POSITION.
[2019-06-13 20:00] VITALS: BP 174/90
[2019-06-14] VITALS: BP 169/95
[2019-06-14 06:27] VITALS: BP 158/94
--- NOTE | 2019-06-14 07:10 | NUR ---
PT LYING IN BED WITH HOB ELEVATED. EYES CLOSED. CHEST RISING AND FALLING. RIGHT HAND 22G IV SL. O2 AT 2L VIA NC. CONTROLLED AFIB ON THE MONITOR. LEE CATHETER DRAINING. BED LOW. CL IN REACH.
[2019-06-14 09:36] VITALS: BP 168/85
[2019-06-14 11:48] VITALS: Ht 160 cm; Wt 78.6 kg
[2019-06-14 13:05] VITALS: BP 173/86
--- NOTE | 2019-06-14 14:35 | NUR ---
PT IN LYING IN BED WITH HOB ELEVATED. WATCHING TV. PT STATES SHE HAS NO FURTHER NEEDS AT THIS TIME. BED LOW. CL IN REACH.
--- NOTE | 2019-06-14 14:45 | NUR ---
LEE CATHETER DC'D TUBING INTACT. PT TOLERATED WELL. PT STATES SHE INCONTINENT AT HOME AND DOES NOT KNOW WHEN SHE HAS TO USE THE BATHROOM OR WHEN SHE IS "WET". WILL CHECK PT TO SEE IF SHE URINATES.
[2019-06-14 17:08] LABS: IMMUNOGLOBULIN E 545 IU/mL (6-495)
[2019-06-14 18:01] VITALS: BP 171/88
--- NOTE | 2019-06-14 18:20 | NUR ---
PT HAD AN EPISODE OF URINE INCONTINENCE. BED CHANGE DONE.
--- NOTE | 2019-06-14 19:26 | NUR ---
EVENING ROUNDS COMPLETE. PT SITTING UP IN BED, NO SIGNS OF DISTRESS. AAOX4, PT DENIES ANY NEEDS AT THIS TIME. CL IN REACH, BED IN LOWEST POSITION.
[2019-06-14 20:00] VITALS: BP 175/93
[2019-06-15] VITALS: BP 162/99
[2019-06-15 04:00] VITALS: BP 169/93
[2019-06-15 05:36] LABS: CALC OSMOLALITY 283 mosm/kg (275-300); CALCIUM 8.7 mg/dL (8.5-10.1); CARBON DIOXIDE 30.2 mmol/L (21.0-32.0); CHLORIDE - SERUM 102 mmol/L (98-107); GLUCOSE 98 mg/dL (74-106); POTASSIUM - SERUM 4.1 mmol/L (3.5-5.1); SODIUM 139 mmol/L (136-145); UREA NITROGEN 29 mg/dL (7-18); eGFR NON AFRICAN AMERICAN 86 mL/min (90-120)
[2019-06-15 05:38] LABS: CREATININE - SERUM 0.7 mg/dL (0.6-1.3)
[2019-06-15 05:41] LABS: BASOPHILS 0.1 % (0-2); EOSINOPHILS 0 % (0-7); HEMATOCRIT 35.3 % (36.0-48.0); HEMOGLOBIN 11.2 g/dL (12-16); IMMATURE GRANULOCYTES 6.9 % (0-5); LYMPHOCYTES 6.4 % (15-50); MCHC 31.7 g/dL (31.0-37.0); MCV 91.5 fL (80.0-100.0); MEAN PLATELET VOLUME 9.6 fL (7.4-10.4); MONOCYTES 7.2 % (2-11); NEUTROPHILS 79.4 % (40-80); PLATELET COUNT 393 10x3/uL (130-400); RBC 3.86 10x6/uL (4.00-5.40); RDW 14.8 % (11.5-14.5); WBC 27.8 10x3/uL (4.8-10.8)
[2019-06-15 09:25] VITALS: BP 190/90
[2019-06-15 13:08] VITALS: BP 188/93
[2019-06-15 16:00] VITALS: BP 138/84
--- NOTE | 2019-06-15 19:03 | NUR ---
AROUSES WITH VOICE AND IS ALERT AND OX4 ASSISTED WITH BED CHANGE PT IS INCONTINANT OF URINE BED LOW AND LOCKED SRX2 AND CALL LIGHT WITH PT
[2019-06-16] VITALS: BP 170/102
--- NOTE | 2019-06-16 02:45 | NUR ---
I have reviewed this patient and I concur with the Shift Assessment completed by the Licensed Practical Nurse today this shift.
[2019-06-16 04:00] VITALS: BP 156/87
[2019-06-16 06:12] LABS: HEMATOCRIT 40.7 % (36.0-48.0); HEMOGLOBIN 12.8 g/dL (12-16); MCH 29.2 pg (26.0-34.0); MCHC 31.4 g/dL (31.0-37.0); MCV 92.9 fL (80.0-100.0); MEAN PLATELET VOLUME 9.5 fL (7.4-10.4); PLATELET COUNT 406 10x3/uL (130-400); RBC 4.38 10x6/uL (4.00-5.40); RDW 15.1 % (11.5-14.5)
[2019-06-16 06:37] LABS: EOSINOPHILS 2 % (0-7); LYMPHOCYTES 14 % (15-50); MONOCYTES 2 % (2-11); NEUTROPHILS 80 % (40-80); PLATELET ESTIMATE NORMAL
--- NOTE | 2019-06-16 08:37 | NUR ---
RIGHT HAND 222G IV LEAKING. DC'D WITH CATH INTACT.
[2019-06-16 08:50] VITALS: BP 173/77
--- NOTE | 2019-06-16 09:44 | NUR ---
Rehab Prescreening Consult recieved and the chart has been reviewed. She is a good rehab candidate and has agreed to participate in the required therapy. She will be accepted today if the physician agrees. Discussed with the CM Laurent Dean. Poppy Peace RN Clinical Liaison, Rehab
--- NOTE | 2019-06-16 09:50 | NUR ---
REHAB WILL ACCEPT PT IF MD OR NURSE PUTS IN NOTE FROM MD THAT PT'S HIGH WBC IS SECONDARY TO STEROIDS. DR. TORRES NOT VOCATIONAL DIRECTOR. DR. RUDOLPH PAGED.
--- NOTE | 2019-06-16 09:53 | MORECARE ---
CASE MANAGEMENT DISCHARGE SUMMARY PATIENT: MIRANDA NATH [place] UNIT: [id number] ADM DATE: 06/09/19 AGE: 78 : 42 SEX: F ROOM/BED: D.2138 AUTHOR: CADY QUEVEDO PHYSICIAN: REFERRING PHYSICIAN: MOE TORRES MD DATE OF SERVICE: 06/16/19 Discharge Plan Patient Name: MIRANDA NATH [facility] [facility] 1940 Planned Disposition: Inpatient Rehab Anticipated Discharge Date: 06/16/19 Discharge Date: Expected LOS: 7 Initial Reviewer: [id number] Initial Review Date: 06/09/2019 Generated: 06/16/19 10:53 am Comments DCP- Discharge Planning Updated by [id number]: Rafa Dean on 06/13/19 4:[address] Patient Name: MIRANDA NATH Encounter No: [id number] : 1940 Primary Insurance: MEDICARE A & B Anticipated DC Date: Planned Disposition: Inpatient Rehab External Planned Provider: [facility] INPATIENT REHAB DCP follow-up note: LIZZ REVIEWED CHART, NOTES THAT PT WILL NEED REHAB WHEN STABLE PRIOR TO RETURN HOME. LIZZ SPOKE TO DEL OF INPATIENT REHAB AT [facility] WHO INFORMED CM THAT PT HAS BEEN THERE BEFORE AND WOULD BE [facility] REHAB CANDIDATE IF SHE WOULD LIKE TO COME. LIZZ SPOKE TO PT IN ROOM, DISCUSSED INPATIENT REHAB PROVIDERS, LOCATIONS AND SERVICES. PT REPORTS SHE RECEIVED [facility] AT [facility]PATIENT [facility] AND WOULD LIKE TO DISCHARGE TO THERE WHEN STABLE. IMPORTANT MESSAGE FROM MEDICARE PROVIDED AND EXPLAINED. PT WOULD LIKE INPATIENT REHAB AT [facility] WHEN STABLE. INPATIENT REHAB AT [facility] WILL SCREEN FOR ADMISSION WHEN ORDER FOR INPATIENT REHAB PRESCREEN IS RECEIVED. SOO Lynn DCP- Discharge Planning Updated by [id number]: Maria Galarza on 06/09/19 4:[address] Patient Name: MIRANDA NATH Admission Status: ER Accout number: [id number] Admission Date: 06-09-2019 : 1940 Admission Diagnosis: Attending: MOE TORRES Current LOS: 1 Anticipated DC Date: Planned Disposition: Home Primary Insurance: MEDICARE A & B Discharge Planning Comments: CM met with patient to complete initial dc planning assessment. CM educated patient on the CM role and verbal consent given by patient to complete assessment. Patient lives at home with her brother and daughter where she is independent with her care. At discharge patient plans to return home and feels this is a safe discharge. CM discussed availability of home health, rehab services, and medical equipment. Her daughter will be her electric pile driver operator home. Patient states she has [facility] and plans to resume care with them. KONSTANTIN signed. Patient denied known discharge needs at this time. CM will continue to follow and will assist as needed with dc plans/needs. Junior Java Developer: Maria Galarza DCPIA - Discharge Planning Initial Assessment Updated by [id number]: Maria Galarza on 06/09/19 5:34 pm * Is the patient Alert and Oriented? Yes * How many steps to enter\exit or inside your home? ramp * PCP Kate * Pharmacy [facility] * Preadmission Environment Home with Family * ADLs Independent * Other Equipment bsc, wheelchair, walker * List name and contact numbers for known caregivers / representatives who currently or will assist patient after discharge: Marily Nath daughter [phone] * Verbal permission to speak to the caregivers and representatives has been obtained from the patient. Yes * Community resources currently utilized Home Health * Please name any agencies selected above. [facility] * Additional services required to return to the preadmission environment? No * Can the patient safely return to the preadmission environment? Yes * Has this patient been hospitalized within the prior 30 days at any hospital? Yes Coverage Notice Reviewer: [email or web address] Sal Dean Notice Issued Date-Time: 06/13/2019 17:00 Notice Type: IM Discharge Notice Notice Delivered To: Patient Relationship to Patient: Elementary Special Education Teacher Name: Delivery Method: HAND - Hand Delivered Leatha Days: Prior Verbal Notification: Recipient Understood Notice: Yes Recipient Signature: Yes Med Rec Note Co-signed by Attending: Coverage Notice Comment: Reviewer: [id number] Sal Dean Notice Issued Date-Time: 06/16/2019 9:45 Notice Type: IM Discharge Notice Notice Delivered To: Patient Relationship to Patient: Elementary Special Education Teacher Name: Delivery Method: HAND - Hand Delivered Leatha Days: Prior Verbal Notification: Recipient Understood Notice: Yes Recipient Signature: Yes Med Rec Note Co-signed by Attending: Coverage Notice Comment: Last DP export: 06/13/19 4:12 Patient Name: MIRANDA NATH Page [id number] at 0953 All edits/amendments must be made on the electronic document DICTATION DATE: 06/16/19952 ELECTRIFICATION ADVISER: ANGUS 06/16/19952 RPT#: [id number] DC DATE: STATUS: ADM IN [facility] [address] [place] [address] END OF REPORT
--- NOTE | 2019-06-16 10:02 | MORECARE ---
CASE MANAGEMENT DISCHARGE SUMMARY PATIENT: MIRANDA NATH [place] UNIT: [id number] ADM DATE: 06/09/19 AGE: 78 : 42 SEX: F ROOM/BED: D.2138 AUTHOR: CADY QUEVEDO PHYSICIAN: REFERRING PHYSICIAN: MOE TORRES MD DATE OF SERVICE: 06/16/19 Discharge Plan Patient Name: MIRANDA NATH Facility: [facility]:[place] : 1940 Planned Disposition: Inpatient Rehab Anticipated Discharge Date: 06/16/19 Discharge Date: Expected LOS: 7 Initial Reviewer: [email or web address] Initial Review Date: 06/09/2019 Generated: 06/16/19 11:01 am Comments DCP- Discharge Planning Updated by [id number]: Rafa Dean on 06/16/19 8:[address] Patient Name: MIRANDA NATH Encounter No: [id number] : 1940 Primary Insurance: MEDICARE A & B Anticipated DC Date: 06-16-2019 Planned Disposition: Inpatient Rehab External Planned Provider: [facility] INPATIENT REHAB DCP follow-up note: CM RECEIVED INPATIENT REHAB PRESCREENING ORDER, SPOKE TO [facility] OF INPATIENT REHAB, THEY PLAN TO ACCEPT PT TODAY FOR REHAB IF THE DOCTOR WILL ADDRESS THE ELEVATED WHITE BLOOD CELL COUNT. CM NOTIFIED BEDSIDE NURSE. PT NOTIFIED, IN AGREEMENT WITH DISCHARGE TO INPATIENT REHAB. PT HAS NOTIFIED HER DAUGHTER. IMPORTANT MESSAGE FROM MEDICARE PROVIDED AND EXPLAINED. NOTIFY [facility] INPATIENT REHAB WHEN DISCHARGE ORDER IS RECEIVED TODAY, 06-16-19. [facility] INPATIENT REHAB TO CONTACT MED 2 NURSE WITH ROOM NUMBER WHEN READY TO ACCEPT PT AND NURSE REPORT. Rafa Dean, CASE MANAGEMENT DCP- Discharge Planning Updated by [id number]: Rafa Dean on 06/13/19 4:[address] Patient Name: MIRANDA NATH Encounter No: [id number] : 1940 Primary Insurance: MEDICARE A & B Anticipated DC Date: Planned Disposition: Inpatient Rehab External Planned Provider: [facility] INPATIENT REHAB DCP follow-up note: CM REVIEWED CHART, NOTES THAT PT WILL NEED REHAB WHEN STABLE PRIOR TO RETURN HOME. CM SPOKE TO DEL OF INPATIENT REHAB AT [place] WHO INFORMED CM THAT PT HAS BEEN THERE BEFORE AND WOULD BE GOOD REHAB CANDIDATE IF SHE WOULD LIKE TO COME. CM SPOKE TO PT IN ROOM, DISCUSSED INPATIENT REHAB PROVIDERS, LOCATIONS AND SERVICES. PT REPORTS SHE RECEIVED [facility] AT [facility] INPATIENT REHAB AND WOULD LIKE TO DISCHARGE TO THERE WHEN STABLE. IMPORTANT MESSAGE FROM MEDICARE PROVIDED AND EXPLAINED. PT WOULD LIKE INPATIENT REHAB AT [place] [facility] WHEN STABLE. INPATIENT REHAB AT [place] WILL SCREEN FOR ADMISSION WHEN ORDER FOR INPATIENT REHAB PRESCREEN IS RECEIVED. Rafa Dean, CASE MANAGEMENT DCP- Discharge Planning Updated by [id number]: Maria Galarza on 06/09/19 4:[address] Patient Name: MIRANDA NATH Admission Status: ER Accout number: [id number] Admission Date: 06-09-2019 : 1940 Admission Diagnosis: Attending: MOE TORRES Current LOS: 1 Anticipated DC Date: Planned Disposition: Home Primary Insurance: MEDICARE A & B Discharge Planning Comments: CM met with patient to complete initial dc planning assessment. CM educated patient on the CM role and verbal consent given by patient to complete assessment. Patient lives at home with her brother and daughter where she is independent with her care. At discharge patient plans to return home and feels this is a safe discharge. CM discussed availability of home health, rehab services, and medical equipment. Her daughter will be her package car driver home. Patient states she has [facility] and plans to resume care with them. KONSTANTIN signed. Patient denied known discharge needs at this time. CM will continue to follow and will assist as needed with dc plans/needs. Ad Operations Coordinator: Maria Galarza DCPIA - Discharge Planning Initial Assessment Updated by [id number]: Maria Galarza on 06/09/19 5:34 pm * Is the patient Alert and Oriented? Yes * How many steps to enter\exit or inside your home? ramp * PCP Kate * [facility] * Preadmission Environment Home with Family * ADLs Independent * Other Equipment bsc, wheelchair, walker * List name and contact numbers for known caregivers / representatives who currently or will assist patient after discharge: Marily Nath daughter [phone] * Verbal permission to speak to the caregivers and representatives has been obtained from the patient. Yes * Community resources currently utilized Home Health * Please name any agencies selected above. [facility] * Additional services required to return to the preadmission environment? No * Can the patient safely return to the preadmission environment? Yes * Has this patient been hospitalized within the prior 30 days at any hospital? Yes Coverage Notice Reviewer: [id number] Sal Dean Notice Issued Date-Time: 06/13/2019 17:00 Notice Type: IM Discharge Notice Notice Delivered To: Patient Relationship to Patient: Compressor Station Chief Engineer Name: Delivery Method: HAND - Hand Delivered Leatha Days: Prior Verbal Notification: Recipient Understood Notice: Yes Recipient Signature: Yes Med Rec Note Co-signed by Attending: Coverage Notice Comment: Reviewer: [id number] Sal Dean Notice Issued Date-Time: 06/16/2019 9:45 Notice Type: IM Discharge Notice Notice Delivered To: Patient Relationship to Patient: Compressor Station Chief Engineer Name: Delivery Method: HAND - Hand Delivered Leatha Days: Prior Verbal Notification: Recipient Understood Notice: Yes Recipient Signature: Yes Med Rec Note Co-signed by Attending: Coverage Notice Comment: Last DP export: 06/16/19 8:53 Patient Name: MIRANDA NATH Page 16869 at 1002 All edits/amendments must be made on the electronic document DICTATION DATE: 06/16/19 1001 MANAGER COMMERCIAL: ANGUS 06/16/19 1001 RPT#: [id number] DC DATE: STATUS: ADM IN [facility] [address] [place] [address] END OF REPORT
--- NOTE | 2019-06-16 10:15 | NUR ---
SPOKE WITH DR. FAITH AND HE STATES HE WILL BE BY SHORTLY AND WILL LOOK AT PT'S CHART. I VERBALIZED UNDERSTANDING. STATED THIS TO SONYA SOLAR SALES ENERGY ADVISOR.
[2019-06-16] MEDS ORDERED: VIBRAMYCIN 100100 MG PO (12:24)
[2019-06-16] MEDS ORDERED: Xopenex 0.63 MG INH INH ×2 (12:25→12:26)
[2019-06-16] MEDS ORDERED: ELIQUIS5 MG PO (12:25)
[2019-06-16] MEDS ORDERED: BROVANA15 MCG/2 M INH (12:26)
[2019-06-16] MEDS ORDERED: TESSALON PERLE100 MG PO (12:27)
[2019-06-16] MEDS ORDERED: PULMICORT0.5 MG/21 UPD (12:27)
[2019-06-16] MEDS ORDERED: FLUTICASONE PRO16 GM NASAL (12:28)
[2019-06-16] MEDS ORDERED: PREDNISONE20 MG PO (12:30)
[2019-06-16 13:42] VITALS: BP 168/79
--- NOTE | 2019-06-16 13:55 | NUR ---
Nutrition Follow Up: Met with patient. She stated that her appetite is okay. Denied N/V/D/C. She drinks her ensures. Patient has been eating well. PO Intake: 83% x 9 meals Diet: AHA Diet- Ensure w/ meals BM x 2 on 06/14 Clinical Dietitian to continue following
--- NOTE | 2019-06-16 15:29 | NUR ---
CALLED REPORT TO STEPHEN ANDRADE IN REHAB. PT IS TO GO TO 6948-B.
--- NOTE | 2019-06-16 15:49 | NUR ---
DISCHARGE INSTRUCTIONS GIVEN AND EXPLAINED TO PT. PT HAS NO FURTHER QUESTIONS. CHART COPY SIGNED. PT TAKEN DOWN TO REHAB TO ROOM 1108-B VIA WC BY BLAYNE.
== END 2019-06-16 15:50 | DRG 271 ==
LOC: D.ER 00:40 → D.ICU 03:59 → D.M2 03:59
PROVIDERS: Family Medicine; General Practice; Internal Medicine Pulmonary Disease; Specialist; ADMIT Family Medicine; ATTEND Family Medicine
PROC: 04CL3ZZ Extirpation of Matter from Left Femoral Artery, Percutaneous Approach (ICD-10-PCS; 2019-06-09)
PROC: 047U3ZZ Dilation of Left Peroneal Artery, Percutaneous Approach (ICD-10-PCS; 2019-06-09)
PROC: B41G1ZZ Fluoroscopy of Left Lower Extremity Arteries using Low Osmolar Contrast (ICD-10-PCS; 2019-06-09)
PROC: 3E05317 Introduction of Other Thrombolytic into Peripheral Artery, Percutaneous Approach (ICD-10-PCS; principal; 2019-06-09 04:30)
PROC: 04CQ3ZZ Extirpation of Matter from Left Anterior Tibial Artery, Percutaneous Approach (ICD-10-PCS; 2019-06-10)
PROC: 047N3ZZ Dilation of Left Popliteal Artery, Percutaneous Approach (ICD-10-PCS; 2019-06-10)
DX: I74.3 Embolism and thrombosis of arteries of the lower extremities (principal); I48.20 Chronic atrial fibrillation, unspecified; J44.0 Chronic obstructive pulmonary disease with (acute) lower respiratory infection; L03.116 Cellulitis of left lower limb; I70.209 Unspecified atherosclerosis of native arteries of extremities, unspecified extremity; I10 Essential (primary) hypertension; I25.10 Atherosclerotic heart disease of native coronary artery without angina pectoris; J45.909 Unspecified asthma, uncomplicated; F41.8 Other specified anxiety disorders; Z87.891 Personal history of nicotine dependence; I08.1 Rheumatic disorders of both mitral and tricuspid valves; J20.9 Acute bronchitis, unspecified

== ENCOUNTER 2019-06-16 15:07 | Inpatient (IN) | payer MEDICARE, OTHER ==
[~2019-06-16] VITALS: Ht 160 cm; Wt 78.9 kg
--- NOTE | ~2019-06-16 | RHP ---
PATIENT: MIRANDA FOWLER MEDICAL RECORD: [id number] ACCOUNT: [id number] LOCATION:[facility] : 42 ADMISSION DATE: 06/16/19 REHABILITATION HISTORY AND PHYSICAL EXAMINATION POST ADMISSION PHYSICIAN EXAMINATION ADMITTING DIAGNOSES: Debility secondary to peripheral arterial occlusion, status post thrombolysis and percutaneous transluminal angioplasty. HISTORY OF PRESENT ILLNESS: The patient is a 78-year-old female patient who arrived via ambulance on 06/09/2019, complaining of sudden onset of left foot and left lower leg pain, started at approximately 11:30. She had just recently had a left lower extremity arteriogram and arthrectomy by Dr. Duke on 06/02/2019. She was kept overnight on heparin drip and discharged to home the following day. On exam, she had a left lower leg that was swollen and had pitting edema. She had delayed capillary refill and pulse abnormality noted. Peripheral pulses were most absent in the tibialis anterior. Interventional radiology was consulted. They took the patient to the lab for a suction thrombectomy, CARE ADVOCATE of the plantar artery, pedal loop and deep dorsalis pedis to occlusive clot in the mid CONSTANTINO removed and a 6-Sinhala thrombectomy. The patient had good return from this. Pulmonary was consulted secondary to her shortness of breath and a week history of upper respiratory infection nonproductive cough. She was treated with neb treatments, Xopenex, Atrovent, budesonide, Brovana, IV steroids, nasal steroids and Singulair. Her O2 was titrated. She is placed on mucolytics and antitussives and flutter valve. She continued to improve successfully after occlusion of this leg after thrombectomy and thrombolysis with christian of 3-vessel runoff noted to her left foot. She was restarted on p.o. anticoagulants and transferred out of the ICU to telemetry bed. Previously, she was living with her daughter, was moderately independent with rolling walker and has been independent with ADLs. Currently, she is mod to max assist for ADLs and mobility. She has had prolonged immobility affecting her response to PT. She has been titrated on O2 to 2 liters. compliance monitor shows chronic AFib with controlled rate. She has had weakness in her lower extremities and increased dyspnea. She would like to regain her strength and actually return home. She will need inpatient rehabilitation to do so. COMORBIDITIES: Include ischemia of the left lower extremity, peripheral vascular disease, chronic atrial fib, coronary artery disease, angioplasty, acute exacerbation of COPD, leukocytosis, pleural effusion, weakness, fibro, dyspnea, depression and anxiety. PAST MEDICAL HISTORY: Significant for vertigo. She has got a history of hard of hearing. She has got a history of peripheral arterial disease, coronary artery disease, atrial fib, arthritis, osteoporosis, degenerative disc disease, fibromyalgia, got a history of shingles in the past. PAST SURGICAL HISTORY: Includes a total abdominal hysterectomy, bilateral salpingo-oophorectomy. She has had right knee replacement. She has had a deviated septum repair, carpal tunnel, has some skin tumors removed, fasciotomy, had a tonsillectomy and ORIF of her right humerus. ALLERGIES: NIACIN. CURRENT MEDICATIONS: Include prednisone, she is on a tapering dosage. She is on Exelon transdermal patch 9.5 mg daily. She is on Singulair 10 mg daily, HISTORY AND PHYSICAL [id number] MIRANDA FOWLER KRISTIAN hydrochlorothiazide 25 mg daily, Flonase 2 sprays daily. She is on Cymbalta 90 mg daily, diltiazem 360 mg daily, aspirin chewable 81 mg daily, Protonix 40 mg daily. She is on doxycycline 100 mg b.i.d. She is on metoprolol 50 mg b.i.d., Zetia 10 mg at bedtime. She is on Eliquis 5 mg b.i.d., Xopenex updraft, budesonide 0.5 mg b.i.d., Brovana 15 mcg b.i.d., Xopenex 0.63 mg as needed, tramadol 50 mg every 6 hours p.r.n., meclizine 12.5mg q.i.d. p.r.n. dizziness and Tessalon Perles 100 mg t.i.d. p.r.n. HABITS: No current alcohol or tobacco use. FAMILY HISTORY: Noncontributory. SOCIAL HISTORY: The patient hopes to return back home and get back to her prior level of functioning. REVIEW OF SYSTEMS: GENERAL: She does complain of some weakness and fatigue. HEENT: Denies cold, cough, or congestion. CARDIOVASCULAR: Denies any chest pain. PHYSICAL EXAMINATION: VITAL SIGNS: Stable, afebrile. GENERAL: An elderly female, in no acute distress, alert upon exam. HEENT: Normocephalic and atraumatic. Mucosa moist. NECK: Supple. No lymphadenopathy. LUNGS: Clear in upper sosa with decreased breath sounds in the bases. HEART: Irregular rate and rhythm. ABDOMEN: Soft, benign, and nondistended. Positive bowel sounds times 4. EXTREMITIES: She does have changes consistent with peripheral vascular disease, but has good pulses in her left lower extremity. NEUROLOGIC: She does have noted decreased strength. LABORATORY DATA: White count is 30,600. Her H&H are 12 and 37, and platelet count is 341. Her sodium is 141, potassium 3.9, BUN and creatinine of 19 and 0.5 and blood sugar is noted to be 74. ASSESSMENT: A 78-year-old female patient admitted to rehab with a working diagnosis of debility secondary to recent peripheral vascular disease requiring thrombectomy and treatment. The patient has potential to make improvement. We instituted the following multidisciplinary therapies including, but not limited to physical, occupational, respiratory, speech, nutritional services, prosthetics and orthotics. Given her complex medical condition and complications, rehabilitation services cannot be provided at a low level of care such as skilled nurse facility. PLAN: 1. Admit to [facility] for intensive inpatient therapy to include the following disciplines: A. Physical therapy to improve gait, all transfer skills and bed mobility to a modified independent level. B. Occupational therapy to a modified independent level. C. Case management to assist with discharge planning and placement options. D. Nutrition to assist with nutritional needs. E. Rehabilitation nursing to assist in monitoring the patient's underlying medical conditions and to assist with any type of bowel or bladder management. HISTORY AND PHYSICAL [id number] MIRANDA FOWLER 2. The patient's current medication and medical care will be continued. 3. The patient will be placed on standard fall precautions. 4. The patient's estimated length of stay is approximately 7-10 days. 5. We will discuss this patient during care team staff meeting this week and I will see again in the a.m. on Wednesday. TRANSINT:[id number] Voice Confirmation ID: [id number] DOCUMENT ID: [id number] 06/23/2019 Edited for edison NARAYANAN. LADY notes whether there has been none or any medical/functional change since admission: - No chance since preadmission screen. LADY attests patient continues to be appropriate for IRF: - Continues to be appropriate. HEENA TOBAR MD CC: [id number] DICTATION DATE: 06/17/19 1106 PHYSICIAN LIAISON: 06/17/19 1148 ADM IN [place] [id number] [place] [id number]
[~2019-06-16 15:07] MED LIST changes: +ANTIVERT12.5 MG PO; +BAYER CHEWABLE81 MG PO; +BROVANA15 MCG/2 M INH; +ELIQUIS5 MG PO; +FLUTICASONE PRO16 GM NASAL; +PREDNISONE20 MG PO; +PROTONIX40 MG PO; +PULMICORT0.5 MG/21 UPD; +TESSALON PERLE100 MG PO; +ULTRAM50 MG PO; +VIBRAMYCIN 100100 MG PO; +Xopenex 0.63 MG INH INH
--- NOTE | 2019-06-16 17:00 | NUR ---
PATIENT ADMITTED FROM [facility]. DIAG:DVT LLE ISCHEMIC. PATIENT IS ALERT/ORIENT. PATIENT ORIENTATED TO ROOM.
[2019-06-16 17:13] VITALS: BP 147/85; BMI 30.8
--- NOTE | 2019-06-16 18:14 | NUR ---
ADMIT TO FLOOR RLE HAS APPX 8" AREA OF CALF HOLLOWD OUT FROM PREVIOUS SURGERY. AREA IS COMPLETELY HEALED NOW. PT STATES IS WAS FROM KNEE REPLACEMENT THAT DID NOT HEAL CORRECTLY....RT FOOT POINTS OUTWARD AND LARGE RUPTURED BLISTER NOTED TO RT HEEL. DSG IN PLACE. LEFT FOOT HAS PURPLE/BLACK 2ND TOE.
--- NOTE | 2019-06-16 19:29 | NUR ---
AWAKE AND ALERT. RESTING IN BED. RESPIRATIONS UNLABORED. RIGHT HEEL WOUNDS DRESSING DRY AND INTACT. NO ACUTE DISTRESS NOTED. CALL LIGHT IN REACH.
[2019-06-16 19:46] VITALS: BP 151/81
--- NOTE | 2019-06-17 02:08 | NUR ---
RESTING QUIETLY WITH RESPIRATIONS UNALBORED. NO DISTRESS NOTED.
--- NOTE | 2019-06-17 04:53 | NUR ---
INCONTINENT OF URINE. WHOLE BED AND CLOTHES HAD TO BE CHANGED AGAIN. AFTER LINENS AND BED CLOTHES CHANGED. DISCUSSED PURE WICK OPTION WITH PATIENT AND SHE AGREED TO TRY IT. PURE WICK APPLIED PER INSTRUCTIONS. WILL MONITOR.
--- NOTE | 2019-06-17 05:18 | NUR ---
PURE WICK IN PLACE. RESTING IN BED WITH NO DISTRESS NOTED. CALL LIGHT IN REACH.
[2019-06-17 07:28] LABS: CALC OSMOLALITY 281 mosm/kg (275-300); CALCIUM 8.9 mg/dL (8.5-10.1); CARBON DIOXIDE 33.2 mmol/L (21.0-32.0); CHLORIDE - SERUM 102 mmol/L (98-107); CREATININE - SERUM 0.5 mg/dL (0.6-1.3); GLUCOSE 74 mg/dL (74-106); POTASSIUM - SERUM 3.9 mmol/L (3.5-5.1); SODIUM 141 mmol/L (136-145); UREA NITROGEN 19 mg/dL (7-18); eGFR NON AFRICAN AMERICAN > 90 mL/min (90-120)
[2019-06-17 07:39] LABS: HEMATOCRIT 37.3 % (36.0-48.0); MCH 29.8 pg (26.0-34.0); MCHC 32.2 g/dL (31.0-37.0); MCV 92.6 fL (80.0-100.0); MEAN PLATELET VOLUME 9.2 fL (7.4-10.4); PLATELET COUNT 341 10x3/uL (130-400); RBC 4.03 10x6/uL (4.00-5.40); RDW 15.4 % (11.5-14.5); WBC 30.6 10x3/uL (4.8-10.8)
[2019-06-17 07:58] LABS: EOSINOPHILS 5 % (0-7); LYMPHOCYTES 17 % (15-50); NEUTROPHILS 78 % (40-80); PLATELET ESTIMATE NORMAL
[2019-06-17 08:00] VITALS: BP 155/73
--- NOTE | 2019-06-17 08:00 | NUR ---
Shift Assmt completed.Breakfast given.Containers opened/cl in reach.
[2019-06-17 08:37] VITALS: Ht 160 cm; Wt 78.9 kg
--- NOTE | 2019-06-17 12:00 | NUR ---
SITTING UP IN WC.
[2019-06-17 19:23] VITALS: BP 136/75
--- NOTE | 2019-06-17 19:28 | NUR ---
AWAKE AND ALERT. RESTING IN BED WITH RESPIRATIONS UNALBORED. NO ACUTE DISTRESS NOTED. STATED SHE HAD A GOOD DAY BUT THAT THE PURE WICK DIDNT WORK. WILL MONITOR INCONTINENCE. SAFETY MEASURES IN PLACE. CALL LIGHT IN REACH.
--- NOTE | 2019-06-18 01:27 | NUR ---
INCONTINENET OF URINE. BED CLOTHES AND PADS CHANGED. MEDICATED FOR C/O BACK PAIN. SEE MAR. RESPIRATIONS UNLABORED. NO DISTRESS NOTED. CALL LIGHT IN REACH.
--- NOTE | 2019-06-18 05:15 | NUR ---
RESTING QUIETLY. RESPIRATIONS UNLABORED. NO ACUTE CHANGES IN CONDITION THIS SHIFT. NO DISTRESS NOTED. CALL LIGHT IN REACH.
[2019-06-18 08:00] VITALS: BP 149/83
--- NOTE | 2019-06-18 08:00 | NUR ---
SHIFT ASSMT COMPLETED.
--- NOTE | 2019-06-18 16:00 | NUR ---
SITTING UP IN WC.
[2019-06-18 19:13] VITALS: BP 122/71
--- NOTE | 2019-06-18 19:17 | NUR ---
AWAKE AND ALERT. TALKING WITH VISITOR. RESPIRAITONS UNLABORED. NO DISTRESS NOTED. CALL LIGHT IN REACH.
--- NOTE | 2019-06-19 00:04 | NUR ---
INCONTINENT OF URINE. BED LINENS AND BED CLOTHES CHANGED. REPOSITIONED FOR COMFORT. ENCOURAGED TO CALL TO GO TO BATHROOM, IT WAS REPORTED SHE WENT TO BATHROOM ALL DAY ON DAY SHIFT AND WAS NOT INCONTINENT. SHE STATED "OK, IM JUST NOT CONSISTENT WITH THAT"
--- NOTE | 2019-06-19 05:17 | NUR ---
RESTING IN BED. NO ACUTE CHANGES IN CONDITION THIS SHIFT. RESPIRATIONS UNLABORED. NO DISTRESS NOTED. CALL LIGHT IN REACH.
[2019-06-19 07:17] LABS: CALC OSMOLALITY 280 mosm/kg (275-300); CALCIUM 9.4 mg/dL (8.5-10.1); CARBON DIOXIDE 34.9 mmol/L (21.0-32.0); CHLORIDE - SERUM 100 mmol/L (98-107); CREATININE - SERUM 0.6 mg/dL (0.6-1.3); GLUCOSE 80 mg/dL (74-106); POTASSIUM - SERUM 3.8 mmol/L (3.5-5.1); SODIUM 139 mmol/L (136-145); eGFR NON AFRICAN AMERICAN > 90 mL/min (90-120)
[2019-06-19 07:18] LABS: UREA NITROGEN 24 mg/dL (7-18)
--- NOTE | 2019-06-19 07:30 | NUR ---
PATIENT ALERT/ORIENT. USING CALL LIGHT FOR NEEDS. UP IN WHEELCHAIR AT BEDSIDE TO EAT BREAKFAST. WILL CONTINUE WITH PLAN OF CARE
[2019-06-19 07:46] VITALS: BP 154/66
[2019-06-19 07:46] LABS: BASOPHILS 0.1 % (0-2); EOSINOPHILS 0.3 % (0-7); HEMATOCRIT 40.3 % (36.0-48.0); HEMOGLOBIN 13.1 g/dL (12-16); IMMATURE GRANULOCYTES 2.9 % (0-5); LYMPHOCYTES 16.1 % (15-50); MCH 29.8 pg (26.0-34.0); MCHC 32.5 g/dL (31.0-37.0); MCV 91.8 fL (80.0-100.0); MEAN PLATELET VOLUME 9.9 fL (7.4-10.4); NEUTROPHILS 74.6 % (40-80); PLATELET COUNT 385 10x3/uL (130-400); RBC 4.39 10x6/uL (4.00-5.40); RDW 15.5 % (11.5-14.5); WBC 26.5 10x3/uL (4.8-10.8)
--- NOTE | 2019-06-19 07:54 | NUR ---
NUTRITION F/U PT TOLERATING REG DIET, 100% INTAKE RECENT MEALS. RECENT BM. WILL CONTINUE TO PROVIDE DIET, HONOR FOOD PREFERENCES, MONITOR PO INTAKE. RD FOLLOWING
--- NOTE | 2019-06-19 09:50 | NUR ---
PATIENT WORKING WITH OCCUPATIONAL THERAPIST. DENIES ANY PAIN/DISC AT THIS TIME.
--- NOTE | 2019-06-19 10:45 | NUR ---
PATIENT ADNITTED TO REHAB FROM ACUTE FLOOR.. SHE IS A CLIENT OF [facility] AND WOULD LIKE TO CONTINUE WITH THEM AT DISCHARGE. SHE LIVES WITH HER BROTHER AND DAUGHTER. DR. TORRES IS HER PCP. DME AT HOME IS A BEDSIDE COMMODE. WALKER AND WHEELCHAIR. WILL CONTINUE TO FOLLOW WITH PATIENT AND WILL ASSIST WITH NEEDS.
--- NOTE | 2019-06-19 15:22 | NUR ---
SPEECH THERAPIST IN PATIENTS ROOM. WORKING WITH PATIENT
--- NOTE | 2019-06-19 15:31 | NUR ---
Pt has a ruptured blister on right heel measuring 4cm x 4cm. Wound bed is red and shiny. There is no odor and a small amount of serous drainage. Cleansed and covered with adaptic, 4x4s and secured with kerlix. Pt tolerated well.
[2019-06-19 19:00] VITALS: BP 110/72
--- NOTE | 2019-06-19 19:00 | NUR ---
BEDSIDE REPORT COMPLETE. PT SITTING UP IN W/C WATCHING TV. ALERT AND ORIENTED X4. DENIES ANY NEEDS OR PAIN. NO SIGNS OF ACUTE DISTRESS NOTED. VS STABLE. SHIFT ASSESSMENT COMPLETE. CL IN REACH. FALL PRECAUTIONS IN PLACE. WILL CONTINUE TO MONITOR
--- NOTE | 2019-06-20 00:42 | NUR ---
QUIET HOURS. PT LYING IN BED EYES CLOSED RESTING COMFORTABLY. RR EVEN AND UNLABORED. CL IN REACH. BED ALARM ON.
--- NOTE | 2019-06-20 03:00 | NUR ---
ASSISTED PT TO RESTROOM AND BACK TO BED WITH MIN ASSIST. DENIES ANY NEEDS OR PAIN. CL IN REACH. BED ALARM ON
--- NOTE | 2019-06-20 06:25 | NUR ---
PT LYING IN BED ON LEFT SIDE EYES CLOSED RESTING. RR EVEN AND UNLABORED. CL IN REACH.
--- NOTE | 2019-06-20 07:50 | NUR ---
ALERT AND ORIENTED. NO DISTRESS NOTED. CL IN REACH.
[2019-06-20 08:08] VITALS: BP 129/77
--- NOTE | 2019-06-20 13:22 | NUR ---
PARTICIPATED IN THERAPY THIS AM. SITTING IN WC FOR LUNCH AT THIS TIME. NO C/O PAIN. CL IN REACH.
--- NOTE | 2019-06-20 16:39 | NUR ---
NO CHANGE IN ASSESSMENT. SITTING IN WC FOR DINNER. NO DISTRESS. CL IN REACH.
[2019-06-20 19:00] VITALS: BP 140/74
--- NOTE | 2019-06-20 19:00 | NUR ---
BEDSIDE REPORT COMPLETE. PT SITTING UP IN W/C WATCHING TV. DENIES ANY NEEDS OR PAIN. NO SIGNS OF ACUTE DISTRESS NOTED. VS STABLE. SHIFT ASSESSMENT COMPLETE. CL IN REACH. FALL PRECAUTIONS IN PLACE. WILL CONTINUE TO MONITOR
--- NOTE | 2019-06-21 00:35 | NUR ---
QUIET HOURS. PT LYING IN BED EYES CLOSED RESTING QUIETLY. RR EVEN AND UNLABORED. CL IN REACH. BED ALARM ON
--- NOTE | 2019-06-21 03:34 | NUR ---
PT LYING IN BED ON LEFT SIDE EYES CLOSED RESTING QUIETLY. RR EVEN AND UNLABORED. CL IN REACH. BED ALARM ON.
--- NOTE | 2019-06-21 04:55 | NUR ---
ASSISTED PT TO RESTROOM AND BACK TO BED WITH SBA. CL IN REACH
--- NOTE | 2019-06-21 05:30 | NUR ---
REMOVED OLD DRESSING FROM RIGHT HEEL. SMALL AMOUNT OF CLEAR DRAINAGE NOTED. CLEANSED AREA AND PAT DRY. APPLIED ADAPTIC AND 4X4 AND WRAPPED WITH KERLIX. INITIAL, DATE, AND TIMED DRESSING.
[2019-06-21 06:34] LABS: ANION GAP 9.9 mmol/L (8-16); CALCIUM 9.8 mg/dL (8.5-10.1); CARBON DIOXIDE 35.1 mmol/L (21.0-32.0); CREATININE - SERUM 0.9 mg/dL (0.6-1.3)
[2019-06-21 06:38] LABS: HEMATOCRIT 39.7 % (36.0-48.0); HEMOGLOBIN 12.7 g/dL (12-16); MCH 29.7 pg (26.0-34.0); MCV 92.8 fL (80.0-100.0); PLATELET COUNT 364 10x3/uL (130-400); RBC 4.28 10x6/uL (4.00-5.40); WBC 26.2 10x3/uL (4.8-10.8)
[2019-06-21 08:04] VITALS: BP 135/76
[2019-06-21 09:39] LABS: EOSINOPHILS 2 % (0-7); LYMPHOCYTES 13 % (15-50); MONOCYTES 8 % (2-11); NEUTROPHILS 70 % (40-80); PLATELET ESTIMATE NORMAL; ROULEAUX OCC; TOXIC GRANULATION OCC
--- NOTE | 2019-06-21 13:00 | NUR ---
I have reviewed this patient and I concur with the Shift Assessment completed by the Licensed Practical Nurse today this shift.
--- NOTE | 2019-06-21 17:46 | NUR ---
PT RESTING IN BED WITH EYES OPEN CALL LIGHT IN REACH WILL MONITER
[2019-06-21 19:40] VITALS: BP 149/77
[2019-06-21 19:44] VITALS: BP 106/55
--- NOTE | 2019-06-21 19:54 | NUR ---
AWAKE AND ALERT. SITTTING IN WHEELCHAIR IN ROOM. RESPIRATIONS UNLABORED. NO DISTRESS NOTED. CALL LIGHT IN REACH.
--- NOTE | 2019-06-22 00:11 | NUR ---
MEDICATED FOR PAIN. SEE MAR. RESPIRATIONS UNLABORED. CALL LIGHT IN REACH.
--- NOTE | 2019-06-22 02:57 | NUR ---
SLEEPING WITH RESPIRATIONS UNALBORED. NO DISTRESS NOTED. CALL LIGHT IN REACH.
--- NOTE | 2019-06-22 05:15 | NUR ---
QUIET HOURS. NO ACUTE CHANGES IN CONDITION THIS SHIFT. RESTING IN BED WITH NO DISTRESS NOTED. CALL LIGHT IN REACH.
--- NOTE | 2019-06-22 08:00 | NUR ---
SHIFT ASSMT COMPLETED.BREAKFAST GIVEN.DENIES NEEDS.
[2019-06-22 08:23] VITALS: BP 146/72
--- NOTE | 2019-06-22 12:00 | NUR ---
SITTING UP EATING LUNCH.
--- NOTE | 2019-06-22 14:07 | NUR ---
Nutrition Follow-up: Diet: Cardiac + Ensure TID PO intake: 75-100%; reports good appetite. Last BM: 06/22/19. Wt: 174# (06/17/19) Significant meds: prednisone. Labs reviewed. Noted stage 1 PU to R heel. Continue current nutrition regimen. RD following.
--- NOTE | 2019-06-22 16:00 | NUR ---
REMAINS UP IN CHAIR.CL IN REACH.
[2019-06-22 19:10] VITALS: BP 140/63
[2019-06-22 19:27] VITALS: BP 120/76
--- NOTE | 2019-06-22 19:30 | NUR ---
AWAKE AND ALERT. SITTING IN WHEELCHAIR IN ROOM WATCHING TV. STATES SHE HAD A GOOD DAY. RESPIRATIONS UNLABORED. NO ACUTE DISTRESS NOTED. DRESSING INTACT TO RIGHT HEEL.
--- NOTE | 2019-06-22 23:41 | NUR ---
RESTING IN BED WITH RESPIRAITONS UNLABORED. NO DISTRESS NOTED. CALL LIGHT IN REACH.
--- NOTE | 2019-06-23 02:25 | NUR ---
COBNTINUES SLEEPING WITH RESPIRATIONS UNLABORED. NO DISTRESS NOTED. CALL LIGHT IN REACH,.
--- NOTE | 2019-06-23 05:31 | NUR ---
QUIET HOURS. NO ACUTE CHANGES IN CONDITION THIS SHIFT. RESTING IN BED WITH NO DISTRESS NOTED. DRESSING CHANGED TO RIGHT HEEL.
--- NOTE | 2019-06-23 07:59 | NUR ---
PT RESTING IN BED EYES OPEN CALL LIGHT IN REACH NO PROBLEMS WILL MONITER
[2019-06-23 08:13] VITALS: BP 132/74
--- NOTE | 2019-06-23 18:16 | NUR ---
PT RESTING IN BED WITH EYES OPEN CALL LIGHT IN REACH WILL MONITER
[2019-06-23 19:10] VITALS: BP 140/63
--- NOTE | 2019-06-23 19:10 | NUR ---
BEDSIDE REPORT COMPLETE. PT SITTING UP IN W/C WATCHING TV. ALERT AND ORIENTED X4. DENIES ANY NEEDS OR PAIN. RR EVEN AND UNLABORED. VS STABLE. SHIFT ASSESSMENT COMPLETE. CL IN REACH. FALL PRECAUTIONS IN PLACE. WILL CONTINUE TO MONITOR
--- NOTE | 2019-06-23 23:05 | NUR ---
QUIET HOURS. PT SITTING UP IN W/C WATCHING TV. DENIES ANY NEEDS OR PAIN. NO SIGNS OF ACUTE DISTRESS NOTED. CL IN REACH
--- NOTE | 2019-06-24 03:00 | NUR ---
ASSISTED PT TO RESTROOM AND BACK TO BED WITH SBA. DENIES ANY NEEDS OR PAIN. CL IN REACH.
[2019-06-24 08:00] VITALS: BP 131/65
--- NOTE | 2019-06-24 08:00 | NUR ---
PATIENT IS ALERT/ORIENT. CALL LIGHT WITHIN REACH. VOICES NO NEEDS AT THIS TIME. WILL CONTINUE WITH PLAN OF CARE
--- NOTE | 2019-06-24 09:10 | NUR ---
PATIENT INCONT OF URINE. PATIENT WAS SOUND ASLEEP WHEN SHE WOKE UP BED WAS SOAKED IN URINE. PATIENT TAKEN INTO BATHROOM. WASHED UP AT SINK. CLOTHES CHANGED. LINENS ON BED CHANGED BY THIS NURSE.
--- NOTE | 2019-06-24 13:35 | NUR ---
PATIENT IN REHAB ROOM. WORKING WITH PHYSICAL THERAPIST. DENIES ANY PAIN/DISC AT THIS TIME.
--- NOTE | 2019-06-24 18:09 | NUR ---
PATIENT SITTING UP IN WHEELCHAIR AT BEDSIDE TO EAT SUPPER. VOICES NO NEEDS. CALL LIGHT WITHIN REACH
--- NOTE | 2019-06-24 19:00 | NUR ---
BEDSIDE REPORT COMPLETE. PT SITTING UP IN W/C VISITING WITH DAUGHTER. DENIES ANY NEEDS OR PAIN. RR EVEN AND UNLABORED. CL IN REACH. FALL PRECAUTIONS IN PLACE. WILL CONTINUE TO MONITOR
[2019-06-24 20:50] VITALS: BP 142/74
--- NOTE | 2019-06-24 23:09 | NUR ---
PT LYING IN BED ON LEFT SIDE EYES CLOSED RESTING QUIETLY. RR EVEN AND UNLABORED. CL IN REACH
--- NOTE | 2019-06-25 03:05 | NUR ---
PT LYING IN BED ON LEFT SIDE EYES CLOSED RESTING COMFORTABLY. RR EVEN AND UNLABORED. CL IN REACH
--- NOTE | 2019-06-25 06:10 | NUR ---
ASSISTED PT TO RESTROOM AND BACK TO BED WITH MIN ASSIST. DENIES ANY OTHER NEEDS OR PAIN. NO SIGNS OF ACUTE DISTRESS NOTED. CL IN AND WATER WITHIN REACH.
--- NOTE | 2019-06-25 08:00 | NUR ---
PT RESTING IN BED WITH EYES OPEN CALL LIGHT IN REACH WILL MONITER
[2019-06-25 18:10] VITALS: BP 121/63
[2019-06-25 20:17] VITALS: BP 124/74
--- NOTE | 2019-06-26 00:05 | NUR ---
QUIET HOURS. PT SITTING UP IN W/C WATCHING TV. DENIES ANY NEEDS OR PAIN. RR EVEN AND UNLABORED. CL IN REACH
--- NOTE | 2019-06-26 04:15 | NUR ---
PT LYING IN BED ON LEFT SIDE EYES CLOSED RESTING. RR EVEN AND UNLABORED. CL IN REACH
[2019-06-26 06:22] LABS: HEMATOCRIT 39.2 % (36.0-48.0); HEMOGLOBIN 12.5 g/dL (12-16); MCH 29.3 pg (26.0-34.0); MCHC 31.9 g/dL (31.0-37.0); MEAN PLATELET VOLUME 9.3 fL (7.4-10.4); PLATELET COUNT 300 10x3/uL (130-400); RBC 4.26 10x6/uL (4.00-5.40); RDW 16.5 % (11.5-14.5); WBC 21.6 10x3/uL (4.8-10.8)
[2019-06-26 06:28] LABS: CALC OSMOLALITY 284 mosm/kg (275-300); CALCIUM 9.3 mg/dL (8.5-10.1); CARBON DIOXIDE 29.5 mmol/L (21.0-32.0); CHLORIDE - SERUM 101 mmol/L (98-107); CREATININE - SERUM 0.6 mg/dL (0.6-1.3); GLUCOSE 77 mg/dL (74-106); POTASSIUM - SERUM 3.6 mmol/L (3.5-5.1); SODIUM 141 mmol/L (136-145); UREA NITROGEN 27 mg/dL (7-18); eGFR NON AFRICAN AMERICAN > 90 mL/min (90-120)
[2019-06-26 07:43] LABS: EOSINOPHILS 1 % (0-7); LYMPHOCYTES 17 % (15-50); MONOCYTES 4 % (2-11); NEUTROPHILS 78 % (40-80); PLATELET ESTIMATE NORMAL
[2019-06-26 08:00] VITALS: BP 170/76
--- NOTE | 2019-06-26 08:00 | NUR ---
PATIENT IS ALERT/ORINT. CALL LIGHT WITHIN REACH. VOCIES NO NEEDS AT THIS TIME. WILL CONTINUE WITH PLAN OF CARE
--- NOTE | 2019-06-26 09:57 | NUR ---
PATIENT INCONT OF URINE. HELPED INTO BATHROOM. PATIENT WASHED UP AT SINK. CLOTHES CHANGED. LINENS ON BED CHANGED.
--- NOTE | 2019-06-26 16:04 | NUR ---
PATIENT SITTING UP IN WHEELCHAIR AT BEDSIDE AFTER THERAPY. CALL LIGHT WITHIN REACH. VOICES NO NEEDS AT THIS TIME.
--- NOTE | 2019-06-26 18:23 | NUR ---
THIS NURSE FEED PATIENT SUPPER. AT 50%. DRANK 100CC OF ENSURE
--- NOTE | 2019-06-26 18:24 | NUR ---
PATIENTS DAUGHTER IN ROOM VISITING. TOOK PATIENT IN WHEELCHAIR TO THERAPY ROOM TO SEE XIN VERDUZCO
[2019-06-26 19:10] VITALS: BP 160/78
--- NOTE | 2019-06-26 23:58 | NUR ---
QUIET HOURS. PT LYING IN BED ON RIGHT SIDE EYES CLOSED RESTING COMFORTABLY. RR EVEN AND UNLABORED. CL IN REACH
--- NOTE | 2019-06-27 02:45 | NUR ---
ASSISTED PT TO RESTROOM, WHILE ASSISTING CHANGING SOILED CLOTHES NOTED PURULENT DRAINAGE FROM AREA IN MIDDLE OF BACK CLEANSED AREA SWABBED WITH BETADINE AND APPLIED DRESSING. PT BACK IN BED, CL IN REACH
--- NOTE | 2019-06-27 06:00 | NUR ---
REMOVED OLD DRESSING RIGHT HEEL. SMALL AMOUNT OF BLOOD TINGED DRAINAGE. CLEANSED AREA WITH WOUND CLEANSER, PATTED DRY, APPLIED ADAPTIC COVERED WITH 4X4 AND WRAPPED WITH KERLIX. TIME, DATED, INITIALED DRESSING.
[2019-06-27 08:00] VITALS: BP 124/69
--- NOTE | 2019-06-27 14:36 | NUR ---
Nutrition Follow-up: Diet: Cardiac + Ensure TID PO intake: ~90% average x last 8 meals Last BM: 06/24/19. WT: 174# (06/17/19) Significant meds: prednisome. Labs and nursing skin assessment reviewed. Continue current nutrition regimen. RD following.
[2019-06-27 20:12] VITALS: BP 128/73
--- NOTE | 2019-06-27 20:17 | NUR ---
AWAKE AND ALERT. SITTING IN WHEELCHAIR IN ROOM. RESPIRATIONS UNALBORED. STATES SHE HAD A GOOD DAY BUT HAS A HEADACHE. I TOLD HER I WOULD MEDICATE HER IF SHE HAD SOMETHING ORDERD AND SHE SAID OK, YOU CAN BRING IT WITH MY BEDTIME MEDICATIONS.
--- NOTE | 2019-06-28 01:11 | NUR ---
ASSISTED TO BATHROOM AND BACK TO BED. NOW RESTING IN BED WITH NO DISTRESS NOTED. CALL LIGHT IN REACH.
--- NOTE | 2019-06-28 03:04 | NUR ---
CONTINUES SLEEPING WITH RESPIRATIONS UNLABORED. NO DISTRESS NOTED.
--- NOTE | 2019-06-28 05:09 | NUR ---
QUIET HOURS. NO ACUTE CHANGES IN CONDITION THIS SHIFT. RESTING IN BED WITH NO DISTRESS NOTED.
[2019-06-28 06:22] LABS: BASOPHILS 0.1 % (0-2); EOSINOPHILS 1.4 % (0-7); HEMATOCRIT 36.8 % (36.0-48.0); HEMOGLOBIN 11.5 g/dL (12-16); LYMPHOCYTES 19.7 % (15-50); MCH 29.3 pg (26.0-34.0); MCHC 31.3 g/dL (31.0-37.0); MCV 93.6 fL (80.0-100.0); MEAN PLATELET VOLUME 8.9 fL (7.4-10.4); MONOCYTES 6.3 % (2-11); NEUTROPHILS 71.5 % (40-80); PLATELET COUNT 267 10x3/uL (130-400); RBC 3.93 10x6/uL (4.00-5.40); RDW 16.4 % (11.5-14.5)
[2019-06-28 07:07] LABS: CALC OSMOLALITY 294 mosm/kg (275-300); CARBON DIOXIDE 34.6 mmol/L (21.0-32.0); CHLORIDE - SERUM 104 mmol/L (98-107); CREATININE - SERUM 0.7 mg/dL (0.6-1.3); GLUCOSE 90 mg/dL (74-106); POTASSIUM - SERUM 3.6 mmol/L (3.5-5.1); SODIUM 145 mmol/L (136-145); UREA NITROGEN 29 mg/dL (7-18); eGFR NON AFRICAN AMERICAN 86 mL/min (90-120)
[2019-06-28 07:46] VITALS: BP 122/70
--- NOTE | 2019-06-28 08:00 | NUR ---
SHIFT ASSMT COMPLETED.BREAKFAST TRAY GIVEN.INDEPENENT IN MEALS.
--- NOTE | 2019-06-28 12:00 | NUR ---
SITTING UP IN WC.CL IN REACH.
--- NOTE | 2019-06-28 16:12 | NUR ---
CARE TEAM MEETING: PATIENT IS PROGRESSING WELL IN THERAPY. TENATIVE DISCHARGE DATE IS 06/30/19. WILL CONTINUE TO FOLLOW WITH PATIENT.
--- NOTE | 2019-06-28 19:15 | NUR ---
BEDSIDE REPORT COMPLETE. PT SITTING UP IN WC WATCHING TV. ALERT AND ORIENTED X4. DENIES ANY NEEDS OR PAIN. NO SIGNS OF ACUTE DISTRESS NOTED. CL IN REACH. FALL PRECAUTIONS IN PLACE. WILL CONTINUE TO MONITOR
[2019-06-28 21:14] VITALS: BP 131/67
--- NOTE | 2019-06-29 00:07 | NUR ---
QUIET HOURS. PT LYING IN BED ON RIGHT SIDE EYES CLOSED RESTING QUIETLY. RR EVEN AND UNLABORED. CL IN REACH
--- NOTE | 2019-06-29 03:55 | NUR ---
PT LYING IN BED ON LEFT SIDE EYES CLOSED RESTING QUIETLY. RR EVEN AND UNLABORED. CL IN REACH
--- NOTE | 2019-06-29 06:45 | NUR ---
PT LYING IN BED ON RIGHT SIDE EYES CLOSED RESTING. RR EVEN AND UNLABORED. CL IN REACH
--- NOTE | 2019-06-29 08:00 | NUR ---
PT RESTING IN BED WITH EYES OPEN CALL LIGHT IN REACH NO PROBLEMS WILL MONITER
--- NOTE | 2019-06-29 15:32 | NUR ---
Nutrition Follow-up: Diet: Cardiac + Ensure TID PO intake: 75-100% Last BM: 06/28/19. WT: 174# (06/17/19), no new wt Significant meds: prednisone. Labs reviewed. Right heel PU. Continue current nutrition regimen. RD following.
--- NOTE | 2019-06-29 17:35 | NUR ---
PT RESTING IN BED WITH EYES OPEN CALL LIGHT IN REACH WILL MONITER
[2019-06-29 19:00] VITALS: BP 148/79
--- NOTE | 2019-06-30 00:07 | NUR ---
QUIET HOURS. PT LYING IN BED EYES CLOSED RESTING QUIETLY. RR EVEN AND UNLABORED. CL IN REACH
--- NOTE | 2019-06-30 03:39 | NUR ---
PT LYING IN BED ON RIGHT SIDE EYES CLOSED RESTING COMFORTABLY. RR EVEN AND UNLABORED. CL IN REACH.
--- NOTE | 2019-06-30 08:15 | NUR ---
PT RESTING IN BED WITH EYES OPEN CALL LIGHT IN REACH NO PROBLEMS WILL MONITER
[2019-06-30 08:19] VITALS: BP 120/59
--- NOTE | 2019-06-30 11:35 | NUR ---
PATIENT DISCHARGING HOME TODAY WITH FAMILY. [facility] WILL RESUME THERAPY AT HOME. [facility] WILL DELIVER A NEBULIZER TO PATIENTS HOME. DR. TORRES 07/13/19 @ 11:00. PATIENT CHOICE FORM AND COMPARE DATA REVIEWED WITH PATIENT , [facility] FORM SIGNED COPIES GIVEN TO PATIENT AND SHE VOICED UNDERSTANDING. DISCHARGE INSTRUCTIONS FAXED TO PCP, HOME HEALTH AND REVIEWED WITH PATIENT.
--- NOTE | 2019-06-30 13:00 | NUR ---
DISCHARGED TO HOME VIA WHEELCHAIR WITH DAUGHTER MEDS CALLED TO [facility] ON CENTRAL DISCHARGE MEDS AND DISCHARGE SUMMARY REVIEWED WITH PT NO QUESTIONS OR CONCERNS
== END 2019-06-30 15:06 | disposition home health service (06) | DRG 948 ==
LOC: D.REHAB 15:07
PROVIDERS: ADMIT Emergency Medicine; ATTEND Emergency Medicine
DX: R53.81 Other malaise (principal); I48.20 Chronic atrial fibrillation, unspecified; J44.1 Chronic obstructive pulmonary disease with (acute) exacerbation; J90 Pleural effusion, not elsewhere classified; J98.11 Atelectasis; I77.9 Disorder of arteries and arterioles, unspecified; I25.10 Atherosclerotic heart disease of native coronary artery without angina pectoris; F41.8 Other specified anxiety disorders; M79.7 Fibromyalgia; D72.829 Elevated white blood cell count, unspecified; R53.1 Weakness; I99.8 Other disorder of circulatory system; I73.9 Peripheral vascular disease, unspecified; J45.909 Unspecified asthma, uncomplicated; R53.83 Other fatigue; J20.9 Acute bronchitis, unspecified

== ENCOUNTER 2019-08-08 21:16 | Inpatient (IN) | payer MEDICARE, OTHER ==
[~2019-08-08] VITALS: Ht 160 cm; Wt 106.2 kg
[2019-08-08 22:04] LABS: APPEARANCE HAZY (CLEAR); BILIRUBIN NEGATIVE (NEGATIVE); COLOR YELLOW (YELLOW); GLUCOSE NEGATIVE (NEGATIVE); KETONE NEGATIVE (NEGATIVE); NITRITE NEGATIVE (NEGATIVE); PROTEIN 1+ mg/dL (NEGATIVE); RED CELLS - URINE 0-5 /hpf (0-5); UROBILINOGEN NORMAL (NORMAL); WHITE CELLS - URINE 0-5 /hpf (NEGATIVE)
[2019-08-08 22:05] LABS: AMORPHOUS SEDIMENT >1+ /lpf (NONE SEEN); BACTERIA MODERATE /hpf (NEGATIVE); EPITHELIAL CELLS OCC /hpf (0-5)
[2019-08-08 22:22] LABS: BASOPHILS 0.3 % (0-2); EOSINOPHILS 1.2 % (0-7); HEMATOCRIT 34.2 % (36.0-48.0); HEMOGLOBIN 9.9 g/dL (12-16); IMMATURE GRANULOCYTES 2.7 % (0-5); LYMPHOCYTES 20.2 % (15-50); MCH 26.9 pg (26.0-34.0); MCHC 28.9 g/dL (31.0-37.0); MCV 92.9 fL (80.0-100.0); MEAN PLATELET VOLUME 9.7 fL (7.4-10.4); MONOCYTES 5.5 % (2-11); NEUTROPHILS 70.1 % (40-80); RBC 3.68 10x6/uL (4.00-5.40); RDW 15.9 % (11.5-14.5); WBC 16.7 10x3/uL (4.8-10.8)
[2019-08-08 22:31] LABS: PLATELET COUNT 356 10x3/uL (130-400)
[2019-08-08 22:36] LABS: INR 2.46 (0.85-1.17); PROTIME 26.3 SECONDS (11.6-15.0)
[2019-08-08 22:39] VITALS: BP 95/54
[2019-08-08 22:46] VITALS: BP 72/52
[2019-08-08 22:47] LABS: D-DIMER-QUANTITATIVE 4.24 ug/mLFEU (0.20-0.54)
--- NOTE | 2019-08-08 22:56 | NUR ---
PT BEGINS TO SEIZE. PT BECOMES BRADYCARDIC. DR. SRINIVASAN TO ROOM.
--- NOTE | 2019-08-08 23:09 | NUR ---
PT CODE BLUE
[2019-08-08 23:16] LABS: ALBUMIN 2.6 g/dL (3.4-5.0); ALKALINE PHOSPHATASE 85 U/L (46-116); ALT (SGPT) 42 U/L (10-68); BILIRUBIN - TOTAL 1.34 mg/dL (0.2-1.3); CALC OSMOLALITY 278 mosm/kg (275-300); CALCIUM 9.1 mg/dL (8.5-10.1); CARBON DIOXIDE 15.2 mmol/L (21.0-32.0); CHLORIDE - SERUM 103 mmol/L (98-107); CKMB 2.5 U/L (0.0-3.6); CREATINE KINASE 124 UL (21-215); CREATININE - SERUM 1.8 mg/dL (0.6-1.3); GLUCOSE 47 mg/dL (74-106); MAGNESIUM - SERUM 2.1 mg/dL (1.8-2.4); PRO BNP 9500 pg/mL (0-450); PROTEIN - SERUM 7.3 g/dL (6.4-8.2); SODIUM 140 mmol/L (136-145); TROPONIN-I 0.046 ng/mL (0.000-0.060); UREA NITROGEN 22 mg/dL (7-18); eGFR NON AFRICAN AMERICAN 29 mL/min (90-120)
[2019-08-08 23:17] VITALS: BP 178/54
[2019-08-08 23:38] VITALS: BP 117/94
[2019-08-09] VITALS (83 sets, daily range): BP systolic 52–149; BP diastolic 18–89; BMI 33.4; BMI 33.3
--- NOTE | 2019-08-09 00:53 | NUR ---
IV IN LEFT AC STARTED 08/08/19 @ 220 BY BRYAN ALMODOVAR RN IV IN RIGHT WRIST STARTED 08/08/19 @ 2214 BY MARAL CHAVARRIA RN IV IN LEFT EJ STARTED @ [address] SRINIVASAN
--- NOTE | 2019-08-09 04:14 | NUR ---
INFORMED DR VÁSQUEZ OF PT STATUS NEW ORDERS RECEIVED. WILL CONINTUE TO MONITOR.
--- NOTE | 2019-08-09 05:28 | NUR ---
IV DRIPS START AND STOP TIMES: D5W 1000ML W/2 AMP NAHCO3 @ 100ML/HR STARTED AT 0015 CONTINUED AT 0145 (INFUSING TO UNIT) PROPOFOL 1000MG/100ML STARTED AT 2333 STOPPED AT 0021 ZOSYN 3.375 MG/50ML STARTED AT 2338 FINISHED AT 0008 ROCEPHIN 1000MG/50 STARTED AT 2213 FINISHED AT 2243 LR BOLUS 1000ML #1 STARTED AT 2212 FINISHED AT 2331 LR BOLUS 1000ML #2 STARTED AT 2215 FINISHED AT 0015 LR BOLUS 1000ML #3 STARTED AT 0025 CONTINUED AT 0145 (INFUSING TO UNIT) LEVOPHED 20MCG/MIN STARTED AT 2315 CONTINUED AT 0145 (INFUSING TO UNIT) DOPAMINE 20MCG/KG/MIN STARTED AT 0027 CONTINUED AT 0145 (INFUSING TO UNIT) VASOPRESSIN 40MG/1000ML 0.04U/MIN STARTED AT 0030 CONTINUED AT 0145 (INFUSING TO UNIT)
[2019-08-09 06:09] LABS: HEMATOCRIT 31.6 % (36.0-48.0); HEMOGLOBIN 9.6 g/dL (12-16); MCH 27.3 pg (26.0-34.0); MCHC 30.4 g/dL (31.0-37.0); MCV 89.8 fL (80.0-100.0); MEAN PLATELET VOLUME 9.9 fL (7.4-10.4); PLATELET COUNT 355 10x3/uL (130-400); RBC 3.52 10x6/uL (4.00-5.40); RDW 15.7 % (11.5-14.5); WBC 30.3 10x3/uL (4.8-10.8)
--- NOTE | 2019-08-09 07:00 | NUR ---
REPORT RECEVIED FROM THE OFF GOING RN. SEE ASSESSMENT IN THE PTS FLOW SHEET. PT ALREADY IN [place]. NSR ON THE MONITOR. PIV NOTED TO: LEFT EJ, RIGHT SHOULDER, RIGHT WRIST, LEFT FA X3. ALL PATENT WITH NO S/SX OF INFILTRATION NOTED. PT RESPONDS TO PAINFUL STIMULI. 7.5 ETT NOTED. PULSES WEAK TO UPPER EXTRIMITES AND BLE ABSENT. MOTOLING NOTED TO BUE AND FEET DISCOLORED. PT ON DOPAMINE, VASOPRESSIN, LEVOPHED, D5W 3 AMPS HCO3. SEE FLOW SHEET FOR RATES. WILL CONT POC.
[2019-08-09 07:21] LABS: ANION GAP 27.8 mmol/L (8-16); BILIRUBIN - TOTAL 1.08 mg/dL (0.2-1.3); CALCIUM 7.8 mg/dL (8.5-10.1); CARBON DIOXIDE 18.8 mmol/L (21.0-32.0); POTASSIUM - SERUM 4.6 mmol/L (3.5-5.1)
[2019-08-09 07:27] LABS: PROTEIN - SERUM 5.2 g/dL (6.4-8.2)
[2019-08-09 07:29] LABS: TROPONIN-I 0.111 ng/mL (0.000-0.060)
--- NOTE | 2019-08-09 07:30 | NUR ---
DR ACOSTA PAGED REGARDING CONSULT AND ELEVATED TROPONIN.
[2019-08-09 07:43] LABS: LYMPHOCYTES 9 % (15-50); MONOCYTES 4 % (2-11); NEUTROPHILS 86 % (40-80); PLATELET ESTIMATE NORMAL; TOXIC GRANULATION 2+
--- NOTE | 2019-08-09 07:55 | NUR ---
DR GAYTAN PAGEScott ABOUT CVL AND JAMES CONSULT. HE STATED TO CALL DR SANDERS. DR MARILYN BAILEY.
--- NOTE | 2019-08-09 07:55 | NUR ---
DR TORRES CALLED TO NOTIFY OF HIS CONSULT.
--- NOTE | 2019-08-09 08:01 | NUR ---
DR TORRES NOTIFED OF THE PT IN THE HOSPITAL. HE WILL SEE IN A LITTLE BIT. DR SANDERS PAGED BACK AND MADE AWARE OF THE CONSULT.
--- NOTE | 2019-08-09 08:30 | NUR ---
DR TORRES AT THE PTS BEDSIDE. DAUGHTER AT THE PTS BEDSIDE. AFTER A LENGTHY DISCUSSION, PT IS NOW A MED CODE.
--- NOTE | 2019-08-09 09:57 | NUR ---
DR SANDERS AT THE PTS BEDSIDE. CVL PLACED TO LEFT SUBCLAVIAN. CXR ORDERED PER DR SANDERS. OK TO USE.
--- NOTE | 2019-08-09 11:01 | NUR ---
DR CHATTERJEE AT THE PTS BEDSIDE. 10MG OF VEC GIVEN PER DR CHATTERJEE. RIGHT FEMORAL JAMES PLACE WITH NO ISSUES. ALL IV TUBING CHANGED AND NOW GOING INTO CVL. WILL CONT POC.
--- NOTE | 2019-08-09 13:28 | NUR ---
SPOKE WITH DR HER. DILIP TO START FENTANYL.
--- NOTE | 2019-08-09 19:00 | NUR ---
BEDSIDE REPORT AND SHIFT ASSESSMENT COMPLETE, SEE FLOWSHEET. R FEMORAL ART LINE GOOD WAVEFORM. L SUBCLAVIAN CVL PATENT, SEE IV FLOWSHEET. MOTTLED APPEARANCE. PT SEDATED, UNABLE TO FOLLOW COMMANDS. PEDAL PULSES WEAK. WILL CPOC.
--- NOTE | 2019-08-09 20:20 | NUR ---
DAUGHTER AT BEDSIDE, UPDATE GIVEN.
--- NOTE | 2019-08-09 21:00 | NUR ---
SON AT BEDSIDE, UPDATE GIVEN. SON AND DAUGHTER ARE NEXT OF KIN. IF UNABLE TO GET AHOLD OF DAUGHTER THEN CALL SON JOAO FOWLER AT [phone].
--- NOTE | 2019-08-09 22:00 | NUR ---
MEDS GIVEN PER SEP. JAMES ZEROED, GOOD WAVEFORM.
[2019-08-10] VITALS (95 sets, daily range): BP systolic 88–130; BP diastolic 40–89
--- NOTE | 2019-08-10 01:00 | NUR ---
MEDS GIVEN PER MAR.
--- NOTE | 2019-08-10 01:30 | NUR ---
DAUGHTER CALLED, UPDATE GIVEN. USMAN PERRIN APN AT BEDSIDE. UPDATEN GIVEN.
--- NOTE | 2019-08-10 03:00 | NUR ---
REASSESSMENT COMPLETE, SEE FLOWSHEET.
[2019-08-10 05:24] LABS: APTT 36.1 SECONDS (22.8-39.4); INR 3.53 (0.85-1.17); PROTIME 34.7 SECONDS (11.6-15.0)
[2019-08-10 05:48] LABS: ALBUMIN 1.7 g/dL (3.4-5.0); ALKALINE PHOSPHATASE 49 U/L (46-116); BILIRUBIN - DIRECT 0.56 mg/dL (0.00-0.30); BILIRUBIN - INDIRECT 0.49 mg/dL (0.00-1.00); BILIRUBIN - TOTAL 1.05 mg/dL (0.2-1.3); CHLORIDE - SERUM 101 mmol/L (98-107); CREATININE - SERUM 2.4 mg/dL (0.6-1.3); GLUCOSE 204 mg/dL (74-106); PRO BNP 3168 pg/mL (0-450); PROTEIN - SERUM 4.4 g/dL (6.4-8.2); SODIUM 145 mmol/L (136-145); TROPONIN-I 0.056 ng/mL (0.000-0.060); VANCOMYCIN - RANDOM 7.2 ug/mL (10.0-20.0); eGFR NON AFRICAN AMERICAN 21 mL/min (90-120)
[2019-08-10 05:52] LABS: ALT (SGPT) 144 U/L (10-68); CALC OSMOLALITY 302 mosm/kg (275-300); CARBON DIOXIDE 36.4 mmol/L (21.0-32.0); CREATINE KINASE 275 UL (21-215); MAGNESIUM - SERUM 1.5 mg/dL (1.8-2.4); POTASSIUM - SERUM 3.2 mmol/L (3.5-5.1); UREA NITROGEN 35 mg/dL (7-18)
[2019-08-10 06:01] LABS: CKMB 0.6 U/L (0.0-3.6)
--- NOTE | 2019-08-10 07:00 | NUR ---
RECEIVED BEDSIDE REPORT ON PATIENT AND ASSUMED CARE. PATIENT SEDATED ON VENT, AROUSES TO STIMULUS, NOT FOLLOWING COMMANDS. LEFT SUBCLAVIAN INFUSING SODIUM BICARB 100 MEQ IN D5W AT 150 CC/HR, LEVOPHED AT 2 MCG, MIN, VASOPRESSIN AT 0.04 UNITS/HR, NS AT TKO AT 5 ML/HR, FENTANYL AT 100 MCG/HR. LEE CATH IN PLACE VA UOP NOTED, RIGHT FEMORAL ART LINE AND CVP LEVELED AND ZEROED. OGT PLACEMENT CHECKED VIA ASCULATION, TO LIWS, PATIENT TURNED AND REPOSTIONED IN BED. HEAD TO TOE ASSESSMETN COMPLETED.
[2019-08-10 07:37] LABS: BASOPHILS 0 % (0-2); EOSINOPHILS 0 % (0-7); HEMATOCRIT 26.5 % (36.0-48.0); HEMOGLOBIN 8.4 g/dL (12-16); IMMATURE GRANULOCYTES 0.6 % (0-5); LYMPHOCYTES 4.4 % (15-50); MCH 26.9 pg (26.0-34.0); MCHC 31.7 g/dL (31.0-37.0); MCV 84.9 fL (80.0-100.0); MEAN PLATELET VOLUME 9.6 fL (7.4-10.4); MONOCYTES 3.9 % (2-11); NEUTROPHILS 91.1 % (40-80); PLATELET COUNT 260 10x3/uL (130-400); RBC 3.12 10x6/uL (4.00-5.40); RDW 15.8 % (11.5-14.5); WBC 23.4 10x3/uL (4.8-10.8)
--- NOTE | 2019-08-10 09:10 | NUR ---
SPOKE TO DR. HER REGARDING PH 7.6 ADVISED TO STOP BICARB GTT AND START NS AT 75 CC/HR. PATIENT INCONTINENT OF STOOL, CLEANED AND LINENS CHANGED. TURNED AND REPOSTIONED IN BED. VSS. MORNING MEDS GIVEN PER SEP.
--- NOTE | 2019-08-10 10:27 | NUR ---
STOCK BROKER AT ROOM PERFORMING ECHOCARDIOGRAM. VSS.
--- NOTE | 2019-08-10 10:57 | NUR ---
DECREASED RR TO [address] ARDEN KRUEGER
--- NOTE | 2019-08-10 11:00 | NUR ---
REASSESSMENT COMPLETE. VENT SETTINGS CHANGED PER RT TO AC 12. VSS. TURNED AND REPOSITIONED IN BED.
--- NOTE | 2019-08-10 13:01 | NUR ---
PATIENT TURNED AND REPOSITIONED IN BED. VSS. PERIPHERAL IVS X 5 DISCONTINUED, 2 TO LEFT FA, 1 LEFT AC, 1 LEFT EJ, AND [address] HER AT ROOM UPDATED AND EXAMINES PATIENT.
--- NOTE | 2019-08-10 13:20 | NUR ---
PATIENTS SON AND DAUGHTER AT ROOM UPDATED AND QUESTIONS ANSWERED.
--- NOTE | 2019-08-10 13:50 | NUR ---
PER DR. HER FOR THE ASCORBIC ACID AND THIAMINE THERAPY TO CONTINUE FOR 4 DAYS THEN DISCONTINUE.
--- NOTE | 2019-08-10 14:58 | NUR ---
REASSESSMENT COMPLETE. VSS. PATIENT TURNED AND REPOSITIONED IN BED. VENT SETTINGS AC 12, TV 500, PEEP 5, FIO2 40%.
--- NOTE | 2019-08-10 15:48 | NUR ---
PATIENT PLACED ON AIR OVERLAY MATRESS. VSS.
--- NOTE | 2019-08-10 15:56 | NUR ---
PATIENT INCONTINENT LOOSE BROWN STOOL, CLEANED AND LINENS CHANGED. VSS.
--- NOTE | 2019-08-10 16:40 | NUR ---
CONTACTED DR. MELISSA DOWLING ELECTROLYTE PROTOCOL, PLACES ORDER FOR PATIENT TO BE ON ELECTROLYTE PROTOCOL.
--- NOTE | 2019-08-10 17:02 | NUR ---
PATIENTS DAUGHTER IN ROOM UPDATED AND QUESTIONS ANSWERED. PATIENT TURNED AND REPOSTIONED. VSS.
--- NOTE | 2019-08-10 19:00 | NUR ---
BEDSIDE REPORT AND SHIFT ASSESSMENT COMPLETE, SEE FLOWSHEET. REPOSITIONING COMPLETE. R GROIN ART LINE ZEROED, GOOD WAVEFORM. L SUBCLAVIAN CVL PATENT, SEE IV FLOWSHEET. BILAT ARM SWELLING NOTED. SEDATED, FOLLOWS COMMANDS. BILAT WRIST RESTRAINTS IN PLACE, SKIN WNL. WILL CPOC.
--- NOTE | 2019-08-10 20:15 | NUR ---
FAMILY AT BEDSIDE, UPDATE GIVEN.
--- NOTE | 2019-08-10 21:00 | NUR ---
MEDS GIVEN PER MAR. REPOSITIONED FOR COMFORT.
--- NOTE | 2019-08-10 23:00 | NUR ---
REASSESSMENT COMPLETE, SEE FLOWSHEET.
[2019-08-11] VITALS (65 sets, daily range): BP systolic 96–130; BP diastolic 50–91
--- NOTE | 2019-08-11 00:15 | NUR ---
PT AGITATED, FENTANYL GTT TITRATED PER ERAN SEDATION SCALE ON SEP.
--- NOTE | 2019-08-11 03:00 | NUR ---
REASSESSMENT COMPLETE, SEE FLOWSHEET. CHG BATH, LEE CARE, AND LINEN CHANGE COMPLETE. IRRITATION NOTED ON PERINEAL AND BUTTOCK AREA, BLEEDING. BM X 1, SEMI FORMED TURNED INTO DIARRHEA DURING BATH.
--- NOTE | 2019-08-11 05:00 | NUR ---
REPOSITIONED FOR COMFORT.
[2019-08-11 05:42] LABS: ALBUMIN 1.7 g/dL (3.4-5.0); ANION GAP 12.4 mmol/L (8-16); BILIRUBIN - TOTAL 0.98 mg/dL (0.2-1.3); CALCIUM 7.3 mg/dL (8.5-10.1); CARBON DIOXIDE 33.9 mmol/L (21.0-32.0); CREATININE - SERUM 2.5 mg/dL (0.6-1.3); MAGNESIUM - SERUM 1.8 mg/dL (1.8-2.4); POTASSIUM - SERUM 3.3 mmol/L (3.5-5.1); PROTEIN - SERUM 5.1 g/dL (6.4-8.2)
[2019-08-11 05:54] LABS: PHOSPHOROUS 3.8 mg/dL (2.5-4.9)
[2019-08-11 06:05] LABS: HEMATOCRIT 27.9 % (36.0-48.0); HEMOGLOBIN 8.5 g/dL (12-16); MCHC 30.5 g/dL (31.0-37.0); MCV 88.6 fL (80.0-100.0); MEAN PLATELET VOLUME 10.1 fL (7.4-10.4); PLATELET COUNT 258 10x3/uL (130-400); RBC 3.15 10x6/uL (4.00-5.40); RDW 16.5 % (11.5-14.5); WBC 22.3 10x3/uL (4.8-10.8)
--- NOTE | 2019-08-11 07:00 | NUR ---
RECEIVED BEDSIDE REPORT ON PATIENT AND ASSUMED CARE. PATIENT SEDATED ON VENT VSS. VENT SETTINGS ARE AC - 12, TV - 500, PEEP -5, FIO2 - 50%, BBS - CLEAR DIMINISHED IN THE BASES, SPO2 - 98%. CM - A-FIB RATE IN 90S TO 100S. PATIENT INCONTINENT STOOL, CLEANED, LINENS CHANGED, BARRIER CREAM APPLIED TO EXCORIATION TO BUTTOCKS AND GROIN. PATIENT TURNED AND REPOSITIONED. IVS INFUSING TO LEFT SUBCLAVIAN CVL NS AT 75 ML/HR, FENTANYL AT 200 MCG/HR AND VASOPRESSIN AT 0.04 UNITS/MIN. OGT TUBE TO LIWS, PLACEMENT VERIFIED BY ASCULTATION. HEAD TO TOE ASSESSMENT COMPLETED.
[2019-08-11 07:24] LABS: HYPOCHROMASIA 3+; LYMPHOCYTES 4 % (15-50); MONOCYTES 2 % (2-11); NEUTROPHILS 93 % (40-80); PLATELET ESTIMATE NORMAL
--- NOTE | 2019-08-11 07:40 | NUR ---
DR. TORRES AT ROOM UPATED AND EXAMINES PATIENT. UPDATED ON LOW UOP, NO ORDERS AT THIS TIME.
--- NOTE | 2019-08-11 08:30 | NUR ---
PATIENTS SON AT ROOM UPDATED AND QUESTIONS ANSWERED. VSS.
--- NOTE | 2019-08-11 09:22 | NUR ---
PATIENT TURNED AND REPOSITIONED IN BED. VSS.
--- NOTE | 2019-08-11 10:04 | NUR ---
Carol SALVADOR OBTAINED AND SENT TO LAB. VSS.
--- NOTE | 2019-08-11 10:55 | NUR ---
REASSESSMENT COMPLETED. VSS. PATIENT TURNED AND REPOSITIONED IN BED. MEDS GIVEN PER MAR.
--- NOTE | 2019-08-11 11:14 | NUR ---
NUTRITION F/U PT REMAINS ON VENT, NO CURRENT NUTRITION SUPPORT. RECOMMEND STARTING NUTRITION SUPPORT IF UNABLE TO WEAN FROM VENT IN [address] FOLLOWING
--- NOTE | 2019-08-11 12:56 | NUR ---
PATIENT TURNED AND REPOSITIONED IN BED. VSS.
--- NOTE | 2019-08-11 13:15 | NUR ---
DR. HER AT ROOM UPDATED AND EXAMINES PATIENT.
--- NOTE | 2019-08-11 13:23 | NUR ---
PATIENTS DAUGHTER AND SON AT ROOM AND UPDATED AND QUESTIONS ANSWERED.
--- NOTE | 2019-08-11 14:53 | NUR ---
REASSESSMENT COMPLETED. VSS. PATIENT TURNED AND REPOSITIONED IN BED.
--- NOTE | 2019-08-11 16:01 | NUR ---
TUBE FEEDING PULMOCARE STARTED AT 10 ML/HR, TO INCREASE Q12H BY 10 ML/HR TO A GOAL OF 40 ML/HR. NO WATER FLUSHES ORDERED.
--- NOTE | 2019-08-11 16:36 | NUR ---
SPOKE TO DR. ACOSTA REGARDING PATIENTS A-FIB ON CARDIZEM 360 MG SR DAILY AT HOME LAST TAKEN ON Jul. ADVISED TO START CARDIZEM 180 MG DAILY AND MONITOR BP.
--- NOTE | 2019-08-11 16:55 | NUR ---
PATIENT TURNED AND REPOSITIONED IN BED. VSS. MEDS GIVEN PER MAR.
--- NOTE | 2019-08-11 18:32 | NUR ---
PATIENT NOT GETTING TV ON VENT SET FOR 500 DRAWING 350 - 370, AND SPO2 DECREAEDS TO 88%, RT AT ROOM. SUCTIONED PATIENT AND EMPTIED WATER FROM TUBING TV INCREASED TO 450, STILL SPO2 REMAINING BELOW 90%. RT AT ROOM AND INCREASED FIO2 ON VENT TO 75% WITH SPO2 INCREASED TO 92%.
--- NOTE | 2019-08-11 18:34 | NUR ---
INCREASED FIO2 75% IN ATTEMPT TO TITRATE SP02 ABOVE 92%
--- NOTE | 2019-08-11 19:17 | MORECARE ---
CASE MANAGEMENT DISCHARGE SUMMARY PATIENT: MIRANDA NATH [place] UNIT: [id number] ADM DATE: 08/09/19 AGE: 79 : 42 SEX: F ROOM/BED: D.2304 AUTHOR: CADY QUEVEDO PHYSICIAN: REFERRING PHYSICIAN: MOE TORRES MD DATE OF SERVICE: 08/11/19 Discharge Plan Patient Name: [facility]ANDA NATH [facility] [facility] 1940 Planned Disposition: Anticipated Discharge Date: Discharge Date: Expected LOS: Initial Reviewer: [email or web address] Initial Review Date: 08/09/2019 Generated: 08/11/19 8:16 pm DCPIA - Discharge Planning Initial Assessment Updated by [email or web address]: Maria Galarza on 08/11/19 7:16 pm * Is the patient Alert and Oriented? Yes * How many steps to enter\exit or inside your home? RAMP * PCP MELISSA * Pharmacy [facility] * Preadmission Environment Home with Family * ADLs Partial Dependent * Other Equipment W/C, BSC, WALKER, NEBULIZER * List name and contact numbers for known caregivers / representatives who currently or will assist patient after discharge: Marily Nath daughter [phone] * Verbal permission to speak to the caregivers and representatives has been obtained from the patient. N/A * Community resources currently utilized Home Health * Please name any agencies selected above. [facility] * Additional services required to return to the preadmission environment? No * Can the patient safely return to the preadmission environment? Yes * Has this patient been hospitalized within the prior 30 days at any hospital? Yes Patient Name: MIRANDA NATH Page 71112 at 1917 All edits/amendments must be made on the electronic document DICTATION DATE: 08/11/191915 SENIOR CHEMICAL PROCESS ENGINEER: ANGUS 08/11/191915 RPT#: [id number] DC DATE: STATUS: ADM IN [facility] [address] [place] [address] END OF REPORT
--- NOTE | 2019-08-11 19:24 | MORECARE ---
CASE MANAGEMENT DISCHARGE SUMMARY PATIENT: MIRANDA NATH [place] UNIT: [id number] ADM DATE: 08/09/19 AGE: 79 : 42 SEX: F ROOM/BED: D.2304 AUTHOR: SAE,DOC PHYSICIAN: REFERRING PHYSICIAN: MOE TORRES MD DATE OF SERVICE: 08/11/19 Discharge Plan Patient Name: MIRANDA NATH Facility: [facility]:[place] : 1940 Planned Disposition: Anticipated Discharge Date: Discharge Date: Expected LOS: Initial Reviewer: [email or web address] Initial Review Date: 08/09/2019 Generated: 08/11/19 8:24 pm Comments DCP- Discharge Planning Updated by [email or web address]: Maria Galarza on 08/11/19 6:[address] Patient Name: MIRANDA NATH Admission Status: ER Accout number: [id number] Admission Date: 08-09-2019 : 1940 Admission Diagnosis:SEPSIS, UNSPECIFIED ORGANISM Attending: MOE TORRES Current LOS: 2 Anticipated DC Date: Planned Disposition: Primary Insurance: MEDICARE A & B Discharge Planning Comments: CM spoke with patient's daughter to complete initial dc planning assessment. CM educated patient on the CM role and verbal consent given by patient to complete assessment. Patient lives at home with her daughter where she is mostly independent with her care. At discharge patient plans to return home and feels this is a safe discharge. CM discussed availability of home health, rehab services, and medical equipment. Her daughter will be her tilt tray driver home. Patient has a nebulizer with [facility]. Patient also has [facility] and wishes to resume upon discharge. Patient's daughter denied known discharge needs at this time. CM will continue to follow and will assist as needed with dc plans/needs. Morning News Producer: Maria Galarza DCPIA - Discharge Planning Initial Assessment Updated by [email or web address]: Maria Galarza on 08/11/19 7:17 pm * Is the patient Alert and Oriented? Yes * How many steps to enter\exit or inside your home? RAMP * PCP MELSISA * Pharmacy [facility] * Preadmission Environment Home with Family * ADLs Partial Dependent * Other Equipment W/C, BSC, WALKER, NEBULIZER * List name and contact numbers for known caregivers / representatives who currently or will assist patient after discharge: Marily Nath daughter [phone] * Verbal permission to speak to the caregivers and representatives has been obtained from the patient. N/A * Community resources currently utilized Home Health * Please name any agencies selected above. [facility] * Additional services required to return to the preadmission environment? No * Can the patient safely return to the preadmission environment? Yes * Has this patient been hospitalized within the prior 30 days at any hospital? No Last DP export: 08/11/19 6:17 p Patient Name: MIRANDA NATH Page [id number] at 1924 All edits/amendments must be made on the electronic document DICTATION DATE: 08/11/191923 BEEF GRADER: ANGUS 08/11/191923 RPT#: [id number] DC DATE: STATUS: ADM IN [facility] [address] [place] [address] END OF REPORT
--- NOTE | 2019-08-11 19:30 | NUR ---
PT SEDATED, ETT PATENT TO VENT, OGT IN PLACE WITH PULMOCARE @ 10 CC/HR, BILAT SWR IN USE, LEE PATENT TO BSD WITH MINIMAL OUTPUT, LEFT TLSC INTACT WITH IVF'S INFUSING, RIGHT GROIN A-LINE INTACT AND ZEROED, VITALS STABLE, WILL CONT TO MONITOR
--- NOTE | 2019-08-11 21:15 | NUR ---
FAMILY PRESENT AT BEDSIDE, PT REMAINS SEDATED, NO DISTRESS NOTED
--- NOTE | 2019-08-11 23:00 | NUR ---
PT OPENS EYES TO STIMULI, NO DISTRESS NOTED, WILL CONT TO MONITOR
[2019-08-12] VITALS (24 sets, daily range): BP systolic 114–145; BP diastolic 63–91; Ht 160 cm; Wt 106.2 kg
--- NOTE | 2019-08-12 01:15 | NUR ---
PT REMAINS SEDATED ON VENT, FIO2 @ 75%, VITALS STABLE
--- NOTE | 2019-08-12 03:40 | NUR ---
PT BATHED PER STAFF, PT COMBATIVE WITH CARE, KICKING AND TRYING TO PULL @ TUBES, SMALL BM X1, WILL CONT TO MONITOR
[2019-08-12 04:53] LABS: BASOPHILS 0.1 % (0-2); EOSINOPHILS 0 % (0-7); HEMATOCRIT 27.9 % (36.0-48.0); HEMOGLOBIN 8.3 g/dL (12-16); IMMATURE GRANULOCYTES 0.5 % (0-5); LYMPHOCYTES 2.3 % (15-50); MCH 26.8 pg (26.0-34.0); MCHC 29.7 g/dL (31.0-37.0); MEAN PLATELET VOLUME 9.7 fL (7.4-10.4); MONOCYTES 4.2 % (2-11); NEUTROPHILS 92.9 % (40-80); PLATELET COUNT 246 10x3/uL (130-400); RDW 16.7 % (11.5-14.5); WBC 23.6 10x3/uL (4.8-10.8)
[2019-08-12 05:05] LABS: ANION GAP 13.5 mmol/L (8-16); BILIRUBIN - TOTAL 0.82 mg/dL (0.2-1.3); CALCIUM 7.6 mg/dL (8.5-10.1); CARBON DIOXIDE 31.3 mmol/L (21.0-32.0); CREATININE - SERUM 2.9 mg/dL (0.6-1.3); PHOSPHOROUS 4.4 mg/dL (2.5-4.9); POTASSIUM - SERUM 3.8 mmol/L (3.5-5.1); PROTEIN - SERUM 6.2 g/dL (6.4-8.2)
[2019-08-12 05:06] LABS: ALBUMIN 2.6 g/dL (3.4-5.0)
--- NOTE | 2019-08-12 10:24 | NUR ---
0700 PT RECIEVED ON VENT, SEDATED, HR AFIB UNCONTROLLED, ETT SECURED, OGT WITH PULMOCARE INCREASED TO 20ML AT 0700 PER ESL TEACHER NURSE, L SUBCLAVIAN CVL DRESSING CDI SEE IV FLOWSHEET, LEE DRAINING YELLOW URINE, REPOSITIONED, 0800 FAMILY HERE FOR VISITATION 0900 AM MEDS GIVEN
--- NOTE | 2019-08-12 17:26 | NUR ---
PT REPOSITIONED WITH ORAL CARE [id number], FAMILY HERE FOR VISITATION AND UPDATED
--- NOTE | 2019-08-12 19:30 | NUR ---
PT INTUBATED, LIGHTLY SEDATED, OPENS EYES TO SPEECH, ANXIOUS UPON WAKING, HR LABILE, FIB - SHIFT ASSESSMENT COMPLETED SEE FLOWSHEET
--- NOTE | 2019-08-12 21:15 | NUR ---
KEHINDE AT BESIDE, ALL QUESTIONS ANSWERED UPDATE GIVEN
--- NOTE | 2019-08-12 23:10 | NUR ---
REASSESSMENT COMPLETED SEE FLOWSHEET
[2019-08-13] VITALS (25 sets, daily range): BP systolic 116–143; BP diastolic 52–92
--- NOTE | 2019-08-13 03:10 | NUR ---
REASSESSMENT COMPLETED SEE FLOWSHEET
--- NOTE | 2019-08-13 04:12 | NUR ---
UNABLE TO OBTAIN SRS AT THIS TIME
--- NOTE | 2019-08-13 05:15 | NUR ---
PT INTUBATED/SEDATED, DOES NOT TOLERATE STIMULATION AT ALL - TACHYCARDIA 150-160'S
--- NOTE | 2019-08-13 05:35 | NUR ---
PT ABG RESULTS ARE INACCURATE - ACTUAL RESULTS POSTED ON CHART
[2019-08-13 06:22] LABS: HEMATOCRIT 26.7 % (36.0-48.0); HEMOGLOBIN 7.9 g/dL (12-16); MCH 26.3 pg (26.0-34.0); MCHC 29.6 g/dL (31.0-37.0); MEAN PLATELET VOLUME 9.9 fL (7.4-10.4); PLATELET COUNT 211 10x3/uL (130-400); RDW 16.5 % (11.5-14.5); WBC 22.7 10x3/uL (4.8-10.8)
[2019-08-13 06:29] LABS: ALBUMIN 2.7 g/dL (3.4-5.0); ANION GAP 12.3 mmol/L (8-16); BILIRUBIN - TOTAL 0.59 mg/dL (0.2-1.3); CALCIUM 8.2 mg/dL (8.5-10.1); CARBON DIOXIDE 33.1 mmol/L (21.0-32.0); MAGNESIUM - SERUM 2.2 mg/dL (1.8-2.4); PHOSPHOROUS 3.8 mg/dL (2.5-4.9); POTASSIUM - SERUM 3.4 mmol/L (3.5-5.1); PROTEIN - SERUM 5.8 g/dL (6.4-8.2); VANCOMYCIN - RANDOM 17.5 ug/mL (10.0-20.0)
--- NOTE | 2019-08-13 07:00 | NUR ---
PT REPORT RECEIVED FROM SCHEDULE ANNOUNCER NURSE. SHIFT ASSESSMENT COMPLETED. NO ACUTE SIGNS OF DISTRESS NOTED. WILL CONITNUE TO MONITOR
[2019-08-13 07:25] LABS: HYPOCHROMASIA 2+; LYMPHOCYTES 3 % (15-50); MONOCYTES 1 % (2-11); NEUTROPHILS 95 % (40-80); PLATELET ESTIMATE NORMAL; PLATELET MORPHOLOGY GIANT PLTS PRESENT
--- NOTE | 2019-08-13 09:00 | NUR ---
PT RESTING IN BED. LAB AT BEDSIDE. SELIN BLOOD FROM CENTRAL LINE FOR A TYPE AND CROSS. PT HAS ORDER TO TRANSFUSE 1 UNIT PRBC.
--- NOTE | 2019-08-13 10:00 | NUR ---
BLOOD TRANSFUSION STARTED. WILL CONTINUE TO MONITOR
--- NOTE | 2019-08-13 11:00 | NUR ---
PT RESTING IN BED. NO ACUTE SIGNS OF DISTRESS NOTED. PT REASSESSMENT COMPLETED.
--- NOTE | 2019-08-13 13:43 | NUR ---
DR HER AT BEDSIDE. UPDATE GIVEN. WILL CONTINUE TO MONITOR
--- NOTE | 2019-08-13 17:16 | NUR ---
PT RESTING IN BED. ORAL CARE PROVIDED. NO ACUTE SIGNS OF DISTRESS NOTED. WILL CONTINUE TO MONITOR
--- NOTE | 2019-08-13 18:00 | NUR ---
NEW ORDER FROM DR MENDIOLA. START BUMEX DRIP WITH 10MG MIXED WITH NORMAL SALINE. BOLUS DOSE OF 2MG BEFORE STARTING DRIP. PHARMACY UNAVAILABLE HAD TO OVERIDE BUMEX AND NORMAL SALINE BAG TO CREATE DRIP.
--- NOTE | 2019-08-13 19:00 | NUR ---
SHIFT ASSESSMENT COMPLETE. VS STABLE. NO VISUAL CUES OF DISTRESS NOTED. WILL CONTINUE TO MONITOR.
[2019-08-14] VITALS (24 sets, daily range): BP systolic 105–142; BP diastolic 6–99
[2019-08-14 06:12] LABS: ANION GAP 11.7 mmol/L (8-16); BILIRUBIN - TOTAL 0.72 mg/dL (0.2-1.3); CARBON DIOXIDE 33.1 mmol/L (21.0-32.0); CREATININE - SERUM 3.3 mg/dL (0.6-1.3); MAGNESIUM - SERUM 2.2 mg/dL (1.8-2.4); PHOSPHOROUS 3.2 mg/dL (2.5-4.9); POTASSIUM - SERUM 3.8 mmol/L (3.5-5.1); PROTEIN - SERUM 5.8 g/dL (6.4-8.2); VANCOMYCIN - RANDOM 14.3 ug/mL (10.0-20.0)
[2019-08-14 06:23] LABS: BASOPHILS 0.1 % (0-2); EOSINOPHILS 1.2 % (0-7); HEMATOCRIT 29.4 % (36.0-48.0); LYMPHOCYTES 9.2 % (15-50); MCH 26.7 pg (26.0-34.0); MCHC 30.6 g/dL (31.0-37.0); MCV 87.2 fL (80.0-100.0); MEAN PLATELET VOLUME 9.9 fL (7.4-10.4); MONOCYTES 6.2 % (2-11); NEUTROPHILS 82.3 % (40-80); PLATELET COUNT 184 10x3/uL (130-400); RBC 3.37 10x6/uL (4.00-5.40); RDW 16.6 % (11.5-14.5); WBC 19.3 10x3/uL (4.8-10.8)
--- NOTE | 2019-08-14 07:15 | NUR ---
REPORT RECEIVED. PT ON VENT. SETTINGS PER RT. OGT IN PLACE. PULMOCARE AT GOAL RATE OF 40ML/HR. PT HAS LEE. HAS RIGHT GROIN ART LINE AND LEFT SUBCLAVIAN WITH FENTANYL, D5W, AND BUMEX INFUSING. PT RIGHT LEG HAS WOUNDS. WILL CHART IN ASSESSMENT. HR ELEVATED. OTHER VSS. WILL CONTINUE TO MONITOR.
--- NOTE | 2019-08-14 09:01 | NUR ---
patient started cpap trials.
--- NOTE | 2019-08-14 09:15 | NUR ---
DR CAMARA IN WITH PT. NO NEW ORDERS AT THIS TIME. PT REPOSITIONED.
--- NOTE | 2019-08-14 11:06 | NUR ---
FENTANYL CHANGED OUT. PT SUCTIONED AND REPOSITIONED. WILL CONTINUE TO MONITOR.
--- NOTE | 2019-08-14 11:19 | NUR ---
PAGED DR ACOSTA REGARDING PT'S ELEVATED HR. CONTINUES TO STAY 130S-140S AFTER GIVEN 180MG OF CARDIZEM VIA OGT.
--- NOTE | 2019-08-14 11:59 | NUR ---
PAGED DR ACOSTA AGAIN. HR 144.
--- NOTE | 2019-08-14 12:01 | NUR ---
CALLED CARDIOLOGY CLINIC TO SEE ABOUT GETTING A PHYSICIAN TO COME SEE PATIENT. DR ACOSTA HAS BEEN PAGED SEVERAL TIMES THIS MORNING WITH NO RETURN CALL. SPOKE WITH SHANLE. SAYS DR ACOSTA IS ONE EEG TECH UNTIL 12:30 AND HE JUST NEEDS TO BE PAGED AGAIN, HE IS PROBABLY IN A PROCEDURE. SHE SAID ALL THEY COULD DO WAS PAGE HIM THEMSELVES.
--- NOTE | 2019-08-14 12:05 | NUR ---
DR ACOSTA CALLED BACK AND STATED TO START PT ON BID DOSE OF CARDIZEM AT 180MG AND TO GO ON AND GIVE TONIGHT'S DOSE NOW.
--- NOTE | 2019-08-14 12:38 | NUR ---
NEW TUBE FEED HUNG. PULMOCARE AT 40ML/HR WITH 50ML FLUSH EVERY 2 HRS.
--- NOTE | 2019-08-14 13:17 | NUR ---
Nutrition follow-up: Intubated, sedated Pulmocare infusing @ 40 ml/hr via OGT; 50 ml H2O flush q 2 hours Labs reviewed WT: 234# If pt not weaned from vent within 24-48 hours will need to increase TF to goal rate of 55 ml/hr. RDN following.
--- NOTE | 2019-08-14 14:34 | NUR ---
PT INCONTINENT OF LIQUID BOWEL. PT CLEANED. CHG BATH GIVEN. PT REPOSITIONED AND SUCTIONED. VSS AT THIS TIME. WILL CONTINUE TO MONITOR.
--- NOTE | 2019-08-14 14:45 | NUR ---
PT INCONTINENT OF BOWEL. HCG BATH GIVEN. LINENS CHANGED. PT REPOSITIONED AND SUCTIONED.
--- NOTE | 2019-08-14 15:30 | NUR ---
DRESSING TO CENTRAL LINE CHANGED. JAMES TO RIGHT GROIN D/C BY LUPE KEY.
--- NOTE | 2019-08-14 17:19 | NUR ---
PT REPOSITIONED AND SUCTIONED.
--- NOTE | 2019-08-14 17:50 | NUR ---
PT INCONTINENT OF BOWEL. CLEANED. REPOSITIONED.
[2019-08-15] VITALS (27 sets, daily range): BP systolic 77–165; BP diastolic 54–90
[2019-08-15 05:32] LABS: ALBUMIN 2.7 g/dL (3.4-5.0); ANION GAP 6.5 mmol/L (8-16); BILIRUBIN - TOTAL 0.84 mg/dL (0.2-1.3); CALCIUM 8.3 mg/dL (8.5-10.1); CARBON DIOXIDE 33.6 mmol/L (21.0-32.0); CREATININE - SERUM 3.6 mg/dL (0.6-1.3); POTASSIUM - SERUM 4.1 mmol/L (3.5-5.1)
[2019-08-15 05:36] LABS: PHOSPHOROUS 4.1 mg/dL (2.5-4.9)
[2019-08-15 05:48] LABS: HEMATOCRIT 31.2 % (36.0-48.0); HEMOGLOBIN 9.5 g/dL (12-16); MCH 26.5 pg (26.0-34.0); MCHC 30.4 g/dL (31.0-37.0); MCV 87.2 fL (80.0-100.0); MEAN PLATELET VOLUME 10.4 fL (7.4-10.4); PLATELET COUNT 173 10x3/uL (130-400); RBC 3.58 10x6/uL (4.00-5.40); RDW 16.5 % (11.5-14.5); WBC 21.1 10x3/uL (4.8-10.8)
--- NOTE | 2019-08-15 07:29 | NUR ---
REPORT RECEIVED. RT IN SUCTIONING PT AT THIS TIME. VENT PER RT SETTINGS. OGT WITH PULMOCARE INFUSING 40ML/HR WHICH IS GOAL. PT HAS WOUNDS TO RLE, DOCUMENTED IN ASSESSMENT FLOWSHEET. PT HAS LEFT SUBC WITH FENTANYL, BUMEX, AND D5W INFUSING. WILL CONTINUE TO MONITOR.
--- NOTE | 2019-08-15 08:09 | NUR ---
DR ACOSTA PAGED D/T ELEVATED HR. DR TORRES ROUNDED ON PT AND ASKED IF WE COULD SEE ABOUT STARTING A CARDIZEM DRIP.
--- NOTE | 2019-08-15 08:30 | NUR ---
DR ACOSTA ORDERED A BOLUS IV DOSE OF CARDIZEM THEN ORDERED A CARDIZEM DRIP. NO OTHER ORDERS AT THIS TIME.
--- NOTE | 2019-08-15 09:41 | NUR ---
NEW TUBING HUNG IN PT'S ROOM. PT REPOSITIONED. WILL CONTINUE TO MONITOR.
[2019-08-15 11:03] LABS: ANISOCYTOSIS OCC; EOSINOPHILS 3 % (0-7); LYMPHOCYTES 8 % (15-50); MONOCYTES 6 % (2-11); NEUTROPHILS 72 % (40-80); PLATELET ESTIMATE NORMAL
--- NOTE | 2019-08-15 11:36 | NUR ---
report recieved from lisa nicole. patient was soiled completely. old bm stains in middle of thighs. will bathe and change complete linen.
--- NOTE | 2019-08-15 14:19 | NUR ---
patient 43% spo2. called respiraotyr. bagging right now. calling dr stratton
--- NOTE | 2019-08-15 14:24 | NUR ---
dr stratton stated to call family because there is nothing more we can do. spoke with family. caroline burgos family decision maker was not available let sonny brother know what was going on. stated he would have caroline burgos call me back
--- NOTE | 2019-08-15 14:25 | NUR ---
respiratory at bedside bagging patient
--- NOTE | 2019-08-15 14:27 | NUR ---
flush decraesed to [address] singh
--- NOTE | 2019-08-15 15:13 | NUR ---
dr stratton at bedside. stated "pause everything" jonah respiratory at bedside. asked if cardizam should be turned off and he stated yes. tube ffeeding on pause. cardizam on pause. bumex on pause. spmohinder with maryanne nicole
--- NOTE | 2019-08-15 15:37 | NUR ---
spoke with anuj wilson
--- NOTE | 2019-08-15 15:52 | NUR ---
speaking to lizzie henry wilson
--- NOTE | 2019-08-15 16:12 | NUR ---
patient hr 52 family at bedside washed off face. morphine given per mar
--- NOTE | 2019-08-15 16:31 | NUR ---
spoke to dr kidd and dr dolan
--- NOTE | 2019-08-15 16:51 | NUR ---
no one has arrived to pronounce
--- NOTE | 2019-08-15 16:52 | NUR ---
spoke with ER stated dr to pronounce was busy and it would be a while until he could get here
--- NOTE | 2019-08-15 17:12 | NUR ---
spoke with aviation electrical technician and steve
--- NOTE | 2019-08-15 17:22 | NUR ---
HOME TO ARRIVE IN 45 MINUTES
--- NOTE | 2019-08-15 18:11 | NUR ---
[facility] REFERENCE NUMBER [id number]
--- NOTE | 2019-08-15 19:04 | NUR ---
patient picked up by
--- NOTE | 2019-08-17 09:05 | MORECARE ---
CASE MANAGEMENT DISCHARGE SUMMARY PATIENT: MIRANDA NATH [place] UNIT: [id number] ADM DATE: 08/09/19 AGE: 79 : 42 SEX: F ROOM/BED: D.2304 AUTHOR: SAE,DOC PHYSICIAN: REFERRING PHYSICIAN: MOE TORRES MD DATE OF SERVICE: 08/17/19 Discharge Plan Patient Name: MIRANDA NATH Facility: [facility]:[place] : 1940 Planned Disposition: Anticipated Discharge Date: Discharge Date: 08/15/2019 Expected LOS: Initial Reviewer: [email or web address] Initial Review Date: 08/09/2019 Generated: 08/17/19 10:05 am DCP- Discharge Planning Updated by [email or web address]: Maria Galarza on 08/11/19 6:[address] Patient Name: MIRANDA NATH Admission Status: ER Accout number: [id number] Admission Date: 08-09-2019 : 1940 Admission Diagnosis:SEPSIS, UNSPECIFIED ORGANISM Attending: MOE TORRES Current LOS: 2 Anticipated DC Date: Planned Disposition: Primary Insurance: MEDICARE A & B Discharge Planning Comments: CM spoke with patient's daughter to complete initial dc planning assessment. CM educated patient on the CM role and verbal consent given by patient to complete assessment. Patient lives at home with her daughter where she is mostly independent with her care. At discharge patient plans to return home and feels this is a safe discharge. CM discussed availability of home health, rehab services, and medical equipment. Her daughter will be her taxicab driver home. Patient has a nebulizer with [facility]. Patient also has [facility] and wishes to resume upon discharge. Patient's daughter denied known discharge needs at this time. CM will continue to follow and will assist as needed with dc plans/needs. Crew Boat Operator: Maria Galarza DCPIA - Discharge Planning Initial Assessment Updated by [email or web address]: Maria Galarza on 08/11/19 7:17 pm * Is the patient Alert and Oriented? Yes * How many steps to enter\exit or inside your home? RAMP * PCP MELISSA * Pharmacy [facility] * Preadmission Environment Home with Family * ADLs Partial Dependent * Other Equipment W/C, BSC, WALKER, NEBULIZER * List name and contact numbers for known caregivers / representatives who currently or will assist patient after discharge: Marily Nath daughter [phone] * Verbal permission to speak to the caregivers and representatives has been obtained from the patient. N/A * Community resources currently utilized Home Health * Please name any agencies selected above. [facility] * Additional services required to return to the preadmission environment? No * Can the patient safely return to the preadmission environment? Yes * Has this patient been hospitalized within the prior 30 days at any hospital? No Last DP export: 08/11/19 6:24 p Patient Name: MIRANDA NATH Page [id number] at 0905 All edits/amendments must be made on the electronic document DICTATION DATE: 08/17/19904 ROLL CAPPER: ANGUS 08/17/19904 RPT#: [id number] DC DATE:08/15/19 STATUS: DIS IN [facility] [address] [place] [address] END OF REPORT
== END 2019-08-15 19:04 | DRG 870 ==
LOC: D.ER 21:16 → D.ICU 08-09 00:32 → D.CVICU 08-09 00:32 → D.ICU 08-09 16:48
PROVIDERS: Family Medicine; ADMIT Family Medicine; ATTEND Family Medicine
PROC: 05H633Z Insertion of Infusion Device into Left Subclavian Vein, Percutaneous Approach (ICD-10-PCS; principal; 2019-08-09)
PROC: 5A1955Z Respiratory Ventilation, Greater than 96 Consecutive Hours (ICD-10-PCS; 2019-08-09)
PROC: 0BH17EZ Insertion of Endotracheal Airway into Trachea, Via Natural or Artificial Opening (ICD-10-PCS; 2019-08-09)
PROC: 04HY32Z Insertion of Monitoring Device into Lower Artery, Percutaneous Approach (ICD-10-PCS; 2019-08-10)
PROC: 4A133B1 Monitoring of Arterial Pressure, Peripheral, Percutaneous Approach (ICD-10-PCS; 2019-08-10)
PROC: 4A133J1 Monitoring of Arterial Pulse, Peripheral, Percutaneous Approach (ICD-10-PCS; 2019-08-10)
DX: A41.9 Sepsis, unspecified organism (principal); R65.21 Severe sepsis with septic shock; J96.01 Acute respiratory failure with hypoxia; J18.1 Lobar pneumonia, unspecified organism; I50.33 Acute on chronic diastolic (congestive) heart failure; K72.00 Acute and subacute hepatic failure without coma; N17.0 Acute kidney failure with tubular necrosis; E87.2 Acidosis; J44.1 Chronic obstructive pulmonary disease with (acute) exacerbation; I48.20 Chronic atrial fibrillation, unspecified; I13.0 Hypertensive heart and chronic kidney disease with heart failure and stage 1 through stage 4 chronic kidney disease, or unspecified chronic kidney disease; E87.0 Hyperosmolality and hypernatremia; E11.9 Type 2 diabetes mellitus without complications; Z79.01 Long term (current) use of anticoagulants; D64.9 Anemia, unspecified; I73.9 Peripheral vascular disease, unspecified; F41.8 Other specified anxiety disorders; N18.9 Chronic kidney disease, unspecified